=== PATIENT | female | born 1985 | race Hispanic/Latino ===

== ENCOUNTER 2018-01-07 00:40 | Emergency (ER) | payer OTHER ==
[2018-01-07 01:56] LABS: Urine Blood 1+ (NEG); Urine Glucose NEGATIVE (NEG); Urine Protein NEGATIVE (NEG); Urine pH 6.5 (5.0-7.0)
[2018-01-07] MEDS ORDERED: DIAZEPAM 10 MG/2 ML INJ SYRINGE ONE (02:23)
[2018-01-07 02:39] LABS: Absolute Monocytes 0.5 K/uL (0.1-1.3); Absolute Neutrophil 6.4 K/uL (1.8-8.0); Basophils % 1.2 % (0-1.3); Hematocrit 37.3 % (36.0-45.0); Lymphocytes % 35.8 % (15.3-44.8); MCH 28.5 pg (27.0-35.0); MCV 83.9 fL (80-100); MPV 8.6 fL (7.6-11.3); Monocytes % 4.1 % (3.3-12.3); RBC Red Blood Cell Count 4.45 M/uL (3.86-4.86)
[2018-01-07 02:42] LABS: Bicarbonate 24 mEq/L (21-31); Glucose Level 93 mg/dL (65-120); Potassium 3.2 mEq/L (3.6-5.0); Sodium Level 135 mEq/L (135-145)
[2018-01-07 02:43] LABS: BUN Blood Urea Nitrogen 17 mg/dL (6-20)
--- NOTE | 2018-01-07 03:55 | ER ---
Nurse's Notes [facility] Name: Leena Muniz Age: 32 yrs Sex: Female : 1985 Arrival Date: 01/07/2018 Time: 00:41 Bed 27 Private MD: Diagnosis: Low back pain;Muscle spasm of back;Cholelithiasis Presentation: 01/07 00:58 Presenting complaint: Patient states: Pt. c/o left side flank pain... has had back pain rk2 x 1 month; however, on Friday pain moved into left side. Denies painful urination. LMP 01/02/10. Denies trauma. Transition of care: patient was not received from another setting of care. Onset of symptoms was January 02, 2018. Risk Assessment: Do you want to hurt yourself or someone else? Patient reports no desire to harm self or others. Initial Sepsis Screen: Does the patient meet any 2 criteria? No. Patient's initial sepsis screen is negative. Does the patient have a suspected source of infection? No. Patient's initial sepsis screen is negative. Care prior to arrival: None. 00:58 Method Of Arrival: Ambulatory rk2 00:58 Acuity: ALEE 3 rk2 Triage Assessment: 02:45 General: Appears distressed, uncomfortable, obese, Behavior is cooperative, appropriate mb3 for age, crying. Pain: Complains of pain in low back area and left low back. 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 - Social history:: Smoking status: Patient/guardian denies using tobacco, the patient reports quitting approximately 8 years ago. - Ebola Screening: : Patient negative for fever greater than or equal to 101.5 degrees Fahrenheit, and additional compatible Ebola Virus Disease symptoms. Screenin:44 Abuse screen: Denies threats or abuse. Nutritional screening: No deficits noted. mb3 Tuberculosis screening: No symptoms or risk factors identified. Fall Risk None identified. Assessment: 03:49 General: Appears in no apparent distress. obese, Behavior is calm, cooperative. Neuro: bb Level of Consciousness is awake, alert, obeys commands, Oriented to person, place, time, situation. Cardiovascular: No deficits noted. Respiratory: Respiratory effort is even, unlabored. GI: Abdomen is obese. : No signs and/or symptoms were reported regarding the genitourinary system. Derm: Skin is pink, warm \T\ dry. Musculoskeletal: Circulation, motion, and sensation intact. Reports pain in low back area. 04:07 Reassessment: Patient and/or family updated on plan of care and expected duration. Pain bb level reassessed. Patient is alert, oriented x 3, equal unlabored respirations, skin warm/dry/pink. pt states pain has improved now /10, verbalized understanding of and agrees to plan of care discharge instructions given pt ambulated with steady gait to exit accompanied by family Patient states feeling better. Vital Signs: 01:00 BP 177 / 104; Pulse 80; Resp 19; Temp 98.1; Pulse Ox 97% on R/A; rk2 01:15 BP 115 / 82; Pulse 72; Resp 16; Pulse Ox 98% ; mb3 01:15 BP 137 / 67; Pulse 73; Resp 16; Pulse Ox 100% on R/A; Pain 2/10; mb3 03:49 BP 101 / 69; Pulse 74; Resp 16 S; Temp 98.2; Pulse Ox 98% on R/A; bb ED Course: 00:41 Patient arrived in ED. am2 00:52 Luis Callaway, RN is Primary Nurse. mb3 01:00 Triage completed. rk2 01:20 Inserted saline lock: 20 gauge in right forearm, using aseptic technique. Blood mb3 collected. 01:29 Xiomy Wilcox FNP-C is PHCP. snw 01:29 Jens Veliz MD is Attending Physician. snw 02:33 CT completed. Patient moved to CT via wheelchair. Patient moved back from CT. cw1 02:35 CT Stone Protocol In Process Unspecified. EDMS 02:44 Patient has correct armband on for positive identification. Bed in low position. Call mb3 light in reach. Side rails up X 1. 02:46 Arm band placed on. mb3 04:06 Chem 7 Sent. bb 04:06 CBC with Diff Sent. bb 04:06 No provider procedures requiring assistance completed. IV discontinued, intact, bb bleeding controlled, No redness/swelling at site. Pressure dressing applied. Administered Medications: 02:25 Drug: Valium 5 mg Route: IVP; Site: right forearm; mb3 02:39 Follow up: Response: No adverse reaction; Pain is decreased mb3 Outcome: 03:55 Discharge ordered by MD. morgan 04:08 Discharged to home ambulatory, with family. sanjuanita 04:08 Condition: stable 04:08 Discharge instructions given to patient, Instructed on discharge instructions, follow up and referral plans. medication usage, Demonstrated understanding of instructions, follow-up care, medications, Prescriptions given X 2. 04:08 Patient left the ED. bb Signatures: Dispatcher [employer] EDMS Xiomy Wilcox, TEXTILE BAG SEWER-C TEXTILE BAG SEWER-Csnw Joan Pickard, RN RN Myriam Benedict cw1 Jannet Kumari am2 Raisa Mckeon, RN RN rk2 Luis Callaway RN RN mb3 Corrections: (The following items were deleted from the chart) 04:07 03:49 BP 101 / 69; Pulse 74bpm; Resp 16bpm; Spontaneous; Pulse Ox 98% RA; sanjuanita gann
--- NOTE | 2018-01-07 03:56 | EDPHYS ---
Physician Documentation [facility] Name: Leena Muniz Age: 32 yrs Sex: Female : 1985 Arrival Date: 01/07/2018 Time: 00:41 Bed 27 Private MD: ED Physician Jens Veliz HPI: 01/07 02:19 This 32 yrs old Female presents to ER via Ambulatory with complaints of Low snw Back Pain. 02:19 The patient presents with pain that is acute, with no known mechanism of injury, and snw decreased range of motion. The symptoms are located in the left low back and left mid back. The pain does not radiate. The problem was sustained from unknown cause. Onset: The symptoms/episode began/occurred suddenly, and became worse and became persistent. Associated signs and symptoms: The patient has no apparent associated signs or symptoms. Severity of symptoms: At their worst the symptoms were severe, in the emergency department the symptoms are unchanged. The patient has not experienced similar symptoms in the past. The patient has not recently seen a physician. Mom and Sister with hx of kidney stones. 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 - Social history:: Smoking status: Patient/guardian denies using tobacco, the patient reports quitting approximately 8 years ago. - Ebola Screening: : Patient negative for fever greater than or equal to 101.5 degrees Fahrenheit, and additional compatible Ebola Virus Disease symptoms. ROS: 02:19 Constitutional: Negative for fever, chills, and weight loss, Eyes: Negative for injury, snw pain, redness, and discharge, ENT: Negative for injury, pain, and discharge, Neck: Negative for injury, pain, and swelling, Cardiovascular: Negative for chest pain, palpitations, and edema, Respiratory: Negative for shortness of breath, cough, wheezing, and pleuritic chest pain, Abdomen/GI: Negative for abdominal pain, nausea, vomiting, diarrhea, and constipation, : Negative for injury, bleeding, discharge, and swelling, MS/Extremity: Negative for injury and deformity, Skin: Negative for injury, rash, and discoloration, Neuro: Negative for headache, weakness, numbness, tingling, and seizure. 02:19 Back: Positive for decreased range of motion, pain at rest, pain with movement, flank pain, on the left. Exam: 02:17 Constitutional: This is a well developed, well nourished patient who is awake, alert, snw and in no acute distress. Head/Face: Normocephalic, atraumatic. Eyes: Pupils equal round and reactive to light, extra-ocular motions intact. Lids and lashes normal. Conjunctiva and sclera are non-icteric and not injected. Cornea within normal limits. Periorbital areas with no swelling, redness, or edema. ENT: Nares patent. No nasal discharge, no septal abnormalities noted. Tympanic membranes are normal and external auditory canals are clear. Oropharynx with no redness, swelling, or masses, exudates, or evidence of obstruction, uvula midline. Mucous membranes moist. Neck: Trachea midline, no thyromegaly or masses palpated, and no cervical lymphadenopathy. Supple, full range of motion without nuchal rigidity, or vertebral point tenderness. No Meningismus. Chest/axilla: Normal chest wall appearance and motion. Nontender with no deformity. No lesions are appreciated. Cardiovascular: Regular rate and rhythm with a normal S1 and S2. No gallops, murmurs, or rubs. Normal PMI, no JVD. No pulse deficits. Respiratory: Lungs have equal breath sounds bilaterally, clear to auscultation and percussion. No rales, rhonchi or wheezes noted. No increased work of breathing, no retractions or nasal flaring. Abdomen/GI: Soft, non-tender, with normal bowel sounds. No distension or tympany. No guarding or rebound. No evidence of tenderness throughout. 02:17 Skin: Warm, dry with normal turgor. Normal color with no rashes, no lesions, and no evidence of cellulitis. MS/ Extremity: Pulses equal, no cyanosis. Neurovascular intact. Full, normal range of motion. Neuro: Awake and alert, GCS 15, oriented to person, place, time, and situation. Cranial nerves II-XII grossly intact. Motor strength 5/5 in all extremities. Sensory grossly intact. Cerebellar exam normal. Normal gait. 02:17 Back: pain, that is moderate, that is severe, of the left low back and left mid back, ROM is painful, with flexion, normal spinal alignment noted, CVA tenderness, that is moderate, is noted on the left, muscle spasm, is appreciated in the left low back and left mid back. Vital Signs: 01:00 BP 177 / 104; Pulse 80; Resp 19; Temp 98.1; Pulse Ox 97% on R/A; rk2 01:15 BP 115 / 82; Pulse 72; Resp 16; Pulse Ox 98% ; mb3 01:15 BP 137 / 67; Pulse 73; Resp 16; Pulse Ox 100% on R/A; Pain 2/10; mb3 03:49 BP 101 / 69; Pulse 74; Resp 16 S; Temp 98.2; Pulse Ox 98% on R/A; bb MDM: 01:39 Patient medically screened. snw 03:59 Data reviewed: vital signs, nurses notes. Data interpreted: Pulse oximetry: on room air snw is 98 %. Interpretation: normal. Counseling: I had a detailed discussion with the patient and/or guardian regarding: the historical points, exam findings, and any diagnostic results supporting the discharge/admit diagnosis, lab results, radiology results, the need for outpatient follow up, to return to the emergency department if symptoms worsen or persist or if there are any questions or concerns that arise at home. Special discussion: Based on the history and exam findings, there is no indication for further emergent testing or inpatient evaluation. I discussed with the patient/guardian the need to see the primary care provider for further evaluation of the symptoms. 01/07 01:22 Order name: Urine Dipstick--Ancillary (enter results); Complete Time: 02:02 2 01/07 01:22 Order name: Urine --Ancillary (enter results); Complete Time: 02:02 rg2 01/07 02:10 Order name: CBC with Diff snw 01/07 02:10 Order name: Chem 7 w 01/07 02:10 Order name: CBC with Automated Diff; Complete Time: 02:51 EDMS 01/07 01:44 Order name: CT Stone Protocol [facility] 01/07 02:10 Order name: Basic Metabolic Panel; Complete Time: 02:51 EDMS Administered Medications: 02:25 Drug: Valium 5 mg Route: IVP; Site: right forearm; mb3 02:39 Follow up: Response: No adverse reaction; Pain is decreased mb3 Disposition: 01/07/18 03:55 Discharged to Home. Impression: Low back pain, Muscle spasm of back, Cholelithiasis. - Condition is Stable. - Discharge Instructions: Back Pain, Adult, Fat and Cholesterol Restricted Diet, Muscle Cramps and Spasms, Musculoskeletal Pain, Cholelithiasis, Back Injury Prevention, [id number], Back Exercises, [id number], Cryotherapy, Heat Therapy. - Prescriptions for Diclofenac Sodium 75 mg Oral Tablet Sustained Release - take 1 tablet by ORAL route 2 times per day; 30 tablet. orphenadrine citrate 100 mg Oral Tablet Sustained Release - take 1 tablet by ORAL route 2 times per day As needed; 20 tablet. - Work release form, Family Work Release, Medication Reconciliation Form, Thank You Letter, Antibiotic Education, Prescription Opioid Use form. - Follow up: Private Physician; When: 1 - 2 days; Reason: Recheck today's complaints, Continuance of care, Re-evaluation by your physician. Follow up: Emergency Department; When: As needed; Reason: Worsening of condition. Addendum: 01/08/2018 06:59 Co-signature as Attending Physician, Jens Veliz MD I agree with the assessment and c duque plan of care. Signatures: Dispatcher [employer] EDJens Cheng MD MD cha Therrien, Shelly, OPERATIONS AND MAINTENANCE MANAGER-C OPERATIONS AND MAINTENANCE MANAGER-Csnw Joan Pickard, RN RN bb Raisa Mckeon RN RN rk2 Luis Callaway RN RN mb3 Corrections: (The following items were deleted from the chart) 01/07 04:08 03:55 01/07/2018 03:55 Discharged to Home. Impression: Low back pain; Muscle spasm of bb back; Cholelithiasis. Condition is Stable. Forms are Medication Reconciliation Form, Thank You Letter, Antibiotic Education, Prescription Opioid Use. Follow up: Private Physician; When: 1 - 2 days; Reason: Recheck today's complaints, Continuance of care, Re-evaluation by your physician. Follow up: Emergency Department; When: As needed; Reason: Worsening of condition. snw
[2018-01-07 04:15] VITALS: BP 101/69; TEMP 98.2; O2SAT 98
--- NOTE | 2018-01-07 08:57 | RAD REPORT ---
EXAM DESCRIPTION: CT - Stone Protocol - 01/07/2018 6:07 am CLINICAL HISTORY: Flank pain. COMPARISON: None. TECHNIQUE: Axial images were obtained without oral or IV contrast. Lack of contrast limits solid org an and vascular assessment. The [id number] spans the entirety of the system partially obscuring uppermost abdomen and lung bases. Coronal reformatted images were obtained and reviewed. All CT scans are performed using dose optimization technique as appropriate and may include automated exposure control or mA/KV adjustment according to patient size. FINDINGS: The lower lung patel are clear. Imaged portions of the liver and spleen show no suspicious findings on non-contrast imaging.Cholelith iasis The pancreas and adrenal glands are normal. No pathologic lymphadenopathy in the abdomen or pel vis. No urinary tract stones or obstructive uropathy. No bowel obstruction, free air, free fluid or abscess. Normal appendix noted. No significant bony abnormality. IMPRESSION: Cholelithiasis.
== END 2018-01-07 04:08 | disposition home or self-care (01) ==
LOC: ER 00:40
DX: K80.20 Calculus of gallbladder without cholecystitis without obstruction (principal); M62.830 Muscle spasm of back; Z88.0 Allergy status to penicillin
CPT/HCPCS: 36415; 74176; 76377; 80048; 81003; 81025; 85025; 96374; 99284; J3360

== ENCOUNTER 2018-03-07 12:14 | Emergency (ER) | payer OTHER ==
[2018-03-07 13:29] LABS: Absolute Lymphocytes (CBC) 2.4 K/uL (0.7-4.9); Absolute Monocytes 0.6 K/uL (0.1-1.3); Absolute Neutrophil 9.1 K/uL (1.8-8.0); Basophils % 0.7 % (0-1.3); Eosinophils % 0.8 % (0-4.4); Hematocrit 39.6 % (36.0-45.0); Lymphocytes % 19.3 % (15.3-44.8); MCH 28.9 pg (27.0-35.0); MCV 84.5 fL (80-100); MPV 7.8 fL (7.6-11.3); Monocytes % 4.8 % (3.3-12.3); RBC Red Blood Cell Count 4.69 M/uL (3.86-4.86)
[2018-03-07 13:33] LABS: Protime INR 0.92
[2018-03-07] MEDS ORDERED: LORazepam 2 MG/ML VIAL ONE (13:43)
[2018-03-07 13:46] LABS: Magnesium 2.1 mg/dL (1.8-2.4); Potassium 3.7 mmol/L (3.5-5.1)
--- NOTE | 2018-03-07 14:17 | RAD REPORT ---
EXAM DESCRIPTION: Noa Single View03/07/2018 2:03 pm CLINICAL HISTORY: Chest pain COMPARISON: 2016 FINDINGS: The lungs appear clear of acute infiltrate. The heart is normal size IMPRESSION: No acute abnormalities displayed
--- NOTE | 2018-03-07 15:03 | ER ---
Nurse's Notes [facility] Name: Leena Muniz Age: 32 yrs Sex: Female : 1985 Arrival Date: 03/07/2018 Time: 12:17 Bed 15 Private MD: None, None Diagnosis: Panic disorder [episodic paroxysmal anxiety] without agoraphobia Presentation: 03/07 12:33 Presenting complaint: Patient states: feeling very anxious, CP X 2 weeks, intermittent, iw this morning felt very anxious and sweaty, dizzy, SOB, neck and right arm started hurting, feels like a lot of tension, felt like she had a panic attack. Transition of care: patient was not received from another setting of care. Onset of symptoms was March 07, 2018. Risk Assessment: Do you want to hurt yourself or someone else? Patient reports no desire to harm self or others. Initial Sepsis Screen: Does the patient meet any 2 criteria? No. Patient's initial sepsis screen is negative. Does the patient have a suspected source of infection? No. Patient's initial sepsis screen is negative. Care prior to arrival: None. 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 - Social history:: Smoking status: Patient/guardian denies using tobacco. - Ebola Screening: : Patient negative for fever greater than or equal to 101.5 degrees Fahrenheit, and additional compatible Ebola Virus Disease symptoms Patient denies exposure to infectious person Patient denies travel to an Ebola-affected area in the 21 days before illness onset No symptoms or risks identified at this time. Screenin:23 Abuse screen: Denies threats or abuse. Denies injuries from another. Nutritional aj screening: No deficits noted. Tuberculosis screening: No symptoms or risk factors identified. Fall Risk None identified. Assessment: 13:23 General: Appears in no apparent distress. comfortable, Behavior is cooperative, aj appropriate for age, anxious. Pain: Complains of pain in chest. Neuro: Level of Consciousness is awake, alert, obeys commands, Oriented to person, place, time, situation, Appropriate for age. Cardiovascular: Capillary refill < 3 seconds in bilateral fingers Patient's skin is warm and dry. Cardiovascular: Respiratory: Airway is patent Respiratory effort is even, unlabored, Respiratory pattern is regular, symmetrical. GI: No signs and/or symptoms were reported involving the gastrointestinal system. Abdomen is obese. Derm: Skin is intact, is healthy with good turgor, Skin is pink, warm \T\ dry. normal. 15:17 Reassessment: Patient appears in no apparent distress at this time. No changes from aj previously documented assessment. Patient and/or family updated on plan of care and expected duration. Pain level reassessed. Patient is alert, oriented x 3, equal unlabored respirations, skin warm/dry/pink. Patient states feeling better. Patient states symptoms have improved. Vital Signs: 12:35 BP 143 / 110; Pulse 88; Resp 18; Temp 98.2; Pulse Ox 99% ; Weight 95.25 kg; Height 5 iw ft. (152.40 cm); Pain 9/10; 14:45 BP 118 / 82; Pulse 76; Resp 17; Pulse Ox 96% on R/A; aj 12:35 Body Mass Index 41.01 (95.25 kg, 152.40 cm) iw ED Course: 12:17 Patient arrived in ED. mr 12:17 None, None is Private Physician. mr 12:35 Triage completed. iw 12:36 Arm band placed on. iw 12:43 Jannet Perez, RN is Primary Nurse. aj 12:56 Dwayne Head PA is PHCP. jr8 12:56 Jose Paiz MD is Attending Physician. jr8 13:23 Patient has correct armband on for positive identification. Bed in low position. Adult aj w/ patient. Pulse ox on. NIBP on. 13:23 Inserted saline lock: 20 gauge in right antecubital area, using aseptic technique. aj Blood collected. 13:51 EKG done, by ED staff, reviewed by Dwayne FORMAN. jb1 13:58 X-ray completed. Portable x-ray completed in exam room. Patient tolerated procedure la2 well. 14:03 XRAY Chest (1 view) In Process Unspecified. EDMS 14:45 No provider procedures requiring assistance completed. Patient maintains SpO2 aj saturation greater than 95% on room air. 15:17 IV discontinued, intact, bleeding controlled, No redness/swelling at site. Pressure aj dressing applied. Administered Medications: 13:43 Drug: Ativan 1 mg Route: IVP; Site: right antecubital; aj 14:28 Follow up: Response: Anxiety decreased aj Outcome: 15:02 Discharge ordered by MD. baker 15:17 Discharged to home ambulatory, with friend. aj 15:17 Condition: good 15:17 Discharge instructions given to patient, Instructed on discharge instructions, follow up and referral plans. medication usage, Demonstrated understanding of instructions, follow-up care, medications, Prescriptions given X 1. 15:19 Patient left the ED. aj Signatures: Dispatcher [employer] EDBhavik Yeager jb1 Jannet Perez RN RN aj Rivera, Maria mr Williams, Irene, RN RN iw Roszak, Josh, PA PA jr8 Shelia Ross2
--- NOTE | 2018-03-07 15:03 | EDPHYS ---
Physician Documentation [facility] Name: Leena Muniz Age: 32 yrs Sex: Female : 1985 Arrival Date: 03/07/2018 Time: 12:17 Bed 15 Private MD: None, None ED Physician Jose Paiz HPI: 03/07 14:43 This 32 yrs old Female presents to ER via Wheelchair with complaints of Chest jr8 Pain, Dizziness. 14:43 Onset: The symptoms/episode began/occurred acutely, today. Associated signs and jr8 symptoms: Pertinent positives: nausea, numbness, tingling, anxiety. The patient has not experienced similar symptoms in the past. The patient has not recently seen a physician. Patient stated that she had bad news given to her the other day. Has been stressed since then. Today had bad anxiety. Started to have chest pain, shortness of breath, numbness of lips, and nausea. Thinks she had panic attack. 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 - Social history:: Smoking status: Patient/guardian denies using tobacco. - Ebola Screening: : Patient negative for fever greater than or equal to 101.5 degrees Fahrenheit, and additional compatible Ebola Virus Disease symptoms Patient denies exposure to infectious person Patient denies travel to an Ebola-affected area in the 21 days before illness onset No symptoms or risks identified at this time. ROS: 14:43 Eyes: Negative for injury, pain, redness, and discharge, ENT: Negative for injury, jr8 pain, and discharge, Neck: Negative for injury, pain, and swelling, Back: Negative for injury and pain, MS/Extremity: Negative for injury and deformity, Skin: Negative for injury, rash, and discoloration. 14:43 Cardiovascular: Positive for chest pain, Negative for edema, orthopnea, palpitations, paroxysmal nocturnal dyspnea. 14:43 Respiratory: Positive for shortness of breath, Negative for cough, dyspnea on exertion, hemoptysis, orthopnea, pleurisy, sputum production, wheezing. 14:43 Abdomen/GI: Positive for nausea, Negative for abdominal pain, vomiting, diarrhea, abdominal distension, anorexia, dysphagia, hematemesis, black/tarry stool, rectal pain, rectal bleeding, bowel incontinence, flatulence. 14:43 Neuro: Positive for numbness, tingling. 14:43 Psych: Positive for anxiety. Exam: 14:43 Eyes: Pupils equal round and reactive to light, extra-ocular motions intact. Lids and jr8 lashes normal. Conjunctiva and sclera are non-icteric and not injected. Cornea within normal limits. Periorbital areas with no swelling, redness, or edema. ENT: Nares patent. No nasal discharge, no septal abnormalities noted. Tympanic membranes are normal and external auditory canals are clear. Oropharynx with no redness, swelling, or masses, exudates, or evidence of obstruction, uvula midline. Mucous membranes moist. Neck: Trachea midline, no thyromegaly or masses palpated, and no cervical lymphadenopathy. Supple, full range of motion without nuchal rigidity, or vertebral point tenderness. No Meningismus. Cardiovascular: Regular rate and rhythm with a normal S1 and S2. No gallops, murmurs, or rubs. Normal PMI, no JVD. No pulse deficits. Respiratory: Lungs have equal breath sounds bilaterally, clear to auscultation and percussion. No rales, rhonchi or wheezes noted. No increased work of breathing, no retractions or nasal flaring. Abdomen/GI: Soft, non-tender, with normal bowel sounds. No distension or tympany. No guarding or rebound. No evidence of tenderness throughout. Back: No spinal tenderness. No costovertebral tenderness. Full range of motion. Skin: Warm, dry with normal turgor. Normal color with no rashes, no lesions, and no evidence of cellulitis. MS/ Extremity: Pulses equal, no cyanosis. Neurovascular intact. Full, normal range of motion. Neuro: Awake and alert, GCS 15, oriented to person, place, time, and situation. Cranial nerves II-XII grossly intact. Motor strength 5/5 in all extremities. Sensory grossly intact. Cerebellar exam normal. Normal gait. 14:43 Psych: Behavior/mood is anxious, Affect is calm, Oriented to person, place, time, Patient has no thoughts/intents to harm self or others. Judgement / Insight is normal. Memory is normal. Delusions/hallucinations are not present. Vital Signs: 12:35 BP 143 / 110; Pulse 88; Resp 18; Temp 98.2; Pulse Ox 99% ; Weight 95.25 kg; Height 5 iw ft. (152.40 cm); Pain 9/10; 14:45 BP 118 / 82; Pulse 76; Resp 17; Pulse Ox 96% on R/A; aj 12:35 Body Mass Index 41.01 (95.25 kg, 152.40 cm) iw MDM: 12:56 Patient medically screened. [facility] 14:43 Data reviewed: vital signs, nurses notes, lab test result(s), EKG, radiologic studies, jr plain films, and as a result, I will discharge patient. Data interpreted: Pulse oximetry: on room air is 96 %. Interpretation: normal. Counseling: I had a detailed discussion with the patient and/or guardian regarding: the historical points, exam findings, and any diagnostic results supporting the discharge/admit diagnosis, lab results, radiology results, the need for outpatient follow up, a family practitioner, to return to the emergency department if symptoms worsen or persist or if there are any questions or concerns that arise at home. Response to treatment: the patient's symptoms have resolved after treatment, and as a result, I will discharge patient. 03/07 12:56 Order name: Basic Metabolic Panel; Complete Time: 14:03 [facility] 03/07 12:56 Order name: CBC with Diff; Complete Time: 13:33 [facility] 03/07 12:56 Order name: Magnesium; Complete Time: 14:03 [facility] 03/07 12:56 Order name: NT PRO-BNP; Complete Time: 14:03 [facility] 03/07 12:56 Order name: PT-INR; Complete Time: 13:35 [facility] 03/07 12:56 Order name: Troponin (emerg Dept Use Only); Complete Time: 14:03 [facility] 03/07 12:56 Order name: Urine Test (obtain specimen) [facility] 03/07 12:56 Order name: XRAY Chest (1 view); Complete Time: 14:27 [facility] 03/07 12:56 Order name: EKG; Complete Time: 12:57 [facility] 03/07 12:56 Order name: Cardiac monitoring; Complete Time: 13:25 [facility] 03/07 12:56 Order name: EKG - Nurse/Tech; Complete Time: 14:47 03/07 12:56 Order name: IV Saline Lock; Complete Time: 13:25 03/07 12:56 Order name: Labs collected and sent; Complete Time: 13:25 03/07 12:56 Order name: O2 Per Protocol; Complete Time: 13:25 03/07 12:56 Order name: O2 Sat Monitoring; Complete Time: 13: Administered Medications: 13:43 Drug: Ativan 1 mg Route: IVP; Site: right antecubital; aj 14:28 Follow up: Response: Anxiety decreased aj Disposition: 16:12 Co-signature as Attending Physician, Jose Paiz MD. rn Disposition: 03/07/18 15:02 Discharged to Home. Impression: Panic disorder [episodic paroxysmal anxiety] without agoraphobia. - Condition is Stable. - Discharge Instructions: Panic Attacks. - Prescriptions for Hydroxyzine HCl 50 mg Oral Tablet - take 1 tablet by ORAL route every 8 hours As needed; 20 tablet. - Medication Reconciliation Form, Thank You Letter, Antibiotic Education, Prescription Opioid Use form. - Follow up: Private Physician; When: 5 - 6 days; Reason: Recheck today's complaints, Continuance of care, Re-evaluation by your physician. - Problem is new. - Symptoms have improved. Signatures: Dispatcher [employer] EDJannet Kaiser RN RN aj Williams, Irene, RN RN iw Nieto, Roman, MD MD rn Roszak, Josh, PA PA jr8 Corrections: (The following items were deleted from the chart) 15:19 15:02 03/07/2018 15:02 Discharged to Home. Impression: Panic disorder [episodic aj paroxysmal anxiety] without agoraphobia. Condition is Stable. Forms are Medication Reconciliation Form, Thank You Letter, Antibiotic Education, Prescription Opioid Use. Follow up: Private Physician; When: 5 - 6 days; Reason: Recheck today's complaints, Continuance of care, Re-evaluation by your physician. Problem is new. Symptoms have improved. 8
[2018-03-07 15:23] VITALS: TEMP 98.2
[2018-03-07 15:24] VITALS: BP 118/82; O2SAT 96
--- NOTE | 2018-03-09 07:45 | EKG ---
Test Date: 2018-03-07 Test Time: 13:49:33 Work Ticket Distributor: MB MEASUREMENT RESULTS: Intervals: Rate: 69 [place]: 144 QRSD: 76 QT: 404 QTc: 432 [place]: P: 13 OH: 144 QRS: 38 T: 22 INTERPRETIVE STATEMENTS: Normal sinus rhythm Normal ECG Compared to ECG 06/14/2016 19:30:35 No significant changes Electronically Signed On 03-09-18 07:44:52 CDT by Ben Beauchamp
== END 2018-03-07 15:19 | disposition home or self-care (01) ==
LOC: ER 12:14
DX: F41.0 Panic disorder [episodic paroxysmal anxiety] (principal); Z88.0 Allergy status to penicillin
CPT/HCPCS: 36415; 71045; 80048; 83735; 83880; 84484; 85025; 85610; 93005; 96374; 99284

== ENCOUNTER 2019-03-07 02:43 | Emergency (ER) | payer OTHER, SELFPAY ==
[2019-03-07] MEDS ORDERED: ONDANSETRON 4 MG/2 ML VIAL ONE (03:37)
[2019-03-07] MEDS ORDERED: NA CHLORIDE 0.9% 1,000 ML ONE (04:08)
[2019-03-07 04:13] LABS: Absolute Lymphocytes (CBC) 3.1 K/uL (0.7-4.9); Basophils % 0.6 % (0-1.3); Eosinophils % 1.1 % (0-4.4); Hematocrit 39.1 % (36.0-45.0); Lymphocytes % 24.3 % (15.3-44.8); MPV 8.5 fL (7.6-11.3); Monocytes % 4.5 % (3.3-12.3); RBC Red Blood Cell Count 4.61 M/uL (3.86-4.86)
[2019-03-07 04:34] LABS: Albumin 3.7 g/dL (3.4-5.0); Bilirubin Direct 0.1 mg/dL (0-0.2); Bilirubin Total 0.4 mg/dL (0.2-1.0); Potassium 4.1 mmol/L (3.5-5.1); Protein, Total 8.1 g/dL (6.4-8.2)
[2019-03-07 04:34] LABS: Urine Blood 2+ (NEG); Urine Glucose NEGATIVE (NEG); Urine Protein NEGATIVE (NEG); Urine Specific Gravity >1.030 (1.005-1.030)
[2019-03-07] MEDS ORDERED: MAGNE/ALUM HYDROXD 30 ML UCUP ONE (04:51)
[2019-03-07] MEDS ORDERED: LIDOCAINE VISCOUS 2% SOLN 15 ML UDC ONE (04:51)
[2019-03-07] MEDS ORDERED: PANTOPRAZOLE 40 MG INJ ONE (04:51)
--- NOTE | 2019-03-07 05:24 | ER ---
Nurse's Notes [facility] Name: Leena Muniz Age: 33 yrs Sex: Female : 1985 Arrival Date: 03/07/2019 Time: 02:44 Bed 5 Private MD: Diagnosis: Nausea with vomiting, unspecified;Gastritis, unspecified, without bleeding Presentation: 03/07 04:00 Presenting complaint: Patient states: Pt reports abdominal pain that radiates to her ea back, reports it started last night around 9 PM and progressively got worse. Transition of care: patient was not received from another setting of care. Onset of symptoms was March 07, 2019. Risk Assessment: Do you want to hurt yourself or someone else? Patient reports no desire to harm self or others. Initial Sepsis Screen: Does the patient meet any 2 criteria? No. Patient's initial sepsis screen is negative. Does the patient have a suspected source of infection? No. Patient's initial sepsis screen is negative. Care prior to arrival: None. 04:00 Acuity: ALEE 3 ea 04:00 Method Of Arrival: Ambulatory ea Triage Assessment: 04:00 General: Appears uncomfortable, Behavior is appropriate for age. Pain: Complains of ea pain in abdomen. Neuro: Level of Consciousness is awake, alert, obeys commands, Oriented to person, place, time, situation. GI: Reports nausea, vomiting, since 2100. 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 - Social history:: Smoking status: Patient/guardian denies using tobacco. - Ebola Screening: : No symptoms or risks identified at this time. Screenin:59 Abuse screen: Denies threats or abuse. Nutritional screening: No deficits noted. ea Tuberculosis screening: No symptoms or risk factors identified. Fall Risk IV access (20 points). Assessment: 04:06 General: Appears uncomfortable, Behavior is appropriate for age. Pain: Complains of ea pain in abdomen. Neuro: Level of Consciousness is awake, alert, obeys commands, Oriented to person, place, time, situation. Cardiovascular: Patient's skin is warm and dry. Respiratory: Airway is patent Respiratory effort is even, unlabored, Respiratory pattern is regular, symmetrical. GI: Abdomen is non-distended, obese, Bowel sounds present X 4 quads. Abd is soft and non tender X 4 quads. Derm: Skin is dry, Skin is pale, Skin temperature is warm. 05:34 Reassessment: Patient is alert, oriented x 3, equal unlabored respirations, skin bb warm/dry/pink. pt verbalized understanding of and agrees to plan of care discharge instructions given pt ambulated with steady gait to exit accompanied by family Patient states feeling better. Vital Signs: 03:17 BP 156 / 86; Pulse 89; Resp 18; Temp 98.3; Pulse Ox 100% on R/A; Weight 90.72 kg; ea Height 4 ft. 11 in. (149.86 cm); Pain 8/10; 05:35 BP 124 / 85; Pulse 70; Resp 16 S; Temp 98.2(O); Pulse Ox 97% ; bb 03:17 Body Mass Index 40.39 (90.72 kg, 149.86 cm) ea ED Course: 02:44 Patient arrived in ED. am2 03:04 Migel Rico MD is Attending Physician. tw4 03:19 Adrienne Thorpe, TANA is Primary Nurse. ea 03:20 Patient has correct armband on for positive identification. Placed in gown. Bed in low ea position. Call light in reach. 03:20 Patient placed in an exam room, on a stretcher, on pulse oximetry. ea 03:58 Inserted saline lock: 24 gauge in right hand, using aseptic technique. Blood collected. ea 04:04 Triage completed. ea 05:35 No provider procedures requiring assistance completed. IV discontinued, intact, bb bleeding controlled, No redness/swelling at site. Pressure dressing applied. Administered Medications: 04:00 Drug: NS 0.9% 1000 ml Route: IV; Rate: 1 bolus; Site: right hand; ea 05:34 Follow up: IV Status: Completed infusion; IV Intake: 900ml bb 04:06 Drug: Zofran 4 mg Route: IVP; Site: right hand; ea 05:33 Follow up: Response: No adverse reaction bb 04:40 Drug: ProTONIX 40 mg Route: IVP; Site: right antecubital; shaun 05:33 Follow up: Response: No adverse reaction bb 05:00 Drug: GI Cocktail without - (Maalox Suspension 30 ml, Lidocaine Liquid 2 % 15 cc3 ml) Route: PO; 05:33 Follow up: Response: No adverse reaction; Marked relief of symptoms bb Intake: 05:34 IV: 900ml; Total: 900ml. bb Outcome: 05:23 Discharge ordered by MD. saldana 05:35 Discharged to home ambulatory, with family. bb 05:35 Condition: stable 05:35 Discharge instructions given to patient, Instructed on discharge instructions, follow up and referral plans. medication usage, Demonstrated understanding of instructions, follow-up care, medications, Prescriptions given X 3. 05:36 Patient left the ED. bb Signatures: Joan Pickard, RN RN Jannet Parrish am2 Adrienne Thorpe, RN RN Migel Castillo MD MD tw4 Emani Rapheal cc3
--- NOTE | 2019-03-07 05:25 | EDPHYS ---
Physician Documentation [facility] Name: Leena Muniz Age: 33 yrs Sex: Female : 1985 Arrival Date: 03/07/2019 Time: 02:44 Bed 5 Private MD: ED Physician Migel Rico HPI: 03/07 04:37 This 33 yrs old Female presents to ER via Ambulatory with complaints of tw4 Abdominal Pain, Vomiting. 04:37 The patient presents to the emergency department with nausea, vomiting, abdominal pain, tw4 of the epigastric area. Onset: The symptoms/episode began/occurred 4 hour(s) ago. Possible causes: bad food exposure, fajita meat. The symptoms are aggravated by nothing. The symptoms are alleviated by nothing. Severity of symptoms: At their worst the symptoms were moderate in the emergency department the symptoms are unchanged. The patient has not experienced similar symptoms in the past. 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 - Social history:: Smoking status: Patient/guardian denies using tobacco. - Ebola Screening: : No symptoms or risks identified at this time. ROS: 05:16 Constitutional: Negative for fever, chills, and weight loss, Eyes: Negative for injury, tw4 pain, redness, and discharge, Cardiovascular: Negative for chest pain, palpitations, and edema, Respiratory: Negative for shortness of breath, cough, wheezing, and pleuritic chest pain, Back: Negative for injury and pain, MS/Extremity: Negative for injury and deformity, Skin: Negative for injury, rash, and discoloration, Neuro: Negative for headache, weakness, numbness, tingling, and seizure. 05:16 Abdomen/GI: Positive for abdominal pain, nausea and vomiting, nausea, vomiting, and diarrhea, Negative for Exam: 05:16 Constitutional: This is a well developed, well nourished patient who is awake, alert, tw4 and in no acute distress. Head/Face: Normocephalic, atraumatic. Chest/axilla: Normal chest wall appearance and motion. Nontender with no deformity. No lesions are appreciated. Cardiovascular: Regular rate and rhythm with a normal S1 and S2. No gallops, murmurs, or rubs. Normal PMI, no JVD. No pulse deficits. Respiratory: Lungs have equal breath sounds bilaterally, clear to auscultation and percussion. No rales, rhonchi or wheezes noted. No increased work of breathing, no retractions or nasal flaring. Back: No spinal tenderness. No costovertebral tenderness. Full range of motion. MS/ Extremity: Pulses equal, no cyanosis. Neurovascular intact. Full, normal range of motion. Neuro: Awake and alert, GCS 15, oriented to person, place, time, and situation. Cranial nerves II-XII grossly intact. Motor strength 5/5 in all extremities. Sensory grossly intact. Cerebellar exam normal. Normal gait. 05:16 Abdomen/GI: Inspection: abdomen appears normal, Bowel sounds: diminished, Palpation: moderate abdominal tenderness, in the epigastric area. Vital Signs: 03:17 BP 156 / 86; Pulse 89; Resp 18; Temp 98.3; Pulse Ox 100% on R/A; Weight 90.72 kg; ea Height 4 ft. 11 in. (149.86 cm); Pain 8/10; 05:35 BP 124 / 85; Pulse 70; Resp 16 S; Temp 98.2(O); Pulse Ox 97% ; bb 03:17 Body Mass Index 40.39 (90.72 kg, 149.86 cm) ea MDM: 03:04 Patient medically screened. tw4 05:16 Differential diagnosis: gastritis. Data reviewed: vital signs, nurses notes. Data tw4 interpreted: Pulse oximetry: Interpretation: normal. Counseling: I had a detailed discussion with the patient and/or guardian regarding: the historical points, exam findings, and any diagnostic results supporting the discharge/admit diagnosis, lab results. Medication response: Zofran relieved the patient's nausea. Response to treatment: the patient's symptoms have markedly improved after treatment, and as a result, I will discharge patient. Special discussion: Based on the patient's Hx, exam, and Dx evaluation, there is no indication for emergent surgery or inpatient Tx. It is understood by the patient/guardian that if the Sx's persist or worsen they need to return immediately for re-evaluation. I discussed with the patient/guardian in detail that at this point there is no indication for admission to the hospital. It is understood, however, that if the symptoms persist or worsen the patient needs to return immediately for re-evaluation. 03/07 03:05 Order name: Basic Metabolic Panel; Complete Time: 04:35 03/07 04:35 Interpretation: Normal except: CL 109; GFR 80. 03/07 03:05 Order name: CBC with Diff; Complete Time: 04:35 03/07 04:36 Interpretation: Normal except: WBC 12.9. 03/07 03:05 Order name: Creatinine for Radiology; Complete Time: 04:36 03/07 04:36 Interpretation: Within normal limits: CRE 0.83; GFR 78. 03/07 03:05 Order name: Hepatic Function; Complete Time: 04:36 03/07 04:36 Interpretation: Normal except: GLOB 4.4; A/G 0.8. 03/07 03:05 Order name: Lipase; Complete Time: 04:36 03/07 04:36 Interpretation: Within normal limits: LIP 135. 03/07 04:16 Order name: Urine Dipstick--Ancillary (enter results); Complete Time: 04:36 03/07 04:36 Interpretation: Normal except: UBLD 2+. 03/07 03:05 Order name: IV Saline Lock; Complete Time: 03:57 03/07 03:05 Order name: Labs collected and sent; Complete Time: 03:57 03/07 03:05 Order name: Urine Dipstick-Ancillary (obtain specimen); Complete Time: 04:05 03/07 04:16 Order name: Urine --Ancillary (enter results) 03/07 03:05 Order name: Urine Test (obtain specimen); Complete Time: 04:05 Administered Medications: 04:00 Drug: NS 0.9% 1000 ml Route: IV; Rate: 1 bolus; Site: right hand; ea 05:34 Follow up: IV Status: Completed infusion; IV Intake: 900ml bb 04:06 Drug: Zofran 4 mg Route: IVP; Site: right hand; ea 05:33 Follow up: Response: No adverse reaction bb 04:40 Drug: ProTONIX 40 mg Route: IVP; Site: right antecubital; ea 05:33 Follow up: Response: No adverse reaction bb 05:00 Drug: GI Cocktail without - (Maalox Suspension 30 ml, Lidocaine Liquid 2 % 15 cc3 ml) Route: PO; 05:33 Follow up: Response: No adverse reaction; Marked relief of symptoms bb Disposition: 03/07/19 05:23 Discharged to Home. Impression: Nausea with vomiting, unspecified, Gastritis, unspecified, without bleeding. - Condition is Stable. - Discharge Instructions: Gastritis, Adult, Nausea and Vomiting, Adult, Gastritis, Adult, [id number]. - Prescriptions for Protonix 40 mg Oral Tablet - take 1 tablet by ORAL route once daily; 30 tablet. Zofran 4 mg Oral Tablet - take 1 tablet by ORAL route every 12 hours As needed; 6 tablet. - Medication Reconciliation Form, Thank You Letter, Antibiotic Education, Prescription Opioid Use form. - Follow up: Private Physician; When: Upon discharge from the Emergency Department; Reason: If symptoms return, Recheck today's complaints, Continuance of care. - Problem is new. - Symptoms have improved. Signatures: Dispatcher [employer] EDMS Joan Pickard RN RN Adrienne Munoz RN RN Migel Castillo MD MD tw4 Emani Raphael cc3 Corrections: (The following items were deleted from the chart) 05:24 05:23 03/07/2019 05:23 Discharged to Home. Impression: Nausea with vomiting, tw4 unspecified; Gastritis, unspecified, without bleeding. Condition is Stable. Forms are Medication Reconciliation Form, Thank You Letter, Antibiotic Education, Prescription Opioid Use. Follow up: Private Physician; When: Upon discharge from the Emergency Department; Reason: If symptoms return, Recheck today's complaints, Continuance of care. tw4 05:36 05:24 03/07/2019 05:23 Discharged to Home. Impression: Nausea with vomiting, bb unspecified; Gastritis, unspecified, without bleeding. Condition is Stable. Forms are Medication Reconciliation Form, Thank You Letter, Antibiotic Education, Prescription Opioid Use. Follow up: Private Physician; When: Upon discharge from the Emergency Department; Reason: If symptoms return, Recheck today's complaints, Continuance of care. Problem is new. Symptoms have improved. tw4
[2019-03-07 06:29] VITALS: BP 124/85; TEMP 98.2; O2SAT 97
== END 2019-03-07 05:36 | disposition home or self-care (01) ==
LOC: ER 02:43
DX: K29.70 Gastritis, unspecified, without bleeding (principal); Z88.0 Allergy status to penicillin
CPT/HCPCS: 36415; 80048; 80076; 81003; 81025; 83690; 85025; 99284; C9113; J2405; J7030

== ENCOUNTER 2019-06-04 00:17 | Emergency (ER) | payer SELFPAY ==
[2019-06-04] MEDS ORDERED: ONDANSETRON 4 MG/2 ML VIAL ONE (01:45)
[2019-06-04] MEDS ORDERED: ASPIRIN 81 MG CHEWABLE TABLET ONE (01:45)
[2019-06-04 01:57] LABS: Absolute Lymphocytes (CBC) 3.5 K/uL (0.7-4.9); Basophils % 0.7 % (0-1.3); Hematocrit 35.9 % (36.0-45.0); Lymphocytes % 44.9 % (15.3-44.8); MPV 8.6 fL (7.6-11.3); Protime INR 0.93; RBC Red Blood Cell Count 4.19 M/uL (3.86-4.86)
[2019-06-04 02:13] LABS: ALT/SGPT 50 U/L (12-78); AST/SGOT 24 U/L (15-37); Albumin 3.5 g/dL (3.4-5.0); Alkaline Phosphatase 97 U/L (45-117); BUN Blood Urea Nitrogen 16 mg/dL (7-18); Bicarbonate 27 mmol/L (21-32); Bilirubin Direct 0.1 mg/dL (0-0.2); Bilirubin Total 0.5 mg/dL (0.2-1.0); Glucose Level 105 mg/dL (74-106); NT PRO-BNP 36 pg/mL (<125); Potassium 3.4 mmol/L (3.5-5.1); Protein, Total 6.8 g/dL (6.4-8.2); Sodium Level 141 mmol/L (136-145); Troponin (Emerg Dept Use Only) < 0.02 ng/mL (0.0-0.045)
--- NOTE | 2019-06-04 02:43 | ER ---
Nurse's Notes [facility] Name: Leena Muniz Age: 33 yrs Sex: Female : 1985 Arrival Date: 06/04/2019 Time: 00:21 Bed 25 Private MD: None, None Diagnosis: Chest pain, unspecified Presentation: 06/04 00:42 Presenting complaint: Patient states: she started having intermittent midsternal chest bb pain with pain to her left arm and nausea, the pain to her left arm is gone now but she is still feeling nauseous. Transition of care: patient was not received from another setting of care. Onset of symptoms was June 03, 2019. Risk Assessment: Do you want to hurt yourself or someone else? Patient reports no desire to harm self or others. Initial Sepsis Screen: Does the patient meet any 2 criteria? No. Patient's initial sepsis screen is negative. Does the patient have a suspected source of infection? No. Patient's initial sepsis screen is negative. Care prior to arrival: None. 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 - Social history:: Smoking status: Patient/guardian denies using tobacco. - Ebola Screening: : No symptoms or risks identified at this time. Screenin:39 Abuse screen: Denies threats or abuse. Nutritional screening: No deficits noted. fu Tuberculosis screening: No symptoms or risk factors identified. Fall Risk None identified. Assessment: 00:50 General: Appears in no apparent distress. comfortable, Behavior is calm, cooperative, fu appropriate for age, Reports midsternal chest pain that radiates to the back. Pain: Complains of pain in midsternal chest Pain radiates to back Pain currently is 7 out of 10 on a pain scale. Quality of pain is described as sharp, Pain began 3 hours ago. Is intermittent. Cardiovascular: Reports chest pain, nausea, Heart tones S1 S2 Capillary refill < 3 seconds Pulses are all present. Respiratory: Airway is patent Breath sounds are clear bilaterally. Denies cough, shortness of breath pain with cough. GI: Bowel sounds present X 4 quads. Abd is soft Reports nausea, Patient currently denies vomiting. Vital Signs: 00:44 BP 105 / 79; Pulse 71; Resp 16 S; Temp 98.8(O); Pulse Ox 100% on R/A; Weight 92.08 kg bb (R); Height 4 ft. 11 in. (149.86 cm) (R); Pain 8/10; 02:15 BP 105 / 69; Pulse 75; Resp 15; Pulse Ox 99% on R/A; Pain 4/10; fu 02:30 BP 103 / 73; Pulse 79; Resp 19; Pulse Ox 99% ; Pain 0/10; fu 00:44 Body Mass Index 41.00 (92.08 kg, 149.86 cm) bb ED Course: 00:21 Patient arrived in ED. es 00:21 None, None is Private Physician. es 00:43 Triage completed. bb 00:44 Arm band placed on Patient placed in an exam room, on a stretcher, on pulse oximetry. bb EKG completed in triage. Results shown to MD. Family accompanied patient. 00:46 Rishi Bright, TANA is Primary Nurse. fu 01:09 Xiomy Wilcox FNP-C is [facility]. snw 01:09 Sam Duran MD is Attending Physician. snw 01:40 XRAY Chest (1 view) In Process Unspecified. EDMS 02:00 blanket, provided. fu 02:00 Initial lab(s) drawn, by me, sent to lab. Inserted saline lock: 22 gauge in right fu antecubital area, using aseptic technique. 02:20 Patient maintains SpO2 saturation greater than 95% on room air. fu 02:39 Patient has correct armband on for positive identification. Bed in low position. Call light in reach. Side rails up X 1. monitoring coordinator on. Pulse ox on. NIBP on. 02:40 Urine collected: clean catch specimen, clear. fu 03:30 IV discontinued, bleeding controlled, Pressure dressing applied. fu Administered Medications: 02:05 Drug: Aspirin Chewable Tablet 324 mg Route: PO; fu 02:38 Follow up: Response: No adverse reaction fu 02:06 Drug: Zofran 4 mg Route: IVP; Site: right forearm; fu 02:38 Follow up: Response: Nausea is decreased fu Outcome: 02:42 Discharge ordered by MD. morgan 03:31 Discharged to home ambulatory. fu 03:31 Condition: stable 03:31 Discharge instructions given to patient, Instructed on discharge instructions, Demonstrated understanding of instructions. 03:31 Patient left the ED. fu Signatures: Dispatcher [employer] EDXiomy Nelson, WILD OYSTER HARVESTER-C WILD OYSTER HARVESTER-Csnw Monique Fair Brenda, RN RN Rishi Street RN RN fu Corrections: (The following items were deleted from the chart) 02:43 02:20 Inserted saline lock: 22 gauge in right antecubital area, using aseptic fu technique. fu 02:43 02:41 Initial lab(s) drawn, by me, sent to lab. fu fu
--- NOTE | 2019-06-04 02:43 | EDPHYS ---
Physician Documentation [facility] Name: Leena Muniz Age: 33 yrs Sex: Female : 1985 Arrival Date: 06/04/2019 Time: 00:21 Bed 25 Private MD: None, None ED Physician Sam Duran HPI: 06/04 01:38 This 33 yrs old Female presents to ER via Ambulatory with complaints of Chest snw Pain. 01:38 The patient or guardian reports chest pain that is located primarily in the anterior snw chest wall, left. The pain radiates to the left shoulder, left neck, left back. Associated signs and symptoms: Pertinent positives: diaphoresis, nausea. The chest pain is described as clutching. Duration: The patient or guardian reports a single episode, yesterday "all day", when it was over I just felt tired. Today pt had pinprick type pain to central chest. Modifying factors: The symptoms are alleviated by nothing. the symptoms are aggravated by nothing. Severity of pain: At its worst the pain was severe. The patient has not experienced similar symptoms in the past. The patient has not recently seen a physician. no family hx, denies htn, dm. nonsmoker. 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 - Social history:: Smoking status: Patient/guardian denies using tobacco. - Ebola Screening: : No symptoms or risks identified at this time. ROS: 01:36 Constitutional: Negative for fever, chills, and weight loss, Eyes: Negative for injury, snw pain, redness, and discharge, ENT: Negative for injury, pain, and discharge, Neck: Negative for injury, pain, and swelling. 01:36 : Negative for injury, bleeding, discharge, and swelling, MS/Extremity: Negative for injury and deformity. 01:36 Neuro: Negative for headache, weakness, numbness, tingling, and seizure, Psych: Negative for depression, anxiety, suicide ideation, homicidal ideation, and hallucinations. 01:36 Cardiovascular: Positive for chest pain, palpitations. 01:36 Respiratory: Positive for shortness of breath. 01:36 Abdomen/GI: Positive for nausea. 01:36 Back: Positive for radiated pain. 01:36 Skin: Positive for diaphoresis. Exam: 01:36 Constitutional: This is a well developed, well nourished patient who is awake, alert, snw and in no acute distress. Head/Face: Normocephalic, atraumatic. Eyes: Pupils equal round and reactive to light, extra-ocular motions intact. Lids and lashes normal. Conjunctiva and sclera are non-icteric and not injected. Cornea within normal limits. Periorbital areas with no swelling, redness, or edema. ENT: Nares patent. No nasal discharge, no septal abnormalities noted. Tympanic membranes are normal and external auditory canals are clear. Oropharynx with no redness, swelling, or masses, exudates, or evidence of obstruction, uvula midline. Mucous membranes moist. Neck: Trachea midline, no thyromegaly or masses palpated, and no cervical lymphadenopathy. Supple, full range of motion without nuchal rigidity, or vertebral point tenderness. No Meningismus. Chest/axilla: Normal chest wall appearance and motion. Nontender with no deformity. No lesions are appreciated. Cardiovascular: Regular rate and rhythm with a normal S1 and S2. No gallops, murmurs, or rubs. Normal PMI, no JVD. No pulse deficits. Respiratory: Lungs have equal breath sounds bilaterally, clear to auscultation and percussion. No rales, rhonchi or wheezes noted. No increased work of breathing, no retractions or nasal flaring. Abdomen/GI: Soft, non-tender, with normal bowel sounds. No distension or tympany. No guarding or rebound. No evidence of tenderness throughout. Back: No spinal tenderness. No costovertebral tenderness. Full range of motion. Skin: Warm, dry with normal turgor. Normal color with no rashes, no lesions, and no evidence of cellulitis. MS/ Extremity: Pulses equal, no cyanosis. Neurovascular intact. Full, normal range of motion. Neuro: Awake and alert, GCS 15, oriented to person, place, time, and situation. Cranial nerves II-XII grossly intact. Motor strength 5/5 in all extremities. Sensory grossly intact. Cerebellar exam normal. Normal gait. Psych: Awake, alert, with orientation to person, place and time. Behavior, mood, and affect are within normal limits. Vital Signs: 00:44 BP 105 / 79; Pulse 71; Resp 16 S; Temp 98.8(O); Pulse Ox 100% on R/A; Weight 92.08 kg bb (R); Height 4 ft. 11 in. (149.86 cm) (R); Pain 8/10; 02:15 BP 105 / 69; Pulse 75; Resp 15; Pulse Ox 99% on R/A; Pain 4/10; fu 02:30 BP 103 / 73; Pulse 79; Resp 19; Pulse Ox 99% ; Pain 0/10; fu 00:44 Body Mass Index 41.00 (92.08 kg, 149.86 cm) bb MDM: 01:12 Patient medically screened. snw 02:45 ECG:. SILVESTRE Risk Score: 1 - Recent [<24hrs] Severe Angina, TOTAL SCORE = 1. Data snw reviewed: vital signs, nurses notes. 02:47 Data interpreted: Pulse oximetry: on room air is 99 %. Interpretation: normal. snw Counseling: I had a detailed discussion with the patient and/or guardian regarding: the historical points, exam findings, and any diagnostic results supporting the discharge/admit diagnosis, lab results, radiology results, the need for outpatient follow up, to return to the emergency department if symptoms worsen or persist or if there are any questions or concerns that arise at home. Special discussion: Based on the patient's history, exam, and Dx evaluation, there is no indication for emergent intervention or inpatient Tx. It is understood by the patient/guardian that if the Sx's persist or worsen they need to return immediately for re-evaluation. Based on the history and exam findings, there is no indication for further emergent testing or inpatient evaluation. I discussed with the patient/guardian the need to see the computer technology instructor for further evaluation of the symptoms. I discussed with the patient/guardian the need to see the primary care provider for further evaluation of the symptoms. 19:10 ED course: pt allowed to leave ED prior to TSH result as machine in lab was broken. snw Today result is 0.024. Pt contacted and instructed to f/u endocrinology. Pt doing well, will follow up. Encouraged to RTED immediately for any adverse problems. Pt states understanding. 06/04 01:11 Order name: Basic Metabolic Panel; Complete Time: 02:14 w 06/04 01:11 Order name: CBC with Diff; Complete Time: 02:14 w 06/04 01:11 Order name: LFT's; Complete Time: 02:14 w 06/04 01:11 Order name: Magnesium; Complete Time: 02:14 w 06/04 01:11 Order name: NT PRO-BNP; Complete Time: 02:14 w 06/04 01:11 Order name: PT-INR; Complete Time: 02:14 w 06/04 01:11 Order name: Troponin (emerg Dept Use Only); Complete Time: 02:14 w 06/04 01:11 Order name: XRAY Chest (1 view); Complete Time: 18:53 w 06/04 01:11 Order name: Urine Microscopic Only; Complete Time: 18:53 w 06/04 01:17 Order name: TSH; Complete Time: 18:53 [facility] 06/04 02:22 Order name: Urine Dipstick--Ancillary (enter results); Complete Time: 18:53 em 06/04 02:22 Order name: Urine --Ancillary (enter results); Complete Time: 18:53 [facility] 06/04 01:11 Order name: EKG; Complete Time: 01:12 w 06/04 01:11 Order name: Cardiac monitoring [facility] 06/04 01:11 Order name: EKG - Nurse/Tech [facility] 06/04 01:11 Order name: IV Saline Lock; Complete Time: 01:56 [facility] 06/04 01:11 Order name: Labs collected and sent [facility] 06/04 01:11 Order name: O2 Per Protocol [facility] 06/04 01:11 Order name: O2 Sat Monitoring [facility] 06/04 01:11 Order name: Urine Test (obtain specimen); Complete Time: 02:21 [facility] 06/04 01:11 Order name: Urine Dipstick-Ancillary (obtain specimen); Complete Time: 02:21 snw EC:45 Clinical impression: Normal ECG. snw Administered Medications: 02:05 Drug: Aspirin Chewable Tablet 324 mg Route: PO; fu 02:38 Follow up: Response: No adverse reaction fu 02:06 Drug: Zofran 4 mg Route: IVP; Site: right forearm; fu 02:38 Follow up: Response: Nausea is decreased fu Disposition: 06:16 Co-signature as Attending Physician, Sam Duran MD I agree with the assessment and kdr plan of care. Disposition: 06/04/19 02:42 Discharged to Home. Impression: Chest pain, unspecified. - Condition is Stable. - Discharge Instructions: Nonspecific Chest Pain, Intestinal Gas and Gas Pains, Pediatric, Aspirin and Your Heart. - Work release form, Medication Reconciliation Form, Thank You Letter, Antibiotic Education, Prescription Opioid Use form. - Follow up: Private Physician; When: 2 - 3 days; Reason: Recheck today's complaints, Continuance of care, Re-evaluation by your physician. Follow up: Emergency Department; When: As needed; Reason: Worsening of condition. Signatures: Dispatcher [employer] EDWI Sam Duran MD MD [facility] Xiomy Wilcox, FINAL INSPECTION SUPERVISOR-C FINAL INSPECTION SUPERVISOR-Csnw Joan Pickard RN RN Rishi Bright RN RN fu Corrections: (The following items were deleted from the chart) 03:31 02:42 06/04/2019 02:42 Discharged to Home. Impression: Chest pain, unspecified. fu Condition is Stable. Forms are Medication Reconciliation Form, Thank You Letter, Antibiotic Education, Prescription Opioid Use. Follow up: Private Physician; When: 2 - 3 days; Reason: Recheck today's complaints, Continuance of care, Re-evaluation by your physician. Follow up: Emergency Department; When: As needed; Reason: Worsening of condition. snw
[2019-06-04 03:23] LABS: Urine Blood 1+ (NEG); Urine Glucose NEGATIVE (NEG); Urine Protein NEGATIVE (NEG); Urine Specific Gravity 1.025 (1.005-1.030); Urine pH 5.5 (5.0-7.0)
[2019-06-04 03:24] LABS: Urine Bacteria <20 /HPF (<20); Urine Culture Reflex Order NOT NEEDED; Urine RBC <5 /HPF (NONE SEEN)
[2019-06-04 04:36] VITALS: TEMP 98.8
[2019-06-04 04:37] VITALS: O2SAT 99
[2019-06-04 04:38] VITALS: BP 103/73
--- NOTE | 2019-06-04 07:43 | RAD REPORT ---
EXAM DESCRIPTION: Noa Single View06/04/2019 1:40 am CLINICAL HISTORY: Chest pain COMPARISON: 2018 FINDINGS: The lungs appear clear of acute infiltrate. The heart is normal size IMPRESSION: No acute abnormalities displayed
--- NOTE | 2019-06-04 12:54 | EKG ---
Test Date: 2019-06-04 Test Time: 00:35:42 Electronic Gluer: BLB MEASUREMENT RESULTS: Intervals: Rate: 73 MN: 158 QRSD: 78 QT: 378 QTc: 416 [place]: P: 37 MN: 158 QRS: 41 T: 25 INTERPRETIVE STATEMENTS: Normal sinus rhythm Normal ECG Compared to ECG 03/07/2018 13:49:33 No significant changes Electronically Signed On 06-04-19 12:53:07 CDT by Ben Beauchamp
== END 2019-06-04 03:31 | disposition home or self-care (01) ==
LOC: ER 00:17
DX: R07.9 Chest pain, unspecified (principal); Z88.0 Allergy status to penicillin
CPT/HCPCS: 36415; 71045; 80048; 80076; 81003; 81015; 81025; 83735; 83880; 84443; 84484; 85025; 85610; 93005; 96374; 99285; J2405

== ENCOUNTER 2019-10-17 13:59 | Emergency (ER) | payer SELFPAY ==
[2019-10-17] MEDS ORDERED: ONDANSETRON 4 MG/2 ML VIAL ONE (14:47)
[2019-10-17] MEDS ORDERED: NA CHLORIDE 0.9% 1,000 ML ONE (14:48)
[2019-10-17 14:53] LABS: Absolute Lymphocytes (CBC) 3.4 K/uL (0.7-4.9); Basophils % 0.7 % (0-1.3); Hematocrit 39.1 % (36.0-45.0); Lymphocytes % 30.4 % (15.3-44.8); MPV 8.3 fL (7.6-11.3); RBC Red Blood Cell Count 4.62 M/uL (3.86-4.86)
[2019-10-17 15:02] LABS: Protime INR 1.04
--- NOTE | 2019-10-17 15:07 | RAD REPORT ---
EXAM DESCRIPTION: CT - Head Brain Wo Cont - 10/17/2019 2:55 pm CLINICAL HISTORY: SYNCOPE Drowsiness, headache COMPARISON: No comparisons TECHNIQUE: All CT scans are performed using dose optimization technique as appropriate and may inclu de automated exposure control or mA/KV adjustment according to patient size. FINDINGS: No intracranial hemorrhage, hydrocephalus or extra-axial fluid collection.No areas of brai n edema or evidence of midline shift. The paranasal sinuses and mastoids are clear. The calvarium is intact. IMPRESSION: No acute intracranial abnormality.
--- NOTE | 2019-10-17 15:07 | RAD REPORT ---
EXAM DESCRIPTION: RAD - Chest Single View - 10/17/2019 2:48 pm CLINICAL HISTORY: CHEST PAIN Chest pain. COMPARISON: Chest Single View dated 06/04/2019; Chest Single View dated 03/07/2018; Chest Pa And Lat (2 Views) dated 06/14/2016 FINDINGS: Portable technique limits examination quality. Small opacity is seen in the right lower lung field suspicious for mild infiltrate/ developing pneumo carroll. The heart is normal in size. No displaced fractures.
[2019-10-17 15:13] LABS: ALT/SGPT 29 U/L (12-78); AST/SGOT 23 U/L (15-37); Albumin 3.6 g/dL (3.4-5.0); Alkaline Phosphatase 97 U/L (45-117); BUN Blood Urea Nitrogen 8 mg/dL (7-18); Bicarbonate 24 mmol/L (21-32); Bilirubin Direct 0.1 mg/dL (0-0.2); Bilirubin Total 0.4 mg/dL (0.2-1.0); Glucose Level 87 mg/dL (74-106); NT PRO-BNP 65 pg/mL (<125); Potassium 3.3 mmol/L (3.5-5.1); Protein, Total 7.9 g/dL (6.4-8.2); Sodium Level 144 mmol/L (136-145); Troponin (Emerg Dept Use Only) < 0.02 ng/mL (0.0-0.045)
[2019-10-17 15:23] LABS: Arterial Blood Carboxyhemoglob 1.2 % (0-1.5); Blood Gas Oxyhemoglobin 96.2 % (94-97); Blood O2 Saturation 98.3 % (92-98.5)
--- NOTE | 2019-10-17 15:41 | EDPHYS ---
Physician Documentation [facility] Name: Leena Muniz Age: 33 yrs Sex: Female : 1985 Arrival Date: 10/17/2019 Time: 14:01 Bed 5 Private MD: ED Physician Jens Veliz HPI: 10/16 15:02 This 33 yrs old Female presents to ER via Wheelchair with complaints of Chest della Pain, Weakness. 15:02 The patient or guardian reports chest pain that is located primarily in the substernal della area. The pain does not radiate. Associated signs and symptoms: Pertinent positives: near-syncope. The chest pain is described as a pressure. Modifying factors: The symptoms are alleviated by nothing. the symptoms are aggravated by nothing. Severity of pain: At its worst the pain was mild in the emergency department the pain is unchanged. The patient has not experienced similar symptoms in the past. Historical: - Allergies: 14:29 PENICILLINS; iw - Home Meds: 14:29 None [Active]; iw - PMHx: 14:29 None; iw - PSHx: 14:29 None; iw - Family history:: not pertinent. ROS: 15:02 Constitutional: Negative for fever, chills, and weight loss, Eyes: Negative for injury, della pain, redness, and discharge, ENT: Negative for injury, pain, and discharge, Neck: Negative for injury, pain, and swelling, Respiratory: Negative for shortness of breath, cough, wheezing, and pleuritic chest pain, Abdomen/GI: Negative for abdominal pain, nausea, vomiting, diarrhea, and constipation, Back: Negative for injury and pain, : Negative for injury, bleeding, discharge, and swelling, MS/Extremity: Negative for injury and deformity, Skin: Negative for injury, rash, and discoloration, Neuro: Negative for headache, weakness, numbness, tingling, and seizure, Psych: Negative for depression, anxiety, suicide ideation, homicidal ideation, and hallucinations, Allergy/Immunology: Negative for hives, rash, and allergies, Endocrine: Negative for neck swelling, polydipsia, polyuria, polyphagia, and marked weight changes, Hematologic/Lymphatic: Negative for swollen nodes, abnormal bleeding, and unusual bruising. 15:02 Cardiovascular: Positive for chest pain, of the chest. Exam: 15:02 Constitutional: This is a well developed, well nourished patient who is awake, alert, della and in no acute distress. Head/Face: Normocephalic, atraumatic. Eyes: Pupils equal round and reactive to light, extra-ocular motions intact. Lids and lashes normal. Conjunctiva and sclera are non-icteric and not injected. Cornea within normal limits. Periorbital areas with no swelling, redness, or edema. ENT: Nares patent. No nasal discharge, no septal abnormalities noted. Tympanic membranes are normal and external auditory canals are clear. Oropharynx with no redness, swelling, or masses, exudates, or evidence of obstruction, uvula midline. Mucous membranes moist. Neck: Trachea midline, no thyromegaly or masses palpated, and no cervical lymphadenopathy. Supple, full range of motion without nuchal rigidity, or vertebral point tenderness. No Meningismus. Chest/axilla: Normal chest wall appearance and motion. Nontender with no deformity. No lesions are appreciated. Cardiovascular: Regular rate and rhythm with a normal S1 and S2. No gallops, murmurs, or rubs. Normal PMI, no JVD. No pulse deficits. Respiratory: Lungs have equal breath sounds bilaterally, clear to auscultation and percussion. No rales, rhonchi or wheezes noted. No increased work of breathing, no retractions or nasal flaring. Abdomen/GI: Soft, non-tender, with normal bowel sounds. No distension or tympany. No guarding or rebound. No evidence of tenderness throughout. Back: No spinal tenderness. No costovertebral tenderness. Full range of motion. Female : Normal external genitalia. Skin: Warm, dry with normal turgor. Normal color with no rashes, no lesions, and no evidence of cellulitis. MS/ Extremity: Pulses equal, no cyanosis. Neurovascular intact. Full, normal range of motion. Neuro: Awake and alert, GCS 15, oriented to person, place, time, and situation. Cranial nerves II-XII grossly intact. Motor strength 5/5 in all extremities. Sensory grossly intact. Cerebellar exam normal. Normal gait. Psych: Awake, alert, with orientation to person, place and time. Behavior, mood, and affect are within normal limits. 15:02 Musculoskeletal/extremity: Extremities: all appear grossly normal, with no appreciated pain with palpation, ROM: limited active range of motion due to pain, limited passive range of motion due to pain, Circulation is intact in all extremities. Sensation intact. Compartment Syndrome exam of affected extremity: is normal. no pain, no numbness, no tingling, no sensation deficit, no palor, no weak pulses, DVT Exam: no pain, no swelling, no tenderness, negative Homans' sign noted on exam, no appreciated bluish discoloration, no erythema, no increased warmth. 15:35 Neck: ROM/movement: is normal, no acute changes, Meningeal signs: are not present, della Kernig's sign is negative, Brudzinski's sign is negative, nuchal rigidity, is not appreciated. Vital Signs: 14:21 BP 143 / 97; Pulse 91; Resp 16 S; Pulse Ox 99% on R/A; aa5 14:25 BP 162 / 93; Pulse 104; Resp 16 S; Temp 97.8; Pulse Ox 100% on R/A; Weight 117.93 kg; iw Height 4 ft. 11 in. (149.86 cm); 15:30 BP 139 / 84; Pulse 86; Resp 16 S; Pulse Ox 100% ; aa5 16:30 BP 135 / 82; Pulse 85; Resp 18; Pulse Ox 99% on R/A; Pain 8/10; em 14:25 Body Mass Index 52.51 (117.93 kg, 149.86 cm) iw MDM: 14:19 Patient medically screened. [facility] 15:05 Data reviewed: vital signs, nurses notes, lab test result(s), EKG, radiologic studies, [facility] CT scan, plain films. 10/16 14:34 Order name: Basic Metabolic Panel; Complete Time: 15:31 10/16 14:34 Order name: CBC with Diff; Complete Time: 15:12 10/16 14:34 Order name: LFT's; Complete Time: 15:31 10/16 14:34 Order name: Magnesium; Complete Time: 15:31 10/16 14:34 Order name: NT PRO-BNP; Complete Time: 15:31 10/16 14:34 Order name: PT-INR; Complete Time: 15:12 10/16 14:34 Order name: Troponin (emerg Dept Use Only); Complete Time: 15:31 10/16 14:34 Order name: D-Dimer; Complete Time: 15:12 10/16 14:34 Order name: UDS 10/16 14:50 Order name: Flu; Complete Time: 15:31 10/16 14:50 Order name: Strep; Complete Time: 15:31 10/16 15:01 Order name: Glucose, Ancillary Testing; Complete Time: 15:12 [facility] 10/16 15:01 Order name: ABG; Complete Time: 15:31 [facility] 10/16 15:18 Order name: Throat Culture [facility] 10/16 14:34 Order name: XRAY Chest (1 view); Complete Time: 15:12 10/16 14:34 Order name: EKG; Complete Time: 14:35 10/16 14:34 Order name: Cardiac monitoring; Complete Time: 14:39 10/16 14:34 Order name: EKG - Nurse/Tech; Complete Time: 14:39 10/16 14:34 Order name: IV Saline Lock; Complete Time: 14:39 10/16 14:34 Order name: Labs collected and sent; Complete Time: 14:40 10/16 14:34 Order name: O2 Per Protocol; Complete Time: 14:40 10/16 14:34 Order name: CT Head Brain wo Cont; Complete Time: 15:12 10/16 15:33 Order name: Blood Culture Adult (2) [facility] 10/16 16:31 Order name: Urine Dipstick--Ancillary (enter results) ct 10/16 16:31 Order name: Urine --Ancillary (enter results) ct 10/16 14:34 Order name: O2 Sat Monitoring; Complete Time: 14:40 10/16 15:02 Order name: Urine Dipstick-Ancillary (obtain specimen); Complete Time: 16:49 [facility] 10/16 15:02 Order name: Urine Test (obtain specimen); Complete Time: 16:49 [facility] 10/16 15:33 Order name: PO challenge: juice; Complete Time: 16:14 della Administered Medications: 14:52 Drug: NS 0.9% 1000 ml Route: IV; Rate: 1000 ml; Site: right antecubital; aa5 16:49 Follow up: IV Status: Completed infusion; IV Intake: 1000ml em 16:05 Drug: Potassium Effervescent Tablet 25 mEq Route: PO; em 16:49 Follow up: Response: No adverse reaction em 16:07 Drug: Zithromax 500 mg Route: PO; em 16:49 Follow up: Response: No adverse reaction em 16:42 Drug: Rocephin 1 grams Route: IV; Rate: bolus; Site: right antecubital; em 16:49 Follow up: Response: No adverse reaction; IV Status: Completed infusion; IV Intake: 10mlem 16:43 Drug: TORadol 30 mg Route: IVP; Site: right antecubital; em 17:05 Follow up: Response: No adverse reaction; Marked relief of symptoms; Pain is decreased em Disposition: 10/17/19 15:40 Discharged to Home. Impression: Acute upper respiratory infection, unspecified, Acute laryngitis, Pneumonia due to other specified bacteria, Anxiety disorder, unspecified. - Condition is Stable. - Discharge Instructions: Laryngitis, Community-Acquired Pneumonia, Adult, Upper Respiratory Infection, Adult, Weakness, Upper Respiratory Infection, Adult, [id number], Community-Acquired Pneumonia, Adult, Smav-on-Tifa, Cough, Adult, Ddjb-[id number], Weakness, [id number], Cough, Adult. - Prescriptions for Bromfed DM 2- 30-10 mg/5 mL Oral syrup - take 10 milliliter by ORAL route every 4 hours; 160 milliliter. Zithromax 500 mg Oral Tablet - take 1 tablet by ORAL route once daily for 5 days; 5 tablet. - Medication Reconciliation Form, Thank You Letter, Antibiotic Education, Prescription Opioid Use, Work release form form. - Follow up: Private Physician; When: 2 - 3 days; Reason: Recheck today's complaints, Continuance of care, Re-evaluation by your physician. - Problem is new. - Symptoms have improved. Signatures: Dispatcher [employer] Jens Fang MD MD cha Munoz, Edgar, RN RN Jenna Kirk RN RN iw Calderon, Audri, RN RN aa5 Corrections: (The following items were deleted from the chart) 17:10 15:40 10/17/2019 15:40 Discharged to Home. Impression: Acute upper respiratory em infection, unspecified; Acute laryngitis; Pneumonia due to other specified bacteria; Anxiety disorder, unspecified. Condition is Stable. Forms are Medication Reconciliation Form, Thank You Letter, Antibiotic Education, Prescription Opioid Use. Follow up: Private Physician; When: 2 - 3 days; Reason: Recheck today's complaints, Continuance of care, Re-evaluation by your physician. Problem is new. Symptoms have improved. della
--- NOTE | 2019-10-17 15:41 | ER ---
Nurse's Notes [facility] Name: Leena Muniz Age: 33 yrs Sex: Female : 1985 Arrival Date: 10/17/2019 Time: 14:01 Bed 5 Private MD: Diagnosis: Acute upper respiratory infection, unspecified;Acute laryngitis;Pneumonia due to other specified bacteria;Anxiety disorder, unspecified Presentation: 10/16 14:25 Chief complaint: Spouse and/or significant other states: pt has had cold symptoms and iw sore throat for a few days , today she woke up and her voice was gone, on the way to hospital pt started c/o chest pain, started hyperventilating and was passing out in the car, pt appears drowsy but awakens to painful stimuli , was able to stand to get into stretcher. Coronavirus screen: The patient has NOT traveled to [place] in the past 14 days. Proceed with normal triage procedures. Ebola Screen: Patient negative for fever greater than or equal to 101.5 degrees Fahrenheit, and additional compatible Ebola Virus Disease symptoms Patient denies exposure to infectious person. Patient denies travel to an Ebola-affected area in the 21 days before illness onset. No symptoms or risks identified at this time. Initial Sepsis Screen: Does the patient meet any 2 criteria? No. Patient's initial sepsis screen is negative. Does the patient have a suspected source of infection? No. Patient's initial sepsis screen is negative. Risk Assessment: Do you want to hurt yourself or someone else? Patient reports no desire to harm self or others. 14:25 Method Of Arrival: Wheelchair iw 14:25 Acuity: ALEE 2 iw Historical: - Allergies: 14:29 PENICILLINS; iw - Home Meds: 14:29 None [Active]; iw - PMHx: 14:29 None; iw - PSHx: 14:29 None; iw - Family history:: not pertinent. Screenin:35 Abuse screen: Denies threats or abuse. Nutritional screening: No deficits noted. aa5 Tuberculosis screening: No symptoms or risk factors identified. Fall Risk None identified. Assessment: 14:35 General: Appears uncomfortable, Behavior is calm, cooperative. Pain: Complains of pain aa5 in chest Pain does not radiate. Pain currently is 8 out of 10 on a pain scale. 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 Neuro: Level of Consciousness is awake, alert, obeys commands, Oriented to person, place, time, situation, Associate Professor Of Radiology are weak bilaterally Moves all extremities. Speech is normal, Facial symmetry appears normal, Pupils are PERRLA, Reports generalized weakness and dizziness. . Cardiovascular: Heart tones S1 S2 present Rhythm is regular. Respiratory: Reports cough that is productive, Airway is patent Respiratory effort is even, unlabored, Respiratory pattern is regular, symmetrical, Breath sounds are clear bilaterally. GI: Abdomen is round non-distended, Bowel sounds present X 4 quads. Abd is soft and non tender X 4 quads. Reports nausea, Patient currently denies vomiting. : No signs and/or symptoms were reported regarding the genitourinary system. EENT: Reports sore throat, hoarse voice noted . Derm: Skin is dry, Skin is pale, Skin temperature is warm. Musculoskeletal: Range of motion: intact in all extremities. 15:30 Reassessment: Patient is alert, oriented x 3, equal unlabored respirations, skin aa5 warm/dry/pink. Patient states symptoms have not improved. Pt currently lying down in bed with eyes closed, pt's family at bedside. . 17:09 Reassessment: Patient appears in no apparent distress at this time. Patient and/or em family updated on plan of care and expected duration. Pain level reassessed. Patient is alert, oriented x 3, equal unlabored respirations, skin warm/dry/pink. rates pain 5/10 Patient states feeling better. Patient states symptoms have improved. Vital Signs: 14:21 BP 143 / 97; Pulse 91; Resp 16 S; Pulse Ox 99% on R/A; aa5 14:25 BP 162 / 93; Pulse 104; Resp 16 S; Temp 97.8; Pulse Ox 100% on R/A; Weight 117.93 kg; iw Height 4 ft. 11 in. (149.86 cm); 15:30 BP 139 / 84; Pulse 86; Resp 16 S; Pulse Ox 100% ; aa5 16:30 BP 135 / 82; Pulse 85; Resp 18; Pulse Ox 99% on R/A; Pain 8/10; em 14:25 Body Mass Index 52.51 (117.93 kg, 149.86 cm) ED Course: 14:01 Patient arrived in ED. rg4 14:19 Jens Veliz MD is Attending Physician. della 14:29 Triage completed. iw 14:29 Arm band placed on. iw 14:32 Maryellen Vivar, RN is Primary Nurse. aa5 14:35 Patient has correct armband on for positive identification. Bed in low position. Call aa5 light in reach. Side rails up X2. Adult w/ patient. desk monitor on. Pulse ox on. NIBP on. 14:35 No provider procedures requiring assistance completed. Patient maintains SpO2 aa5 saturation greater than 95% on room air. 14:38 Initial lab(s) drawn, by me, sent to lab. Inserted saline lock: 22 gauge in right jb1 antecubital area, using aseptic technique. Blood collected. 14:38 EKG done, by ED staff, reviewed by Jens Veliz MD. jb1 14:47 XRAY Chest (1 view) In Process Unspecified. EDMS 14:[address] via stretcher. aa5 14:55 CT completed. Patient tolerated procedure well. Patient moved back from CT. bq 14:56 CT Head Brain wo Cont In Process Unspecified. EDMS 17:10 IV discontinued, intact, bleeding controlled, No redness/swelling at site. Pressure em dressing applied. Administered Medications: 14:52 Drug: NS 0.9% 1000 ml Route: IV; Rate: 1000 ml; Site: right antecubital; aa5 16:49 Follow up: IV Status: Completed infusion; IV Intake: 1000ml em 16:05 Drug: Potassium Effervescent Tablet 25 mEq Route: PO; em 16:49 Follow up: Response: No adverse reaction em 16:07 Drug: Zithromax 500 mg Route: PO; em 16:49 Follow up: Response: No adverse reaction em 16:42 Drug: Rocephin 1 grams Route: IV; Rate: bolus; Site: right antecubital; em 16:49 Follow up: Response: No adverse reaction; IV Status: Completed infusion; IV Intake: 10mlem 16:43 Drug: TORadol 30 mg Route: IVP; Site: right antecubital; em 17:05 Follow up: Response: No adverse reaction; Marked relief of symptoms; Pain is decreased em Intake: 16:49 IV: 1000ml; Total: 1000ml. em 16:49 IV: 10ml; Total: 1010ml. em Outcome: 15:40 Discharge ordered by . della 17:09 Discharged to home ambulatory, with family. em 17:09 Condition: good 17:09 Discharge instructions given to patient, family, Instructed on discharge instructions, follow up and referral plans. medication usage, Demonstrated understanding of instructions, follow-up care, medications, Prescriptions given X 2. 17:10 Patient left the ED. em Signatures: Dispatcher [employer] EDMS Bhavik Ferreira [email or web address] Jens Veliz MD MD cha Quilty, Betty bq Munoz, Edgar, RN RN em Jenna Wade RN RN iw Maryellen Vivar, TANA RN aa5 Mis Mauricio rg4 Corrections: (The following items were deleted from the chart) 14:37 14:25 BP 162 / 93; Pulse 104bpm; Resp 16bpm; Spontaneous; Pulse Ox 100% RA; iw iw
[2019-10-17] MEDS ORDERED: AZITHROMYCIN 250 MG TAB ONE (16:05)
[2019-10-17] MEDS ORDERED: CEFTRIAXONE/SWI 1gm 1 GM/10 ML SYR ONE (16:05)
[2019-10-17] MEDS ORDERED: POTASSIUM 25 MEQ EFFERV TAB ONE (16:05)
[2019-10-17] MEDS ORDERED: KETOROLAC 30 MG/ML INJ ONE (16:05)
[2019-10-17 16:39] LABS: Urine Blood 1+ (NEG); Urine Glucose NEGATIVE (NEG); Urine Protein NEGATIVE (NEG); Urine Specific Gravity 1.025 (1.005-1.030)
[2019-10-17 16:46] LABS: Barbiturates NEGATIVE (NEGATIVE); Benzodiazepines NEGATIVE (NEGATIVE); Cocaine POSITIVE (NEGATIVE); METHAMPHETAM NEGATIVE (NEGATIVE); Methadone NEGATIVE (NEGATIVE); Opiates NEGATIVE (NEGATIVE); Phencyclidine NEGATIVE (NEGATIVE); THC Cannibis NEGATIVE (NEGATIVE)
[2019-10-17 18:06] VITALS: TEMP 97.8
[2019-10-17 18:11] VITALS: BP 135/82; O2SAT 99
--- NOTE | 2019-10-18 15:35 | EKG ---
Test Date: 2019-10-17 Test Time: 14:24:04 Sewing Demonstrator: WILBERT MEASUREMENT RESULTS: Intervals: Rate: 81 DC: 166 QRSD: 80 QT: 376 QTc: 436 [place]: P: 38 DC: 166 QRS: 53 T: 27 INTERPRETIVE STATEMENTS: Normal sinus rhythm Normal ECG Compared to ECG 06/04/2019 00:35:42 No significant changes Electronically Signed On 10-18-19 15:34:25 BLACK OFF WORKER by Ben Beauchamp
== END 2019-10-17 17:10 | disposition home or self-care (01) ==
LOC: ER 13:59
DX: J15.8 Pneumonia due to other specified bacteria (principal); J04.0 Acute laryngitis; J06.9 Acute upper respiratory infection, unspecified; F41.9 Anxiety disorder, unspecified; Z88.0 Allergy status to penicillin
CPT/HCPCS: 36415; 70450; 71045; 80048; 80076; 80307; 81003; 81025; 82805; 82947; 83735; 83880; 84484; 85025; 85379; 85610; 87040; 87070; 87081; 87804; 93005; 96361; 96374; 96375; 99285; J0696; J2405; J7030

== ENCOUNTER 2020-02-11 00:42 | Emergency (ER) | payer SELFPAY ==
[2020-02-11 01:48] LABS: Absolute Lymphocytes (CBC) 3.5 K/uL (0.7-4.9); Basophils % 1.1 % (0-1.3); Hematocrit 35.6 % (36.0-45.0); Lymphocytes % 42.9 % (15.3-44.8); MPV 7.5 fL (7.6-11.3); RBC Red Blood Cell Count 4.35 M/uL (3.86-4.86)
[2020-02-11 02:02] LABS: ALT/SGPT 37 U/L (12-78); AST/SGOT 25 U/L (15-37); Albumin 3.3 g/dL (3.4-5.0); Alkaline Phosphatase 138 U/L (45-117); BUN Blood Urea Nitrogen 17 mg/dL (7-18); Bicarbonate 25 mmol/L (21-32); Bilirubin Direct < 0.1 mg/dL (0-0.2); Bilirubin Total 0.4 mg/dL (0.2-1.0); Glucose Level 122 mg/dL (74-106); Lipase 190 U/L (73-393); Potassium 3.7 mmol/L (3.5-5.1); Protein, Total 7.9 g/dL (6.4-8.2); Sodium Level 140 mmol/L (136-145)
[2020-02-11] MEDS ORDERED: TRAMADOL HCL 50 MG TAB ONE (02:26)
--- NOTE | 2020-02-11 02:54 | EDPHYS ---
Physician Documentation [facility] Name: Leena Muniz Age: 34 yrs Sex: Female : 1985 Arrival Date: 02/11/2020 Time: 00:45 Bed 8 Private MD: ED Physician Migel Rico HPI: 02/10 02:28 This 34 yrs old Female presents to ER via Ambulatory with complaints of Feet tw4 Swelling, Arm Swelling. 02:28 The patient or guardian reports swelling, tenderness. The complaints affect the left tw4 hand diffusely. The patient presents with swelling, tenderness. The complaints affect the left saenz and anterior aspect of left ankle. Onset: The symptoms/episode began/occurred 1 week(s) ago. Modifying factors: The symptoms are alleviated by nothing. the symptoms are aggravated by nothing. Onset: The symptoms/episode began/occurred 1 week(s) ago. Treatment prior to arrival includes: no previous treatment, elevation of the extremity. 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 - Social history:: Smoking status: Patient denies any tobacco usage or history of. ROS: 02:28 Constitutional: Negative for fever, chills, and weight loss, Eyes: Negative for injury, tw4 pain, redness, and discharge, Cardiovascular: Negative for chest pain, palpitations, and edema, Respiratory: Negative for shortness of breath, cough, wheezing, and pleuritic chest pain, Abdomen/GI: Negative for abdominal pain, nausea, vomiting, diarrhea, and constipation. 02:28 Skin: Negative for injury, rash, and discoloration, Neuro: Negative for headache, weakness, numbness, tingling, and seizure. 02:28 MS/extremity: Positive for swelling, tenderness. Exam: 02:28 Constitutional: This is a well developed, well nourished patient who is awake, alert, tw4 and in no acute distress. Head/Face: Normocephalic, atraumatic. Chest/axilla: Normal chest wall appearance and motion. Nontender with no deformity. No lesions are appreciated. Cardiovascular: Regular rate and rhythm with a normal S1 and S2. No gallops, murmurs, or rubs. Normal PMI, no JVD. No pulse deficits. Respiratory: Lungs have equal breath sounds bilaterally, clear to auscultation and percussion. No rales, rhonchi or wheezes noted. No increased work of breathing, no retractions or nasal flaring. 02:28 Abdomen/GI: Soft, non-tender, with normal bowel sounds. No distension or tympany. No tw4 guarding or rebound. No evidence of tenderness throughout. Back: No spinal tenderness. No costovertebral tenderness. Full range of motion. Neuro: Awake and alert, GCS 15, oriented to person, place, time, and situation. Cranial nerves II-XII grossly intact. Motor strength 5/5 in all extremities. Sensory grossly intact. Cerebellar exam normal. Normal gait. 02:28 Musculoskeletal/extremity: Extremities: noted in the dorsum of left hand: swelling, tenderness, There is no evidence of bite, contusion, deformity, ecchymosis, erythema, puncture, rash, noted in the anterior aspect of left ankle: swelling. Vital Signs: 00:55 BP 128 / 85; Pulse 94; Resp 18; Temp 98.5(O); Pulse Ox 100% on R/A; Weight 100.7 kg lp1 (R); Height 4 ft. 11 in. (149.86 cm); Pain 7/10; 02:54 BP 121 / 86; Pulse 89; Resp 18; Temp 98.3; Pulse Ox 99% on R/A; Pain 4/10; rv 00:55 Body Mass Index 44.84 (100.70 kg, 149.86 cm) lp1 MDM: 00:59 Patient medically screened. tw4 02:49 Differential diagnosis: contusion, tendonitis. Data reviewed: vital signs, nurses tw4 notes. Data interpreted: Pulse oximetry: Interpretation: normal. Counseling: I had a detailed discussion with the patient and/or guardian regarding: the historical points, exam findings, and any diagnostic results supporting the discharge/admit diagnosis, lab results. Medication response: tramadol. Response to treatment: the patient's symptoms have markedly improved after treatment, and as a result, I will discharge patient. Special discussion: I discussed with the patient/guardian in detail that at this point there is no indication for admission to the hospital. It is understood, however, that if the symptoms persist or worsen the patient needs to return immediately for re-evaluation. 02/10 01:07 Order name: Basic Metabolic Panel tw4 02/10 01:07 Order name: CBC with Diff tw4 02/10 01:07 Order name: Hepatic Function; Complete Time: 02:09 tw4 02/10 02:09 Interpretation: Normal except: ALK 138; ALB 3.3; GLOB 4.6; A/G 0.7. tw4 02/10 01:07 Order name: Lipase; Complete Time: 02:09 tw4 02/10 02:09 Interpretation: Within normal limits: LIP 190. tw4 02/10 01:07 Order name: ESR tw4 02/10 01:07 Order name: IV Saline Lock; Complete Time: 01:37 tw4 02/10 01:07 Order name: Labs collected and sent; Complete Time: 01:37 tw4 02/10 01:07 Order name: Basic Metabolic Panel; Complete Time: 02:09 EDMS 02/10 02:09 Interpretation: Normal except: GLUC 122. tw4 02/10 01:07 Order name: CBC with Automated Diff EDMS 02/10 02:10 Interpretation: Normal except: HCT 35.6; MPV 7.5. tw Administered Medications: 02:19 Drug: traMADol 50 mg {Note: RASS 0.} Route: PO; rv 02:54 Follow up: Response: No adverse reaction; Pain is decreased; RASS: Alert and Calm (0) rv Disposition: 02/11/20 02:53 Discharged to Home. Impression: Other specified arthritis, left hand, Other specified arthritis, left ankle and foot. - Condition is Stable. - Discharge Instructions: Arthritis, Reactive Arthritis. - Prescriptions for Ibuprofen 800 mg Oral Tablet - take 1 tablet by ORAL route every 8 hours As needed take with food; 30 tablet. Tramadol 50 mg Oral Tablet - take 1 tablet by ORAL route every 8 hours as needed; 12 tablet. - Medication Reconciliation Form, Thank You Letter, Antibiotic Education, Prescription Opioid Use form. - Follow up: Private Physician; When: Upon discharge from the Emergency Department; Reason: Recheck today's complaints, Continuance of care, Re-evaluation by your physician. Follow up: Israel Rosales MD; When: Upon discharge from the Emergency Department; Reason: Recheck today's complaints, Continuance of care, Re-evaluation by your physician. Follow up: Amy Davison MD; When: Upon discharge from the Emergency Department; Reason: Recheck today's complaints, Continuance of care, Re-evaluation by your physician. Follow up: Yoel Stanley MD; When: Upon discharge from the Emergency Department; Reason: Recheck today's complaints, Continuance of care, Re-evaluation by your physician. Follow up: Fox Espinal MD; When: Upon discharge from the Emergency Department; Reason: Recheck today's complaints, Continuance of care, Re-evaluation by your physician. Follow up: Alejandro Leyva MD; When: Upon discharge from the Emergency Department; Reason: Recheck today's complaints, Continuance of care, Re-evaluation by your physician. - Problem is new. - Symptoms have improved. Signatures: Dispatcher [employer] [facility] Corie Lagos, RN RN lp1 Migel Rico MD MD tw4 Baron Navarro RN RN rv Corrections: (The following items were deleted from the chart) 01:10 01:08 WESTERGREN SEDRATE+H.LAB.BRZ ordered. [facility] 03:01 02:53 02/11/2020 02:53 Discharged to Home. Impression: Other specified arthritis, left rv hand; Other specified arthritis, left ankle and foot. Condition is Stable. Forms are Medication Reconciliation Form, Thank You Letter, Antibiotic Education, Prescription Opioid Use. Follow up: Private Physician; When: Upon discharge from the Emergency Department; Reason: Recheck today's complaints, Continuance of care, Re-evaluation by your physician. Follow up: Israel Rosales; When: Upon discharge from the Emergency Department; Reason: Recheck today's complaints, Continuance of care, Re-evaluation by your physician. Follow up: Amy Davison; When: Upon discharge from the Emergency Department; Reason: Recheck today's complaints, Continuance of care, Re-evaluation by your physician. Follow up: Yoel Stanley; When: Upon discharge from the Emergency Department; Reason: Recheck today's complaints, Continuance of care, Re-evaluation by your physician. Follow up: Fox Espinal; When: Upon discharge from the Emergency Department; Reason: Recheck today's complaints, Continuance of care, Re-evaluation by your physician. Follow up: Alejandro Leyva; When: Upon discharge from the Emergency Department; Reason: Recheck today's complaints, Continuance of care, Re-evaluation by your physician. Problem is new. Symptoms have improved. tw4
--- NOTE | 2020-02-11 02:54 | ER ---
Nurse's Notes [facility] Name: Leena Muniz Age: 34 yrs Sex: Female : 1985 Arrival Date: 02/11/2020 Time: 00:45 Bed 8 Private MD: Diagnosis: Other specified arthritis, left hand;Other specified arthritis, left ankle and foot Presentation: 02/10 00:50 Chief complaint: Patient states: Swelling to bilateral feet and to left hand that began lp1 1 week ago, states pain to feet and left wrist; Seen at clinic today and suggested to come to ER for evaluation; States recently started on Singular and steroid inhaler prior to symptoms. Coronavirus screen: Proceed with normal triage. Ebola Screen: No symptoms or risks identified at this time. Risk Assessment: Do you want to hurt yourself or someone else? Patient reports no desire to harm self or others. Onset of symptoms was February 11, 2020. 00:50 Method Of Arrival: Ambulatory lp1 00:50 Acuity: ALEE 3 lp1 00:55 Initial Sepsis Screen: Does the patient meet any 2 criteria? No. Patient's initial lp1 sepsis screen is negative. Does the patient have a suspected source of infection? No. Patient's initial sepsis screen is negative. 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 - Social history:: Smoking status: Patient denies any tobacco usage or history of. Screenin:37 Abuse screen: Denies threats or abuse. Denies injuries from another. Nutritional rv screening: No deficits noted. Tuberculosis screening: No symptoms or risk factors identified. Fall Risk None identified. Assessment: 01:34 General: Appears comfortable, Behavior is calm, cooperative. Pain: Denies pain. rv 01:35 Neuro: Level of Consciousness is awake, alert, obeys commands, Oriented to person, rv place, time, situation. Cardiovascular: Patient's skin is warm and dry. Respiratory: Airway is patent. 01:37 Musculoskeletal: Swelling present in left hand and left foot. rv Vital Signs: 00:55 BP 128 / 85; Pulse 94; Resp 18; Temp 98.5(O); Pulse Ox 100% on R/A; Weight 100.7 kg lp1 (R); Height 4 ft. 11 in. (149.86 cm); Pain 7/10; 02:54 BP 121 / 86; Pulse 89; Resp 18; Temp 98.3; Pulse Ox 99% on R/A; Pain 4/10; rv 00:55 Body Mass Index 44.84 (100.70 kg, 149.86 cm) lp1 ED Course: 00:45 Patient arrived in ED. cl3 00:54 Triage completed. lp1 00:58 Arm band placed on. lp1 00:59 Migel Rico MD is Attending Physician. tw4 01:00 Baron Navarro RN is Primary Nurse. rv 01:34 No provider procedures requiring assistance completed. Inserted saline lock: 20 gauge rr5 in right antecubital area, using aseptic technique. Blood collected. 01:37 Patient has correct armband on for positive identification. Pulse ox on. NIBP on. rv 02:50 Israel Rosales MD is Referral Physician. tw4 02:50 Amy Davison MD is Referral Physician. tw4 02:50 Yoel Stanley MD is Referral Physician. tw4 02:51 Fox Espinal MD is Referral Physician. tw4 02:51 Alejandro Leyva MD is Referral Physician. tw4 03:01 IV discontinued, intact, bleeding controlled, No redness/swelling at site. Pressure rv dressing applied. Administered Medications: 02:19 Drug: traMADol 50 mg {Note: RASS 0.} Route: PO; rv 02:54 Follow up: Response: No adverse reaction; Pain is decreased; RASS: Alert and Calm (0) rv Outcome: 02:53 Discharge ordered by MD. tw4 02:55 Discharged to home ambulatory, with friend. rv 02:55 Condition: good 02:55 Discharge instructions given to patient, Instructed on discharge instructions, follow up and referral plans. medication usage, Demonstrated understanding of instructions, follow-up care, medications, Prescriptions given X 2. 03:01 Patient left the ED. rv Signatures: Corie Lagos RN RN lp1 Migel Rico MD MD tw4 Baron Navarro RN RN rv Shashank Major RN RN rr5 Ashwin Bernal cl3 Corrections: (The following items were deleted from the chart) 00:58 00:50 Chief complaint: Patient states: Swelling to bilateral feet and to left hand that lp1 began 1 week ago, states pain to feet and left wrist; Seen at clinic today and suggested to come to ER for evaluation lp1
[2020-02-11 03:19] VITALS: BP 121/86; TEMP 98.3; O2SAT 99
== END 2020-02-11 03:01 | disposition home or self-care (01) ==
LOC: ER 00:42
DX: M13.872 Other specified arthritis, left ankle and foot (principal); Z88.0 Allergy status to penicillin; J45.909 Unspecified asthma, uncomplicated
CPT/HCPCS: 36415; 80048; 80076; 83690; 85025; 85652; 99284

== ENCOUNTER 2021-07-21 20:23 | Emergency (ER) | payer SELFPAY ==
[2021-07-21 20:57] LABS: Absolute Lymphocytes (CBC) 2.8 K/uL (0.7-4.9); Basophils % 0.9 % (0-1.3); Hematocrit 37.4 % (36.0-45.0); Lymphocytes % 25.6 % (15.3-44.8); MPV 7.9 fL (7.6-11.3)
[2021-07-21 21:05] LABS: Protime INR 1.02
--- NOTE | 2021-07-21 21:10 | RAD REPORT ---
EXAM DESCRIPTION: CT - Ct Stroke Brain Wo Cont - 07/21/2021 9:02 pm CLINICAL HISTORY: Left-sided numbness COMPARISON: 2019 TECHNIQUE: Computed axial tomography of the head was obtained. All CT scans are performed using dose optimization technique as appropriate and may include automated exposure control or mA/KV adjustment according to patient size. FINDINGS: An intracranial bleed is not seen . The ventricles are normal in caliber. No extra-axial fluid collection is noted. Fluid within the sinuses/ mastoids is not seen. IMPRESSION: No acute intracranial abnormality is seen. If patient's symptoms persist MRI of the bra in would be recommended. Dr Bustamante of the emergency room was notified at 9:03 p.m. July 21, 2021
[2021-07-21 21:16] LABS: BUN Blood Urea Nitrogen 12 mg/dL (7-18); Bicarbonate 24 mmol/L (21-32); Glucose Level 150 mg/dL (74-106); Magnesium 1.8 mg/dL (1.8-2.4); Sodium Level 142 mmol/L (136-145); Troponin (Emerg Dept Use Only) < 0.02 ng/mL (0.0-0.045)
[2021-07-21 21:17] LABS: Urine Blood Trace-intact (Negative); Urine Glucose Negative (Negative); Urine Protein Negative (Negative); Urine Specific Gravity 1.025 (1.005-1.030)
[2021-07-21 21:22] LABS: Urine Specific Gravity/Preg 1.005 (1.005-1.030)
[2021-07-21 21:35] LABS: Barbiturates NEGATIVE (NEGATIVE); Benzodiazepines NEGATIVE (NEGATIVE); Cocaine POSITIVE (NEGATIVE); METHAMPHETAM NEGATIVE (NEGATIVE); Methadone NEGATIVE (NEGATIVE); Opiates NEGATIVE (NEGATIVE); Phencyclidine NEGATIVE (NEGATIVE); THC Cannibis NEGATIVE (NEGATIVE)
[2021-07-21] MEDS ORDERED: NA CHLORIDE 0.9% 50 ML ONE (22:03)
[2021-07-21] MEDS ORDERED: ALTEPLASE 100 ML IV ONE (22:03)
--- NOTE | 2021-07-21 22:41 | EDPHYS ---
Physician Documentation [facility] Name: Leena Muniz Age: 35 yrs Sex: Female : 1985 Arrival Date: 07/21/2021 Time: 20:32 Bed 4 Private MD: ED Physician Miguel Angel Bustamante HPI: 07/21 20:50 This 35 yrs old Female presents to ER via Ambulatory with complaints of Chest mh7 pain. Numbness. Weakness.. 20:50 The patient's problem is reported as paresthesias, in left upper extremity, in left mh7 lower extremity, weakness, in the left upper extremity, in the left lower extremity. 20:50 Onset: The symptoms/episode began/occurred today, at 18:30. Duration: The episode is mh7 continuous. Context: the episode(s) was witnessed, by no one, symptoms became apparent on July 21, 2021, at 18:30. occurred at a store, occurred while the patient was standing, Possible contributing factors include: None. The symptoms are alleviated by nothing. The symptoms are aggravated by nothing. Associated signs and symptoms: Pertinent positives: chest pain, dizziness, numbness, palpitations, tingling, weakness, Pertinent negatives: abdominal pain, agitation, ataxia, combativeness, confusion, diaphoresis, diarrhea, headache, nausea, vertigo, vomiting. Severity of symptoms: At their worst the symptoms were moderate today, in the emergency department the symptoms are unchanged. Patient's baseline: Neuro: alert and fully oriented, Motor: no deficits, Ambulation: walks without assistance, Speech: normal. 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 - Social history:: Smoking status: Patient reports the use of cigarette tobacco products, vap . ROS: 20:50 Constitutional: Negative for fever, chills, and weight loss, Eyes: Negative for injury, mh7 pain, redness, and discharge, ENT: Negative for injury, pain, and discharge, Neck: Negative for injury, pain, and swelling, Abdomen/GI: Negative for abdominal pain, nausea, vomiting, diarrhea, and constipation, Back: Negative for injury and pain, : Negative for injury, bleeding, discharge, and swelling, Skin: Negative for injury, rash, and discoloration, Psych: Negative for depression, anxiety, suicide ideation, homicidal ideation, and hallucinations, Allergy/Immunology: Negative for hives, rash, and allergies, Endocrine: Negative for neck swelling, polydipsia, polyuria, polyphagia, and marked weight changes, Hematologic/Lymphatic: Negative for swollen nodes, abnormal bleeding, and unusual bruising. Exam: 20:50 Radiologist reports: No acute findings [facility] 20:50 Head/Face: Normocephalic, atraumatic. Eyes: Pupils equal round and reactive to light, extra-ocular motions intact. Lids and lashes normal. Conjunctiva and sclera are non-icteric and not injected. Cornea within normal limits. Periorbital areas with no swelling, redness, or edema. Neck: Trachea midline, no thyromegaly or masses palpated, and no cervical lymphadenopathy. Supple, full range of motion without nuchal rigidity, or vertebral point tenderness. No Meningismus. Chest/axilla: Normal chest wall appearance and motion. Nontender with no deformity. No lesions are appreciated. Cardiovascular: Regular rate and rhythm with a normal S1 and S2. No gallops, murmurs, or rubs. Normal PMI, no JVD. No pulse deficits. Respiratory: Lungs have equal breath sounds bilaterally, clear to auscultation and percussion. No rales, rhonchi or wheezes noted. No increased work of breathing, no retractions or nasal flaring. Abdomen/GI: Soft, non-tender, with normal bowel sounds. No distension or tympany. No guarding or rebound. No evidence of tenderness throughout. Back: No spinal tenderness. No costovertebral tenderness. Full range of motion. Skin: Warm, dry with normal turgor. Normal color with no rashes, no lesions, and no evidence of cellulitis. Psych: Awake, alert, with orientation to person, place and time. Behavior, mood, and affect are within normal limits. 20:50 Constitutional: The patient appears in no acute distress, alert, awake, anxious. 20:50 Musculoskeletal/extremity: Extremities: noted in the left arm and left leg: Weakness, ROM: Weakness, Circulation is intact in all extremities. numbness. 20:50 Neuro: Orientation: is normal, Mentation: is normal, Memory: is normal, immediate memory is intact, recent memory is intact, remote memory is intact, Cranial nerves: facial droop noted on left, with forehead involved. Cerebellar function: unable to test, Left-sided weakness, Motor: strength is 5/5 in the Right upper extremity and right lower extremity, Strength is 1/5 in the Left upper extremity and left lower extremity, Sensation: numbness, that is mild, of the left arm and left leg, Gait: not tested. Deep tendon reflexes are normal, Babinski testing is normal, seizure activity, is not displayed by the patient, Abnormal movements: there are no abnormal movements. Vital Signs: 21:31 BP 143 / 93; Pulse 75; Resp 18; Temp 98.7; Pulse Ox 100% on R/A; tw5 22:17 BP 165 / 100; Pulse 67; Resp 16 S; Pulse Ox 100% on R/A; as6 22:50 BP 176 / 108; Pulse 61; Resp 14 S; Pulse Ox 100% on R/A; as6 23:11 BP 163 / 117; Pulse 60; Resp 15 S; Pulse Ox 100% on R/A; as6 23:17 BP 149 / 86; Pulse 72; Resp 20 S; Pulse Ox 100% on R/A; as6 12/05 00:28 BP 153 / 99; Pulse 69; Resp 15 S; Pulse Ox 100% on R/A; as6 01:06 BP 176 / 64; Pulse 63; Resp 21 S; Pulse Ox 100% on R/A; as6 01:41 BP 145 / 102; Pulse 67; Resp 11 S; Pulse Ox 100% on R/A; as6 NIH Stroke Scale Scores: 07/21 20:55 NIHSS Score: 19 tw5 21:10 NIHSS Score: 15 mh7 MDM: 22:14 Physician consultation: was contacted at 21:25, regarding patient's condition, after a [facility] discussion of the case, a recommendation for transfer for higher level of care is made, Recommended thrombolytics if patient agrees and [facility].. 22:35 Differential diagnosis: CVA, TIA, paralysis, metabolic disorder, drug effects. Data [facility] reviewed: vital signs, nurses notes, old medical records, lab test result(s), cardiac enzymes, CBC, electrolytes, urinalysis, urine drug screen, UPT: negative EKG, radiologic studies, CT scan, plain films. Data interpreted: Pulse oximetry: on room air is 100 %. Interpretation: normal. Counseling: I had a detailed discussion with the patient and/or guardian regarding: the historical points, exam findings, and any diagnostic results supporting the discharge/admit diagnosis, the presence of at least one elevated blood pressure reading (>120/80) during this emergency department visit, lab results, radiology results, the need to transfer to another facility, for higher level of care. ED course: Discussed test results and findings and possible treatment including thrombolytics and discussion with neurologist, Dr. Lazo. Patient initially declined thrombolytics but later changed her mind and decided to receive the treatment. Explained increased risk of bleeding due to cocaine use and patient verbalized that she understood the risk. Dr. Lazo also recommended transfer to [facility] for possible further intervention which the patient also agreed to.. 22:40 Patient medically screened. [facility] 07/21 20:51 Order name: Basic Metabolic Panel; Complete Time: 21:38 [facility] 07/21 20:51 Order name: CBC with Diff; Complete Time: 21:16 [facility] 07/21 20:51 Order name: Magnesium; Complete Time: 21:38 [facility] 07/21 20:51 Order name: Protime (+inr); Complete Time: 21:16 7 07/21 20:51 Order name: Ptt, Activated; Complete Time: 21:16 [facility] 07/21 20:51 Order name: Troponin (emerg Dept Use Only); Complete Time: 21:38 [facility] 07/21 20:51 Order name: UDS; Complete Time: 21:38 [facility] 07/21 21:02 Order name: Glucose, Ancillary Testing; Complete Time: 21:16 EDDE 07/21 21:16 Order name: ETOH Level; Complete Time: 21:38 [facility] 07/21 21:16 Order name: Urine Dipstick-Ancillary; Complete Time: 21:38 EDMS 07/21 21:18 Order name: Urine --Ancillary (enter results); Complete Time: 21:38 cs9 07/21 21:59 Order name: CPK; Complete Time: 22:41 [facility] 07/21 22:24 Order name: COVID-19 (Coronavirus) Document "Date of Onset" if Symptomatic [facility] 07/21 22:25 Order name: CORONAVIRUS EDDE 07/21 20:51 Order name: CT Stroke Brain w/o Contrast; Complete Time: 21:16 [facility] 07/21 20:51 Order name: Stroke CXR 1 View [facility] 07/21 20:51 Order name: EKG; Complete Time: 20:53 [facility] 07/21 20:51 Order name: Accucheck; Complete Time: 20:54 [facility] 07/21 20:51 Order name: Cardiac monitoring; Complete Time: 20:54 [facility] 07/21 20:51 Order name: EKG - Nurse/Tech; Complete Time: 20:54 [facility] 07/21 20:51 Order name: IV Saline Lock; Complete Time: 20:54 [facility] 07/21 20:51 Order name: Labs collected and sent; Complete Time: 20:54 [facility] 07/21 20:51 Order name: NPO; Complete Time: 20:54 [facility] 07/21 20:51 Order name: O2 Per Protocol; Complete Time: 20:54 [facility] 07/21 20:51 Order name: O2 Sat Monitoring; Complete Time: 20:54 [facility] 07/21 21:45 Order name: CT Head Angio [facility] 07/21 21:45 Order name: CT Neck Angio [facility] 07/21 22:26 Order name: COVID-19 SARS RT PCR (Document "Date of Onset" if Symptomatic); Complete cs9 Time: 01:41 07/21 20:51 Order name: Stroke Swallow Screen; Complete Time: 22:06 [facility] 07/21 20:52 Order name: Urine Dipstick-Ancillary (obtain specimen); Complete Time: 21:20 [facility] 07/21 20:52 Order name: Urine Test (obtain specimen); Complete Time: 21:20 mh7 Administered Medications: 22:17 Drug: Alteplase {Co-Signature: as6 (Dillan King RN).} Route: IV Thrombolytics; Rate: tw5 calculated rate; 23:17 Follow up: Response: No adverse reaction as6 22:46 Drug: Potassium Chloride 20 mEq Route: IV; Rate: per protocol; Site: right antecubital; as6 07/22 01:47 Follow up: Response: No adverse reaction; IV Status: Completed infusion; IV Intake: as6 100ml Disposition Summary: 07/21/21 22:40 Transfer Ordered Transfer Location: [facility] mh7 Reason: Higher level of care mh7 Condition: Stable mh7 Problem: new mh7 Symptoms: have improved mh7 Accepting Physician: Dr. Dominguez(07/22/21 01:48) tw5 Diagnosis - Cerebrovascular accident, cocaine abuse mh7 Forms: - Medication Reconciliation Form mh7 - SBAR form mh7 NIH Stroke Scale - NIH Stroke Score Date: 07/21/2021 Time: 20:55 Total Score = 19 1a. Level of Consciousness (LOC) - 1(Not Alert) 1b. Level of Consciousness (LOC) (Month \\T\\ Age) - 0(Both) 1c. LOC Commands (Open \\T\\ Closes Eyes/Welding Machine Operator Helper Gas) - 1(One) 2. Best Gaze (Lateral Gaze Paresis) - 0(Normal) 3. Visual Field Loss - 1(Partial hemianopia) 4. Facial Palsy - 1(Minor Paralysis) 5a. Left Arm: Motor (10-second hold) - 4(No movement) 5b. Right Arm: Motor (10-second hold) - 0(No drift) 6a. Left Leg: Motor (5-second hold - always test supine) - 4(No movement) 6b. Right Leg: Motor (5-second hold - always test supine) - 0(No drift) 7. Limb Ataxia (finger/nose \\T\\ heel/saenz - test with eyes open) - 2(Present in two limbs) 8. Sensory Loss (pinprick arms/legs/face) - 2(Severe to total loss) 9. Best Language: Aphasia (description/naming/reading) - 1(Mild to moderate aphasia) 10. Dysarthria (speech clarity - read or repeat words) - 1(Mild to Moderate) 11. Extinction and Inattention (visual/tactile/auditory/spatial/personal) - 1(Present) Initials: tw5 NIH Stroke Scale - NIH Stroke Score Date: 07/21/2021 Time: 21:10 Total Score = 15 1a. Level of Consciousness (LOC) - 0(Alert) 1b. Level of Consciousness (LOC) (Month \\T\\ Age) - 0(Both) 1c. LOC Commands (Open \\T\\ Closes Eyes/Welding Machine Operator Helper Gas) - 1(One) 2. Best Gaze (Lateral Gaze Paresis) - 0(Normal) 3. Visual Field Loss - 1(Partial hemianopia) 4. Facial Palsy - 1(Minor Paralysis) 5a. Left Arm: Motor (10-second hold) - 4(No movement) 5b. Right Arm: Motor (10-second hold) - 0(No drift) 6a. Left Leg: Motor (5-second hold - always test supine) - 4(No movement) 6b. Right Leg: Motor (5-second hold - always test supine) - 0(No drift) 7. Limb Ataxia (finger/nose \\T\\ heel/saenz - test with eyes open) - 2(Present in two limbs) 8. Sensory Loss (pinprick arms/legs/face) - 1(Mild to moderate loss) 9. Best Language: Aphasia (description/naming/reading) - 0(No aphasia) 10. Dysarthria (speech clarity - read or repeat words) - 0(Normal) 11. Extinction and Inattention (visual/tactile/auditory/spatial/personal) - 1(Present) Initials: mh7 Signatures: Dispatcher [employer] Miguel Angel Díaz MD MD mh7 Gris Julien tw5 Dillan King RN RN as6 Dillan King RN as6 Corrections: (The following items were deleted from the chart) 01:48 12 22:40 Dr. Dominguez 7 tw5
--- NOTE | 2021-07-21 22:41 | ER ---
Nurse's Notes [facility] Name: Leena Muniz Age: 35 yrs Sex: Female : 1985 Arrival Date: 07/21/2021 Time: 20:32 Bed 4 Private MD: Diagnosis: Cerebrovascular accident, cocaine abuse Presentation: 07/21 20:40 Chief complaint: Chief complaint: Chief complaint: Patient states: She has been feeling tw5 funny all day long, but around 6 pm she started to feel worse. She states she got a sharp pain in her chest, and she started to feel numbness on her left side. She states that she drover herself here and was able to walk in, but the second she layed down in the bed she was no longer able to move the left side. 21:31 Coronavirus screen: Vaccine status: Patient reports being unvaccinated. Ebola Screen: tw5 Patient negative for fever greater than or equal to 101.5 degrees Fahrenheit, and additional compatible Ebola Virus Disease symptoms Patient denies exposure to infectious person. Patient denies travel to an Ebola-affected area in the 21 days before illness onset. Initial Sepsis Screen: Does the patient meet any 2 criteria? Altered Mental Status. No. Patient's initial sepsis screen is negative. Does the patient have a suspected source of infection? No. Patient's initial sepsis screen is negative. Risk Assessment: Do you want to hurt yourself or someone else? Patient reports no desire to harm self or others. Onset of symptoms was July 21, 2021 at 06:00. 21:31 Method Of Arrival: Ambulatory tw5 21:31 Acuity: ALEE 3 tw5 Triage Assessment: 21:31 General: Appears in no apparent distress. Behavior is calm, cooperative, appropriate tw5 for age. Cardiovascular: Capillary refill < 3 seconds is brisk in bilateral fingers. 21:49 Pain: Pain currently is 6 out of 10 on a pain scale. 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 - Social history:: Smoking status: Patient reports the use of cigarette tobacco products, vap . Screenin:55 Abuse screen: Denies threats or abuse. Denies injuries from another. Nutritional tw5 screening: No deficits noted. Tuberculosis screening: No symptoms or risk factors identified. Fall Risk No fall in past 12 months (0 pts). No secondary diagnosis (0 pts). IV access (20 points). Ambulatory Aid- None/Bed Rest/Nurse Assist (0 pts). Gait- Impaired (20 pts.). 22:05 Patient has been NPO before screening. The patient is alert, able to follow commands. tw5 The patient exhibits slurred or garbled speech. The patient is exhibiting difficulty speaking. The patient does not exhibit difficulty understanding words. The patient is able to swallow own secretions with no drooling or need for suction. Patient is unable to smile or frown upon directions. Patient states she feels heavy all over. The patient failed the bedside swallow screening. The patient will be kept NPO until cleared by Speech Therapy or Physician. Assessment: 21:13 General: " I was walking fine, but now I am just so numb." Patient states that both of tw5 her parents had strokes. '. 21:34 Pain: Pain radiates to left arm and left leg Pain began 3 hours ago. Neuro: Level of tw5 Consciousness is awake, alert, obeys commands, Oriented to person, place, time, situation, Weakness in left hand(s) leg(s) Speech is slurred, Facial symmetry appears normal. 22:18 General: Patient refused flores. tw5 22:42 Reassessment: notified Dr. Bustamante of blood pressure. as6 Vital Signs: 21:31 BP 143 / 93; Pulse 75; Resp 18; Temp 98.7; Pulse Ox 100% on R/A; tw5 22:17 BP 165 / 100; Pulse 67; Resp 16 S; Pulse Ox 100% on R/A; as6 22:50 BP 176 / 108; Pulse 61; Resp 14 S; Pulse Ox 100% on R/A; as6 23:11 BP 163 / 117; Pulse 60; Resp 15 S; Pulse Ox 100% on R/A; as6 23:17 BP 149 / 86; Pulse 72; Resp 20 S; Pulse Ox 100% on R/A; as6 1205 00:28 BP 153 / 99; Pulse 69; Resp 15 S; Pulse Ox 100% on R/A; as6 01:06 BP 176 / 64; Pulse 63; Resp 21 S; Pulse Ox 100% on R/A; as6 01:41 BP 145 / 102; Pulse 67; Resp 11 S; Pulse Ox 100% on R/A; as6 NIH Stroke Scale Scores: 04 20:55 NIHSS Score: 19 tw5 21:10 NIHSS Score: 15 [facility] ED Course: 20:32 Patient arrived in ED. vg1 20:43 Gris Julien is Primary Nurse. tw5 20:43 EKG completed in triage. Results shown to MD. tw5 20:43 Inserted saline lock: 18 gauge in right antecubital area, using aseptic technique. tw5 Blood collected. 20:48 Miguel Angel Bustamante MD is Attending Physician. 7 21:02 CT Stroke Brain w/o Contrast In Process Unspecified. EDMS 21:12 Troponin (emerg Dept Use Only) Sent. tw5 21:12 Magnesium Sent. tw5 21:12 Basic Metabolic Panel Sent. tw5 21:31 Arm band placed on right wrist. Patient placed on a stretcher. tw5 21:34 Triage completed. tw5 21:34 Patient has correct armband on for positive identification. Placed in gown. Bed in low tw5 position. Call light in reach. Side rails up X2. transformation coach on. Pulse ox on. NIBP on. Door closed. Noise minimized. Lights dimmed. Moved to private room. Warm blanket given. Oral care given. 21:50 Consent for TPA. tw5 21:50 No provider procedures requiring assistance completed. Patient maintains SpO2 tw5 saturation greater than 95% on room air. 22:05 Inserted saline lock: 20 gauge in left hand, using aseptic technique. tw5 22:11 Stroke CXR 1 View In Process Unspecified. EDMS 22:[address] with nurse. tw5 22:36 CT Head Angio In Process Unspecified. EDMS 22:36 CT Neck Angio In Process Unspecified. EDMS 07/22 00:03 initiated transfer at 2215. Doctor to Doctor was done at that time as well at 2218. cs9 01:22 [facility] called back and requested life flight. Pt room number will be # [id number]. cs9 Accepting physician will be Dr. Lilly. Life flight enroute. 01:47 Patient transferred, IV remains in place. tw5 Administered Medications: 07/21 22:17 Drug: Alteplase {Co-Signature: as6 (Dillan King RN).} Route: IV Thrombolytics; Rate: tw5 calculated rate; 23:17 Follow up: Response: No adverse reaction as6 22:46 Drug: Potassium Chloride 20 mEq Route: IV; Rate: per protocol; Site: right antecubital; as6 07/22 01:47 Follow up: Response: No adverse reaction; IV Status: Completed infusion; IV Intake: as6 100ml Intake: 01:47 IV: 100ml; Total: 100ml. as6 Outcome: 07/21 22:40 ER care complete, transfer ordered by . 7 07/22 01:47 Transferred by helicopter to [facility], Transfer form completed. tw5 Condition: improved Instructed on the need for transfer. 01:48 Patient left the ED. tw5 NIH Stroke Scale - NIH Stroke Score Date: 07/21/2021 Time: 20:55 Total Score = 19 1a. Level of Consciousness (LOC) - 1(Not Alert) 1b. Level of Consciousness (LOC) (Month \\T\\ Age) - 0(Both) 1c. LOC Commands (Open \\T\\ Closes Eyes/Sales Force Developer) - 1(One) 2. Best Gaze (Lateral Gaze Paresis) - 0(Normal) 3. Visual Field Loss - 1(Partial hemianopia) 4. Facial Palsy - 1(Minor Paralysis) 5a. Left Arm: Motor (10-second hold) - 4(No movement) 5b. Right Arm: Motor (10-second hold) - 0(No drift) 6a. Left Leg: Motor (5-second hold - always test supine) - 4(No movement) 6b. Right Leg: Motor (5-second hold - always test supine) - 0(No drift) 7. Limb Ataxia (finger/nose \\T\\ heel/saenz - test with eyes open) - 2(Present in two limbs) 8. Sensory Loss (pinprick arms/legs/face) - 2(Severe to total loss) 9. Best Language: Aphasia (description/naming/reading) - 1(Mild to moderate aphasia) 10. Dysarthria (speech clarity - read or repeat words) - 1(Mild to Moderate) 11. Extinction and Inattention (visual/tactile/auditory/spatial/personal) - 1(Present) Initials: tw NIH Stroke Scale - NIH Stroke Score Date: 07/21/2021 Time: 21:10 Total Score = 15 1a. Level of Consciousness (LOC) - 0(Alert) 1b. Level of Consciousness (LOC) (Month \\T\\ Age) - 0(Both) 1c. LOC Commands (Open \\T\\ Closes Eyes/Sales Force Developer) - 1(One) 2. Best Gaze (Lateral Gaze Paresis) - 0(Normal) 3. Visual Field Loss - 1(Partial hemianopia) 4. Facial Palsy - 1(Minor Paralysis) 5a. Left Arm: Motor (10-second hold) - 4(No movement) 5b. Right Arm: Motor (10-second hold) - 0(No drift) 6a. Left Leg: Motor (5-second hold - always test supine) - 4(No movement) 6b. Right Leg: Motor (5-second hold - always test supine) - 0(No drift) 7. Limb Ataxia (finger/nose \\T\\ heel/saenz - test with eyes open) - 2(Present in two limbs) 8. Sensory Loss (pinprick arms/legs/face) - 1(Mild to moderate loss) 9. Best Language: Aphasia (description/naming/reading) - 0(No aphasia) 10. Dysarthria (speech clarity - read or repeat words) - 0(Normal) 11. Extinction and Inattention (visual/tactile/auditory/spatial/personal) - 1(Present) Initials: [facility] Signatures: Dispatcher [employer] Halley Chang RN RN 1 Miguel Angel Bustamante MD MD 7 Gris Julien [facility] Em Leos [facility] Dillan King RN RN as6 Dillan King RN as6 Corrections: (The following items were deleted from the chart) 07/21 21:27 21:22 Chief complaint: 21:34 20:40 Chief complaint: Chief complaint: 21:50 21:50 TPA 22:50 22:47 Reassessment: as6 as6
[2021-07-21] MEDS ORDERED: KCL 20 MEQ/100 mL IVPB 20 MEQ/100 ML BAG IV ONE (22:42)
[2021-07-22 02:03] VITALS: TEMP 98.7; O2SAT 100
[2021-07-22 02:20] VITALS: BP 145/102
--- NOTE | 2021-07-22 08:06 | RAD REPORT ---
EXAM DESCRIPTION: RAD - Chest Single View - 07/21/2021 10:11 pm CLINICAL HISTORY: CHEST PAIN COMPARISON: October 2019, May 2019 TECHNIQUE: AP portable chest image was obtained 07/21/2021 10:11 pm . FINDINGS: Lung volumes are low. No peripheral mass or consolidation. Significant failure or volume o verload. They ill-defined nodular densities are present in each lung base believed to be nipple shado ws. Heart and vasculature are normal. No measurable pleural effusion and no pneumothorax. No acute binh ny abnormality seen. No acute aortic findings suspected. IMPRESSION: No acute cardiopulmonary process. No significant change from comparison study.
--- NOTE | 2021-07-22 12:06 | RAD REPORT ---
EXAM DESCRIPTION: CT - Neck Angio - 07/22/2021 6:55 am CLINICAL HISTORY: WEAKNESS COMPARISON: CT head without contrast July 21, 2021 TECHNIQUE: Multiple helical axial tomographic images were obtained of the head and neck following ad ministration of intravenous contrast per angiographic protocol. MIP reformatted images were obtained. This exam was performed according to our departmental dose-optimization program, which includes auto mated exposure control, adjustment of the mA and/or kV according to patient size and/or use of iterat manju reconstruction technique. FINDINGS: Head: Intracranial segments of the bilateral internal carotid arteries appear patent without significant st enosis or occlusion. Bilateral anterior and middle cerebral arteries appear patent without significan t stenosis or occlusion. Intracranial segments of the bilateral vertebral arteries, basilar artery, a nd posterior cerebral arteries appear patent without significant stenosis or occlusion. No evidence o f intracranial aneurysm. There is no acute intracranial hemorrhage. No mass. No midline shift. No ventriculomegaly. Lowe-white matter differentiation is maintained. There is a small left maxillary sinus mucus retention cyst. Mastoid air cells and middle ear spaces a re clear. Orbits and orbital contents are unremarkable. Cavitary changes involving left maxillary mol ar teeth noted with associated periapical lucencies in dehiscence of the lateral maxillary alveolus. Cavitary changes of the right mandibular molar teeth with periapical lucencies. Osseous structures are unremarkable. Surrounding soft tissues are unremarkable. Neck: Carotid and vertebral arterial vasculature of the neck appears patent without significant stenosis or occlusion. Right thyroid lobe is not well-seen. Left thyroid lobe appears heterogeneous with nodular densities m easuring up to 1.7 cm and a few small calcifications. Salivary glands appear unremarkable. No evidenc e of adenopathy. Retropharyngeal space appears normal. Epiglottis appears normal. Larynx and vocal fo lds appear unremarkable. Visualized lungs are clear. Osseous structures are unremarkable. IMPRESSION: 1. No evidence of significant arterial stenosis or occlusion within the head or neck. 2. Left thyroid lobe 1.7 cm nodule. Follow-up ultrasound recommended. 3. Dental/periodontal disease. 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 The interpreting radiologist is fully responsible for the content of the report.
== END 2021-07-22 01:48 | disposition short-term general hospital (02) ==
LOC: ER 20:23
DX: I63.9 Cerebral infarction, unspecified (principal); G81.94 Hemiplegia, unspecified affecting left nondominant side; R29.719 NIHSS score 19; F14.10 Cocaine abuse, uncomplicated; Z88.0 Allergy status to penicillin; Z20.822 Contact with and (suspected) exposure to COVID-19
CPT/HCPCS: 36415; 70450; 70496; 70498; 71045; 80048; 80307; 80320; 81003; 81025; 82550; 82947; 83735; 84484; 85025; 85610; 85730; 92977; 93005; 96365; 96366; 99285; J2997; J3480; Q9967; U0003

== ENCOUNTER 2021-09-22 16:32 | Emergency (ER) | payer SELFPAY ==
[2021-09-22] MEDS ORDERED: IBUPROFEN 200 MG TAB PO ONE (17:02)
[2021-09-22] MEDS ORDERED: IBUPROFEN 400 MG TAB ONE (17:02)
[2021-09-22] MEDS ORDERED: ACETAMINOPHEN 500 MG TAB ONE (17:02)
[2021-09-22] MEDS ORDERED: TETANUS & DIPHTHERIA TOX,ADULT 0.5 ML VIAL ONE (17:04)
--- NOTE | 2021-09-22 18:04 | RAD REPORT ---
EXAM DESCRIPTION: RAD - Wrist Right 3 View - 09/22/2021 5:48 pm CLINICAL HISTORY: Right wrist pain status post injury FINDINGS: No fracture or dislocation is seen. If the patient continues to have symptoms to suggest a n occult fracture then a followup plain film series in 7 days would be recommended.
--- NOTE | 2021-09-22 18:05 | RAD REPORT ---
EXAM DESCRIPTION: RAD - Hand Right 3 View - 09/22/2021 5:48 pm CLINICAL HISTORY: Right hand pain status post injury FINDINGS: No fracture or dislocation is seen.
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
[2021-09-22 18:40] VITALS: BP 130/92; TEMP 98; O2SAT 98
== END 2021-09-22 18:18 | disposition home or self-care (01) ==
LOC: ER 16:32
DX: S67.21XA Crushing injury of right hand, initial encounter (principal); S60.511A Abrasion of right hand, initial encounter; W23.0XXA Caught, crushed, jammed, or pinched between moving objects, initial encounter; Z88.0 Allergy status to penicillin; Z23 Encounter for immunization
CPT/HCPCS: 90471; 90714; 99283

== ENCOUNTER 2021-09-27 15:27 | Emergency (ER) | payer SELFPAY ==
[2021-09-27 16:04] LABS: Urine Blood Trace-intact (Negative); Urine Glucose Negative (Negative); Urine Protein Negative (Negative); Urine Specific Gravity 1.015 (1.005-1.030); Urine pH 7.5 (5.0-7.0)
[2021-09-27 16:07] LABS: Absolute Lymphocytes (CBC) 2.8 K/uL (0.7-4.9); Hematocrit 36.9 % (36.0-45.0); Lymphocytes % 29.6 % (15.3-44.8); MPV 7.8 fL (7.6-11.3); RBC Red Blood Cell Count 4.36 M/uL (3.86-4.86)
[2021-09-27 16:19] LABS: Protime INR 1.14
[2021-09-27 16:22] LABS: Barbiturates NEGATIVE (NEGATIVE); Benzodiazepines NEGATIVE (NEGATIVE); Cocaine NEGATIVE (NEGATIVE); METHAMPHETAM NEGATIVE (NEGATIVE); Methadone NEGATIVE (NEGATIVE); Opiates NEGATIVE (NEGATIVE); Phencyclidine NEGATIVE (NEGATIVE); THC Cannibis NEGATIVE (NEGATIVE)
[2021-09-27 16:35] LABS: ALT/SGPT 26 U/L (12-78); AST/SGOT 22 U/L (15-37); Albumin 3.7 g/dL (3.4-5.0); Alkaline Phosphatase 109 U/L (45-117); BUN Blood Urea Nitrogen 8 mg/dL (7-18); Bicarbonate 24 mmol/L (21-32); Bilirubin Direct 0.2 mg/dL (0-0.2); Bilirubin Total 0.9 mg/dL (0.2-1.0); Glucose Level 97 mg/dL (74-106); NT PRO-BNP 68 pg/mL (<125); Protein, Total 7.6 g/dL (6.4-8.2); Sodium Level 140 mmol/L (136-145)
--- NOTE | 2021-09-27 16:55 | RAD REPORT ---
EXAM DESCRIPTION: RAD - Chest Single View - 09/27/2021 4:26 pm CLINICAL HISTORY: CHEST PAIN COMPARISON: Chest Single View dated 07/21/2021; Chest Single View dated 10/17/2019; Chest Single View d ated 06/04/2019; Chest Single View dated 03/07/2018 FINDINGS: Lines: None. Lungs: No evidence of edema or pneumonia. Pleural: No significant pleural effusions or pneumothorax. Cardiac: The heart size is within normal limits. Bones: No acute fractures. Other: IMPRESSION: No acute cardiopulmonary disease.
[2021-09-27 17:02] LABS: Urine Specific Gravity/Preg 1.015 (1.005-1.030)
[2021-09-27] MEDS ORDERED: LORazepam 2 MG/ML VIAL ONE (19:04)
[2021-09-27] MEDS ORDERED: POTASSIUM CL SA 10 MEQ TAB PO ONE (19:06)
[2021-09-27] MEDS ORDERED: NA CHLORIDE 0.9% 1,000 ML ONE (19:06)
[2021-09-27] MEDS ORDERED: KCL 20 MEQ/100 mL IVPB 100 ML IV ONE (19:06)
[2021-09-27] MEDS ORDERED: NA CHLORIDE 0.9% 500 ML ONE (20:11)
--- NOTE | 2021-09-27 20:31 | EDPHYS ---
Physician Documentation [facility] Name: Leena Muniz Age: 35 yrs Sex: Female : 1985 Arrival Date: 09/27/2021 Time: 15:28 Bed 27 Private MD: ED Physician Naomi Rogers HPI: 09/27 15:38 This 35 yrs old Female presents to ER via EMS with complaints of Chest Pain. cp 15:38 The patient or guardian reports chest pain that is located primarily in the anterior cp chest wall. 15:38 The pain does not radiate. cp 15:38 Associated signs and symptoms: Pertinent positives: dizziness, nausea, Pertinent cp negatives: abdominal pain, diaphoresis, lower extremity pain, lower extremity swelling, shortness of breath, syncope, vomiting. 15:38 The chest pain is described as tightness. Severity of pain: in the emergency department cp the pain is unchanged despite EMS interventions. 15:38 Patient reports taking what she believed was ectasy last night but reports she has cp never had these symptoms after taking ectasy. 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 - Social history:: Smoking status: Reported history of juuling and/or vaping. Patient uses alcohol, on a daily basis. street drugs. ROS: 15:40 Constitutional: Negative for body aches, chills, fever, poor PO intake. cp 15:40 Cardiovascular: Positive for chest pain. cp 15:40 Eyes: Negative for injury, pain, redness, and discharge. cp 15:40 ENT: Negative for ear pain, sore throat, difficulty swallowing, difficulty handling secretions. 15:40 Respiratory: Negative for cough, shortness of breath, wheezing. 15:40 Abdomen/GI: Positive for nausea, Negative for abdominal pain, vomiting, constipation. 15:40 Neuro: Positive for dizziness, Negative for altered mental status, syncope, weakness. 15:40 All other systems are negative. Exam: 15:38 ECG was reviewed by the Attending Physician. cp 15:45 Constitutional: The patient appears in no acute distress, alert, awake, cp non-diaphoretic, non-toxic, well developed, well nourished. 15:45 Head/Face: Normocephalic, atraumatic. cp 15:45 Eyes: Periorbital structures: appear normal, Conjunctiva: normal, no exudate, no injection, Sclera: no appreciated abnormality, Lids and lashes: appear normal, bilaterally. 15:45 ENT: External ear(s): are unremarkable, Nose: is normal, Mouth: Lips: moist, Oral mucosa: moist, Posterior pharynx: Airway: no evidence of obstruction, patent. 15:45 Neck: ROM/movement: is normal, is supple, without pain, no range of motions limitations. 15:45 Chest/axilla: Inspection: normal. 15:45 Cardiovascular: Rate: tachycardic, Rhythm: regular, Heart sounds: murmur, not appreciated, Edema: is not appreciated, JVD: is not appreciated. 15:45 Respiratory: the patient does not display signs of respiratory distress, Respirations: normal, no use of accessory muscles, no retractions, labored breathing, is not present, Breath sounds: are clear throughout, no decreased breath sounds, no stridor, no wheezing. 15:45 Abdomen/GI: Inspection: abdomen appears normal, Palpation: abdomen is soft and non-tender, in all quadrants. 15:45 Neuro: Orientation: to person, place \T\ time. Mentation: is normal, Cerebellar function: is grossly normal, Motor: moves all fours, strength is normal, Sensation: is normal. Vital Signs: 15:31 BP 140 / 109; Pulse 105; Resp 20; Temp 98.0(TE); Pulse Ox 100% on R/A; Weight 81.65 kg; ld1 Height 5 ft. 4 in. (162.56 cm); Pain 7/10; 16:32 BP 141 / 106; Pulse 98; Resp 18; Pulse Ox 99% on R/A; ld1 17:59 BP 139 / 95; Pulse 105; Resp 16; Pulse Ox 100% on R/A; ld1 20:00 BP 132 / 107; Pulse 75; Resp 18; Pulse Ox 100% on R/A; ld1 15:31 Body Mass Index 30.90 (81.65 kg, 162.56 cm) ld1 MDM: 15:35 Patient medically screened. cp 16:00 Differential diagnosis: abnormal EKG, pericarditis, pleurisy, pneumonia, pneumothorax. cp 18:40 Data reviewed: vital signs, nurses notes, lab test result(s), EKG, radiologic studies, cp plain films. 09/27 15:32 Order name: Basic Metabolic Panel cp 09/27 15:32 Order name: CBC with Diff; Complete Time: 17:17 cp 09/27 15:32 Order name: LFT's cp 09/27 15:32 Order name: Magnesium cp 09/27 15:32 Order name: NT PRO-BNP cp 09/27 15:32 Order name: PT-INR; Complete Time: 17:17 cp 09/27 15:32 Order name: Troponin HS cp 09/27 15:32 Order name: XRAY Chest (1 view); Complete Time: 17:17 cp 09/27 15:32 Order name: UDS; Complete Time: 17:17 cp 09/27 16:04 Order name: Urine Dipstick-Ancillary; Complete Time: 17:17 EDMS 09/27 16:06 Order name: Urine --Ancillary (enter results); Complete Time: 17:17 em1 09/27 15:32 Order name: EKG; Complete Time: 15:33 cp 09/27 15:32 Order name: Cardiac monitoring; Complete Time: 15:43 cp 09/27 15:32 Order name: EKG - Nurse/Tech; Complete Time: 15:43 cp 09/27 15:32 Order name: IV Saline Lock; Complete Time: 15:43 cp 09/27 15:32 Order name: Labs collected and sent; Complete Time: 16:06 cp 09/27 15:32 Order name: O2 Per Protocol; Complete Time: 15:43 cp 09/27 15:32 Order name: O2 Sat Monitoring; Complete Time: 15:43 cp 09/27 15:32 Order name: Urine Dipstick-Ancillary (obtain specimen); Complete Time: 16:05 cp 09/27 15:32 Order name: Urine Test (obtain specimen); Complete Time: 16:05 cp EC:38 Rate is 86 beats/min. Rhythm is regular. NV interval is normal. QRS interval is normal. cp QT interval is prolonged at 402 msec. T waves are Inverted in lead aVR. Interpreted by me. Reviewed by me. Administered Medications: 19:12 Drug: Potassium Chloride 20 mEq Route: IV; Rate: calculated rate; Site: left ld1 antecubital; 19:12 Drug: Ativan (LORazepam) 0.5 mg Route: IVP; Site: left antecubital; ld1 19:12 Drug: Potassium Effervescent Tablet 50 mEq Route: PO; ld1 Disposition: 09/28 12:54 Co-signature as Attending Physician, Naomi Rogers MD I agree with the assessment and sp3 plan of care. Disposition Summary: 09/27/21 20:30 Discharge Ordered Location: Home [facility] Condition: Stable jm Diagnosis - Syncope jmm - Hypokalemia [facility] Followup: jm - With: Private Physician - When: 2 - 3 days - Reason: Recheck today's complaints, Continuance of care, Re-evaluation by your physician Discharge Instructions: - Discharge Summary Sheet jm - Syncope jmm - Hypokalemia [facility] Forms: - Medication Reconciliation Form [facility] - Thank You Letter jm - Antibiotic Education jmm - Prescription Opioid Use [facility] Signatures: Dispatcher [employer] EDMS Girish Castro PA PA jmJens Norris PA PA cp Ema Shields, TANA RN ld1 Naomi Rogers MD MD sp3 Corrections: (The following items were deleted from the chart) 09/27 19:04 15:38 Associated signs and symptoms: Pertinent positives: nausea, cp cp
--- NOTE | 2021-09-27 20:31 | ER ---
Nurse's Notes [facility] Name: Leena Muniz Age: 35 yrs Sex: Female : 1985 Arrival Date: 09/27/2021 Time: 15:28 Bed 27 Private MD: Diagnosis: Syncope;Hypokalemia Presentation: 09/27 15:31 Chief complaint: EMS states: toned out for syncope episodes. Pt reports taking 1 pill ld1 last night, she was told it was ecstasy. Pt c/o dizziness, headache, and chest tightness. Coronavirus screen: At this time, the client does not indicate any symptoms associated with coronavirus-19. Ebola Screen: No symptoms or risks identified at this time. Initial Sepsis Screen: Does the patient meet any 2 criteria? No. Patient's initial sepsis screen is negative. Does the patient have a suspected source of infection? No. Patient's initial sepsis screen is negative. Risk Assessment: Do you want to hurt yourself or someone else? Patient reports no desire to harm self or others. Onset of symptoms was September 27, 2021. 15:31 Method Of Arrival: EMS: [facility] ld1 15:31 Acuity: ALEE 3 ld1 Triage Assessment: 15:33 General: Appears in no apparent distress. uncomfortable, Behavior is cooperative, ld1 anxious, crying. Pain: Complains of pain in chest Pain does not radiate. Pain currently is 7 out of 10 on a pain scale. Quality of pain is described as squeezing, Pain began gradually, Is intermittent. EENT:. EENT: No signs and/or symptoms were reported regarding the EENT system. Neuro: Level of Consciousness is awake, alert, obeys commands, Oriented to person, place, time, situation. Cardiovascular: Capillary refill < 3 seconds Patient's skin is warm and dry. Rhythm is sinus tachycardia. Respiratory: Airway is patent Respiratory effort is even, unlabored, Respiratory pattern is regular, symmetrical. GI: Abdomen is flat, non-distended. : No signs and/or symptoms were reported regarding the genitourinary system. Derm: No signs and/or symptoms reported regarding the dermatologic system. Musculoskeletal: No signs and/or symptoms reported regarding the musculoskeletal system. 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 - Social history:: Smoking status: Reported history of juuling and/or vaping. Patient uses alcohol, on a daily basis. street drugs. Screenin:36 Abuse screen: Denies threats or abuse. Denies injuries from another. Nutritional ld1 screening: No deficits noted. Tuberculosis screening: No symptoms or risk factors identified. Fall Risk None identified. Assessment: 15:36 Reassessment: See triage assessment. ld1 Vital Signs: 15:31 BP 140 / 109; Pulse 105; Resp 20; Temp 98.0(TE); Pulse Ox 100% on R/A; Weight 81.65 kg; ld1 Height 5 ft. 4 in. (162.56 cm); Pain 7/10; 16:32 BP 141 / 106; Pulse 98; Resp 18; Pulse Ox 99% on R/A; ld1 17:59 BP 139 / 95; Pulse 105; Resp 16; Pulse Ox 100% on R/A; ld1 20:00 BP 132 / 107; Pulse 75; Resp 18; Pulse Ox 100% on R/A; ld1 15:31 Body Mass Index 30.90 (81.65 kg, 162.56 cm) ld1 ED Course: 15:28 Patient arrived in ED. ld1 15:28 Ema Shields RN is Primary Nurse. ld1 15:28 Jens Dyer PA is PHCP. cp 15:28 Naomi Rogers MD is Attending Physician. cp 15:33 Triage completed. ld1 15:33 Arm band placed on right wrist. ld1 15:36 Patient has correct armband on for positive identification. Placed in gown. Bed in low ld1 position. Call light in reach. Side rails up X2. media monitor on. Pulse ox on. NIBP on. Door closed. Noise minimized. Warm blanket given. 15:36 No provider procedures requiring assistance completed. Maintain EMS IV. Dressing ld1 intact. Good blood return noted. Site clean \T\ dry. Gauge \T\ site: 20 LAC. 16:06 UDS Sent. ld1 16:26 XRAY Chest (1 view) In Process Unspecified. EDMS 20:20 PHCP role handed off by Jens Dyer PA jmm 20:20 Girish aCstro PA is PHCP. [facility] 20:59 IV discontinued, intact, bleeding controlled, No redness/swelling at site. ld1 Administered Medications: 19:12 Drug: Potassium Chloride 20 mEq Route: IV; Rate: calculated rate; Site: left ld1 antecubital; 19:12 Drug: Ativan (LORazepam) 0.5 mg Route: IVP; Site: left antecubital; ld1 19:12 Drug: Potassium Effervescent Tablet 50 mEq Route: PO; ld1 Outcome: 20:30 Discharge ordered by MD. [facility] 20:59 Discharged to home ambulatory, with family. ld1 20:59 Condition: stable 20:59 Discharge instructions given to patient, Instructed on discharge instructions, follow up and referral plans. Demonstrated understanding of instructions, follow-up care. 20:59 Patient left the ED. ld1 Signatures: Dispatcher [employer] EDMS Girish Castro PA PA jmm Page, Corey, PA PA cp Dibbern, Lauren, RN RN ld1
[2021-09-27 21:33] VITALS: TEMP 98
[2021-09-27 21:36] VITALS: O2SAT 100
[2021-09-27 21:37] VITALS: BP 132/107
[2021-09-27 22:15] LABS: Magnesium 1.6
== END 2021-09-27 20:59 | disposition home or self-care (01) ==
LOC: ER 15:27
DX: E87.6 Hypokalemia (principal); Z88.0 Allergy status to penicillin
CPT/HCPCS: 36415; 71045; 80048; 80076; 80307; 81003; 81025; 83735; 83880; 84484; 85025; 85610; 93005; 96374; 96375; 99284; J3480; J7030; J7040

== ENCOUNTER 2022-11-02 06:23 | Emergency (ER) | payer OTHER ==
--- OUTSIDE RECORDS SUMMARY | 2022-11-02 06:29 | XMS REPORT | Continuity of Care Document ---
:1985 Author Organization [facility] t Address [address] [place] [address] Care Team Providers Name Role Phone PCP, PATIENT DOES NOT HAVE A Primary Care Physician Unavaila ble DARLENE, IRENE Attending Clinician Unavailable COY THOMAS Attending Clinician Unavailable JANEL HARKINS Attending Clinician Unavailable Kelsey Shepard Attending Clinician KELSEY ESPAÑA Attending Clinician Unavailable Yelena Gray Attending Clinician Doctor Unassigned, [place] Attending Clinician Unavailable ADELSO LEGER Attending Clinician Unavailable COY THOMAS Admitting Clinician Unavailable ADELSO LEGER Admitting Clinician Unavailable Problems Condition Condition Condition Status Onset Resolution Last Treating Co mments Source Name Details Category Date Date Treatment Clinician Date Vitamin Vitamin Disease Recurre 2020-[address] [facility] B12 B12 nce 09-24 [facility] deficiency deficiency 00:[facility]: Me dical 00 Center Cocaine Cocaine Disease Active 2020-[address] [facility] [address] abuse abuse 09-24 [facility] 00[facility] 00 Center Abnormal Abnormal Disease Active 2020-08 [facility] results of results of 09-24 kes thyroid thyroid 00:00: Medical function function 00 Center studies studies Hyperthyro Hyperthyro Disease Recurre 2020-[address] [facility] idism idism nce 2-05 [facility] Center Asthma Asthma Disease Recurre 2020-[address] [facility] [address] nce 2-05 [facility] 00:[facility] 00 Center CVA CVA Disease Active 2020-[address] [facility] (cerebral (cerebral 2-05 Luke s vascular vascular 00:00: Medica l accident) accident) 00 Cent er (HCC), (HCC), possible possible Troponin I Troponin I Disease Active U nivers above above 6-01 [place] range 00 [place] Other Other Disease Active Univers chest pain chest pain 6-01 it y of 00:00: [place] 00 Medical Branch Fever Fever Disease Active Univers 5-31 ity of 00:00: [place] [facility] Morbid Morbid Disease Active Univers obesity obesity 5-31 [place]y of with body with body 00:[place] mass index mass index 00 Me dical of of Branch 40.0-49.9 40.0-49.9 Maternal Maternal Disease Active 2011-08 Unive rs varicella, varicella, 1-12 it y of non-immune non-immune [place] [facility] Anemia of Anemia of Disease Active Overview: Univers mother mother 2- ICD10 ity of during during 00:00: Diagnosis [place] , , 00 Term Me dical delivered delivered 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 Allergy Allergy Disease Active Univers history, history, 1-31 [place]y of penicillin penicillin [place] [facility] Normal Normal Disease Active Univers spontaneou spontaneou 1-30 it y of s vaginal s vaginal 00:00: [place] delivery 00 Med[place] Branch Obesity Obesity Disease Active Univers 1-30 ity of 00:00: [place] 00 Medical Branch Itching Itching Disease Active Overview: Univ ers 1-30 Probable ity of 00:00: cholestas [place] is of Medical Branch Multiparit Multiparit Disease Active U nivers y y 1-30 ity of 00:00: [place] 00 Medical Branch Asthma Asthma Disease Active Univers 1-29 ity of 00:00: [place] 00 Medical Branch Odalis Odalis Disease Active Overview: Univ ers vaginitis vaginitis 8-25 Treated ity of 00:00: with [place] 00 Diflucan Medical PO x1. Branch Please f/u at next visit Cocaine Cocaine Disease Active Overview: [facility] ers use use 04-11 In rehab ity of complicati complicati 00:00: facility [facility] 00 now Medical Bran ch Migraines Migraines Disease Active Overview: [facility] 04-11 Prescribe ity of 00:00: d Reglan with Medical Tylenol Branch Disease Active Overview: [facility] ers delivery delivery 04-11 17 OHP to ity of 00:00: begin at [place] 00 16 weeks Medical and Branch q2week cervical length Problem Problem [facility] Allergies, Adverse Reactions, Alerts Allergy Allergy Status Severity Reaction(s) Onset Inactive Treating Comm ents Source Name Type Date Date Clinician Penicill Propensi Active Hives HIVES Univer s ins ty to 09-17 after ity of adverse 00:00: last [place] reaction 00 Medical s Branch PENICILL Drug Active Hives Univers INS Class 09-17 ity of 00:00: [place] [id number] Medical Branch NO KNOWN Allergy Active SLE ALLERGCHLOÉ S Social History Social Habit Start Date Stop Date Quantity Comments Source Exposure to Not sure [facility] SARS-CoV-2 (event) Medica l Branch Sex Assigned At [address] [facility] 00:00:00 00:00:00 Center Smoking Status Start Date Stop Date Source Smokes tobacco daily 2021-01-20 16:09:00 [facility] (finding) Never smoker [facility] Medical Branch Medications Ordered Filled Start Stop Current Ordering Indication Dosage Frequency Signature Comments Components Source Medication Medication Date Date Medication? Clinician (SIG) Name Name aspirin 81 2020-08- No 81mg QD Take [address] [facility] MG chewable 09-25- tablet (81 L ukes tablet 00:00: 23:59 mg total) Medic al 00 :00 by mouth Center daily. atorvastati 2020-08 No 20mg QD Take [address] [facility] n (LIPITOR) 09-25-08 tablet (20 L ukes 20 MG 00:00: 23:59 mg total) Medica l tablet 00 :00 by mouth Center daily. Dicyclomine No 10mg Four Times [facility] Hcl 6-05 Daily S (Bentyl) 10 18:58: Health Mg CAP 00 Ondansetron No 4mg Every 6 [facility] ISTU Hcl (Zofran 6-05 Hours as S Odt) 4 Mg 18:58: needed for He alth TAB.RAPDIS 00 Nausea NaCl 0.9% 2019- No 30mL/kg at 999 Un rose mary (NS) bolus 02-21 mL/hr, ity of infusion 00:15: 04:06 3,063 mL [place] 3,063 mL 00 :00 (30 mL/kg Medica l ?102.1 Branch kg), IV Infusion, ONCE, 1 dose, 02/21/20 at 1915, STAT ibuprofen 2019- No 800mg 800 mg, Uni vers (IBU) 02-20 Oral, ity of tablet 800 23:15: 23:15 ONCE, 1 Michele as mg 00 :00 dose, [facility] Medical 02/21/20 at Branch 1815, RANJIT acetaminoph 2019- No 1000mg 1,000 mg, Univers en 02-20 Oral, ity of (TYLENOL) 23:15: 23:15 ONCE, 1 [place] tablet 00 :00 dose, [facility] 1,000 mg 02/21/20 at Branch 1815, Routine azithromyci Yes [id number] Take 500 Univers n 6-01 mg day 1, ity of (ZITHROMAX 00:00: then 250 Michele as Z-JOVANNA) 250 00 mg days 2 Medi robyn mg tablet to 5. Branch azithromyci 0 Yes [id number] Take 500 Univers n 6-01 mg day 1, ity of (ZITHROMAX 00:00: then 250 Michele as Z-JOVANNA) 250 00 mg days 2 Medi robyn mg tablet to 5. Branch azithromyci 2020 Yes [id number] Take 500 Univers n 6-01 mg day 1, ity of (ZITHROMAX 00:00: then 250 Michele as Z-JOVANNA) 250 00 mg days 2 Medi robyn mg tablet to 5. Branch azithromyci Yes [id number] Take 500 Univers n 6-01 mg day 1, ity of (ZITHROMAX 00:00: then 250 Michele as Z-JOVANNA) 250 00 mg days 2 Medi robyn mg tablet to 5. Branch azithromyci 2020-0 Yes [id number] Take 500 Univers n 6-01 mg day 1, ity of (ZITHROMAX 00:00: then 250 Michele as Z-JOVANNA) 250 00 mg days 2 Medi robyn mg tablet to 5. Branch azithromyci 2020-0 Yes [id number] Take 500 Univers n 6-01 mg day 1, ity of (ZITHROMAX 00:00: then 250 Michele as Z-JOVANNA) 250 00 mg days 2 Medi robyn mg tablet to 5. Branch azithromyci 2020-0 Yes [id number] Take 500 Univers n 6-01 mg day 1, ity of (ZITHROMAX 00:00: then 250 Michele as Z-JOVANNA) 250 00 mg days 2 Medi robyn mg tablet to 5. Branch azithromyci 2020-0 Yes [id number] Take 500 Univers n 6-01 mg day 1, ity of (ZITHROMAX 00:00: then 250 Michele as Z-JOVANNA) 250 00 mg days 2 Medi robyn mg tablet to 5. Branch Immunizations Ordered Filled Immunization Date Status Comments [facility] e Immunization Name Name Varicella 2012-06-29 Completed University of (varivax)(chicken 00:00:00 [place] M edical pox) Branch Varicella 2012-06-29 Completed University of (varivax)(chicken 00:00:00 [place] M [place] pox) Branch Varicella 2012-06-29 Completed University of (varivax)(chicken 00:00:00 [place] M [place]ical pox) Branch Varicella 2012-06-29 Completed University of (varivax)(chicken 00:00:00 [place] M [place]ical pox) Branch Varicella 2012-06-29 Completed University of (varivax)(chicken 00:00:00 [place] M [place]ical pox) Branch Varicella 2012-06-29 Completed University of (varivax)(chicken 00:00:00 [place] M [place]ical pox) Branch Varicella 2012-06-29 Completed University of (varivax)(chicken 00:00:00 [place] M [place]ical pox) Branch Varicella 2012-06-29 Completed University of (varivax)(chicken 00:00:00 [place] M [place]ical pox) Branch Vital Signs Vital Name Observation Time Observation Value Comments Source HEIGHT 2021-07-22 03:15:00 149.8 cm WEIGHT 2021-07-22 03:15:00 61.6 kg HEIGHT 2021-07-22 03:15:00 149.8 cm WEIGHT 2021-07-22 03:15:00 61.6 kg Systolic blood 2020-02-22 04:00:00 116 mm[Hg] Univer sity of pressure [facility] [place] Diastolic blood 2020-02-22 04:00:00 23 mm[Hg] Unive rsity of [facility] Heart rate 2020-02-22 04:00:00 81 /min [facility] Respiratory rate 2020-02-22 04:00:00 17 /min [facility] Oxygen saturation in 2020-02-22 04:00:00 98 /min [facility] blood by [facility] Pulse oximetry [place] Body temperature 2020-02-21 21:55:00 38.33 Hilary [facility] height 2020-02-21 21:55:00 149.9 cm [facility] Body weight 2020-02-21 21:55:00 102.059 kg [facility] BMI 2020-02-21 21:55:00 45.44 kg/m2 [facility] BP Diastolic 2021-01-20 20:21:00 82 mm[Hg] [facility] BP Systolic 2021-01-20 20:21:00 136 mm[Hg] [facility] Heart Rate 2021-01-20 20:21:00 73 /min [facility] Respiratory rate 2021-01-20 20:21:00 16 /min [facility] Heart Rate 2021-01-20 16:55:00 80 /min [facility] BP Diastolic 2021-01-20 16:42:00 91 mm[Hg] [facility] BP Systolic 2021-01-20 16:42:00 131 mm[Hg] [facility] Heart Rate 2021-01-20 16:42:00 80 /min [facility] Respiratory rate 2021-01-20 16:42:00 10 /min [facility] Heart Rate 2021-01-20 16:09:00 88 /min [facility] Procedures Procedure Date / Time Performing Clinician Source Performed ECG (electrocardiogram) 2021-01-20 00:00:00 [facility] X-ray of chest, single 2021-01-20 00:00:00 [facility] view BILATERAL VENOUS DUPLEX 2020-02-22 02:41:42 Kelsey España [facility] LOWER EXTREMITY BY Medical [facility] h VASCULAR LAB ADC / LCC - DRUG SCREEN 2020-02-22 02:26:00 Kelsey España [facility] TRIAGE [facility] ACUTE CARE VENOUS BLOOD 2020-02-22 01:09:00 Kelsey España [facility] GAS [facility] LACTIC ACID WHOLE BLOOD 2020-02-22 01:09:00 Kelsey España Uni [facility] LIPASE 2020-02-22 01:08:00 Ulises [facility] HEPATIC FUNCTION PANEL 2020-02-22 01:08:00 Ulises [facility] ([id number]) (ALB,T.PRO,BILI [facility] T,BU/BC,ALT,AST,ALK PHOS) BASIC METABOLIC PANEL 2020-02-22 01:08:00 Kelsey España [facility] (NA, K, CL, CO2, [facility] GLUCOSE, BUN, CREATININE, CA) CBC WITH DIFFERENTIAL 2020-02-22 01:08:00 Kelsey España [facility] PROTHROMBIN TIME / INR 2020-02-22 01:08:00 [facility] 2020-02-22 01:08:00 [facility]W 2020-02-22 00:54:31 [facility] VW 2020-02-22 00:54:31 Ulises [facility] EKG-12 LEAD 2020-02-22 00:13:13 Ulises [facility] COVID-19 (ID NOW RAPID 2020-02-21 23:19:00 Ulises [facility] TESTING) [facility] CONSENT/REFUSAL FOR 2020-02-21 21:44:32 Doctor Unassigned, No Un [facility] DIAGNOSIS AND TREATMENT Name Medical Branch Plan of Care Planned Activity Planned Date Details Comments Source Future Scheduled 2022-08-[address] [facility] Test 00:00:00 (12+) [code = Medical Center DEPRESSION SCREENING (12+)] Future Scheduled 2022-04-18 INFLUENZA VACCINE (#1) [facility] Test 00:00:00 [code = INFLUENZA Medical Ce nter VACCINE (#1)] Future Scheduled 2004-12-[address] [facility] Test 00:00:00 malignant neoplasm of Medica l Center cervix (procedure) [code = 217971044] Future Scheduled 2002-12-18 DTAP/TDAP/TD VACCINES [facility] Test 00:00:00 (1 - Tdap) [code = Medical C enter DTAP/TDAP/TD VACCINES (1 - Tdap)] Future Scheduled 2001-12-18 HEPATITIS C [facility]CREENING [facility] Test 00:00:00 [code = HEPATITIS C Medical Center SCREENING] Future Scheduled [address] [facility] Test 00:00:00 Counseling and Medical Cente r Screening (12+) [code = Tobacco Cessation Counseling and Screening (12+)] Future Scheduled 1989-12-[address] [facility] Test 00:00:00 0-64 YRS (1 - PCV) Medical C enter [code = PNEUMOCOCCAL VACCINE 0-64 YRS (1 - PCV)] Future Scheduled 1984-06-20 COVID-19 VACCINE (#1) [facility] Test 00:00:00 [code = COVID-[address] VACCINE (#1)] Encounters Start End Encounter Admission Attending Care Care Encounter Source Date/Time Date/Time Type Type Clinicians Facility Department ID 2021-07-22 2021-07-25 Inpatient ER DARLENE, IRENE [facility] Neuro ICU [id number] [facility] 03:08:00 10:55:00 2021-01-20 2021-01-20 Departed TANNER MOMIN [id number] [facility] 16:06:00 19:48:[address] [facility] 2021-01-20 2021-01-20 Emergency ER JANEL HARKINS [id number] [facility] 16:06:00 16:06:00 [id number] [facility] 2020-02-22 2020-02-22 Telephone MANDA España [id number] Univers 00:00:00 00:00:00 Kelsey NEELYY [id number] it y of HOSPITAL [id number] Michele as [phone] [address] 2020-02-21 2020-02-21 Emergency [place], [facility] [id number] Univers 17:28:55 23:08:00 Kelsey [place] [id number] i ty of [place] [id number] [place] [phone] [place] [id number] Branch 2020-02-21 2020-02-21 Emergency X ESPAÑA, [facility] ERT [id number] Univers 17:28:55 17:28:55 KELSEY ity of [facility] [place] 2020-01-19 2020-01-19 Transition Arianna Gray [id number] Univers 00:00:00 00:00:00 of Care Yelena Martinez [id number] ity [id number] [place] [phone] [address] 2020-01-18 2020-01-18 Patient Doctor MANDA [id number] Univers 00:00:00 00:00:00 Secure Msg Unassigned, EMMY [id number] ity of [place] [facility] [id number] Michele as [phone] [address] 2020-01-18 2020-01-18 Patient Doctor MANDA [id number] Univers 00:00:00 00:00:00 Secure Msg Unassigned, EMMY [id number] ity of [place] [facility] [id number] Michele as [phone] [address] 2020-01-18 2020-01-18 Patient Doctor MANDA [id number] Univers 00:00:00 00:00:00 Secure Msg Unassigned, EMMY [id number] ity of [place] [facility] [id number] Michele as [phone] [address] 2020-01-18 2020-01-18 Patient Doctor MANDA [id number] Univers 00:00:00 00:00:00 Secure Msg [facility]assignedEMMY [id number] [id number] Michele as [phone] [address] 2020-01-16 2020-01-17 Inpatient [id number] Univers 12:16:39 14:30:00 [facility] [place] 2020-01-17 2020-01-17 Patient Doctor MANDA [id number] Univers 00:00:00 00:00:00 Secure Msg Unassigned, EMMY [id number] [facility] [id number] Michele as [phone] [address] Results Test Description Test Time Test Comments Results Result [facility] e Comments MR, BRAIN, WITHOUT 2021-07-25 Unlisted Reason CONTRAST 08:34:00 for Exam - Click Yes and Enter Reason Below->No [facility] Her[facility] the patient [facility]: have an YAMILKA REN : implanted 1985 Sex: electronic F device?->No *FINAL REPORT MRI Brain without contrast Clinical History: Headache, acute, normal neuro exam Technique: MRI of the brain utilizing axial T2, FLAIR, GRE, DWI; sagittal and coronal T1-weighted images. Comparisons: CT 07/23/2021 Findings: There is no evidence of acute infarct or hemorrhage. There are a few scattered nonspecific foci of FLAIR signal abnormality in the subcortical and periventricular white matter. There is no hydrocephalus, midline shift, or apparent mass effect. There are no extra-axial fluid collections. The craniocervical junction is preserved. The major intracranial flow-voids appear patent. There is chronic mucosal disease throughout the left-sided paranasal sinuses with small air-fluid levels. IMPRESSION: No evidence of acute infarct, hemorrhage, or hydrocephalus. Acute on chronic left-sided paranasal sinusitis. Signed: Rhys Olivares MDReport Verified Date/Time: 07/25/2021 08:34:14 Reading Location: [address] Neuro Reading Room C METABOLIC PANEL 2021-07-24 05:18:48 Test Item Value Reference Range Interpretation Comme nts SODIUM (BEAKER) (test code = 137 meq/L 136-145 381) POTASSIUM (BEAKER) (test code 4.2 meq/L 3.5-5.1 = 379) CHLORIDE (BEAKER) (test code = 106 meq/L 98-107 382) CO2 (BEAKER) (test code = 355) 24 meq/L 22-29 BLOOD UREA NITROGEN (BEAKER) 8 mg/dL 7-21 (test code = 354) CREATININE (BEAKER) (test code 0.67 mg/dL 0.57-1.25 = 358) GLUCOSE RANDOM (BEAKER) (test 129 mg/dL 70-105 H code = 652) CALCIUM (BEAKER) (test code = 8.8 mg/dL 8.4-10.2 697) EGFR (BEAKER) (test code = I NSUFFICIENT CLINICAL DATA TO 1092) CALCULATE ESTIM ATED GFR. [employer] Hostess ID - CHATO [id number] 05:14:28 Test Item Value Reference Range Interpretation Comments MAGNESIUM (BEAKER) (test code = 2.0 mg/dL 1.6-2.6 627) [employer] ID - CHATO [id number] 05:14:28 Test Item Value Reference Range Interpretation Comments PHOSPHORUS (BEAKER) (test code = 3.0 mg/dL 2.3-4.7 604) [employer] ID - CHATO GCBC W/PLT COUNT & AUTO [id number] 04:53:17 Test Item Value Reference Range Interpretation Comments WHITE BLOOD CELL COUNT (BEAKER) 7.1 K/ L 3.5-10.5 (test code = 775) RED BLOOD CELL COUNT (BEAKER) 4.23 M/ L 3.93-5.22 (test code = 761) HEMOGLOBIN (BEAKER) (test code = 12.7 GM/DL 11.2-15.7 410) HEMATOCRIT (BEAKER) (test code = 37.8 % 34.1-44.9 411) MEAN CORPUSCULAR VOLUME (BEAKER) 89.4 fL 79.4-94.8 (test code = 753) MEAN CORPUSCULAR HEMOGLOBIN 30.0 pg 25.6-32.2 (BEAKER) (test code = 751) MEAN CORPUSCULAR HEMOGLOBIN CONC 33.6 GM/DL 32.2-35.5 (BEAKER) (test code = 752) RED CELL DISTRIBUTION WIDTH 11.7 % 11.7-14.4 (BEAKER) (test code = 412) PLATELET COUNT (BEAKER) (test 215 K/CU MM 150-450 code = 756) MEAN PLATELET VOLUME (BEAKER) 10.3 fL 9.4-12.3 (test code = 754) NUCLEATED RED BLOOD CELLS 0 /100 WBC 0-0 (BEAKER) (test code = 413) NEUTROPHILS RELATIVE PERCENT 62 % (BEAKER) (test code = 429) LYMPHOCYTES RELATIVE PERCENT 28 % (BEAKER) (test code = 430) MONOCYTES RELATIVE PERCENT 7 % (BEAKER) (test code = 431) EOSINOPHILS RELATIVE PERCENT 2 % (BEAKER) (test code = 432) BASOPHILS RELATIVE PERCENT 1 % (BEAKER) (test code = 437) NEUTROPHILS ABSOLUTE COUNT 4.43 K/ L 1.56-6.13 (BEAKER) (test code = 670) LYMPHOCYTES ABSOLUTE COUNT 2.00 K/ L 1.18-3.74 (BEAKER) (test code = 414) MONOCYTES ABSOLUTE COUNT (BEAKER) 0.48 K/ L 0.24-0.36 H (test code = 415) EOSINOPHILS ABSOLUTE COUNT 0.14 K/ L 0.04-0.36 (BEAKER) (test code = 416) BASOPHILS ABSOLUTE COUNT (BEAKER) 0.04 K/ L 0.01-0.08 (test code = 417) IMMATURE GRANULOCYTES-RELATIVE 0 % 0-1 PERCENT (BEAKER) (test code = 2801) CT, BRAIN, WITHOUT [id number] 17:45:00Unlisted Reason for Exam - Click Yes and Enter Reason Below->YesUnlisted Reason for Exam->posttPA [facility] : 1985 Sex: FFINAL REPORT CT, BRAIN, WITHOUT CONTRAST INDICATION: Unlisted Reason for Exampost tPA TECHNIQUE: Noncontrast axial imaging was obtained from the vertex to the skull base. Axial images were reconstructed using a bone algorithm. DOSE REDUCTION: Dose modulation, iterative reconstruction, and/or weight-based adjustment of the mA/kV was utilized to reduce the radiation dose to as low as reasonably achievable. COMPARISON: CT 07/22/2021 FINDINGS: Intracranial: No intracranial hemorrhage or abnormal extra-axial collection. No evidence of acute territorial infarct. No mass effect. No hydrocephalus. Osseous structures: No fracture. No suspicious lesion. Paranasal sinuses and mastoid air cells: No evidence of sinusitis. Mastoids are clear. Orbital contents: Globes are intact. IMPRESSION: No acuteintracranial hemorrhage or CT evidence of territorial infarct. If there is persistent clinical concern for intracranial pathology, MR examination is recommended for further characterization. Signed: Kelly Knott Verified Date/Time: 07/23/2021 17:45:18 CARDIOLIPIN ANTIBODIES, IGG AND IGM 2021-07-23 12:01:21 Test Item Value Reference Range Interpretation Comments ANTICARDIOLIPIN IGG ANTIBODY (BEAKER) < GPL <20.0 (test code = 712) ANTICARDIOLIPIN IGM ANTIBODY (BEAKER) < MPL <20.0 (test code = 713) Anticardiolipin IgG Result Interpretation: <20.0 GPL Normal>/= 20.0 GPL PositiveAnticardiolipin IgM Result Interpretation: <20.0 MPL Normal>/= 20.0 MPL PositiveBASIC METABOLIC [id number] 04:18:31 Test Item Value Reference Range Interpretation Comments SODIUM (BEAKER) (test 140 meq/L 136-145 code = 381) POTASSIUM (BEAKER) 3.8 meq/L 3.5-5.1 (test code = 379) CHLORIDE (BEAKER) 111 meq/L 98-107 H (test code = 382) CO2 (BEAKER) (test 20 meq/L 22-29 L code = 355) BLOOD UREA NITROGEN 11 mg/dL 7-21 (BEAKER) (test code = 354) CREATININE (BEAKER) 0.67 mg/dL 0.57-1.25 (test code = 358) GLUCOSE RANDOM 112 mg/dL 70-105 H (BEAKER) (test code = 652) CALCIUM (BEAKER) 8.5 mg/dL 8.4-10.2 (test code = 697) EGFR (BEAKER) (test INSUFFIC IENT CLINICAL code = 1092) DATA TO CALCULA TE ESTIMATED GFR. [employer] ID - RENAE [id number] 04:04:04 Test Item Value Reference Range Interpretation Comments MAGNESIUM (BEAKER) (test code = 1.9 mg/dL 1.6-2.6 627) [employer] ID - RENAE [id number] 04:04:04 Test Item Value Reference Range Interpretation Comments PHOSPHORUS (BEAKER) (test code = 2.4 mg/dL 2.3-4.7 604) [employer] ID - RENAE MCALCIUM, [id number] 03:36:51 Test Item Value Reference Range Interpretation Comments CALCIUM IONIZED (BEAKER) (test 1.14 mmol/L 1.12-1.27 code = 698) PH, BLOOD (BEAKER) (test code = 7.40 1810) CBC W/PLT COUNT & AUTO [id number] 03:36:49 Test Item Value Reference Range Interpretation Comments WHITE BLOOD CELL COUNT (BEAKER) 7.4 K/ L 3.5-10.5 (test code = 775) RED BLOOD CELL COUNT (BEAKER) 4.12 M/ L 3.93-5.22 (test code = 761) HEMOGLOBIN (BEAKER) (test code = 12.4 GM/DL 11.2-15.7 410) HEMATOCRIT (BEAKER) (test code = 36.7 % 34.1-44.9 411) MEAN CORPUSCULAR VOLUME (BEAKER) 89.1 fL 79.4-94.8 (test code = 753) MEAN CORPUSCULAR HEMOGLOBIN 30.1 pg 25.6-32.2 (BEAKER) (test code = 751) MEAN CORPUSCULAR HEMOGLOBIN CONC 33.8 GM/DL 32.2-35.5 (BEAKER) (test code = 752) RED CELL DISTRIBUTION WIDTH 12.3 % 11.7-14.4 (BEAKER) (test code = 412) PLATELET COUNT (BEAKER) (test 224 K/CU MM 150-450 code = 756) MEAN PLATELET VOLUME (BEAKER) 10.0 fL 9.4-12.3 (test code = 754) NUCLEATED RED BLOOD CELLS 0 /100 WBC 0-0 (BEAKER) (test code = 413) NEUTROPHILS RELATIVE PERCENT 52 % (BEAKER) (test code = 429) LYMPHOCYTES RELATIVE PERCENT 39 % (BEAKER) (test code = 430) MONOCYTES RELATIVE PERCENT 7 % (BEAKER) (test code = 431) EOSINOPHILS RELATIVE PERCENT 2 % (BEAKER) (test code = 432) BASOPHILS RELATIVE PERCENT 1 % (BEAKER) (test code = 437) NEUTROPHILS ABSOLUTE COUNT 3.87 K/ L 1.56-6.13 (BEAKER) (test code = 670) LYMPHOCYTES ABSOLUTE COUNT 2.86 K/ L 1.18-3.74 (BEAKER) (test code = 414) MONOCYTES ABSOLUTE COUNT (BEAKER) 0.48 K/ L 0.24-0.36 H (test code = 415) EOSINOPHILS ABSOLUTE COUNT 0.13 K/ L 0.04-0.36 (BEAKER) (test code = 416) BASOPHILS ABSOLUTE COUNT (BEAKER) 0.05 K/ L 0.01-0.08 (test code = 417) IMMATURE GRANULOCYTES-RELATIVE 0 % 0-1 PERCENT (BEAKER) (test code = 2801) HIGH SENSITIVITY TROPONIN [id number] 12:02:35 Test Item Value Reference Range Interpretation Comments HIGH SENSITIVITY < pg/ml See_Comment [Automated message] TROPONIN I (test code = The system which [id number]) generated this result transmitted ref erence range: <=17. Th e reference range was not used to interpr et this result as normal/abnormal . [facility] [employer] ID - DBThe KILN FURNITURE SAW TENDER STAT High Sensitivity Troponin-I results should be used in conjunctionwith other diagnostic information such as ECG, clinical observations and information, and patient symptoms to aid in the diagnosis of [place].[id number] 11:56:00 Test Item Value Reference Range Interpretation Comments PHOSPHORUS (BEAKER) (test code = 3.9 mg/dL 2.3-4.7 604) [facility] ID - [id number] 11:56:00 Test Item Value Reference Range Interpretation Comments POTASSIUM (BEAKER) (test code = 3.7 meq/L 3.5-5.1 379) [facility] [employer] ID - [id number] 11:55:59 Test Item Value Reference Range Interpretation Comments MAGNESIUM (BEAKER) (test code = 2.3 mg/dL 1.6-2.6 627) [facility] ID - DBPROTEIN C [id number] 08:57:55 Test Item Value Reference Range Interpretation Comments PROTEIN C ACTIVITY (BEAKER) (test 119.0 % 70.0-130.0 code = 582) ANTITHROMBIN [id number] 08:57:54 Test Item Value Reference Range Interpretation Comments ANTITHROMBIN III ACTIVITY (BEAKER) 120.0 % 80.0-120.0 (test code = 711) HEMOGLOBIN [id number] 07:48:24 Test Item Value Reference Range Interpretation Comments HEMOGLOBIN A1C (BEAKER) (test code = 4.6 % 4.3-6.1 368) CT BRAIN WITHOUT IV CONTRAST - [id number] 05:51:00Unlisted Reason for Exam - Click Yes and Enter Reason Below->YesUnlisted Reason for Exam->new onset severe headache s/p tpa [facility] : 1985 Sex: FFINAL REPORT EXAM/TECHNIQUE: Noncontrast CT of the head. Dose modulation, iterative reconstruction, and/or weight based adjustment of the mA/kV was utilized to reduce the radiation dose to as low as reasonably achievable. INDICATION: New onset of severe headache status post TPA. COMPARISON: None. FINDINGS: Poor flifpf-au-nawit, likely secondary to portable CT. Lowe-white differentiation is preserved. No acute intracranial hemorrhage. No extra-axial fluid collection. Ventricles are normalin appearance. Basal cisterns are patent. No midline shift. Cerebellar tonsils are normal in appearan ce. Orbits are normal. Paranasal sinuses are clear. Mastoid air cells are clear. No acute osseous processes or suspicious osseous lesion. Midline structures are normal. Visualized face and neck are unremarkable. Impression: No acute intracranial hemorrhage. No territorial lowe-white differentiation loss. Signed: Jani Hankins [facility] Verified Date/Time: 07/22/2021 05:51:11 T4, [id number] 05:49:21 Test Item Value Reference Range Interpretation Comments FREE T4 (BEAKER) (test code = 655) 1.23 ng/dL 0.70-1.48 [facility] ID - RITO WCALCIUM, [id number] 05:40:56 Test Item Value Reference Range Interpretation Comments CALCIUM IONIZED (BEAKER) (test 1.14 mmol/L 1.12-1.27 code = 698) PH, BLOOD (BEAKER) (test code = 7.46 1810) TSH/FREE T4 IF [id number] 05:04:51 Test Item Value Reference Range Interpretation Comments THYROID STIMULATING HORMONE 0.003 uIU/mL 0.350-4.940 L (BEAKER) (test code = 772) [facility] ID - RITO WVITAMIN B12 AND [id number] 05:03:19 Test Item Value Reference Range Interpretation Comments VITAMIN B12 (BEAKER) 345 pg/mL 213-816 (test code = 774) FOLATE (BEAKER) 3.80 ng/mL See_Comment L [Automated message] (test code = 362) The system which generated this result transmitted ref erence range: >=7.00. The reference range was not used to interpr et this result as normal/abnormal . [facility] ID - RITO [id number] 04:53:15 Test Item Value Reference Range Interpretation Comments PARTIAL THROMBOPLASTIN TIME 28.4 seconds 22.5-36.0 (BEAKER) (test code = 760) PROTHROMBIN TIME/[id number] 04:52:33 Test Item Value Reference Range Interpretation Comments PROTIME (BEAKER) 14.8 seconds 11.9-14.2 H (test code = 759) INR (BEAKER) (test 1.18 See_Comment [Automat ed message] code = 370) The system [facility] h generated this result transmitted ref erence range: <=5.90. The reference range was not used to int erpret this result as normal/abnormal . RECOMMENDED COUMADIN/WARFARIN INR THERAPY RANGESSTANDARD DOSE: 2.0 - 3.0 Includes: PROPHYLAXIS for venous thrombosis, systemic embolization; TREATMENT for venous thrombosis and/or pulmonary embolus.HIGH RISK: Target INR is 2.5-3.5 for patients with mechanical heart valves.BASIC METABOLIC [id number] 04:32:09 Test Item Value Reference Range Interpretation Comments SODIUM (BEAKER) (test 138 meq/L 136-145 code = 381) POTASSIUM (BEAKER) 3.1 meq/L 3.5-5.1 L (test code = 379) CHLORIDE (BEAKER) 107 meq/L 98-107 (test code = 382) CO2 (BEAKER) (test 18 meq/L 22-29 L code = 355) BLOOD UREA NITROGEN 9 mg/dL 7-21 (BEAKER) (test code = 354) CREATININE (BEAKER) 0.63 mg/dL 0.57-1.25 (test code = 358) GLUCOSE RANDOM 98 mg/dL 70-105 (BEAKER) (test code = 652) CALCIUM (BEAKER) 9.0 mg/dL 8.4-10.2 (test code = 697) EGFR (BEAKER) (test INSUFFIC IENT CLINICAL code = 1092) DATA TO CALCULA TE ESTIMATED GFR. [facility] ID - DBSpecimen slightly [id number] 04:31:45 Test Item Value Reference Range Interpretation Comments PHOSPHORUS (BEAKER) (test code = 3.6 mg/dL 2.3-4.7 604) [facility] ID - DBLIPID [id number] 04:31:45 Test Item Value Reference Range Interpretation Comments TRIGLYCERIDES (BEAKER) (test code = 54 mg/dL 540) CHOLESTEROL (BEAKER) (test code = 146 mg/dL 631) HDL CHOLESTEROL (BEAKER) (test code 86 mg/dL = 976) LDL CHOLESTEROL CALCULATED (BEAKER) 49 mg/dL (test code = 633) Triglyceride Reference Range: Low Risk <150 Borderline 150-199 High Risk 200- 499 Very High Risk >=500Cholesterol Reference Range: Low Risk <200 Borderline 200-239 High Risk >240HDL Cholesterol Reference Range: Low Risk >=60 High Risk <40LDL Cholesterol Reference Range: Optimal <100 Near Optimal 100-129 Borderline 130-159 High 160-189 Very High >=190 [facility] ID - DBSpecimen slightly [id number] 04:31:44 Test Item Value Reference Range Interpretation Comments MAGNESIUM (BEAKER) (test code = 1.6 mg/dL 1.6-2.6 627) [facility] ID - DBCBC W/PLT COUNT & AUTO [id number] 04:18:19 Test Item Value Reference Range Interpretation Comments WHITE BLOOD CELL COUNT (BEAKER) 8.5 K/ L 3.5-10.5 (test code = 775) RED BLOOD CELL COUNT (BEAKER) 4.10 M/ L 3.93-5.22 (test code = 761) HEMOGLOBIN (BEAKER) (test code = 12.2 GM/DL 11.2-15.7 410) HEMATOCRIT (BEAKER) (test code = 35.4 % 34.1-44.9 411) MEAN CORPUSCULAR VOLUME (BEAKER) 86.3 fL 79.4-94.8 (test code = 753) MEAN CORPUSCULAR HEMOGLOBIN 29.8 pg 25.6-32.2 (BEAKER) (test code = 751) MEAN CORPUSCULAR HEMOGLOBIN CONC 34.5 GM/DL 32.2-35.5 (BEAKER) (test code = 752) RED CELL DISTRIBUTION WIDTH 12.1 % 11.7-14.4 (BEAKER) (test code = 412) PLATELET COUNT (BEAKER) (test 245 K/CU MM 150-450 code = 756) MEAN PLATELET VOLUME (BEAKER) 9.5 fL 9.4-12.3 (test code = 754) NUCLEATED RED BLOOD CELLS 0 /100 WBC 0-0 (BEAKER) (test code = 413) NEUTROPHILS RELATIVE PERCENT 59 % (BEAKER) (test code = 429) LYMPHOCYTES RELATIVE PERCENT 33 % (BEAKER) (test code = 430) MONOCYTES RELATIVE PERCENT 7 % (BEAKER) (test code = 431) EOSINOPHILS RELATIVE PERCENT 0 % (BEAKER) (test code = 432) BASOPHILS RELATIVE PERCENT 1 % (BEAKER) (test code = 437) NEUTROPHILS ABSOLUTE COUNT 5.00 K/ L 1.56-6.13 (BEAKER) (test code = 670) LYMPHOCYTES ABSOLUTE COUNT 2.83 K/ L 1.18-3.74 (BEAKER) (test code = 414) MONOCYTES ABSOLUTE COUNT (BEAKER) 0.56 K/ L 0.24-0.36 H (test code = 415) EOSINOPHILS ABSOLUTE COUNT 0.03 K/ L 0.04-0.36 L (BEAKER) (test code = 416) BASOPHILS ABSOLUTE COUNT (BEAKER) 0.07 K/ L 0.01-0.08 (test code = 417) IMMATURE GRANULOCYTES-RELATIVE 0 % 0-1 PERCENT (BEAKER) (test code = 2801) Automated blood leukocyte count (number/volume)2021-01-20 16:55:00 Test Item Value Reference Range Interpretation Comments White Blood Count (test code = 6690-2) 8.8 4.5-11.5 [facility] erythrocytes automated count (number/volume)2021-01-20 16:55:00 Test Item Value Reference Range Interpretation Comments Red Blood Count (test code = 789-8) 4.21 3.8-5.1 [facility] hemoglobin measurement (mass/volume)2021-01-20 16:55:00 Test Item Value Reference Range Interpretation Comments Hemoglobin (test code = 718-7) 12.4 12.0-15.2 [facility] HealthAutomated blood hematocrit (volume fraction)2021-01-20 16:55:00 Test Item Value Reference Range Interpretation Comments Hematocrit (test code = 4544-3) 35.9 34.0-45.5 [facility] HealthAutomated erythrocyte mean corpuscular volume (MCV) measurement 2021-01-20 16:55:00 Test Item Value Reference Range Interpretation Comments Mean Corpuscular Volume (test code = 85 80-94 787-2) [facility] HealthAutomated erythrocyte mean corpuscular hemoglobin (mass per erythrocyte)2021-01-20 16:55:00 Test Item Value Reference Range Interpretation Comments Mean Corpuscular Hemoglobin (test code 29.5 27.0-33.0 = 785-6) [facility] HealthAutomated erythrocyte mean corpuscular hemoglobin concentration measurement (mass/volume)2021-01-20 16:55:00 Test Item Value Reference Range Interpretation Comments Mean Corpuscular Hemoglobin Concent 34.5 33.0-37.0 (test code = 786-4) [facility] HealthAutomated erythrocyte distribution width [id number] 16:55:00 Test Item Value Reference Range Interpretation Comments Red Cell Distribution Width (test code 11.6 10.7-14.5 = 788-0) [facility] HealthAutomated blood platelet count (count/volume)2021-01-20 16:55:00 Test Item Value Reference Range Interpretation Comments Platelet Count (test code = 777-3) 285 150-450 [facility] HealthAutomated blood platelet mean volume yphbydfzzoe7092-38-12 16:55:00 Test Item Value Reference Range Interpretation Comments Mean Platelet Volume (test code = 9.4 5.7-10.7 53065-9) [facility] HealthAutomated blood neutrophil count as percentage of total gbsualtvir7223-46-19 16:55:00 Test Item Value Reference Range Interpretation Comments Neutrophils (%) (Auto) (test code = 69 47-75 770-8) [facility] HealthAutomated blood immature granulocyte count as percentage of total aeorotkxil8289-47-94 16:55:00 Test Item Value Reference Range Interpretation Comments Immature Granulocyte % (Auto) (test 0 0-0 code = 29520-8) [facility] HealthAutomated blood lymphocyte count as percentage of total lfdoqghkyy8948-10-08 16:55:00 Test Item Value Reference Range Interpretation Comments Lymphocytes (%) (Auto) (test code = 23 25-44 736-9) [facility] HealthAutomated blood monocyte count as percentage of total leukocytes 2021-01-20 16:55:00 Test Item Value Reference Range Interpretation Comments Monocytes (%) (Auto) (test code = 7 3-10 5905-5) [facility] HealthAutomated blood eosinophil count as percentage of total uaucoenlul2904-53-16 16:55:00 Test Item Value Reference Range Interpretation Comments Eosinophils (%) (Auto) (test code = 1 0-7 713-8) [facility] HealthAutomated blood basophil count as percentage of total leukocytes 2021-01-20 16:55:00 Test Item Value Reference Range Interpretation Comments Basophils (%) (Auto) (test code = 1 0-1 706-2) [facility] HealthAutomated blood nucleated erythrocyte count as percentage of total mhcstjdoha5463-50-71 16:55:00 Test Item Value Reference Range Interpretation Comments Nucleated Red Blood Cells % (test code 0.0 0-0.2 = 95443-0) [facility] HealthAutomated blood neutrophil count (number/volume)2021-01-20 16:55:00 Test Item Value Reference Range Interpretation Comments Neutrophils # (Auto) (test code = 6.1 1.3-6.7 751-8) [facility] HealthAutomated blood immature granulocyte count as percentage of total rxuwqzpzbp8794-68-90 16:55:00 Test Item Value Reference Range Interpretation Comments Immature Granulocyte # (Auto) (test 0.0 0.0-0.0 code = 11266-5) [facility] HealthAutomated blood lymphocyte count (number/volume)2021-01-20 16:55:00 Test Item Value Reference Range Interpretation Comments Lymphocytes # (Auto) (test code = 2.0 1.4-4.1 731-0) [facility] HealthBlood monocytes automated count (number/volume)2021-01-20 16:55:00 Test Item Value Reference Range Interpretation Comments Monocytes # (Auto) (test code = 742-7) 0.6 0-1.3 [facility] HealthAutomated blood eosinophil cabob7392-44-20 16:55:00 Test Item Value Reference Range Interpretation Comments Eosinophils # (Auto) (test code = 0.1 0-0.8 711-2) [facility] HealthAutomated blood basophil count (number/volume)2021-01-20 16:55:00 Test Item Value Reference Range Interpretation Comments Basophils # (Auto) (test code = 704-7) 0.1 0-0.1 [facility] HealthAutomated blood nucleated erythrocyte count (count/volume) 2021-01-20 16:55:00 Test Item Value Reference Range Interpretation Comments Nucleated Red Blood Cells # (test code 0.00 0-0.01 = 771-6) [facility] comment [id number] 16:55:00 Test Item Value Reference Range Interpretation Comments Manual Differential (test code = Not Ind 8265-1) [facility] HealthSodium MihEm-hGgz2495-95-05 16:55:00 Test Item Value Reference Range Interpretation Comments Sodium Level (test code = 2951-2) 143 136-145 [facility] HealthSerum or plasma potassium measurement (moles/volume)2021-01-20 16:55:00 Test Item Value Reference Range Interpretation Comments Potassium Level (test code = 2823-3) 3.2 3.5-5.1 [facility] HealthSerum or plasma chloride measurement (moles/volume)2021-01-20 16:55:00 Test Item Value Reference Range Interpretation Comments Chloride Level (test code = 2075-0) 106 98-107 [facility] HealthSerum or plasma total carbon dioxide measurement (moles/volume) 2021-01-20 16:55:00 Test Item Value Reference Range Interpretation Comments Carbon Dioxide Level (test code = 24 22-29 2027-) [facility] HealthSerum or plasma anion gap determination (moles/volume)2021-01-20 16:55:00 Test Item Value Reference Range Interpretation Comments Anion Gap (test code = 12244-6) 16 8-18 [facility] HealthSerum or plasma urea nitrogen measurement (mass/volume)2021-01-20 16:55:00 Test Item Value Reference Range Interpretation Comments Blood Urea Nitrogen (test code = 4 7-19 3094-0) [facility] HealthSerum or plasma creatinine measurement (mass/volume)2021-01-20 16:55:00 Test Item Value Reference Range Interpretation Comments Creatinine (test code = 2160-0) 0.7 0.6-1.1 [facility] HealthGFR/BSA.pred SerPl UQMM-XlXBzx6261-93-05 16:55:00 Test Item Value Reference Range Interpretation Comments Estimat Glomerular Filtration Rate 100 81-133 (test code = 44462-5) [facility] HealthSerum or plasma glucose measurement (mass/volume)2021-01-20 16:55:00 Test Item Value Reference Range Interpretation Comments Glucose Level (test code = 2345-7) 95 60-100 [facility] HealthSerum or plasma calcium measurement (mass/volume)2021-01-20 16:55:00 Test Item Value Reference Range Interpretation Comments Calcium Level (test code = 83285-0) 8.9 8.4-10.2 [facility] (mass/volume) 2021-01-20 16:52:00 Test Item Value Reference Range Interpretation Comments Bedside Troponin I (test code = 0.00 0.00-0.06 37691-1) [facility] HealthUrine phencyclidine detection by screening iacvak8034-40-13 15:48:00 Test Item Value Reference Range Interpretation Comments Urine Phencyclidine Screen (test Negative Cutoff=25 code = 59844-2) [facility] HealthUrine cannabinoids detection by screening womgpv2757-39-08 15:48:00 Test Item Value Reference Range Interpretation Comments Urine Cannabinoids (test code = Negative Cutoff=50 32638-4) [facility] HealthScreening urine tricyclic antidepressants yxflndhbn1952-92-44 15:48:00 Test Item Value Reference Range Interpretation Comments Ur Tricyclic Antidepressants Screen Negative Qzsltv=144 (test code = 51654-9) [facility] HealthUrine oxycodone detection by screening jhkqod2387-65-79 15:48:00 Test Item Value Reference Range Interpretation Comments Urine Oxycodone Screen (test code = Negative Whwikl=564 12265-8) [facility] HealthSpecific gravity of Urine by Automated test uolhu1808-81-86 15:48:00 Test Item Value Reference Range Interpretation Comments Urine Specific [place] (test code = 1.010 1.005-1.030 62719-3) [facility] HealthUrine pH measurement by automated test qdwjx3664-72-03 15:48:00 Test Item Value Reference Range Interpretation Comments Urine pH (test code = 66463-0) 6.5 5.0-8.0 [facility] HealthUrine drug screen comment uzusalwhifrqeg2694-04-17 15:48:00 Test Item Value Reference Range Interpretation Comments Urine Drug Screen Comment (test code See Note = 84855-9) [facility] HealthUrinalysis specimen collection nrrxxt5728-52-28 15:48:00 Test Item Value Reference Range Interpretation Comments Urine Source (test code = 17255-8) URINE [facility] HealthColor of Urine by Slnr0909-78-73 15:48:00 Test Item Value Reference Range Interpretation Comments Urine Color (test code = 49227-0) Lt Yellow Yel-Linda * [facility] HealthUrine clarity cneeutsgksund3633-87-72 15:48:00 Test Item Value Reference Range Interpretation Comments Urine Appearance (test code = 08905-2) Clear Clear * [facility] HealthUrine pH measurement by automated test yioll8660-84-51 15:48:00 Test Item Value Reference Range Interpretation Comments Urine pH (test code = 61894-0) 6.5 5.0-8.0 [facility] HealthSpecific gravity of Urine by Automated test oshty9520-60-82 15:48:00 Test Item Value Reference Range Interpretation Comments Urine Specific [place] (test code = 1.010 1.005-1.030 37215-9) [facility] HealthUrine protein measurement by automated test strip (mass/volume) 2021-01-20 15:48:00 Test Item Value Reference Range Interpretation Comments Urine Protein (test code = 05263-4) Negative Negative * [facility] HealthUrine glucose measurement by automated test strip (mass/volume) 2021-01-20 15:48:00 Test Item Value Reference Range Interpretation Comments Urine Glucose (UA) (test code = Negative Negative * 66227-2) [facility] HealthKetones [Mass/volume] in Urine by Automated test lnfor9905-93-54 15:48:00 Test Item Value Reference Range Interpretation Comments Urine Ketones (test code = 13284-8) Negative Negative * [facility] HealthUrine erythrocytes count by automated test strip (number/volume) 2021-01-20 15:48:00 Test Item Value Reference Range Interpretation Comments Urine Occult Blood (test code = Negative Negative * 40998-6) [facility] nit[facility] by automated test gpdcy5673-34-85 15:48:00 Test Item Value Reference Range Interpretation Comments Urine Nitrite (test code = 46476-0) Negative Negative [facility] total bilirubin measurement by automated test strip (mass/volume)2021-01-20 15:48:00 Test Item Value Reference Range Interpretation Comments Urine Bilirubin (test code = Negative Negative 20880-4) [facility] urobilinogen measurement by automated test strip (mass/volume)2021-01-20 15:48:00 Test Item Value Reference Range Interpretation Comments Urine Urobilinogen (test code = Negative 0.0-1.0 35972-5) [facility] leukocytes count by automated test strip (number/volume) 2021-01-20 15:48:00 Test Item Value Reference Range Interpretation Comments Urine Leukocyte Esterase (test code Negative Negative = 52509-2) [facility]Microscopic examination of zjtdq4652-73-02 15:48:00 Test Item Value Reference Range Interpretation Comments Microscopic Urinalysis (T) (test code Not Ind = 78070-9) [facility]Service comment [id number] 15:48:00 Test Item Value Reference Range Interpretation Comments Urinalysis Comment (test * See_Comment [A utomated message] The code = 8262-8) system which generated this result tra nsmitted reference range : *. The reference range was not used to interpr et this result as normal/abnormal . [facility] rjmjvifmc5754-05-91 15:48:00 Test Item Value Reference Range Interpretation Comments Urine Test (test code = Negative Negative 6-3) [facility] methamphetamine ywvppv9461-86-64 15:48:00 Test Item Value Reference Range Interpretation Comments Urine Methamphetamines Screen (test Negative Kzrsaj=376 code = 05296-1) [facility] propoxyphene screening wxkr9002-44-20 15:48:00 Test Item Value Reference Range Interpretation Comments Urine Propoxyphene Screen (test code Negative Avdbgp=302 = 43140-2) [facility] amphetamines detection by screening cwzjzc2625-65-28 15:48:00 Test Item Value Reference Range Interpretation Comments Urine Amphetamines Screen (test code Negative Znuiac=520 = 00672-2) [facility] buprenorphine screen with reflex stfglrtcixkq0750-74-87 15:48:00 Test Item Value Reference Range Interpretation Comments Urine Buprenorphine (test code = Negative Cutoff=10 95213-7) [facility] barbiturates detection by screening hofbzs1511-82-54 15:48:00 Test Item Value Reference Range Interpretation Comments Urine Barbiturates Screen (test code Negative Oqajve=283 = 64521-2) [facility] benzodiazepines detection by screening pweqqc0409-05-10 15:48:00 Test Item Value Reference Range Interpretation Comments Urine Benzodiazepines Screen (test Negative Zubwgd=695 code = 85436-9) [facility] benzoylecgonine detection by screening bkjwka9008-03-71 15:48:00 Test Item Value Reference Range Interpretation Comments Urine Cocaine Screen (test code = Positive Mmowoo=532 76892-5) [facility] methadone juqegg1974-76-94 15:48:00 Test Item Value Reference Range Interpretation Comments Urine Methadone, Qualitative (test Negative Ukgkss=094 code = 26957-6) [facility] opiates screening rxxt9144-72-82 15:48:00 Test Item Value Reference Range Interpretation Comments Urine Opiates Screen (test code = Positive Ndvlcx=198 58359-5) [facility] - DRUG SCREEN HZDGBV6068-15-42 03:37:00 Test Item Value Reference Range Interpretation Comments BENZO U (test code = Negative Negative 3311336674) ANTONIO U (test code = Negative Negative 7914961915) AMPHET (test code = Negative Negative 6090024478) THC (test code = Negative Negative 6430805499) METHADONE (test code = Negative Negative 5594392978) Meth U (test code = Negative Negative 8762461212) OPIATES (test code = Negative Negative 3552711092) Cocaine Metabolite (test Presumptive Positive Negative A code = 0051864294) PROPOXY (test code = Negative Negative 1603044331) Tric U (test code = Negative Negative 4010017118) PCP (test code = Negative Negative 1371836690) OXYCOD (test code = Negative Negative 1837771963) JERARDO (test code = JERARDO) Urine Drug Cutoff Ranges Benzodiazepines: ? ? 150 ng/mLBarbiturates: ?200 ng/mLAmphetamine: ? 500 ng/mLCannabinoids: ?50 ?ng/mLMethadone: ? 200 ng/mLMethamphetamine: ? ? 500 ng/mL Opiates: ? 100 ng/mL or 2000 ng/mLCocaine: ? 150 ng/mLPropoxyphene: ?300 ng/mLTricyclics: ?300 ng/mLOxycodone: ? 100 ng/mLPCP: ? 25 ?ng/mL The results are to be used only for medical (i.e., treatment) purposes. Unconfirmed screening results must not be used for non-medical purposes (e.g., employment testing, legal testing). Lab Interpretation (test Abnormal code = 16874-0) [facility] System[facility]inalysis2020[facility] 02:12:00 Test Item Value Reference Range Interpretation Comments APPEARANCE (test code = Hazy Clear A 2880141111) COLOR (test code = Yellow Yellow 0611418218) PH (test code = 4.8-8.0 4915091693) SP GRAVITY (test code = 1.003-1.030 5378045481) GLU U QUAL (test code = Normal Normal 9547388159) BLOOD (test code = Negative Negative 5583838591) KETONES (test code = Negative Negative 9327264053) PROTEIN (test code = Negative Negative 2887-8) UROBILIN (test code = 2.0 mg/dL Normal A 1112107622) BILIRUBIN (test code = Negative Negative 0324427724) NITRITE (test code = Negative Negative 1774235873) LEUK KEESHA (test code = Negative Negative 1210405226) RBC/HPF (test code = See_Comment H [Autom ated message] 1389073029) The system Mama generated this result transmit verónica reference range : 0 - 3 HPF. The refe rence range was not u sed to interpret th is result as normal/abnormal . WBC/HPF (test code = See_Comment [Autom ated message] 0399640262) The system Mama generated this result transmit verónica reference range : 0 - 5 HPF. The refe rence range was not u sed to interpret th is result as normal/abnormal . BACTERIA (test code = Few Negative A 8531545572) MUCOUS (test code = Slight Negative LPF A 1083388955) SQ EPITH (test code = HPF 8457435066) Lab Interpretation (test Abnormal code = 40245-4) [facility] System[facility]th[facility] Time / [id number] 02:07:00 Test Item Value Reference Range Interpretation Comments PROTIME PATIENT (test See_Comment [Auto mated message] code = 5964-2) The system [employer] generated this result transmitted ref erence range: 12.0 - 1 4.7 Seconds. The re ference range was not u sed to interpret this result as normal/abnor mal. INR (test code = 6301-6) Nor mal INR <1.1; Warfarin Therap eutic range 2.0 to 3. 0 or 2.5 to 3.5, dep ending upon the indica tions. Lab Interpretation (test Normal code = 46065-9) [facility] SystemB[facility] Metabolic Panel (NA, K, CL, CO2, GLUCOSE, BUN, CREATININE, CA)2020-02-22 02:02:00 Test Item Value Reference Range Interpretation Comments NA (test code = 134 mmol/L 135-145 L 5201156860) K (test code = 3.9 mmol/L 3.5-5 0196815851) CL (test code = 102 mmol/L 98-108 7627259054) CO2 TOTAL (test code = 24 mmol/L 23-31 2947126739) AGAP (test code = 2-16 7325136793) BUN (test code = 13 mg/dL 7-23 9300037842) GLUCOSE (test code = 93 mg/dL 70-110 6545475107) CREATININE (test code = 0.58 mg/dL 0.5-1.04 4554648528) CALCIUM (test code = 9.4 mg/dL 8.6-10.6 5188007368) eGFR Calculation mL/min/1.73m2 (Non-) (test code = 7129025504) eGFR Calculation mL/min/1.73m2 () (test code = 1074064311) JERARDO (test code = JERARDO) Association of Glomerular Filtration Rate (GFR) and Staging of Kidney Disease* + --+ --+ ------+| GFR (mL/min/1.73 m2) ?| With Kidney Damage ?| ?Without Kidney Damage+ --------+ --------+ +| ?>90 ?| ?Stage one ?| ? Normal ?+ ---+ ---+ -------+| ?60-89 ?| ?Stage two ?| ? Decreased GFR ? + --+ --+ ------+| ?30-59 ?| ?Stage three ?| ? Stage three ? + --+ --+ ------+| ?15-29 ?| ?Stage four ? | ? Stage four ?+ ---+ ---+ -------+| ?<15 (or dialysis) ? ?| ?Stage five ? | ? Stage five ?+ ---+ ---+ -------+ *Each stage assumes the associated GFR level has been in effect for at least three months. ?Stages 1 to 5, with or without kidney disease, indicate chronic kidney disease. Notes: Determination of stages one and two (with eGFR >59mL/min/1.73 m2) requires estimation of kidney damage for at least three months as defined by structural or functional abnormalities of the kidney, manifested by either:Pathological abnormalities or Markers of kidney damage (including abnormalities in the composition of the blood or urine or abnormalities in imaging tests). Lab Interpretation Abnormal (test code = 49269-0) [facility] SystemLip[facility], [id number] 02:02:00 Test Item Value Reference Range Interpretation Comments LIPASE (test code = 4084342092) 82 U/L 0-220 Lab Interpretation (test code = Normal 88917-8) [facility] SystemHep[facility] Function Panel (ALB, T.PRO, BILI T, BU/BC, ALT, AST, ALK PHOS)2020-02-22 02:02:00 Test Item Value Reference Range Interpretation Comments TOTAL BILI (test code = 2605218917) 0.6 mg/dL 0.1-1.1 BILI UNCON (test code = 6987457826) 0.8 mg/dL 0.1-1.1 BILI CONJ (test code = 8434401661) 0.0 mg/dL 0-0.3 T PROTEIN (test code = 5396654523) 8.1 g/dL 6.3-8.2 ALBUMIN (test code = 9325497395) 4.1 g/dL 3.5-5 ALK PHOS (test code = 4096647928) 100 U/L 34-122 ALTv (test code = 1742-6) 19 U/L 5-35 AST(SGOT) (test code = 0833330192) 24 U/L 13-40 Lab Interpretation (test code = Normal 42604-6) [facility] SystemAb[facility] 1 View (KUB)2020-02-22 01:58:39 Nonobstructive bowel gas pattern. Obese body habitus. Preliminary Report Dictated by Resident: Karlie Blankenship MD., have reviewed this study and agree with theabove report.EXAM: XR ABDOMEN 1 VW HISTORY: fever COMPARISON: None FINDINGS: The bowel gas pattern is nonobstructive without luminal distention orevidence of obstruction. Lung bases and the hemidiaphragm somewhat in vyhdilyw-xm-ckvv. A moderate ?volume of mixed stool and gas is in the colonand rectum. No renal stones, abnormal calcifications or acute osseousabnormalities are detected. [facility], Radiant Results Inft User - 02/21/2020 8:59 PM CDTEXAM: XR ABDOMEN 1 VWHISTORY: fever COMPARISON: NoneFINDINGS:The bowel gas pattern is nonobstructive without luminal distention orevidence of obstruction. Lung bases and the hemidiaphragm somewhat in phtzdyjq-vk-gsoz. A moderate volume of mixed stool and gas is in the colonand rectum. No renal stones, abnormal calcifications or acute osseousabnormalities are detected.IMPRESSIONNonobstructive bowel gas pattern. Obese body habitus.Preliminary Report Dictated by Resident: Karlie Navarro MD., have reviewed this study and agree with theabove report. [facility] 2 [id number] 01:54:56 No acute cardiopulmonary abnormality or other radiographic explanation forpatient's fever. Preliminary Report Dictated by Resident: Karlie Blankenship MD., have reviewed this study and agree with theabove report.EXAM: XR CHEST 2 VW HISTORY: fever COMPARISON: None FINDINGS: The lungsare clear. No pneumothorax or pleural effusion. Thecardiomediastinal silhouette is normal in size. ?No acute osseousabnormalities. [facility], Radiant Results Inft User - 02/21/2020 8:56 PM CDTEXAM: XR CHEST2 VWHISTORY: fever COMPARISON: NoneFINDINGS:The lungs are clear. No pneumothorax or pleural effusion. Thecardiomediastinal silhouette is normal in size. No acute osseousabnormalities.IMPRESSIONNo acutecardiopulmonary abnormality or other radiographic explanation forpatient's fever.Preliminary Report Dictated by Resident: Karlie Navarro MD., have reviewed this study and agree withtheabove report.[facility] WITH [id number] 01:41:00 Test Item Value Reference Range Interpretation Comments WBC (test code = See_Comment H [Automated 8590-2) message] The sy stem which generated this result transmitted reference range : 4.30 - 11.10 10*3/?L. The reference range was not used to interpret this result as normal/abnormal . RBC (test code = See_Comment [Automated 599-8) message] The sy stem which generated this result transmitted reference range : 3.93 - 5.25 10*6/?L. The reference range was not used to interpret this result as normal/abnormal . HGB (test code = 11.3 g/dL 11.6-15 L 718-7) HCT (test code = 33.1 % 35.7-45.2 L 4544-3) MCV (test code = 80.9 fL 80.6-95.5 787-2) MCH (test code = 27.6 pg 25.9-32.8 785-6) MCHC (test code = 34.1 g/dL 31.6-35.1 786-4) RDW-SD (test code = 38.0 fL 39-49.9 L 31997-2) RDW-CV (test code = 13.2 % 12-15.5 788-0) PLT (test code = See_Comment [Automated 777-3) message] The sy stem which generated this result transmitted reference range : 166 - 358 10*3/ ?L. The reference r patricia was not used to interpret this result as normal/abnormal . MPV (test code = 9.6 fL 9.5-12.9 15642-0) NRBC/100 WBC (test See_Comment [Automat ed code = 2471102923) message] The system which generated this result transmitted reference range : 0.0 - 10.0 /100 WBCs. The refer ence range was not u sed to interpret th is result as normal/abnormal . NRBC x10^3 (test code <0.01 See_Comment [Auto mated = 4183791965) message] The s ystem which generated this result transmitted reference range : 10*3/?L. The reference range was not used to interpret this result as normal/abnormal . GRAN MAT (NEUT) % 73.2 % (test code = 770-8) IMM GRAN % (test code 0.40 % = 1160030483) LYMPH % (test code = 19.7 % 736-9) MONO % (test code = 5.0 % 5905-5) EOS % (test code = 1.2 % 713-8) BASO % (test code = 0.5 % 706-2) GRAN MAT x10^3(ANC) 9.70 10*3/uL 1.88-7.09 H (test code = 2171088080) IMM GRAN x10^3 (test 0.05 10*3/uL 0-0.06 code = 6539407570) LYMPH x10^3 (test code 2.60 10*3/uL 1.32-3.29 = 731-0) MONO x10^3 (test code 0.66 10*3/uL 0.33-0.92 = 742-7) EOS x10^3 (test code = 0.16 10*3/uL 0.03-0.39 711-2) BASO x10^3 (test code 0.06 10*3/uL 0.01-0.07 = 704-7) Lab Interpretation Abnormal (test code = 03678-1) [facility] SystemLactic Acid Whole [id number] 01:24:00 Test Item Value Reference Range Interpretation Comments LACTIC ACID (test code = 1.40 mmol/L 0.3-2.6 3110420810) Lab Interpretation (test code = Normal 84255-8) [facility] SystemAc[facility] Venous Blood [id number] 01:23:00 Test Item Value Reference Range Interpretation Comments PH (test code = 7.32-7.42 H 9841095778) PCO2 LILLIAN (test code = See_Comment L [Auto mated message] 9458039456) The system Mama generated this result transmitted ref erence range: 41 - 51 mmHg. The reference r patricia was not used to interpret this result as normal/abnor mal. PO2 LILLIAN (test code = See_Comment H [Autom ated message] 0125718082) The system Mama generated this result transmitted ref erence range: 25 - 40 mmHg. The reference r patricia was not used to interpret this result as normal/abnor mal. HCO3 LILLIAN (test code = See_Comment [Auto mated message] 1072214410) The system Mama generated this result transmitted ref erence range: 24 - 28 mEq/L. The reference r patricia was not used to interpret this result as normal/abnor mal. AC VBE(BEAKER) (test mEq/L code = 2776427422) Lab Interpretation (test Abnormal code = 56856-5) [facility] SystemCOVID-19 (ID NOW RAPID TESTING)2020-02-22 00:09:00 Test Item Value Reference Range Interpretation Comments SARS-CoV-2 Rapid ID NOW Not Detected Not Detected (test code = 40068-4) JERARDO (test code = JERARDO) ID NOW COVID-19 Assay is an isothermal nucleic acid amplification test intended for the qualitative detection of nucleic acid from SARS-CoV-2 viral RNA in nasopharyngeal (MACHINE SETTER AUTOMATIC) specimens. It is used under Emergency Use Authorization (EUA) by FDA. The limit of detection (LOD) of the assay is 125 Genome Equivalents/mL. A positive result is indicative of the presence of SARS-CoV-2 RNA. ?Clinical correlation with patient history and other diagnostic information is necessary to determine patient infection status. A negative (Not Detected) result does not preclude SARS-CoV-2 infection. In patients with clinical symptoms and other tests that are consistent with SARS-CoV-2 infection, negative results should be treated as presumptive negative and a new specimen should be tested with alternative PCR molecular test. Invalid: Please collect a new specimen for repeat patient testing if clinically indicated. Lab Interpretation Normal (test code = 32003-4) [facility]"
[2022-11-02 06:57] LABS: Absolute Lymphocytes (CBC) 1.9 K/uL (0.7-4.9); Hematocrit 35.6 % (36.0-45.0); Lymphocytes % 20.9 % (15.3-44.8); MCV 80.4 fL (80-100); MPV 7.4 fL (7.6-11.3); RBC Red Blood Cell Count 4.43 M/uL (3.86-4.86)
[2022-11-02 07:24] LABS: Magnesium 2.2 mg/dL (1.6-2.4); Potassium 3.1 mEq/L (3.5-5.1); Troponin High Sensitivity 5.6 pg/mL (<58.9)
[2022-11-02] MEDS ORDERED: POTASSIUM 25 MEQ EFFERV TAB ONE (07:43)
--- NOTE | 2022-11-02 07:54 | EDPHYS ---
Physician Documentation [facility] Name: Leena Muniz Age: 36 yrs Sex: Female : 1985 Arrival Date: 11/02/2022 Time: 06:26 Bed 6 Private MD: ED Physician Mamadou Abraham HPI: 11/02 06:36 This 36 yrs old Female presents to ER via Unassigned with complaints of Chest ms3 Pain, Chest Tightness, Shortness Of Breath. 06:36 36-year-old female with past medical history of asthma and CVA presents for 2 days of ms3 chest pain. Patient states the discomfort is tight and rated an 8/10. Patient states she has had the symptoms previously and had a low potassium at that time. Patient denies alleviating or inciting factors. Patient endorses nausea, vomiting, shortness of breath, diaphoresis. Historical: - Allergies: 06:43 PENICILLINS; jb4 - PMHx: 06:43 Asthma; hyperthyroidism; stroke july 2021; jb4 - PSHx: 06:43 gastric sleeve; jb4 - Immunization history:: Adult Immunizations up to date. - Social history:: Smoking status: Reported history of juuling and/or vaping. Patient uses alcohol, occasionally. ROS: 06:36 Constitutional: Negative for fever, and chills. Neck: Negative for injury, pain, and ms3 swelling. 06:36 MS/Extremity: Negative for injury and deformity, Skin: Negative for injury, rash, and discoloration. 06:36 Cardiovascular: Positive for chest pain. 06:36 Respiratory: Positive for shortness of breath. 06:36 All other systems are negative. Exam: 06:36 Constitutional: This is a well developed, well nourished patient who is awake, alert, ms3 and in no acute distress. Head/Face: Normocephalic, atraumatic. Neck: Trachea midline, no cervical lymphadenopathy. Supple, full range of motion without nuchal rigidity, or vertebral point tenderness. No Meningismus. Chest/axilla: Normal chest wall appearance and motion. Nontender with no deformity. Cardiovascular: Regular rate and rhythm with a normal S1 and S2. No gallops, murmurs, or rubs. Normal PMI, no JVD. No pulse deficits. Respiratory: Lungs have equal breath sounds bilaterally, clear to auscultation and percussion. No rales, rhonchi or wheezes noted. No increased work of breathing, no retractions or nasal flaring. Abdomen/GI: Soft, non-tender, with normal bowel sounds. No distension or tympany. No guarding or rebound. No evidence of tenderness throughout. Back: No spinal tenderness. No costovertebral tenderness. Full range of motion. Skin: Warm, dry with normal turgor. Normal color with no rashes, no lesions, and no evidence of cellulitis. MS/ Extremity: Pulses equal, no cyanosis. Neurovascular intact. Full, normal range of motion. 06:36 ECG was reviewed by the Attending Physician. Vital Signs: 06:39 BP 162 / 106; Pulse 94; Resp 18; Temp 98.8(O); Pulse Ox 100% on R/A; Weight 56.25 kg jb4 (R); Height 4 ft. 11 in. (R); Pain 8/10; 07:15 BP 145 / 95; Pulse 89; Resp 17; Pulse Ox 99% on R/A; hb 07:41 BP 135 / 107; Pulse 96; Resp 18; Pulse Ox 100% ; hb 06:39 Body Mass Index 25.04 (56.25 kg, 149.86 cm) jb4 06:39 Pain Scale: Adult jb4 MDM: 06:35 Patient medically screened. ms3 06:39 Differential diagnosis: abnormal EKG, acute myocardial infarction, pneumonia, pulmonary ms3 embolus. 06:55 Transition of care: After a detail discussion of the patient's case, care is ms3 transferred to Mamadou Abraham MD. 07:11 ED course: Patient reassessed she notes shortness of breath for the past several days bs3 she notes that she does not actually have a hx of cva. She was seen here at 1 point in time for bilateral weakness where we gave a medication for possible stroke however when she was transferred they found that she had low potassium she currently notes several days of chest discomfort and shortness of breath no history of PE DVT here she is well-appearing her vitals are notable for slight tachycardia otherwise within normal limits will rule out ACS will rule out pulmonary embolism she is not high risk D-dimer ordered will reassess she states her symptoms are not consistent with asthma and she has no wheezing . 07:52 HEART Score: History: Slightly Suspicious (0), ECG: Normal (0), Age: < or = 45 years bs3 (0), Risk Factors: 1 or 2 risk factors (1), Troponin: < or = 1 x Normal Limit (0), Total Score = 1. Data reviewed: vital signs, nurses notes. Independent interpretation of the following test(s) in the Emergency Department X-Ray: My interpretation is No acute cardiopulmonary disease. ED course: Labs notable for slightly low potassium advised to increase her potassium dose at home follow-up with primary care her x-ray was interpreted by me as negative for acute pathology is improved will discharge home. 11/02 06:36 Order name: XRAY Chest (1 view) ms3 11/02 06:36 Order name: EKG; Complete Time: 06:37 ms3 11/02 06:36 Order name: O2 Sat Monitoring; Complete Time: 06:45 ms3 11/02 06:36 Order name: O2 Per Protocol; Complete Time: 06:45 ms3 11/02 06:36 Order name: EKG - Nurse/Tech; Complete Time: 06:45 ms3 11/02 06:36 Order name: Cardiac monitoring; Complete Time: 06:45 ms3 11/02 06:36 Order name: IV Saline Lock; Complete Time: 06:47 ms3 11/02 06:36 Order name: Labs collected and sent; Complete Time: 06:47 ms3 11/02 06:36 Order name: CBC with Diff; Complete Time: 07:13 ms3 11/02 06:36 Order name: D-Dimer; Complete Time: 07:13 ms3 11/02 06:36 Order name: Basic Metabolic Panel; Complete Time: 07:36 ms3 11/02 06:36 Order name: Magnesium; Complete Time: 07:36 ms3 11/02 06:36 Order name: Troponin HS; Complete Time: 07:36 ms3 EC:36 Rate is 98 beats/min. Rhythm is regular. QRS Knott is Normal. MA interval is normal. QRS ms3 interval is normal. Clinical impression: Normal ECG. Interpreted by me. Reviewed by me. Administered Medications: 07:48 Drug: Potassium Chloride PO Liquid 60 mEq Route: PO; hb Disposition Summary: 11/02/22 07:53 Discharge Ordered Location: Home bs3 Problem: new bs3 Symptoms: have improved bs3 Condition: Stable bs3 Diagnosis - Hypokalemia bs3 - Chest pain, unspecified bs3 Followup: bs3 - With: Private Physician - When: 5 - 6 days - Reason: Re-evaluation by your physician Forms: - Medication Reconciliation Form bs3 - Thank You Letter bs3 - Antibiotic Education bs3 - Prescription Opioid Use bs3 Signatures: Dispatcher [employer] EDLashonda Daniel RN RN Ulisses Ortiz RN RN jb4 Александр Westfall DO DO ms3 Mamadou Abraham MD MD bs3
--- NOTE | 2022-11-02 07:54 | ER ---
[facility] Name: Leena Muniz Age: 36 yrs Sex: Female : 1985 Arrival Date: 11/02/2022 Time: 06:26 Bed 6 Private MD: Diagnosis: Hypokalemia;Chest pain, unspecified Presentation: 11/02 06:39 Chief complaint: Patient states: I started having chest pain and pressure on jb4 at work. I took a 7.5 [place] from a co-worker and things just kept getting worse after that. I am now feelin short of breath, having N/V/D and sweating. Coronavirus screen: Client presents with at least one sign or symptom that may indicate coronavirus-19. Standard/surgical mask placed on the client. Provider contacted for isolation considerations. Ebola Screen: No symptoms or risks identified at this time. Initial Sepsis Screen: Does the patient meet any 2 criteria? No. Patient's initial sepsis screen is negative. Does the patient have a suspected source of infection? No. Patient's initial sepsis screen is negative. Risk Assessment: Do you want to hurt yourself or someone else? Patient reports no desire to harm self or others. Onset of symptoms was October 31, 2022. Transition of care: patient was not received from another setting of care. 06:39 Method Of Arrival: Ambulatory jb4 06:39 Acuity: ALEE 3 jb4 Historical: - Allergies: 06:43 PENICILLINS; jb4 - PMHx: 06:43 Asthma; hyperthyroidism; stroke july 2021; jb4 - PSHx: 06:43 gastric sleeve; jb4 - Immunization history:: Adult Immunizations up to date. - Social history:: Smoking status: Reported history of juuling and/or vaping. Patient uses alcohol, occasionally. Screenin:31 [facility] ED Fall Risk Assessment (Adult) Score/Fall Risk Level 0 - 2 = Low Risk hb Oriented to surroundings, Maintained a safe environment. Abuse screen: Denies threats or abuse. Denies injuries from another. Nutritional screening: No deficits noted. Tuberculosis screening: No symptoms or risk factors identified. Assessment: 06:43 General: Appears in no apparent distress. comfortable, Behavior is calm, cooperative, jb4 appropriate for age. Pain: Complains of pain in chest Pain does not radiate. Pain currently is 8 out of 10 on a pain scale. Quality of pain is described as squeezing, Pain began 2-3 days ago. Neuro: Level of Consciousness is awake, alert, obeys commands, Oriented to person, place, time, situation. Cardiovascular: Patient's skin is warm and dry. Respiratory: Airway is patent Respiratory effort is even, unlabored, Respiratory pattern is regular, symmetrical. GI: Abdomen is flat, non-distended, Reports diarrhea, nausea, vomiting. : No signs and/or symptoms were reported regarding the genitourinary system. EENT: No signs and/or symptoms were reported regarding the EENT system. Derm: Skin is intact, Skin is pink, warm \T\ dry. Musculoskeletal: Circulation, motion, and sensation intact. Range of motion: intact in all extremities. 07:30 Reassessment: Patient appears in no apparent distress at this time. Patient and/or hb family updated on plan of care and expected duration. Pain level reassessed. Patient is alert, oriented x 3, equal unlabored respirations, skin warm/dry/pink. Vital Signs: 06:39 BP 162 / 106; Pulse 94; Resp 18; Temp 98.8(O); Pulse Ox 100% on R/A; Weight 56.25 kg jb4 (R); Height 4 ft. 11 in. (R); Pain 8/10; 07:15 BP 145 / 95; Pulse 89; Resp 17; Pulse Ox 99% on R/A; hb 07:41 BP 135 / 107; Pulse 96; Resp 18; Pulse Ox 100% ; hb 06:39 Body Mass Index 25.04 (56.25 kg, 149.86 cm) jb4 06:39 Pain Scale: Adult jb4 ED Course: 06:26 Patient arrived in ED. jj6 06:28 Александр Westfall DO is Attending Physician. ms3 06:43 Triage completed. jb4 06:43 Arm band placed on right wrist. jb4 06:44 No provider procedures requiring assistance completed. Inserted saline lock: 20 gauge pf1 in right antecubital area, using aseptic technique. Blood collected. 06:45 Ulisses Ortiz, RN is Primary Nurse. jb4 06:46 Patient has correct armband on for positive identification. Placed in gown. Bed in low pf1 position. Call light in reach. 06:49 Basic Metabolic Panel Sent. jb4 06:49 CBC with Diff Sent. jb4 06:49 D-Dimer Sent. jb4 06:50 Magnesium Sent. jb4 06:50 Troponin HS Sent. jb4 07:11 Attending Physician role handed off by Александр Westfall DO bs3 07:11 Mamadou Abraham MD is Attending Physician. bs3 Administered Medications: 07:48 Drug: Potassium Chloride PO Liquid 60 mEq Route: PO; Outcome: 07:53 Discharge ordered by . bs3 Signatures: Lashonda Vázquez RN RN Ulisses Ortiz RN RN jb4 Александр Westfall DO DO ms3 Jen Valenzuela jj6 Mamadou Abraham MD MD bs3 Marilu meza RN RN pf1
[2022-11-02] MEDS ORDERED: KETOROLAC 30 MG/ML INJ ONE (08:03)
--- NOTE | 2022-11-02 09:32 | RAD REPORT ---
EXAM DESCRIPTION: Noa Single View11/02/2022 7:56 am CLINICAL HISTORY: Chest pain COMPARISON: 2021 FINDINGS: The lungs appear clear of acute infiltrate. The heart is normal size IMPRESSION: No acute abnormalities displayed
[2022-11-02 11:12] VITALS: TEMP 98.8
[2022-11-02 11:15] VITALS: BP 135/107; O2SAT 100
--- NOTE | 2022-11-04 17:40 | EKG ---
Test Date: 2022-11-02 Test Time: 06:35:40 Bale Opener: DANYA MEASUREMENT RESULTS: Intervals: Rate: 98 RI: 146 QRSD: 76 QT: 346 QTc: 441 [place]: P: 72 RI: 146 QRS: 65 T: 44 INTERPRETIVE STATEMENTS: Normal sinus rhythm Normal ECG Compared to ECG 05/30/2022 18:38:44 No significant changes Electronically Signed On 11-04-22 17:36:25 CDT by Omi Arzate
== END 2022-11-02 08:06 | disposition home or self-care (01) ==
LOC: ER 06:23
DX: R07.89 Other chest pain (principal); E87.6 Hypokalemia; J45.909 Unspecified asthma, uncomplicated; Z88.0 Allergy status to penicillin
CPT/HCPCS: 36415; 71045; 80048; 83735; 84484; 85025; 85379; 93005; 96374; 99284

== ENCOUNTER 2023-04-08 04:56 | Emergency (ER) | payer OTHER ==
--- OUTSIDE RECORDS SUMMARY | 2023-04-08 05:01 | XMS REPORT | Continuity of Care Document ---
:1985 Author Organization [facility] t Address [address] [place] [address] Care Team Providers Name Role Phone No, Pcp [facility] Primary Care Physician Unavailable REYMUNDO SHRESTHA Attending Clinician Unavailable Reymundo Shrestha DO Attending Clinician Doctor Unassigned, [place] Attending Clinician Unavailable IRENE COLON Attending Clinician Unavailable COY THOMAS Attending Clinician Unavailable JANEL HARKINS Attending Clinician Unavailable Kelsey Shepard Attending Clinician KELSEY ESPAÑA Attending Clinician Unavailable Yelena Gray Attending Clinician ADELSO LEGER Attending Clinician Unavailable REYMUNDO SHRESTHA Admitting Clinician Unavailable COY THOMAS Admitting Clinician Unavailable ADELSO LEGER Admitting Clinician Unavailable Payers Payer Name Policy Type Policy Number Effective Date Expiration Date [facility] [id number] 2022 CHOICE [place] STAR 00:00:00 Problems Condition Condition Condition Status Onset Resolution [...] S t results of results of 09-24 [facility] thyroid thyroid 00:00: Medical function function 00 Center studies studies Hyperthyro Hyperthyro Disease Recurre 2020-[address] [facility] [facility] Asthma Asthma Disease Recurre 2020-[address] [facility] 2 [facility] Center CVA CVA Disease Active 2020-[address] (cerebral (cerebral 09-22 [facility] vascular vascular 00:00: Medica l accident) accident) 00 Cent er (HCC), (HCC), possible possible Troponin I Troponin I Disease Active U nivers above above 6-01 [place] 00 [place] Other Other Disease Active Univers chest pain chest pain 6-01 it y of 00:00: [place] 00 Medical Branch Morbid Morbid Disease Active Univers obesity obesity 5-31 ity of with body with body [place] mass index mass index 00 Me dical of of Branch 40.0-49.9 40.0-49.9 Fever Fever Disease Active Univers 5-31 ity [...] of Disease Active Overview: Univers mother mother 09-18 Formattin ity of during during 00:00: g of this [place] , , 00 note Me dical delivered delivered might be Br anch different from the original. 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 [employer] Allergy Allergy Disease Active Univers history, history, 09-17 [place] penicillin [place] [facility] [place] Allergy Allergy Disease Active Univers history, history, 09-17 [place] penicillin [place] Normal Normal Disease Active Univers spontaneou spontaneou 09-16 it y of s vaginal s vaginal 00:[place] delivery delivery 00 Medica [place] Branch Obesity Obesity Disease Active Univers 09-16 ity of 00:00: [place] 00 Medical Branch Itching Itching Disease Active Overview: Univ ers 09-16 Formattin ity of 00:00: g of this note Medical might be Branch different from the original. Probable cholestas is of Multiparit Multiparit Disease Active U nivers y y 09-16 ity of 00:00: [place] [facility] Asthma Asthma Disease Active Univers 09-15 ity of 00:00: [place] [facility] Odalis Odalis Disease Active Overview: Univ ers vaginitis vaginitis 8-25 Formattin i ty of 00:00: g of this note Medical might be Branch different from the original. Treated with Diflucan PO x1. Please f/u at next visit Cocaine Cocaine Disease Active Overview: Univ ers use use -25 Formattin ity of complicati complicati 00:00: g of this [place] ng ng note Medical might be Br anch different from the original. In rehab facility now Migraines Migraines Disease Active Overview: Univers 8-25 Formattin ity of 00:00: g of this note Medical might be Branch different from the original. Prescribe d Reglan with Tylenol Disease Active Overview: Univ ers delivery delivery 8-25 Formattin ity of 00:00: g of this note Medical might be Branch different from the original. 17 OHP to begin at 16 weeks and q2week cervical length Problem Problem [facility] Allergies, Adverse Reactions, Alerts Allergy Allergy Status Severity Reaction(s) Onset Inactive Treating Comm ents Source Name Type Date Date Clinician Penicill Propensi Active Hives HIVES Univer s ins ty to 09-17 after ity of adverse 00:00: last [place] reaction 00 Medical s Branch Penicill Propensi Active Hives HIVES Univer s ins ty to 09-17 after ity of adverse 00:00: last [place] reaction 00 Medical s Branch PENICILL Drug Active Hives Univers INS Class 1-31 ity of 00:00: [place] 00 Medical Branch NO KNOWN Allergy Active SHANNAN Suresh Social History Social Habit Start Date Stop Date Quantity Comments Source Exposure to 2022-11-21 2022-12-01 Not sure [facility] SARS-CoV-2 00:00:00 00:57:00 [facility] (event) Branch Tobacco use and 2012-06-26 2012-06-26 Smokeless tobacco Un iversity of exposure 00:00:00 00:00:00 non-user [facility] Sex Assigned At [address] [facility] 00:00:00 00:00:00 Medical Center Smoking Status Start Date Stop Date Source Smokes tobacco daily 2021-01-20 16:09:00 [facility] (finding) Never smoked tobacco [facility] Medications Ordered Filled Start Stop Current Ordering Indication Dosage Frequency Signature Comments Components Source Medication Medication Date Date Medication? Clinician (SIG) Name Name KCL 2022- No 40meq 40 mEq, Univers (KLOR-CON 12-01 Oral, ity of M20) tablet 08:15: 08:09 [place] 40 [place]Eq 00 :00 dose, On [facility] 12/01/22 at 0315, RANJIT LORazepam No 1mg 1 mg, Slow U nivers (ATIVAN) 12-01 IV Push, ity of injection 1 06:45: 06:44 [place] mg [place] :00 dose, On [facility] 12/01/22 at 0145, STAT aspirin 81 2020-2021- No 81mg QD Take [address] [facility] [facility] MG chewable 09-25- tablet (81 L ukes tablet 00:00: 23:59 mg total) Medic al 00 :00 by mouth Center daily. atorvastati 2020-2021- No 20mg QD Take [address] [facility] [address] n (LIPITOR) 09-25- tablet (20 L ukes 20 MG 00:00: 23:59 mg total) Medica l tablet 00 :00 by mouth Center daily. aspirin 81 2020-2021- No 81mg QD Take [address] [facility] MG chewable 09-25- tablet (81 L ukes tablet 00:00: 23:59 mg total) Medic al 00 :00 by mouth Center daily. atorvastati 2020-08- No 20mg QD Take [address] [facility] n (LIPITOR) 09-25 tablet (20 L ukes 20 MG 00:00: [...] Branch kg), IV Infusion, ONCE, 1 dose, [facility] 02/21/20 at 1915, STAT ibuprofen 2019- No 800mg 800 mg, Uni vers (IBU) 02-20 Oral, ity of tablet 800 23:15: 23:15 ONCE, 1 Michele as mg 00 :00 dose, [facility] Medical 02/21/20 at Branch 1815, RANJIT acetaminoph 2019- No 1000mg 1,000 mg, Univers en 02-20 Oral, ity of (TYLENOL) 23:15: 23:15 [place]CE[place] tablet 00 :00 dose, [facility] Medical 1,000 mg 02/21/20 at Branch 1815, Routine azithromyci 2019- Yes [id number] Take 500 Univers n 6-01 mg day 1, ity of (ZITHROMAX 00:00: then 250 Michele as Z-JOVANNA) 250 00 mg days 2 Medi robyn mg tablet to 5. Branch azithromyci 2019-0 Yes [id number] Take 500 Univers n 6-01 mg day 1, ity of (ZITHROMAX 00:00: then 250 Michele as Z-JOVANNA) 250 00 mg days 2 Medi robyn mg tablet to 5. Branch azithromyci 2020-0 Yes [id number] Take 500 Univers n 6-01 mg day 1, ity of (ZITHROMAX 00:00: then 250 Michele as Z-JOVANNA) 250 00 mg days 2 Medi robyn mg tablet to 5. [place] azithromyci 2020-0 Yes [id number] Take 500 Univers n 6-01 mg day 1, ity of (ZITHROMAX 00:00: then 250 Michele as Z-JOVANNA) 250 00 mg days 2 Medi robyn mg tablet to 5. [place] azithromyci 2020-0 Yes [id number] Take 500 Univers n 6-01 mg day 1, ity of (ZITHROMAX 00:00: then 250 Michele as Z-JOVANNA) 250 00 mg days 2 Medi robyn mg tablet to 5. [place] azithromyci 2020-0 Yes [id number] Take 500 Univers n 6-01 mg day 1, ity of (ZITHROMAX 00:00: then 250 Michele as Z-JOVANNA) 250 00 mg days 2 Medi robyn mg tablet to 5. [place] azithromyci 2020-0 Yes [id number] Take 500 Univers n 6-01 mg day 1, ity of (ZITHROMAX 00:00: then 250 Michele as Z-JOVANNA) 250 00 mg days 2 Medi robyn mg tablet to 5. [place] azithromyci 2020-0 Yes [id number] Take 500 Univers n 6-01 mg day 1, ity of (ZITHROMAX 00:00: then 250 Michele as Z-JOVANNA) 250 00 mg days 2 Medi robyn mg tablet to 5. [place] azithromyci 2020-0 Yes [id number] Take 500 Univers n 6-01 mg day 1, ity of (ZITHROMAX 00:00: then 250 Michele as Z-JOVANNA) 250 00 mg days 2 Medi robyn mg tablet to 5. [place] azithromyci 2020-0 Yes [id number] Take 500 Univers n 6-01 mg day 1, ity of (ZITHROMAX 00:00: then 250 Michele as Z-JOVANNA) 250 00 mg days 2 Medi robyn mg tablet to 5. [place] Immunizations Ordered Filled Immunization Date Status Comments [facility] e Immunization Name Name Varicella 2012-06-29 Completed University (varivax)(chicken 00:00:00 [place] M edical pox) [place] Varicella 2012-06-29 Completed University of (varivax)(chicken 00:00:00 [...] Name Observation Time Observation Value Comments Source Systolic blood 2022-12-01 08:13:00 130 mm[Hg] [facility] sity of pressure [facility] Diastolic blood 2022-12-01 08:13:00 94 mm[Hg] [facility] Heart rate 2022-12-01 08:13:00 93 /min [facility] Respiratory rate 2022-12-01 08:13:00 20 /min [facility] Oxygen saturation in 2022-12-01 08:13:00 100 /min [facility] Arterial blood by [facility] Pulse oximetry [place] Body temperature 2022-12-01 05:55:00 36.94 Hilary [facility] Body height 2022-12-01 05:55:00 149.9 cm [facility] Body weight 2022-12-01 05:55:00 56.7 kg [facility] BMI 2022-12-01 05:55:00 25.25 kg/m2 [facility] HEIGHT 2021-07-22 03:15:00 149.8 cm WEIGHT 2021-07-22 03:15:00 61.6 kg HEIGHT 2021-07-22 03:15:00 149.8 cm WEIGHT 2021-07-22 03:15:00 61.6 kg Systolic blood 2020-02-22 04:00:00 116 mm[Hg] Univer sity of pressure [facility] Diastolic blood 2020-02-22 04:00:00 23 mm[Hg] Unive rsity of [facility] Heart rate 2020-02-22 04:00:00 81 /min [facility] Respiratory rate 2020-02-22 04:00:00 17 /min [facility] Oxygen saturation in 2020-02-22 04:00:00 98 /min [facility] blood by [facility] Pulse oximetry [place] Body temperature 2020-02-21 21:55:00 38.33 Hilary [facility] 2020-02-21 21:55:00 149.9 cm [facility] Body weight 2020-02-21 21:55:00 102.059 kg [facility] BMI 2020-02-21 21:55:00 45.44 kg/m2 [facility] BP Diastolic 2021-01-20 20:21:00 82 mm[Hg] [facility] [...] Date / Time Performing Clinician Source Performed URINE DRUG (IMMUNOASSAY) 2022-12-01 06:47:00 Reymundo Shrestha [facility] - COMPREHENSIVE DRUG Medical Bra nch SCREEN W/O REFLEX XR CHEST 1 VW 2022-12-01 06:28:[address] [facility] [place] [place] LIPASE 2022-12-01 06:13:[address] [facility] [place] MAGNESIUM 2022-12-01 06:13:[address] [facility] [place] TROPONIN I 2022-12-01 06:13:[address] [facility] [place] COMP. METABOLIC PANEL 2022-12-01 06:13:00 Reymundo Shrestha [facility] ([id number]) Medical [place] CBC WITH DIFF 2022-12-01 06:13:[address] [facility] [place] N-TERMINAL PRO-BNP 2022-12-01 06:13:00 Reymundo Shrestha [facility] NOTICE OF PRIVACY 2022-12-01 05:49:41 Doctor Unassigned, No [facility] PRACTICES Name Medical Branch CONSENT/REFUSAL FOR 2022-12-01 05:48:41 Doctor Unassigned, No [facility] DIAGNOSIS AND TREATMENT Name Medical [place] ECG (electrocardiogram) 2021-01-20 00:00:00 [facility] X-ray of chest, single 2021-01-20 00:00:00 [facility] view BILATERAL VENOUS DUPLEX 2020-02-22 02:41:42 Kelsey España [facility] LOWER EXTREMITY BY Medical [facility] VASCULAR LAB ADC / LCC - DRUG SCREEN 2020-02-22 02:26:00 Kelsey España [facility] TRIAGE [facility] ACUTE CARE VENOUS BLOOD 2020-02-22 01:09:00 Kelsey España [facility] GAS [facility] LACTIC ACID WHOLE BLOOD 2020-02-22 01:09:00 Kelsey España [facility] LIPASE 2020-02-22 01:08:[address] [facility] HEPATIC FUNCTION PANEL 2020-02-22 01:08:00 Kelsey España [facility] ([id number]) (ALB,T.PRO,BILI Medical Branch T,BU/BC,ALT,AST,ALK PHOS) BASIC METABOLIC PANEL 2020-02-22 01:08:00 Kelsey España [facility] (NA, K, CL, CO2, Medical Branch GLUCOSE, BUN, CREATININE, CA) CBC WITH DIFFERENTIAL 2020-02-22 01:08:00 Kelsey España [facility] PROTHROMBIN TIME / INR 2020-02-22 01:08[facility]00 [facility] 2020-02-22 01:08:00 [facility] VW 2020-02-22 00:54:31 [facility] 2020-02-22 00:54:[address] [facility] EKG-12 LEAD 2020-02-22 00:13:[address] [facility] COVID-19 (ID NOW RAPID 2020-02-21 23:19:00 [facility] Branch CONSENT/REFUSAL FOR 2020-02-21 21:44:32 Doctor Unassigned, No [facility] DIAGNOSIS AND TREATMENT Name Medical Branch Plan of Care Planned Activity Planned Date Details Comments Source Future Scheduled 2023-04-18 Influenza Vaccine (#1) [facility] 00:00:00 [code = Influenza Vaccine Me dical Center (#1)] Future Scheduled 2022-08-[address] [facility] Test 00:00:00 (12+) [code = DEPRESSION Med ical Center SCREENING (12+)] Future Scheduled 2022-08-[address] [facility] Test 00:00:00 (12+) [code = DEPRESSION Med ical Center SCREENING (12+)] Future Scheduled 2022-04-18 INFLUENZA VACCINE (#1) [facility] Test 00:00:00 [code = INFLUENZA VACCINE Me dical Center (#1)] Future Scheduled 2004-12-18 Screening for malignant [facility] Test 00:00:00 neoplasm of cervix Medical C enter (procedure) [code = 587526994] Future Scheduled 2004-12-18 Screening for malignant [facility] Test 00:00:00 neoplasm of cervix Medical C enter (procedure) [code = 773960050] Future Scheduled 2002-12-18 DTAP/TDAP/TD VACCINES ([address] [facility] Test 00:00:00 - Tdap) [code = Medical Cent er DTAP/TDAP/TD VACCINES (1 - Tdap)] Future Scheduled 2002-12-18 DTAP/TDAP/TD VACCINES ([address] [facility] Test 00:00:00 - Tdap) [code = Medical Cent er DTAP/TDAP/TD VACCINES (1 - Tdap)] Future Scheduled 2001-12-18 HEPATITIS C [facility]CREENING [facility] 00:00:00 [code = HEPATITIS C Medical Center SCREENING] Future Scheduled 2001-12-18 HEPATITIS C [facility]CRE[facility]ING [facility] 00:00:00 [code = HEPATITIS C Medical Center SCREENING] Future Scheduled 1998-12-[address] [facility] Test 00:00:00 virus screening Medical Cent er (procedure) [code = 922949623] Future Scheduled [address] [facility] Test 00:00:00 Counseling and Screening Med ical Center (12+) [code = Tobacco Cessation Counseling and Screening (12+)] Future Scheduled [address] [facility] Test 00:00:00 Counseling and Screening Med ical Center (12+) [code = Tobacco Cessation Counseling and Screening (12+)] Future Scheduled 1989-12-18 Pneumococcal Vaccine: [facility] Test 00:00:00 0-64 Years (1 - PCV) Medical Center [code = Pneumococcal Vaccine: 0-64 Years (1 - PCV)] Future Scheduled 1989-12-18 PNEUMOCOCCAL VACCINE 0-[address] [facility] Test 00:00:00 YRS (1 - PCV) [code = Medica l Center PNEUMOCOCCAL VACCINE 0-64 YRS (1 - PCV)] Future Scheduled 1984-06-20 COVID-19 VACCINE (#1) [facility] Test 00:00:00 [code = COVID-19 VACCINE Med ical Center (#1)] Future Scheduled 1984-06-20 COVID-19 VACCINE (#1) [facility] 00:00:00 [code = COVID-19 VACCINE Med ical Center (#1)] Encounters Start End Encounter Admission Attending Care Care Encounter Source Date/Time Date/Time Type Type Clinicians Facility Department ID 2022-12-01 2022-12-01 Emergency X , [facility] ERT [id number] Univers 00:58:00 03:21:00 REYMUNDO itluz of [facility] 2022-12-01 2022-12-01 Emergency Singer [facility] [id number] Univers 00:58:00 03:21:00 Reymundo ALYX [id number] i ty of NOTI [id number] [facility] [phone] [facility] 084 Branch 2022-12-01 2022-12-01 Orders Doctor MANDA [id number] Univers 00:00:00 00:00:00 Only Unassigned, EMMY [id number] ity of [facility] [id number] Michele as [phone] [facility] 009 Branch 2021-07-22 2021-07-25 Inpatient ER DARLENE, IRENE [facility] Neuro ICU [id number] [facility] 03:08:00 10:55:00 2021-01-20 2021-01-20 Departed TANNER MOMIN [id number] [facility] 16:06:00 19:48:[address] [facility] 2021-01-20 2021-01-20 Emergency ER JANEL HARKINS [id number] [facility] 16:06:00 16:06:00 [id number] [facility] 2020-02-22 2020-02-22 Telephone MANDA España [id number] Univers 00:00:00 00:00:00 Kelsey BOOTH [id number] it y of [facility] [id number] Michele as [phone] [facility] 019 Branch 2020-02-21 2020-02-21 Emergency Taco [facility] [id number] Univers 17:28:55 23:08:00 Kelsey Oliveira [id number] i ty of [place] [id number] [facility] [phone] [facility] 084 Branch 2020-02-21 2020-02-21 Emergency X TACO [facility] ERT [id number] Univers 17:28:55 17:28:55 KELSEY ity of [facility] 2020-01-19 2020-01-19 Transition Arianna Gray [id number] Univers 00:00:00 00:00:00 of Care Yelena Martinez [id number] ity [place] [id number] [place] [phone] [address] 2020-01-18 2020-01-18 Patient Doctor MANDA [id number] Univers 00:00:00 00:00:00 Secure Msg Unassigned, EMMY [id number] ity of [place] [id number] Michele as [phone] [address] 2020-01-18 2020-01-18 Patient Doctor MANDA [id number] Univers 00:00:00 00:00:00 Secure Msg Unassigned, EMMY [id number] ity of [facility] [id number] Michele as [phone] [address] 2020-01-18 2020-01-18 Patient Doctor MANDA Lerma.[id number] Univers 00:00:00 00:00:00 Secure Msg Unassigned, EMMY [id number] ity of [facility] [id number] Michele as [phone] [address] 2020-01-18 2020-01-18 Patient Doctor MANDA Lerma.[id number] Univers 00:00:00 00:00:00 Secure Msg Unassigned, EMMY [id number] ity of [facility] [id number] Michele as [phone] [address] 2020-01-16 2020-01-17 Inpatient Susie LEGER, [facility] [id number] Univers 12:16:39 14:30:00 ADELSO alamo of [facility] 2020-01-17 2020-01-17 Patient Doctor MANDA [id number] Univers 00:00:00 00:00:00 Secure Msg Unassigned, EMMY [id number] ity of [place] [facility] [id number] Michele as [phone] [place] [address] Branch Results Test Description Test Time Test Comments Results Result [facility] e Comments MR, BRAIN, WITHOUT 2021-07-25 Unlisted Reason CONTRAST 08:34:00 for Exam - Click Yes and Enter Reason Below->No [facility]: have YAMILKA Hull : implanted 1985 Sex: electronic F device?->No [...] MDReport Verified Date/Time: 07/25/2021 08:34:14 Reading Location: [address] Neuro Reading Room C METABOLIC PANEL [...] DATA TO 1092) CALCULATE ESTIM ATED GFR. Suction Plate Carrier Cleaner ID - CHATO [id number] 05:14:28 Test Item Value Reference Range Interpretation Comments MAGNESIUM (BEAKER) (test code = 2.0 mg/dL 1.6-2.6 627) Suction Plate Carrier Cleaner ID - CHATO [id number] 05:14:28 Test Item Value Reference Range Interpretation Comments PHOSPHORUS (BEAKER) (test code = 3.0 mg/dL 2.3-4.7 604) Suction Plate Carrier Cleaner ID - CHATO GCBC W/PLT COUNT & AUTO [id number] 04:53:17 Test Item Value Reference Range Interpretation [...] (test code = 2801) CT, BRAIN, WITHOUT [id number] 17:45:00Unlisted Reason for Exam - Click Yes and Enter Reason Below->YesUnlisted Reason for Exam->posttPA [facility] : 1985 Sex: FFINAL REPORT CT, BRAIN, [...] is recommended for further characterization. Signed: [facility] Verified Date/Time: 07/23/2021 17:45:18 CARDIOLIPIN ANTIBODIES, IGG AND IGM 2021-07-23 12:01:21 Test Item Value Reference Range Interpretation Comments ANTICARDIOLIPIN IGG ANTIBODY (BEAKER) < GPL <20.0 (test code = 712) ANTICARDIOLIPIN IGM ANTIBODY (BEAKER) < MPL <20.0 (test code = 713) Anticardiolipin IgG Result Interpretation: <20.0 GPL Normal>/= 20.0 GPL PositiveAnticardiolipin IgM Result Interpretation: <20.0 MPL Normal>/= 20.0 MPL PositiveBASIC METABOLIC [id number] 04:18:31 Test Item Value Reference Range Interpretation [...] 1092) DATA TO CALCULA TE ESTIMATED GFR. Suction Plate Carrier Cleaner ID - RENAE [id number] 04:04:04 Test Item Value Reference Range Interpretation Comments MAGNESIUM (BEAKER) (test code = 1.9 mg/dL 1.6-2.6 627) Suction Plate Carrier Cleaner ID - RENAE [id number] 04:04:04 Test Item Value Reference Range Interpretation Comments PHOSPHORUS (BEAKER) (test code = 2.4 mg/dL 2.3-4.7 604) Suction Plate Carrier Cleaner ID - RENAE MCALCIUM, [id number] 03:36:51 Test Item Value Reference Range Interpretation Comments CALCIUM IONIZED (BEAKER) (test 1.14 mmol/L 1.12-1.27 code = 698) PH, BLOOD (BEAKER) (test code = 7.40 1810) CBC W/PLT COUNT & AUTO [id number] 03:36:49 Test Item Value Reference Range Interpretation [...] (test code = 2801) HIGH SENSITIVITY TROPONIN [id number] 12:02:35 Test Item Value Reference Range Interpretation Comments HIGH SENSITIVITY < pg/ml See_Comment [Automated message] TROPONIN I (test code = The system which [id number]) generated this result transmitted ref erence range: <=17. Th e reference range was not used to interpr et this result as normal/abnormal . Suction Plate Carrier Cleaner ID - DBThe ARCGIS DEVELOPER STAT High Sensitivity Troponin-I results should be used in conjunctionwith other diagnostic information such as ECG, clinical observations and information, and patient symptoms to aid in the diagnosis of [id number] 11:56:00 Test Item Value Reference Range Interpretation Comments PHOSPHORUS (BEAKER) (test code = 3.9 mg/dL 2.3-4.7 604) Suction Plate Carrier Cleaner ID - [id number] 11:56:00 Test Item Value Reference Range Interpretation Comments POTASSIUM (BEAKER) (test code = 3.7 meq/L 3.5-5.1 379) Suction Plate Carrier Cleaner ID - [id number] 11:55:59 Test Item Value Reference Range Interpretation Comments MAGNESIUM (BEAKER) (test code = 2.3 mg/dL 1.6-2.6 627) Suction Plate Carrier Cleaner ID - DBPROTEIN C [id number] 08:57:55 Test Item Value Reference Range Interpretation Comments PROTEIN C ACTIVITY (BEAKER) (test 119.0 % 70.0-130.0 code = 582) ANTITHROMBIN [id number] 08:57:54 Test Item Value Reference Range Interpretation Comments ANTITHROMBIN III ACTIVITY (BEAKER) 120.0 % 80.0-120.0 (test code = 711) HEMOGLOBIN [id number] 07:48:24 Test Item Value Reference Range Interpretation Comments HEMOGLOBIN A1C (BEAKER) (test code = 4.6 % 4.3-6.1 368) CT BRAIN WITHOUT IV CONTRAST - [id number] 05:51:00Unlisted Reason for Exam - Click Yes and Enter Reason Below->YesUnlisted Reason for Exam->new onset severe headache s/p tpa [facility] : 1985 Sex: FFINAL REPORT EXAM/TECHNIQUE: Noncontrast CT of the head. Dose modulation, iterative reconstruction, and/or weight based adjustment of the mA/kV was utilized to reduce the radiation dose to as low as reasonably achievable. INDICATION: New onset of severe headache status post TPA. COMPARISON: None. FINDINGS: Poor fqcjyi-au-socyi, likely secondary to portable CT. Lowe-white differentiation [...] territorial lowe-white differentiation loss. Signed: Jani Hankins MDReport Verified Date/Time: 07/22/2021 05:51:11 T4, [id number] 05:49:21 Test Item Value Reference Range Interpretation Comments FREE T4 (BEAKER) (test code = 655) 1.23 ng/dL 0.70-1.48 Suction Plate Carrier Cleaner ID - RITO WCALCIUM, EJQTQIH5907-56-42 05:40:56 Test Item Value Reference Range Interpretation Comments CALCIUM IONIZED (BEAKER) (test 1.14 mmol/L 1.12-1.27 code = 698) PH, BLOOD (BEAKER) (test code = 7.46 1810) TSH/FREE T4 IF YHWHZFPDY7612-16-42 05:04:51 Test Item Value Reference Range Interpretation Comments THYROID STIMULATING HORMONE 0.003 uIU/mL 0.350-4.940 L (BEAKER) (test code = 772) Su[employer] Plate Carrier Cleaner ID Eric RITO WVITAMIN B12 AND [id number] 05:03:19 Test Item Value Reference Range Interpretation Comments VITAMIN B12 (BEAKER) 345 pg/mL 213-816 (test code = 774) FOLATE (BEAKER) 3.80 ng/mL See_Comment L [Automated message] (test code = 362) The system which generated this result transmitted ref erence range: >=7.00. The reference range was not used to interpr et this result as normal/abnormal . Suction Plate Carrier Cleaner ID - RITO [id number] 04:53:15 Test Item Value Reference Range Interpretation Comments PARTIAL THROMBOPLASTIN TIME 28.4 seconds 22.5-36.0 (BEAKER) (test code = 760) PROTHROMBIN TIME/[id number] 04:52:33 Test Item Value Reference Range Interpretation Comments PROTIME (BEAKER) 14.8 seconds 11.9-14.2 H (test code = 759) INR (BEAKER) (test 1.18 See_Comment [Automat ed message] code = 370) The system [employer] generated this result transmitted ref erence range: <=5.90. The reference range was not used to int erpret this result as normal/abnormal . RECOMMENDED COUMADIN/WARFARIN INR THERAPY RANGESSTANDARD DOSE: 2.0 - 3.0 Includes: PROPHYLAXIS for venous thrombosis, systemic embolization; TREATMENT for venous thrombosis and/or pulmonary embolus.HIGH RISK: Target INR is 2.5-3.5 for patients with mechanical heart valves.BASIC METABOLIC [id number] 04:32:09 Test Item Value Reference Range Interpretation [...] 1092) DATA TO CALCULA TE ESTIMATED GFR. Suction Plate Carrier Cleaner ID - DBSpecimen slightly fldnjmiEGIWVMVNSC9730-42-12 04:31:45 Test Item Value Reference Range Interpretation Comments PHOSPHORUS (BEAKER) (test code = 3.6 mg/dL 2.3-4.7 604) Suction Plate Carrier Cleaner ID - DBLIPID [id number] 04:31:45 Test Item Value Reference Range Interpretation [...] Borderline 130-159 High 160-189 Very High >=190 Suction Plate Carrier Cleaner ID - DBSpecimen slightly maictemWUKBXYGBC0998-42-03 04:31:44 Test Item Value Reference Range Interpretation Comments MAGNESIUM (BEAKER) (test code = 1.6 mg/dL 1.6-2.6 627) Suction Plate Carrier Cleaner ID - DBCBC W/PLT COUNT & AUTO [id number] 04:18:19 Test Item Value Reference Range Interpretation [...] 0-1 PERCENT (BEAKER) (test code = 2801) Serum or plasma anion gap determination (moles/volume)2021-01-20 16:55:00 Test Item Value Reference Range Interpretation Comments Anion Gap (test code = 09131-1) 16 8-18 [facility]um or plasma urea nitrogen measurement (mass/volume)2021-01-20 16:55:00 Test Item Value Reference Range Interpretation Comments Blood Urea Nitrogen (test code = 4 7-19 3094-0) [facility] HealthSerum or plasma creatinine measurement (mass/volume)2021-01-20 16:55:00 Test Item Value Reference Range Interpretation Comments Creatinine (test code = 2160-0) 0.7 0.6-1.1 [facility] HealthGFR/BSA.pred SerPl WZTH-XwARga9442-97-05 16:55:00 Test Item Value Reference Range Interpretation Comments Estimat Glomerular Filtration Rate 100 81-133 (test code = 05944-0) [facility] HealthSerum or plasma glucose measurement (mass/volume)2021-01-20 16:55:00 Test Item Value Reference Range Interpretation Comments Glucose Level (test code = 2345-7) 95 60-100 [facility] HealthSerum or plasma calcium measurement (mass/volume)2021-01-20 16:55:00 Test Item Value Reference Range Interpretation Comments Calcium Level (test code = 78061-2) 8.9 8.4-10.2 [facility] HealthAutomated blood leukocyte count (number/volume)2021-01-20 16:55:00 Test Item [...] = 786-4) [facility] HealthAutomated erythrocyte distribution width dekhb7119-88-93 16:55:00 Test Item Value Reference Range Interpretation Comments Red Cell Distribution Width (test code 11.6 10.7-14.5 = 788-0) [facility] HealthAutomated blood platelet count (count/volume)2021-01-20 16:55:00 Test Item Value Reference Range Interpretation Comments Platelet Count (test code = 777-3) 285 150-450 [facility] HealthAutomated blood platelet mean volume ehcjvtbfvoh2465-82-79 16:55:00 Test Item Value Reference Range Interpretation Comments Mean Platelet Volume (test code = 9.4 5.7-10.7 92852-4) [facility] HealthAutomated blood neutrophil count as percentage of total qjpsgqahxu0347-50-99 16:55:00 Test Item Value Reference Range Interpretation Comments Neutrophils (%) (Auto) (test code = 69 47-75 770-8) [facility] HealthAutomated blood immature granulocyte count as percentage of total remepmktlb8903-36-75 16:55:00 Test Item Value Reference Range Interpretation Comments Immature Granulocyte % (Auto) (test 0 0-0 code = 67352-5) [facility] HealthAutomated blood lymphocyte count as percentage of total ocpuzplmei0806-75-56 16:55:00 Test Item Value Reference Range Interpretation Comments Lymphocytes (%) (Auto) (test code = 23 25-44 736-9) [facility] HealthAutomated blood monocyte count as percentage of total leukocytes 2021-01-20 16:55:00 Test Item Value Reference Range Interpretation Comments Monocytes (%) (Auto) (test code = 7 3-10 5905-5) [facility] HealthAutomated blood eosinophil count as percentage of total ljcsohzytt2583-15-00 16:55:00 Test Item Value Reference Range Interpretation Comments Eosinophils (%) (Auto) (test code = 1 0-7 713-8) [facility] HealthAutomated blood basophil count as percentage of total leukocytes 2021-01-20 16:55:00 Test Item Value Reference Range Interpretation Comments Basophils (%) (Auto) (test code = 1 0-1 706-2) [facility] HealthAutomated blood nucleated erythrocyte count as percentage of total gbcmugorrj8649-60-57 16:55:00 Test Item Value Reference Range Interpretation Comments Nucleated Red Blood Cells % (test code 0.0 0-0.2 = 87366-4) [facility] HealthAutomated blood neutrophil count (number/volume)2021-01-20 16:55:00 Test Item Value Reference Range Interpretation Comments Neutrophils # (Auto) (test code = 6.1 1.3-6.7 751-8) [facility] HealthAutomated blood immature granulocyte count as percentage of total lzljsfcmub4265-42-63 16:55:00 Test Item Value Reference Range Interpretation Comments Immature Granulocyte # (Auto) (test 0.0 0.0-0.0 code = 79511-8) [facility] HealthAutomated blood lymphocyte count (number/volume)2021-01-20 16:55:00 Test Item Value Reference Range Interpretation Comments Lymphocytes # (Auto) (test code = 2.0 1.4-4.1 731-0) [facility] monocytes automated count (number/volume)2021-01-20 16:55:00 Test Item Value Reference Range Interpretation Comments Monocytes # (Auto) (test code = 742-7) 0.6 0-1.3 [facility] HealthAutomated blood eosinophil iiscm6122-19-44 16:55:00 Test Item Value Reference Range Interpretation Comments Eosinophils # (Auto) (test code = 0.1 0-0.8 711-2) [facility] HealthAutomated blood basophil count (number/volume)2021-01-20 16:55:00 Test Item Value Reference Range Interpretation Comments Basophils # (Auto) (test code = 704-7) 0.1 0-0.1 [facility] HealthAutomated blood nucleated erythrocyte count (count/volume) 2021-01-20 16:55:00 Test Item Value Reference Range Interpretation Comments Nucleated Red Blood Cells # (test code 0.00 0-0.01 = 771-6) [facility] HealthService comment [id number] 16:55:00 Test Item Value Reference Range Interpretation Comments Manual Differential (test code = Not Ind 8265-1) [facility]sSodium IzhKj-kBbt2840-47-05 16:55:00 Test Item Value Reference Range Interpretation [...] Dioxide Level (test code = 24 22-29 2027-9) [facility] HealthWhole blood cardiac troponin I measurement (mass/volume) 2021-01-20 16:52:00 Test Item Value Reference Range Interpretation Comments Bedside Troponin I (test code = 0.00 0.00-0.06 87440-3) [facility] HealthUrine methamphetamine gcvjjy5765-35-90 15:48:00 Test Item Value Reference Range Interpretation Comments Urine Methamphetamines Screen (test Negative Ljypxa=037 code = 62920-3) [facility] HealthUrine propoxyphene screening wqym4260-51-82 15:48:00 Test Item Value Reference Range Interpretation Comments Urine Propoxyphene Screen (test code Negative Ftavio=260 = 18839-0) [facility] HealthUrine amphetamines detection by screening ktqxxs5164-31-41 15:48:00 Test Item Value Reference Range Interpretation Comments Urine Amphetamines Screen (test code Negative Kbnrbt=330 = 10036-7) [facility] HealthUrine buprenorphine screen with reflex kzjxfbhazulv3704-97-68 15:48:00 Test Item Value Reference Range Interpretation Comments Urine Buprenorphine (test code = Negative Cutoff=10 83483-3) [facility] HealthUrine barbiturates detection by screening zsemfs4779-14-17 15:48:00 Test Item Value Reference Range Interpretation Comments Urine Barbiturates Screen (test code Negative Grfzdj=561 = 26321-6) [facility] HealthUrine benzodiazepines detection by screening ithqut1764-75-63 15:48:00 Test Item Value Reference Range Interpretation Comments Urine Benzodiazepines Screen (test Negative Aupdbv=719 code = 03627-9) [facility] HealthUrine benzoylecgonine detection by screening oemwnn9191-24-82 15:48:00 Test Item Value Reference Range Interpretation Comments Urine Cocaine Screen (test code = Positive Vuwmhk=414 82997-8) [facility] HealthUrine methadone bjuqxh7031-75-44 15:48:00 Test Item Value Reference Range Interpretation Comments Urine Methadone, Qualitative (test Negative Uyjhyi=575 code = 31981-9) [facility] HealthUrine opiates screening lhpz9238-59-46 15:48:00 Test Item Value Reference Range Interpretation Comments Urine Opiates Screen (test code = Positive Cnldfd=121 08754-8) [facility] HealthUrine phencyclidine detection by screening hlkhlh3018-21-15 15:48:00 Test Item Value Reference Range Interpretation Comments Urine Phencyclidine Screen (test Negative Cutoff=25 code = 47638-6) [facility] HealthUrine cannabinoids detection by screening dlhgsj3782-56-00 15:48:00 Test Item Value Reference Range Interpretation Comments Urine Cannabinoids (test code = Negative Cutoff=50 41012-8) [facility] HealthScreening urine tricyclic antidepressants qqwkxqdsv2720-01-00 15:48:00 Test Item Value Reference Range Interpretation Comments Ur Tricyclic Antidepressants Screen Negative Lqntpl=720 (test code = 89481-6) [facility] HealthUrine oxycodone detection by screening fvbwnx3438-34-96 15:48:00 Test Item Value Reference Range Interpretation Comments Urine Oxycodone Screen (test code = Negative Seuunz=289 68263-0) [facility] HealthSpecific gravity of Urine by Automated test dfrsj2099-87-74 15:48:00 Test Item Value Reference Range Interpretation Comments Urine Specific [place] (test code = 1.010 1.005-1.030 24303-9) [facility] HealthUrine pH measurement by automated test ccwmb3242-38-78 15:48:00 Test Item Value Reference Range Interpretation Comments Urine pH (test code = 26305-5) 6.5 5.0-8.0 [facility] HealthUrine drug screen comment jfbtphhvqliemp4318-42-74 15:48:00 Test Item Value Reference Range Interpretation Comments Urine Drug Screen Comment (test code See Note = 37679-2) [facility] HealthUrinalysis specimen collection zrhzqu8857-41-82 15:48:00 Test Item Value Reference Range Interpretation Comments Urine Source (test code = 12693-2) URINE [facility] HealthColor of Urine by Mlvm3910-29-07 15:48:00 Test Item Value Reference Range Interpretation Comments Urine Color (test code = 53796-6) Lt Yellow Yel-Linda * [facility] HealthUrine clarity pfpapgwiczhbo2901-61-27 15:48:00 Test Item Value Reference Range Interpretation Comments Urine Appearance (test code = 29141-2) Clear Clear * [facility] HealthUrine pH measurement by automated test xyqkn8963-85-87 15:48:00 Test Item Value Reference Range Interpretation Comments Urine pH (test code = 72891-0) 6.5 5.0-8.0 [facility] HealthSpecific gravity of Urine by Automated test tfdcm9550-85-85 15:48:00 Test Item Value Reference Range Interpretation Comments Urine Specific [place] (test code = 1.010 1.005-1.030 03287-0) [facility] HealthUrine protein measurement by automated test strip (mass/volume) 2021-01-20 15:48:00 Test Item Value Reference Range Interpretation Comments Urine Protein (test code = 94017-7) Negative Negative * [facility] HealthUrine glucose measurement by automated test strip (mass/volume) 2021-01-20 15:48:00 Test Item Value Reference Range Interpretation Comments Urine Glucose (UA) (test code = Negative Negative * 98182-0) [facility] HealthKetones [Mass/volume] in Urine by Automated test nhurb9940-28-31 15:48:00 Test Item Value Reference Range Interpretation Comments Urine Ketones (test code = 95397-3) Negative Negative * [facility] HealthUrine erythrocytes count by automated test strip (number/volume) 2021-01-20 15:48:00 Test Item Value Reference Range Interpretation Comments Urine Occult Blood (test code = Negative Negative * 33599-1) [facility] HealthUrine nitrite detection by automated test hmvle0592-19-00 15:48:00 Test Item Value Reference Range Interpretation Comments Urine Nitrite (test code = 06182-8) Negative Negative [facility] HealthUrine total bilirubin measurement by automated test strip (mass/volume)2021-01-20 15:48:00 Test Item Value Reference Range Interpretation Comments Urine Bilirubin (test code = Negative Negative 60490-3) [facility] HealthUrine urobilinogen measurement by automated test strip (mass/volume)2021-01-20 15:48:00 Test Item Value Reference Range Interpretation Comments Urine Urobilinogen (test code = Negative 0.0-1.0 97897-1) [facility] HealthUrine leukocytes count by automated test strip (number/volume) 2021-01-20 15:48:00 Test Item Value Reference Range Interpretation Comments Urine Leukocyte Esterase (test code Negative Negative = 00655-6) [facility] HealthMicroscopic examination of lgxyd7773-27-97 15:48:00 Test Item Value Reference Range Interpretation Comments Microscopic Urinalysis (T) (test code Not Ind = 24999-9) [facility] comment 15:48:00 Test Item Value Reference Range Interpretation Comments Urinalysis Comment (test * See_Comment [A utomated message] The code = 8262-8) system which generated this result tra nsmitted reference range : *. The reference range was not used to interpr et this result as normal/abnormal . [facility] ur zeedvnadp2612-47-34 15:48:00 Test Item Value Reference Range Interpretation Comments Urine Test (test code = Negative Negative 2106-3) [facility] - DRUG SCREEN HLWPNJ1123-76-55 03:37:00 Test Item Value Reference Range Interpretation Comments BENZO U (test code = Negative Negative 0697849013) ANTONIO U (test code = Negative Negative 4433794522) AMPHET (test code = Negative Negative 9987833664) THC (test code = Negative Negative 0413168237) METHADONE (test code = Negative Negative 3376829800) Meth U (test code = Negative Negative 7820870166) OPIATES (test code = Negative Negative 3058200738) Cocaine Metabolite (test Presumptive Positive Negative A code = 9684806018) PROPOXY (test code = Negative Negative 1483609244) Tric U (test code = Negative Negative 3384638158) PCP (test code = Negative Negative 9782366213) OXYCOD (test code = Negative Negative 5301555652) JERARDO (test code = JERARDO) Urine Drug [...] testing). Lab Interpretation (test Abnormal code = 76583-6) [facility] Center[facility]inalysis2020-07-07 02:12:00 Test Item Value Reference Range Interpretation Comments APPEARANCE (test code = Hazy Clear A 2456622005) COLOR (test code = Yellow Yellow 2614739604) PH (test code = 4.8-8.0 4757453754) SP GRAVITY (test code = 1.003-1.030 5317549585) GLU U QUAL (test code = Normal Normal 7084347359) BLOOD (test code = Negative Negative 9613364664) KETONES (test code = Negative Negative 0267109104) PROTEIN (test code = Negative Negative 2887-8) UROBILIN (test code = 2.0 mg/dL Normal A 4128955040) BILIRUBIN (test code = Negative Negative 2687947101) NITRITE (test code = Negative Negative 6461705341) LEUK KEESHA (test code = Negative Negative 0162492093) RBC/HPF (test code = See_Comment H [Autom ated message] 4288794805) The system [employer] generated this result transmit verónica reference range : 0 - 3 HPF. The refe rence range was not u sed to interpret th is result as normal/abnormal . WBC/HPF (test code = See_Comment [Autom ated message] 6624015242) The system [employer] generated this result transmit verónica reference range : 0 - 5 HPF. The refe rence range was not u sed to interpret th is result as normal/abnormal . BACTERIA (test code = Few Negative A 0206237277) MUCOUS (test code = Slight Negative LPF A 9776694221) SQ EPITH (test code = HPF 5079945824) Lab Interpretation (test Abnormal code = 29962-5) [facility] CenterProthrombin Time / [id number] 02:07:00 Test Item Value Reference Range Interpretation Comments PROTIME PATIENT (test See_Comment [Auto mated message] code = 5964-2) The system [employer] generated this result transmitted ref erence range: 12.0 - 1 4.7 Seconds. The re ference range was not u sed to interpret this result as normal/abnor mal. INR (test code = 6301-6) Nor mal INR <1.1; Warfarin Therap eutic range 2.0 to 3. 0 or 2.5 to 3.5, dep ending upon the indica tions. Lab Interpretation (test Normal code = 73274-7) [facility] Metabolic Panel (NA, K, CL, CO2, GLUCOSE, BUN, CREATININE, CA)2020-02-22 02:02:00 Test Item Value Reference Range Interpretation Comments NA (test code = 134 mmol/L 135-145 L 1156967533) K (test code = 3.9 mmol/L 3.5-5 6252569971) CL (test code = 102 mmol/L 98-108 2259982279) CO2 TOTAL (test code = 24 mmol/L 23-31 6630313716) AGAP (test code = 2-16 5584979494) BUN (test code = 13 mg/dL 7-23 0481426529) GLUCOSE (test code = 93 mg/dL 70-110 8251270468) CREATININE (test code = 0.58 mg/dL 0.5-1.04 2451554330) CALCIUM (test code = 9.4 mg/dL 8.6-10.6 2059363483) eGFR Calculation mL/min/1.73m2 (Non-) (test code = 2175040140) eGFR Calculation mL/min/1.73m2 () (test code = 6485274400) JERARDO (test code = JERARDO) Association of [...] tests). Lab Interpretation Abnormal (test code = 68325-3) [facility] CenterLipase, Ushct5383-73-32 02:02:00 Test Item Value Reference Range Interpretation Comments LIPASE (test code = 8207998104) 82 U/L 0-220 Lab Interpretation (test code = Normal 27863-8) [facility] CenterHepatic Function Panel (ALB, T.PRO, BILI T, BU/BC, ALT, AST, ALK PHOS)2020-02-22 02:02:00 Test Item Value Reference Range Interpretation Comments TOTAL BILI (test code = 3884131256) 0.6 mg/dL 0.1-1.1 BILI UNCON (test code = 7496326822) 0.8 mg/dL 0.1-1.1 BILI CONJ (test code = 9819183689) 0.0 mg/dL 0-0.3 T PROTEIN (test code = 8944508281) 8.1 g/dL 6.3-8.2 ALBUMIN (test code = 5644057051) 4.1 g/dL 3.5-5 ALK PHOS (test code = 3269765804) 100 U/L 34-122 ALTv (test code = 1742-6) 19 U/L 5-35 AST(SGOT) (test code = 6065180534) 24 U/L 13-40 Lab Interpretation (test code = Normal 35923-6) [facility] CenterAbdomen 1 View (KUB)2020-02-22 01:58:39 Nonobstructive bowel gas pattern. Obese body habitus. Preliminary Report Dictated by Resident: Karlie Blankenship MD., have reviewed this study and agree with theabove report.EXAM: XR ABDOMEN 1 VW HISTORY: fever COMPARISON: None FINDINGS: The bowel gas pattern is nonobstructive without luminal distention orevidence of obstruction. Lung bases and the hemidiaphragm somewhat in hjtbbwom-kd-qaei. A moderate ?volume of mixed stool and gas is in the colonand rectum. No renal stones, abnormal calcifications or acute osseousabnormalities are detected. [facility], Radiant Results Inft User - 02/21/2020 8:59 PM CDTEXAM: XR ABDOMEN 1 VWHISTORY: fever COMPARISON: NoneFINDINGS:The bowel gas pattern is nonobstructive without luminal distention orevidence of obstruction. Lung bases and the hemidiaphragm somewhat in fpbfdglk-te-uuqm. A moderate volume of mixed stool and gas is in the colonand rectum. No renal stones, abnormal calcifications or acute osseousabnormalities are detected.IMPRESSIONNonobstructive bowel gas pattern. Obese body habitus.Preliminary Report Dictated by Resident: Karlie Navarro MD., have reviewed this study and agree with theabove report. [facility] 2 Rxadr9264-14-67 01:54:56 No acute cardiopulmonary abnormality or other [...] have reviewed this study and agree withtheabove report.[facility] WITH SALBXVDGXNAV6871-41-92 01:41:00 Test Item Value Reference Range Interpretation Comments WBC (test code = See_Comment H [Automated 6690-2) message] The sy stem which generated this result transmitted reference range : 4.30 - 11.10 10*3/?L. The reference range was not used to interpret this result as normal/abnormal . RBC (test code = See_Comment [Automated 789-8) message] The sy stem which generated this [...] (test code = 38.0 fL 39-49.9 L 89431-7) RDW-CV (test code = 13.2 % 12-15.5 788-0) PLT (test code = See_Comment [Automated 777-3) message] The sy stem which generated this result transmitted reference range : 166 - 358 10*3/ ?L. The reference r patricia was not used to interpret this result as normal/abnormal . MPV (test code = 9.6 fL 9.5-12.9 16336-6) NRBC/100 WBC (test See_Comment [Automat ed code = 1601147959) message] The system which generated this result transmitted reference range : 0.0 - 10.0 /100 WBCs. The refer ence range was not u sed to interpret th is result as normal/abnormal . NRBC x10^3 (test code <0.01 See_Comment [Auto mated = 0483579136) message] The s ystem which generated this result transmitted reference range : 10*3/?L. The reference range was not used to interpret this result as normal/abnormal . GRAN MAT (NEUT) % 73.2 % (test code = 770-8) IMM GRAN % (test code 0.40 % = 8811841345) LYMPH % (test code = 19.7 % 736-9) MONO % (test code = 5.0 % 5905-5) EOS % (test code = 1.2 % 713-8) BASO % (test code = 0.5 % 706-2) GRAN MAT x10^3(ANC) 9.70 10*3/uL 1.88-7.09 H (test code = 9586183091) IMM GRAN x10^3 (test 0.05 10*3/uL 0-0.06 code = 4363348838) LYMPH x10^3 (test code 2.60 10*3/uL 1.32-3.29 = 731-0) MONO x10^3 (test code 0.66 10*3/uL 0.33-0.92 = 742-7) EOS x10^3 (test code = 0.16 10*3/uL 0.03-0.39 711-2) BASO x10^3 (test code 0.06 10*3/uL 0.01-0.07 = 704-7) Lab Interpretation Abnormal (test code = 85493-3) [facility] CenterLactic Acid Whole Zkmwh2842-17-36 01:24:00 Test Item Value Reference Range Interpretation Comments LACTIC ACID (test code = 1.40 mmol/L 0.3-2.6 5153181841) Lab Interpretation (test code = Normal 96032-8) [facility] CenterAcute Care Venous Blood Fwq8515-77-32 01:23:00 Test Item Value Reference Range Interpretation Comments PH (test code = 7.32-7.42 H 3515102251) PCO2 LILLIAN (test code = See_Comment L [Auto mated message] 0292501755) The system [employer] generated this result transmitted ref erence range: 41 - 51 mmHg. The reference r patricia was not used to interpret this result as normal/abnor mal. PO2 LILLIAN (test code = See_Comment H [Autom ated message] 6043712255) The system [employer] generated this result transmitted ref erence range: 25 - 40 mmHg. The reference r patricia was not used to interpret this result as normal/abnor mal. HCO3 LILLIAN (test code = See_Comment [Auto mated message] 0361944057) The system [employer] generated this result transmitted ref erence range: 24 - 28 mEq/L. The reference r patricia was not used to interpret this result as normal/abnor mal. AC VBE(BEAKER) (test mEq/L code = 8974329217) Lab Interpretation (test Abnormal code = 81297-5) [facility] CenterCOVID-19 (ID NOW RAPID TESTING)2020-02-22 00:09:00 Test Item Value Reference Range Interpretation Comments SARS-CoV-2 Rapid ID NOW Not Detected Not Detected (test code = 58234-6) JERARDO (test code = JERARDO) ID NOW COVID-19 Assay is an isothermal nucleic acid amplification test intended for the qualitative detection of nucleic acid from SARS-CoV-2 viral RNA in nasopharyngeal ([employer]) specimens. It is used under Emergency Use [...] indicated. Lab Interpretation Normal (test code = 01535-4) [facility]"
[2023-04-08] MEDS ORDERED: DIPHENHYDRAMINE 50 MG/ML VIAL ONE (05:25)
[2023-04-08] MEDS ORDERED: FAMOTIDINE 20 MG/2 ML VIAL IV ONE (05:25)
[2023-04-08] MEDS ORDERED: NA CHLORIDE 0.9% 1,000 ML ONE (05:25)
[2023-04-08] MEDS ORDERED: METHYLPREDNISOLONE 125 MG INJ ONE (05:25)
--- NOTE | 2023-04-08 05:34 | ER ---
Nurse's Notes [facility] Name: Leena Muniz Age: 37 yrs Sex: Female : 1985 Arrival Date: 04/08/2023 Time: 04:56 Bed 11 Private MD: Diagnosis: Allergic reaction, urticaria Presentation: 04/08 05:02 Chief complaint: Patient states: hives x 1 week gradually worsening. Coronavirus kl screen: Vaccine status: Patient reports being unvaccinated. Ebola Screen: Patient negative for fever greater than or equal to 101.5 degrees Fahrenheit, and additional compatible Ebola Virus Disease symptoms. Onset: The symptoms/episode began/occurred gradually, 1 week(s) ago. Anaphylaxis evaluation, no signs or symptoms of anaphylaxis were noted. Initial Sepsis Screen: Does the patient meet any 2 criteria? No. Patient's initial sepsis screen is negative. Does the patient have a suspected source of infection? No. Patient's initial sepsis screen is negative. Risk Assessment: Do you want to hurt yourself or someone else? Patient reports no desire to harm self or others. 05:02 Method Of Arrival: Ambulatory 05:02 Acuity: ALEE 4 kl 05:06 Note pt reports cahnged brand of vap 1 week ago. 05:23 Acuity: ALEE 3 kl Triage Assessment: 05:05 General: Appears uncomfortable, Behavior is calm, cooperative. Respiratory: Airway is kl patent Trachea midline Respiratory effort is even, unlabored, Respiratory pattern is regular, symmetrical. Historical: - Allergies: 05:05 PENICILLINS; kl - PMHx: 05:05 Asthma; hyperthyroidism; Hypokalemia; stroke july 2021; kl - PSHx: 05:05 gastric sleeve; kl - Immunization history:: Adult Immunizations not immunized. - Social history:: Smoking status: Reported history of juuling and/or vaping. Screenin:22 [facility] ED Fall Risk Assessment (Adult) History of falling in the last 3 months, kl including since admission No falls in past 3 months (0 pts) Confusion or Disorientation No (0 pts) Intoxicated or Sedated No (0 pts) Impaired Gait No (0 pts) Mobility Assist Device Used No (0 pt) Altered Elimination No (0 pt) Score/Fall Risk Level 0 - 2 = Low Risk Oriented to surroundings, Maintained a safe environment. Abuse screen: Denies threats or abuse. Nutritional screening: No deficits noted. Tuberculosis screening: No symptoms or risk factors identified. Assessment: 05:22 Respiratory: Airway is patent Trachea midline Respiratory effort is even, unlabored, kl Respiratory pattern is regular, symmetrical, Breath sounds are clear bilaterally. 06:03 Reassessment: Patient appears in no apparent distress at this time. Patient states kl feeling better. Patient states symptoms have improved. Vital Signs: 05:02 BP 146 / 107; Pulse 89; Resp 20; Temp 98.4(O); Pulse Ox 100% ; Weight 56.25 kg (R); kl Height 4 ft. 11 in. ; Pain 0/10; 05:42 BP 134 / 102; Pulse 72; Resp 15 S; Pulse Ox 100% on R/A; kl 06:02 BP 134 / 88; Pulse 79; Resp 16; Pulse Ox 100% on R/A; kl 05:02 Body Mass Index 25.04 (56.25 kg, 149.86 cm) kl 05:02 Pain Scale: Adult ED Course: 04:58 Patient arrived in ED. mr 05:05 Triage completed. kl 05:09 Naomi Rogers MD is Attending Physician. sp3 05:15 Inserted saline lock: 22 gauge in right antecubital area, using aseptic technique. kl 05:22 No provider procedures requiring assistance completed. kl 05:26 Patient has correct armband on for positive identification. Bed in low position. Call kl light in reach. Side rails up X2. Pulse ox on. NIBP on. 06:03 IV discontinued, intact, bleeding controlled, No redness/swelling at site. Pressure kl dressing applied. Administered Medications: 05:15 Drug: NS 0.9% IV 1000 ml Route: IV; Rate: 1 bolus; Site: right antecubital; kl 05:15 Drug: diphenhydrAMINE IVP 25 mg Route: IVP; Site: right antecubital; kl 05:42 Follow up: Response: No adverse reaction; Marked relief of symptoms kl 05:18 Drug: MethylPrednisoLONE IVP 125 mg Route: IVP; Site: right antecubital; kl 05:42 Follow up: Response: No adverse reaction; Marked relief of symptoms kl 05:21 Drug: Famotidine IVP 10 mg Route: IVP; Site: right antecubital; kl 05:42 Follow up: Response: No adverse reaction; Marked relief of symptoms Outcome: 05:33 Discharge ordered by . sp3 06:03 Discharged to home ambulatory, with family. momo 06:03 Condition: improved 06:03 Discharge instructions given to patient, Instructed on discharge instructions, follow up and referral plans. medication usage, Demonstrated understanding of instructions, follow-up care, medications, Prescriptions given X 1. 06:04 Patient left the ED. Signatures: Brittany Bernal RN RN kl Rivera, Mary mr Patel, Setul, MD MD sp3
--- NOTE | 2023-04-08 05:34 | EDPHYS ---
Physician Documentation [facility] Name: Leena Muniz Age: 37 yrs Sex: Female : 1985 Arrival Date: 04/08/2023 Time: 04:56 Bed 11 Private MD: ED Physician Naomi Rogers HPI: 04/08 05:30 37-year-old female with a history of asthma, hypothyroidism presents to the ED with sp3 hives for several days secondary to changing her vaping products. She denies any mild swelling or significant shortness of breath though she states she has hives on her neck, chest and abdomen and back. No other symptoms reported including fever, URI symptoms, headache, chest pain, shortness of breath, abdominal pain, nausea, vomiting, diarrhea, syncope, near syncope, other neurological symptoms or other symptoms on ROS at this time.. Historical: - Allergies: 05:05 PENICILLINS; kl - PMHx: 05:05 Asthma; hyperthyroidism; Hypokalemia; stroke july 2021; kl - PSHx: 05:05 gastric sleeve; kl - Immunization history:: Adult Immunizations not immunized. - Social history:: Smoking status: Reported history of juuling and/or vaping. ROS: 05:31 Constitutional: Negative for fever, chills, and weight loss, Eyes: Negative for injury, sp3 pain, redness, and discharge, ENT: Negative for injury, pain, and discharge, Neck: Negative for injury, pain, and swelling, Cardiovascular: Negative for chest pain, palpitations, and edema, Respiratory: Negative for shortness of breath, cough, wheezing, and pleuritic chest pain, Abdomen/GI: Negative for abdominal pain, nausea, vomiting, diarrhea, and constipation, Back: Negative for injury and pain, MS/Extremity: Negative for injury and deformity, Neuro: Negative for headache, weakness, numbness, tingling, and seizure, Psych: Negative for depression, anxiety, suicide ideation, homicidal ideation, and hallucinations, Allergy/Immunology: Negative for hives, rash, and allergies, Endocrine: Negative for neck swelling, polydipsia, polyuria, polyphagia, and marked weight changes. 05:31 All other systems are negative. Exam: 05:31 Constitutional: This is a well developed, well nourished patient who is awake, alert, sp3 and in no acute distress. Head/Face: Normocephalic, atraumatic. Eyes: Pupils equal round and reactive to light, extra-ocular motions intact. Lids and lashes normal. Conjunctiva and sclera are non-icteric and not injected. Cornea within normal limits. Periorbital areas with no swelling, redness, or edema. ENT: Nares patent. No nasal discharge, no septal abnormalities noted. External auditory canals are clear. Oropharynx with no redness, swelling, or masses, exudates, or evidence of obstruction, uvula midline. Mucous membranes moist. Neck: Trachea midline, no thyromegaly or masses palpated, and no cervical lymphadenopathy. Supple, full range of motion without nuchal rigidity, or vertebral point tenderness. No Meningismus. Chest/axilla: Normal chest wall appearance and motion. Nontender with no deformity. No lesions are appreciated. Cardiovascular: Regular rate and rhythm with a normal S1 and S2. No gallops, murmurs, or rubs. Normal PMI, no JVD. No pulse deficits. Respiratory: Lungs have equal breath sounds bilaterally, clear to auscultation and percussion. No rales, rhonchi or wheezes noted. No increased work of breathing, no retractions or nasal flaring. Abdomen/GI: Soft, non-tender, with normal bowel sounds. No distension or tympany. No guarding or rebound. No evidence of tenderness throughout. Back: No spinal tenderness. No costovertebral tenderness. Full range of motion. MS/ Extremity: Pulses equal, no cyanosis. Neurovascular intact. Full, normal range of motion. Neuro: Awake and alert, GCS 15, oriented to person, place, time, and situation. Cranial nerves II-XII grossly intact. Motor strength 5/5 in all extremities. Sensory grossly intact. Cerebellar exam normal. Normal gait. Psych: Awake, alert, with orientation to person, place and time. Behavior, mood, and affect are within normal limits. 05:31 Skin: Patient has urticaria diffuse mild to moderate in nature on her neck, chest, back, abdomen and a few on her lower extremities. There is no airway compromise or oral mucosal swelling in the posterior oropharynx is also normal. Patient has clear lungs and is in no acute distress resting comfortably. Pulse ox is normal and vital signs are also normal with mild bump in blood pressure.. Vital Signs: 05:02 BP 146 / 107; Pulse 89; Resp 20; Temp 98.4(O); Pulse Ox 100% ; Weight 56.25 kg (R); kl Height 4 ft. 11 in. ; Pain 0/10; 05:42 BP 134 / 102; Pulse 72; Resp 15 S; Pulse Ox 100% on R/A; kl 06:02 BP 134 / 88; Pulse 79; Resp 16; Pulse Ox 100% on R/A; kl 05:02 Body Mass Index 25.04 (56.25 kg, 149.86 cm) kl 05:02 Pain Scale: Adult kl MDM: 05:12 Patient medically screened. sp3 05:32 Data reviewed: vital signs, nurses notes. ED course: 37-year-old female with subacute sp3 allergic reaction with urticaria diffuse and no anaphylaxis. We will treat with IV steroids, H2 guzman, Benadryl with p.o. prednisone prescription for discharge.. 04/08 05:10 Order name: IV; Complete Time: 05:22 sp3 Administered Medications: 05:15 Drug: NS 0.9% IV 1000 ml Route: IV; Rate: 1 bolus; Site: right antecubital; kl 05:15 Drug: diphenhydrAMINE IVP 25 mg Route: IVP; Site: right antecubital; kl 05:42 Follow up: Response: No adverse reaction; Marked relief of symptoms kl 05:18 Drug: MethylPrednisoLONE IVP 125 mg Route: IVP; Site: right antecubital; kl 05:42 Follow up: Response: No adverse reaction; Marked relief of symptoms kl 05:21 Drug: Famotidine IVP 10 mg Route: IVP; Site: right antecubital; kl 05:42 Follow up: Response: No adverse reaction; Marked relief of symptoms kl Disposition Summary: 04/08/23 05:33 Discharge Ordered Location: Home sp3 Condition: Stable sp3 Diagnosis - Allergic reaction, urticaria sp3 Followup: sp3 - With: Private Physician - When: Upon discharge from the Emergency Department - Reason: Continuance of care Discharge Instructions: - Discharge Summary Sheet sp3 - Hives sp3 Forms: - Medication Reconciliation Form sp3 - Thank You Letter sp3 - Antibiotic Education sp3 - Prescription Opioid Use sp3 - Patient Portal Instructions sp3 - Leadership Thank You Letter sp3 Prescriptions: - Prednisone 20 mg Oral Tablet - take 2 tablets by ORAL route once daily for 5 days; 10 tablet; Refills: 0, sp3 Product Selection Permitted Signatures: Brittany Bernal RN RN kl Patel, Setul, MD MD sp3
[2023-04-08 06:17] VITALS: TEMP 98.4; O2SAT 100
[2023-04-08 06:28] VITALS: BP 134/88
== END 2023-04-08 06:04 | disposition home or self-care (01) ==
LOC: ER 04:56
DX: L50.9 Urticaria, unspecified (principal); R06.02 Shortness of breath; Z88.0 Allergy status to penicillin
CPT/HCPCS: 96375; 96374; 99284; J1200; J2930; J7030

== ENCOUNTER 2023-04-10 11:20 | Emergency (ER) | payer OTHER ==
--- OUTSIDE RECORDS SUMMARY | 2023-04-10 11:26 | XMS REPORT | Continuity of Care Document ---
:1985 Author Organization [facility] t Address [address] [facility] [address] [place] [address] Care Team Providers Name Role Phone BRYNN Eden [facility], [facility] Primary Care P hysician Unavailable REYMUNDO SHRESTHA Attending Clinician Unavailable Reymundo Shrestha DO Attending Clinician Doctor Unassigned, [place] Attending Clinician Unavailable IRENE COLON Attending Clinician [...] Expiration Date [facility] [id number] 2022 CHOICE [place] STAR 00:00:00 Problems Condition [...] of during during 00:00: g of this [place] , , 00 note Me dical delivered delivered might be Br anch different from the original. ICD10 Diagnosis Term Program Scheduler Utility Allergy Allergy Disease Active Univers history, [...] of complicati complicati 00:00: g of this [place] ng ng note Medical might be Br [...] Source Exposure to 2022-11-21 2022-12-01 Not sure [facility] SARS-CoV-2 00:00:00 00:57:00 [facility] (event) Branch Tobacco use and 2012-06-26 2012-06-26 Smokeless tobacco Un iversity of exposure 00:00:00 00:00:00 non-user [facility] Sex Assigned At [address] [facility] kes 00:00:00 00:00:00 [facility] Smoking Status Start Date Stop Date Source Smokes tobacco daily 2021-01-20 16:09:00 [facility] (finding) Never smoked tobacco [facility] Medications Ordered Filled Start Stop Current Ordering Indication Dosage Frequency Signature Comments Components Source Medication Medication Date Date Medication? Clinician (SIG) Name Name KCL 2022- No 40meq 40 mEq, Univers (KLOR-CON 12-01 Oral, ity of M20) tablet 08:15: 08:09 [place]Eq 00 :00 dose, On [facility] Er 12/01/22 at 0315, RANJIT LORazepam No 1mg 1 mg, Slow U nivers (ATIVAN) 12-01 IV Push, ity of injection 1 06:45: 06:44 [place] :[place] dose, On [facility] Er 12/01/22 at 0145, STAT aspirin 81 2020-2021- [...] QD Take [address] [facility] chewable 2-08 12-08 tablet (81 L ukes tablet 00:00: 23:59 mg total) Medic al 00 :00 by mouth Center daily. atorvastati 2020-08- No 20mg QD Take [address] [facility] n (LIPITOR) 2-08 tablet (20 L ukes 20 MG 00:00: 23:59 mg total) Medica l tablet 00 :00 by mouth Center daily. aspirin 81 2020-08 No 81mg QD Take [address] [facility] [...] He alth TAB.RAPDIS 00 Nausea NaCl 0.9% No 30mL/kg at 999 Un rose mary [...] 1 Michele as mg 00 :00 dose, [facility] Medical 02/21/20 at Branch 1815, RANJIT acetaminoph 2019- No 1000mg 1,000 mg, Univers en 02-20 Oral, ity of (TYLENOL) 23:15: 23:15 [place]CE[place] tablet 00 :00 dose, [facility] Medical 1,000 mg 02/21/20 at Branch 1815, Routine azithromyci 2020-0 Yes [id number] Take 500 Univers n 6-01 mg day 1, ity of (ZITHROMAX 00:00: then 250 Michele as Z-JOVANNA) 250 00 mg days 2 Medi robyn mg tablet to 5. Branch azithromyci 2020-0 Yes [id number] Take 500 Univers n 6-01 mg day 1, ity of (ZITHROMAX 00:00: then 250 Michele as Z-JOVANNA) 250 00 mg days 2 Medi robyn mg tablet to 5. Branch azithromyci 2020-0 Yes [id number] Take 500 Univers n 6-01 mg day 1, ity of (ZITHROMAX 00:00: then 250 Michele as Z-JOVANNA) 250 00 mg days 2 Medi robyn mg tablet to 5. Branch azithromyci 2020-0 Yes [id number] Take 500 Univers n 6-01 mg day 1, ity of (ZITHROMAX 00:00: then 250 Michele as Z-JOVANNA) 250 00 mg days 2 Medi robyn mg tablet to 5. Branch azithromyci 2020-0 Yes [id number] Take 500 Univers n 6-01 mg day 1, ity of (ZITHROMAX 00:00: then 250 Michele as Z-JOVANNA) 250 00 mg days 2 Medi robyn mg tablet to 5. Branch azithromyci 2020-0 Yes [id number] Take 500 Univers n 6-01 mg day 1, ity of (ZITHROMAX 00:00: then 250 Michele as Z-JOVANNA) 250 00 mg days 2 Medi robyn mg tablet to 5. Branch azithromyci 2020-0 Yes [id number] Take 500 Univers n 6-01 mg day 1, ity of (ZITHROMAX 00:00: then 250 Michele as Z-JOVANNA) 250 00 mg days 2 Medi robyn mg tablet to 5. Branch azithromyci 2020-0 Yes [id number] Take 500 Univers n 6-01 mg day 1, ity of (ZITHROMAX 00:00: then 250 Michele as Z-JOVANNA) 250 00 mg days 2 Medi robyn mg tablet to 5. Branch azithromyci 2020-0 Yes [id number] Take 500 Univers n 6-01 mg day 1, ity of (ZITHROMAX 00:00: then 250 Michele as Z-JOVANNA) 250 00 mg days 2 Medi robyn mg tablet to 5. Branch azithromyci 2020-0 Yes [id number] Take 500 Univers n 6-01 mg day 1, ity of (ZITHROMAX 00:00: then 250 Michele as Z-JOVANNA) 250 00 mg days 2 Medi robyn mg tablet to 5. Branch Immunizations Ordered Filled Immunization Date Status Comments [facility] e Immunization Name Name Varicella 2012-06-29 [...] Source Systolic blood 2022-12-01 08:13:00 130 mm[Hg] Univer sity of pressure [facility] Diastolic blood 2022-12-01 08:13:00 94 mm[Hg] [facility] Heart rate 2022-12-01 08:13:00 93 /min [facility] Respiratory rate 2022-12-01 08:13:00 20 /min [facility] O[facility] saturation in 2022-12-01 08:13:00 100 /min University of Arterial blood by [facility] Pulse oximetry Branch Body temperature 2022-12-01 05:55:00 36.94 Hilary [facility] ersity of [facility] Body height 2022-12-01 05:55:00 149.9 cm [facility] [place] [facility] [place] Body weight 2022-12-01 05:55:00 56.7 kg Universi ty of [facility] BMI 2022-12-01 05:55:00 25.25 kg/m2 Universi ty of [facility] HEIGHT 2021-07-22 03:15:00 149.8 cm WEIGHT 2021-07-22 03:15:00 61.6 kg HEIGHT 2021-07-22 03:15:00 149.8 cm WEIGHT 2021-07-22 03:15:00 61.6 kg Systolic blood 2020-02-22 04:00:00 116 mm[Hg] Univer sity of pressure [facility] Diastolic blood 2020-02-22 04:00:00 23 mm[Hg] Unive rsity of pressure [facility] Heart rate 2020-02-22 04:00:00 81 /min Universi ty of [facility] Respiratory rate 2020-02-22 04:00:00 17 /min [facility] of [facility] Oxygen saturation in 2020-02-22 04:00:00 98 /min University of Arterial blood by [facility] Pulse oximetry Branch Body temperature 2020-02-21 21:55:00 38.33 Hilary [facility] ersity of [facility] Body height 2020-02-21 21:55:00 149.9 cm [facility] [place] [facility] [place] Body weight 2020-02-21 21:55:00 102.059 kg Universi ty of [facility] BMI 2020-02-21 21:55:00 45.44 kg/m2 Universi ty [facility] BP Diastolic 2021-01-20 20:21:00 82 mm[Hg] [facility] BP Systolic 2021-01-20 20:21:00 136 mm[Hg] [facility] Heart Rate 2021-01-20 20:21:00 73 /min [facility] Respiratory rate 2021-01-20 20:21:00 16 /min [facility] Heart Rate 2021-01-20 16:55:00 80 /min [facility] BP Diastolic 2021-01-20 16:42:00 91 mm[Hg] [facility] BP Systolic 2021-01-20 16:42:00 131 mm[Hg[facility] 2021-01-20 16:42:00 80 /min [facility] Respiratory rate 2021-01-20 16:42:00 10 /[facility] 2021-01-20 16:09:00 88 /min [facility] Procedures Procedure Date / Time Performing Clinician Source Performed URINE DRUG (IMMUNOASSAY) 2022-12-01 06:47:00 Reymundo Shrestha [facility] DRUG Medical [facility] SCREEN W/O REFLEX XR CHEST 1 VW 2022-12-01 06:28:33 [facility] LIPASE 2022-12-01 06:13:00 [facility] MAGNESIUM 2022-12-01 06:13:00 [facility] TROPONIN I 2022-12-01 06:13:00 [facility] COMP. METABOLIC PANEL 2022-12-01 06:13:00 Reymundo Shrestha [facility] ([id number]) [facility] CBC WITH DIFF 2022-12-01 06:13:00 [facility] N-TERMINAL PRO-BNP 2022-12-01 06:13:00 Reymundo Shrestha General acute hospital NOTICE OF PRIVACY 2022-12-01 05:49:41 Doctor Unassigned, No Univ [facility] PRACTICES Name Medical Branch CONSENT/REFUSAL FOR 2022-12-01 05:48:41 Doctor Unassigned, No [facility] DIAGNOSIS AND TREATMENT Name [facility] ECG (electrocardiogram) 2021-01-20 00:00:00 [facility] X-ray of chest, single 2021-01-20 00:00:00 [facility] view BILATERAL VENOUS DUPLEX 2020-02-22 02:41:42 Kelsey España [facility] LOWER EXTREMITY BY Medical [facility] VASCULAR LAB ADC / LCC - DRUG SCREEN 2020-02-22 02:26:00 Kelsey España [facility] TRIAGE [facility] ACUTE CARE VENOUS BLOOD 2020-02-22 01:09:00 Kelsey España [facility] GAS [facility] LACTIC ACID WHOLE BLOOD 2020-02-22 01:09:00 [facility] 2020-02-22 01:08:00 Taco [facility] HEPATIC FUNCTION PANEL 2020-02-22 01:08:00 Taco [facility] ([id number]) (ALB,T.PRO,BILI [facility] Branch T,BU/BC,ALT,AST,ALK PHOS) BASIC METABOLIC PANEL 2020-02-22 01:08:00 [facility] (NA, K, CL, CO2, [facility] GLUCOSE, BUN, CREATININE, CA) CBC WITH DIFFERENTIAL 2020-02-22 01:08:00 [facility] / INR 2020-02-22 01:08[facility] 2020-02-22 01:08:00 Taco [facility] XR ABDOMEN 1 VW 2020-02-22 00:54:[facility] 2 VW 2020-02-22 00:54:31 Taco [facility] EKG-12 LEAD 2020-02-22 00:13:13 [facility] COVID-19 (ID NOW RAPID 2020-02-21 23:19:[facility] CONSENT/REFUSAL FOR 2020-02-21 21:44:32 Doctor Unassigned, No Un [facility] DIAGNOSIS AND TREATMENT Name [facility] Plan of Care Planned Activity Planned Date Details Comments Source Future Scheduled 2023-04-18 Influenza Vaccine (#1) [facility] Test 00:00:00 [code = Influenza Vaccine Me dical Center (#1)] Future Scheduled 2023-04-18 Influenza Vaccine (#1) C [...] cervix Medical C enter (procedure) [code = 981249857] Future Scheduled 2004-12-18 Screening for malignant [facility] Test 00:00:00 neoplasm of cervix Medical C enter (procedure) [code = 262385127] Future Scheduled 2004-12-18 Screening for malignant [facility] Test 00:00:00 neoplasm of cervix Medical C enter (procedure) [code = 130004041] Future Scheduled 2002-12-18 DTAP/TDAP/TD VACCINES (1 CHI [...] screening Medical Cent er (procedure) [code = 876214978] Future Scheduled 1998-12-[address] Human [address] [facility] Test 00:00:00 virus screening Medical Cent er (procedure) [code = 153257105] Future Scheduled [address] [...] Screening (12+)] Future Scheduled 1989-12-18 PNEUMOCOCCAL VACCINE 0-[address] [facility] Test 00:00:00 YRS (1 - PCV) [code = Medica l Center PNEUMOCOCCAL VACCINE 0-64 YRS (1 - PCV)] Future Scheduled 1989-12-18 Pneumococcal Vaccine: [facility] Test 00:00:00 0-64 Years (1 - PCV) Medical Center [code = Pneumococcal Vaccine: 0-64 Years (1 - PCV)] Future Scheduled 1989-12-18 Pneumococcal Vaccine: [facility] Test 00:00:00 0-64 Years (1 - PCV) Medical Center [code = Pneumococcal Vaccine: 0-64 Years (1 - PCV)] Future Scheduled 1984-06-20 COVID-19 [...] Facility Department ID 2022-12-01 2022-12-01 Emergency X CHRISTA SHRESTHA [facility] [id number] Univers 00:58:00 03:21:00 REYMUNDO alamo of [facility] 2022-12-01 2022-12-01 Emergency Shrestha, [facility] [id number] Univers 00:58:00 03:21:00 Reymundo LYNNJOVI [id number] i ty of [place] [id number] [facility] [phone] [facility] 084 [place] 2022-12-01 2022-12-01 Orders Doctor MANDA [id number] Univers 00:00:00 00:00:00 Only Unassigned, EMMY [id number] [facility] [id number] Michele as [phone] [facility] 009 Branch 2021-07-22 2021-07-25 Inpatient ER DARLENE, IRENE [facility] Neuro ICU [id number] [facility] 03:08:00 10:55:00 2021-01-20 2021-01-20 Departed TANNER MOMIN [id number] [facility] 16:06:00 19:48:[address] [facility] 2021-01-20 2021-01-20 Emergency ER JANEL HARKINS [id number] [facility] 16:06:00 16:06:00 [id number] [facility] 2020-02-22 2020-02-22 Telephone MANDA España [id number] Univers 00:00:00 00:00:00 Kelsey BOOTH [id number] it y of [facility] [id number] Michele as [phone] [facility] 019 Branch 2020-02-21 2020-02-21 Emergency Taco, [facility] [id number] Univers 17:28:55 23:08:00 Kelsey Oliveira [id number] i ty of [place] 4.2.7.2.686 [facility] [phone] [facility] 084 Branch 2020-02-21 2020-02-21 Emergency X TACO, [facility] ERT [id number] Univers 17:28:55 17:28:55 KELSEY alamo of [facility] 2020-01-19 2020-01-19 Transition Arianna Gray 1.2.840.114 [id number] Univers 00:00:00 00:00:00 of Care Yelena Martinez [id number] ity [place].7.2.[place] [phone] [address] 2020-01-18 2020-01-18 Patient Doctor MANDA 1.2.840.114 [id number] Univers 00:00:00 00:00:00 Secure Msg Unassigned, EMMY [id number] ity of [place] HOSPITAL [id number] Michele as [phone] [address] 2020-01-18 2020-01-18 Patient Doctor MANDA 1.2.840.114 [id number] Univers 00:00:00 00:00:00 Secure Msg Unassigned, EMMY [id number] ity of [place] HOSPITAL [id number] Michele as [phone] [address] 2020-01-18 2020-01-18 Patient Doctor MANDA 1.2.840.114 [id number] Univers 00:00:00 00:00:00 Secure Msg Unassigned, EMMY [id number] ity of [place] HOSPITAL 4.2.7.2.686 Michele as [phone] [address] 2020-01-18 2020-01-18 Patient Doctor MANDA Lerma.2.840.114 [id number] Univers 00:00:00 00:00:00 Secure Msg Unassigned, EMMY 350.1.13.10 ity of [place] HOSPITAL 4.2.7.2.686 Michele as [phone] [address] 2020-01-16 2020-01-17 Inpatient X [place], [facility] [id number] Univers 12:16:39 14:30:00 ADELSO itluz [facility] 2020-01-17 2020-01-17 Patient Doctor MANDA Adams2.840.114 [id number] Univers 00:00:00 00:00:00 Secure Msg Unassigned, EMMY 350.1.13.10 ity of [place] HOSPITAL 4.2.7.2.686 Michele as [phone] [facility] 019 Branch Results Test Description Test Time Test Comments Results Result [facility] e Comments MR, BRAIN, WITHOUT 2021-07-25 Unlisted Reason CONTRAST 08:34:00 for Exam - Click Yes and Enter Reason Below->No [facility] the patient MEDICAL CENTERName: have an YAMILKA [...] MDReport Verified Date/Time: 07/25/2021 08:34:14 Reading Location: [facility] C013V Neuro Reading Room C METABOLIC PANEL 2021-07-24 [...] DATA TO 1092) CALCULATE ESTIM ATED GFR. Ups Driver ID - CHATO [id number] 05:14:28 Test Item Value Reference Range Interpretation Comments MAGNESIUM (BEAKER) (test code = 2.0 mg/dL 1.6-2.6 627) Ups Driver ID - CHATO [id number] 05:14:28 Test Item Value Reference Range Interpretation Comments PHOSPHORUS (BEAKER) (test code = 3.0 mg/dL 2.3-4.7 604) Ups Driver ID - CHATO GCBC W/PLT COUNT & AUTO [id number] 04:53:17 Test Item Value Reference Range Interpretation [...] (test code = 2801) CT, BRAIN, WITHOUT [id number] 17:45:00Unlisted Reason for Exam - Click Yes and Enter Reason Below->YesUnlisted Reason for Exam->posttPA [facility]EN : 1985 Sex: FFINAL [...] is recommended for further characterization. Signed: Kelly [facility] Verified Date/Time: 07/23/2021 17:45:18 CARDIOLIPIN ANTIBODIES, IGG AND IGM 2021-07-23 12:01:21 Test Item Value Reference Range Interpretation Comments ANTICARDIOLIPIN IGG ANTIBODY (BEAKER) < GPL <20.0 (test code = 712) ANTICARDIOLIPIN IGM ANTIBODY (BEAKER) < MPL <20.0 (test code = 713) Anticardiolipin IgG Result Interpretation: <20.0 GPL Normal>/= 20.0 GPL PositiveAnticardiolipin IgM Result Interpretation: <20.0 MPL Normal>/= 20.0 MPL PositiveBASIC METABOLIC [id number] 04:18:31 Test Item Value Reference Range Interpretation [...] 1092) DATA TO CALCULA TE ESTIMATED GFR. Ups Driver ID - RENAE [id number] 04:04:04 Test Item Value Reference Range Interpretation Comments MAGNESIUM (BEAKER) (test code = 1.9 mg/dL 1.6-2.6 627) Ups Driver ID - RENAE [id number] 04:04:04 Test Item Value Reference Range Interpretation Comments PHOSPHORUS (BEAKER) (test code = 2.4 mg/dL 2.3-4.7 604) Ups Driver ID - RENAE MCALCIUM, [id number] 03:36:51 Test Item Value Reference Range Interpretation Comments CALCIUM IONIZED (BEAKER) (test 1.14 mmol/L 1.12-1.27 code = 698) PH, BLOOD (BEAKER) (test code = 7.40 1810) CBC W/PLT COUNT & AUTO [id number] 03:36:49 Test Item Value Reference Range Interpretation [...] (test code = 2801) HIGH SENSITIVITY TROPONIN [id number] 12:02:35 Test Item Value Reference Range Interpretation Comments HIGH SENSITIVITY < pg/ml See_Comment [Automated message] TROPONIN I (test code = The system which [id number]) generated this result transmitted ref erence range: <=17. Th e reference range was not used to interpr et this result as normal/abnormal . Ups Driver ID - DBThe FINISHING PAN OPERATOR STAT High Sensitivity Troponin-I results should be used in conjunctionwith other diagnostic information such as ECG, clinical observations and information, and patient symptoms to aid in the diagnosis of MA.[id number] 11:56:00 Test Item Value Reference Range Interpretation Comments PHOSPHORUS (BEAKER) (test code = 3.9 mg/dL 2.3-4.7 604) Ups Driver ID - [id number] 11:56:00 Test Item Value Reference Range Interpretation Comments POTASSIUM (BEAKER) (test code = 3.7 meq/L 3.5-5.1 379) Ups Driver ID - [id number] 11:55:59 Test Item Value Reference Range Interpretation Comments MAGNESIUM (BEAKER) (test code = 2.3 mg/dL 1.6-2.6 627) Ups Driver ID - DBPROTEIN C [id number] 08:57:55 Test Item Value Reference Range Interpretation Comments PROTEIN C ACTIVITY (BEAKER) (test 119.0 % 70.0-130.0 code = 582) ANTITHROMBIN [id number] 08:57:54 Test Item Value Reference Range Interpretation Comments ANTITHROMBIN III ACTIVITY (BEAKER) 120.0 % 80.0-120.0 (test code = 711) HEMOGLOBIN [id number] 07:48:24 Test Item Value Reference Range Interpretation Comments HEMOGLOBIN A1C (BEAKER) (test code = 4.6 % 4.3-6.1 368) CT BRAIN WITHOUT IV CONTRAST - [id number] 05:51:00Unlisted Reason for Exam - Click Yes and Enter Reason Below->YesUnlisted Reason for Exam->new onset severe headache s/p tpa [facility] YAMILKA REN : 1985 Sex: FFINAL REPORT EXAM/TECHNIQUE: Noncontrast CT of the head. Dose modulation, iterative reconstruction, and/or weight based adjustment of the mA/kV was utilized to reduce the radiation dose toas low as reasonably achievable. INDICATION: New onset of severe headache status post TPA. COMPARISON : None. FINDINGS: Poor wwkesi-sv-dfvbl, likely secondary to portable CT. Lowe- white differentiation is preserved. No acute intracranial hemorrhage. No extra- axial fluid collection. Ventricles are normal in appearance. Basal cisterns are patent. No midline shift. Cerebellar tonsils are normal in appearance. Orbits are normal. Paranasal sinuses are clear. Mastoid air cells are clear. No acute osseous processes or suspicious osseous lesion. Midline structures are normal. Visualized face and neck are unremarkable. Impression: No acute intracranial hemorrhage. No territorial lowe-white differentiation loss. Signed: Jani Hankins MDReport Verified Date/Time: 07/22/2021 05:51:11 T4, [id number] 05:49:21 Test Item Value Reference Range Interpretation Comments FREE T4 (BEAKER) (test code = 655) 1.23 ng/dL 0.70-1.48 Ups Driver ID - RITO WCALCIUM, [id number] 05:40:56 Test Item Value Reference Range Interpretation Comments CALCIUM IONIZED (BEAKER) (test 1.14 mmol/L 1.12-1.27 code = 698) PH, BLOOD (BEAKER) (test code = 7.46 1810) TSH/FREE T4 IF [id number] 05:04:51 Test Item Value Reference Range Interpretation Comments THYROID STIMULATING HORMONE 0.003 uIU/mL 0.350-4.940 L (BEAKER) (test code = 772) Ups Driver ID Eric VERAS WVITAMIN B12 AND [id number] 05:03:19 Test Item Value Reference Range Interpretation Comments VITAMIN B12 (BEAKER) 345 pg/mL 213-816 (test code = 774) FOLATE (BEAKER) 3.80 ng/mL See_Comment L [Automated message] (test code = 362) The system which generated this result transmitted ref erence range: >=7.00. The reference range was not used to interpr et this result as normal/abnormal . Ups Driver ID - RITO [id number] 04:53:15 Test Item Value Reference Range Interpretation Comments PARTIAL THROMBOPLASTIN TIME 28.4 seconds 22.5-36.0 (BEAKER) (test code = 760) PROTHROMBIN TIME/[id number] 04:52:33 Test Item Value Reference Range Interpretation Comments PROTIME (BEAKER) 14.8 seconds 11.9-14.2 H (test code = 759) INR (BEAKER) (test 1.18 See_Comment [Automat ed message] code = 370) The system [employer] generated this result transmitted ref erence range: <=5.90. The reference range was not used to int erpret this result as normal/abnormal . RECOMMENDED COUMADIN/WARFARIN INR THERAPY RANGESSTANDARD DOSE: 2.0 - 3.0 Includes: PROPHYLAXIS for venous thrombosis, systemic embolization; TREATMENT for venous thrombosis and/or pulmonary embolus.HIGH RISK: Target INR is 2.5-3.5 for patients with mechanical heart valves.BASIC METABOLIC [id number] 04:32:09 Test Item Value Reference Range Interpretation [...] 1092) DATA TO CALCULA TE ESTIMATED GFR. Ups Driver ID - DBSpecimen slightly [id number] 04:31:45 Test Item Value Reference Range Interpretation Comments PHOSPHORUS (BEAKER) (test code = 3.6 mg/dL 2.3-4.7 604) Ups Driver ID - DBLIPID [id number] 04:31:45 Test Item Value Reference Range Interpretation Comments TRIGLYCERIDES (BEAKER) (test code = 54 mg/dL 540) CHOLESTEROL (BEAKER) (test code = 146 mg/dL 631) HDL CHOLESTEROL (BEAKER) (test code 86 mg/dL = 976) LDL CHOLESTEROL CALCULATED (BEAKER) 49 mg/dL (test code = 633) Triglyceride Reference Range: Low Risk <150 Borderline 150-199 High Risk 200-499 Very High Risk >=500Cholesterol Reference Range: Low Risk <200 Borderline 200-239 High Risk >240HDL Cholesterol Reference Range: Low Risk >=60 High Risk <40LDL Cholesterol Reference Range: Optimal <100 Near Optimal 100-129 Borderline 130-159 High 160-189 Very High >=190 Ups Driver ID - DBSpecimen slightly [id number] 04:31:44 Test Item Value Reference Range Interpretation Comments MAGNESIUM (BEAKER) (test code = 1.6 mg/dL 1.6-2.6 627) Ups Driver ID - DBCBC W/PLT COUNT & AUTO [id number] 04:18:19 Test Item Value Reference Range Interpretation [...] = 786-4) [facility] erythrocyte distribution width [id number] 16:55:00 Test Item Value Reference Range Interpretation Comments Red Cell Distribution Width (test code 11.6 10.7-14.5 = 788-0) [facility] HealthAutomated blood platelet count (count/volume)2021-01-20 16:55:00 Test Item Value Reference Range Interpretation Comments Platelet Count (test code = 777-3) 285 150-450 [facility] HealthAutomated blood platelet mean volume [id number] 16:55:00 Test Item Value Reference Range Interpretation Comments Mean Platelet Volume (test code = 9.4 5.7-10.7 87785-4) [facility] HealthAutomated blood neutrophil count as percentage of total fduwrvdzeo6284-14-90 16:55:00 Test Item Value Reference Range Interpretation Comments Neutrophils (%) (Auto) (test code = 69 47-75 770-8) [facility] HealthAutomated blood immature granulocyte count as percentage of total flominbnmc2483-23-41 16:55:00 Test Item Value Reference Range Interpretation Comments Immature Granulocyte % (Auto) (test 0 0-0 code = 95681-9) [facility] HealthAutomated blood lymphocyte count as percentage of total kirjcmrrik4268-51-91 16:55:00 Test Item Value Reference Range Interpretation Comments Lymphocytes (%) (Auto) (test code = 23 25-44 736-9) [facility] HealthAutomated blood monocyte count as percentage of total leukocytes 2021-01-20 16:55:00 Test Item Value Reference Range Interpretation Comments Monocytes (%) (Auto) (test code = 7 3-10 5905-5) [facility] HealthAutomated blood eosinophil count as percentage of total airggepodi4273-85-65 16:55:00 Test Item Value Reference Range Interpretation Comments Eosinophils (%) (Auto) (test code = 1 0-7 713-8) [facility] HealthAutomated blood basophil count as percentage of total leukocytes 2021-01-20 16:55:00 Test Item Value Reference Range Interpretation Comments Basophils (%) (Auto) (test code = 1 0-1 706-2) [facility] HealthAutomated blood nucleated erythrocyte count as percentage of total smzlxrcsmw6820-09-20 16:55:00 Test Item Value Reference Range Interpretation Comments Nucleated Red Blood Cells % (test code 0.0 0-0.2 = 58786-8) [facility] HealthAutomated blood neutrophil count (number/volume)2021-01-20 16:55:00 Test Item Value Reference Range Interpretation Comments Neutrophils # (Auto) (test code = 6.1 1.3-6.7 751-8) [facility] HealthAutomated blood immature granulocyte count as percentage of total dkfkqucivo5833-50-31 16:55:00 Test Item Value Reference Range Interpretation Comments Immature Granulocyte # (Auto) (test 0.0 0.0-0.0 code = 89590-0) [facility] HealthAutomated blood lymphocyte count (number/volume)2021-01-20 16:55:00 Test Item Value Reference Range Interpretation Comments Lymphocytes # (Auto) (test code = 2.0 1.4-4.1 731-0) [facility] HealthBlood monocytes automated count (number/volume)2021-01-20 16:55:00 Test Item Value Reference Range Interpretation Comments Monocytes # (Auto) (test code = 742-7) 0.6 0-1.3 [facility] HealthAutomated blood eosinophil nlbep6875-10-89 16:55:00 Test Item Value Reference Range Interpretation [...] 0.00 0-0.01 = 771-6) [facility] HealthService comment [id number] 16:55:00 Test Item Value Reference Range Interpretation Comments Manual Differential (test code = Not Ind 8265-1) [facility] HealthSodium TmbAi-xNik0198-26-05 16:55:00 Test Item Value Reference Range Interpretation [...] Dioxide Level (test code = 24 22-29 2028-04) [facility] HealthSerum or plasma anion gap determination (moles/volume)2021-01-20 16:55:00 Test Item Value Reference Range Interpretation Comments Anion Gap (test code = 45722-6) 16 8-18 [facility] HealthSerum or plasma urea nitrogen measurement (mass/volume)2021-01-20 16:55:00 Test Item Value Reference Range Interpretation Comments Blood Urea Nitrogen (test code = 4 7-19 3094-0) [facility] HealthSerum or plasma creatinine measurement (mass/volume)2021-01-20 16:55:00 Test Item Value Reference Range Interpretation Comments Creatinine (test code = 2160-0) 0.7 0.6-1.1 [facility] HealthGFR/BSA.pred SerPl RMIQ-DvNGqy0567-29-05 16:55:00 Test Item Value Reference Range Interpretation Comments Estimat Glomerular Filtration Rate 100 81-133 (test code = 49097-0) [facility] HealthSerum or plasma glucose measurement (mass/volume)2021-01-20 16:55:00 Test Item Value Reference Range Interpretation Comments Glucose Level (test code = 2345-7) 95 60-100 [facility] HealthSerum or plasma calcium measurement (mass/volume)2021-01-20 16:55:00 Test Item Value Reference Range Interpretation Comments Calcium Level (test code = 27795-7) 8.9 8.4-10.2 [facility] HealthWhole blood cardiac troponin I measurement (mass/volume) 2021-01-20 16:52:00 Test Item Value Reference Range Interpretation Comments Bedside Troponin I (test code = 0.00 0.00-0.06 26184-9) [facility] HealthUrinalysis specimen collection yzeytp7414-79-85 15:48:00 Test Item Value Reference Range Interpretation Comments Urine Source (test code = 61823-3) URINE [facility] HealthColor of Urine by Ovmt9687-92-06 15:48:00 Test Item Value Reference Range Interpretation Comments Urine Color (test code = 55059-1) Lt Yellow Yel-Linda * [facility] HealthUrine clarity autuuzdklluuw5677-69-73 15:48:00 Test Item Value Reference Range Interpretation Comments Urine Appearance (test code = 81776-7) Clear Clear * [facility] HealthUrine pH measurement by automated test xqqme9942-32-17 15:48:00 Test Item Value Reference Range Interpretation Comments Urine pH (test code = 09291-0) 6.5 5.0-8.0 [facility] HealthSpecific gravity of Urine by Automated test hhzct0694-39-34 15:48:00 Test Item Value Reference Range Interpretation Comments Urine Specific [place] (test code = 1.010 1.005-1.030 46326-5) [facility] HealthUrine protein measurement by automated test strip (mass/volume) 2021-01-20 15:48:00 Test Item Value Reference Range Interpretation Comments Urine Protein (test code = 25509-5) Negative Negative * [facility] HealthUrine glucose measurement by automated test strip (mass/volume) 2021-01-20 15:48:00 Test Item Value Reference Range Interpretation Comments Urine Glucose (UA) (test code = Negative Negative * 81105-0) [facility] HealthKetones [Mass/volume] in Urine by Automated test czatt2188-34-36 15:48:00 Test Item Value Reference Range Interpretation Comments Urine Ketones (test code = 16973-4) Negative Negative * [facility] HealthUrine erythrocytes count by automated test strip (number/volume) 2021-01-20 15:48:00 Test Item Value Reference Range Interpretation Comments Urine Occult Blood (test code = Negative Negative * 66023-2) [facility] by automated test ucrhc5147-97-73 15:48:00 Test Item Value Reference Range Interpretation Comments Urine Nitrite (test code = 65008-1) Negative Negative [facility] total bilirubin measurement by automated test strip (mass/volume)2021-01-20 15:48:00 Test Item Value Reference Range Interpretation Comments Urine Bilirubin (test code = Negative Negative 92995-3) [facility] urobilinogen measurement by automated test strip (mass/volume)2021-01-20 15:48:00 Test Item Value Reference Range Interpretation Comments Urine Urobilinogen (test code = Negative 0.0-1.0 19605-6) [facility] leukocytes count by automated test strip (number/volume) 2021-01-20 15:48:00 Test Item Value Reference Range Interpretation Comments Urine Leukocyte Esterase (test code Negative Negative = 21000-9) [facility] HospitalMicroscopic examination of hxzxx0462-74-46 15:48:00 Test Item Value Reference Range Interpretation Comments Microscopic Urinalysis (T) (test code Not Ind = 73378-3) [facility] HospitalService comment [id number] 15:48:00 Test Item Value Reference Range Interpretation Comments Urinalysis Comment (test * See_Comment [A utomated message] The code = 8262-8) system which generated this result tra nsmitted reference range : *. The reference range was not used to interpr et this result as normal/abnormal . [facility] fpmnqmmlq9106-06-91 15:48:00 Test Item Value Reference Range Interpretation Comments Urine Test (test code = Negative Negative 6-3) [facility] methamphetamine kbmmgg7562-03-00 15:48:00 Test Item Value Reference Range Interpretation Comments Urine Methamphetamines Screen (test Negative Qlntab=403 code = 70326-2) [facility] propoxyphene screening ayts9706-06-64 15:48:00 Test Item Value Reference Range Interpretation Comments Urine Propoxyphene Screen (test code Negative Oyrqbs=097 = 66540-6) [facility] amphetamines detection by screening tvjalc5727-64-82 15:48:00 Test Item Value Reference Range Interpretation Comments Urine Amphetamines Screen (test code Negative Zqujkd=869 = 82708-3) [facility] HealthUrine buprenorphine screen with reflex yrrxzsyxsobh6047-58-43 15:48:00 Test Item Value Reference Range Interpretation Comments Urine Buprenorphine (test code = Negative Cutoff=10 54706-0) [facility] HealthUrine barbiturates detection by screening hsnngx7078-90-53 15:48:00 Test Item Value Reference Range Interpretation Comments Urine Barbiturates Screen (test code Negative Ssfnzt=256 = 70288-0) [facility] HealthUrine benzodiazepines detection by screening ooprsx0030-81-59 15:48:00 Test Item Value Reference Range Interpretation Comments Urine Benzodiazepines Screen (test Negative Bsgofc=480 code = 89122-1) [facility] HealthUrine benzoylecgonine detection by screening ewjgdl1307-56-76 15:48:00 Test Item Value Reference Range Interpretation Comments Urine Cocaine Screen (test code = Positive Lmrtki=543 42810-2) [facility] HealthUrine methadone zezneq1379-58-07 15:48:00 Test Item Value Reference Range Interpretation Comments Urine Methadone, Qualitative (test Negative Scdjmm=099 code = 56029-2) [facility] Hospital[facility] opiates screening bfrc9383-26-35 15:48:00 Test Item Value Reference Range Interpretation Comments Urine Opiates Screen (test code = Positive Ydtuht=163 07926-5) [facility] Hospital[facility] phencyclidine detection by screening tgqvwg4200-15-07 15:48:00 Test Item Value Reference Range Interpretation Comments Urine Phencyclidine Screen (test Negative Cutoff=25 code = 62134-0) [facility] Hospital[facility] cannabinoids detection by screening qsfzao0081-08-69 15:48:00 Test Item Value Reference Range Interpretation Comments Urine Cannabinoids (test code = Negative Cutoff=50 76515-5) [facility] HospitalScre[facility] urine tricyclic antidepressants fcaywcuza3181-13-28 15:48:00 Test Item Value Reference Range Interpretation Comments Ur Tricyclic Antidepressants Screen Negative Nvgmmt=163 (test code = 35102-1) [facility] Hospital[facility] oxycodone detection by screening hqgpuc6716-19-21 15:48:00 Test Item Value Reference Range Interpretation Comments Urine Oxycodone Screen (test code = Negative Vgkyoh=339 82210-5) [facility] HealthSpecific gravity of Urine by Automated test bkgnu4102-69-37 15:48:00 Test Item Value Reference Range Interpretation Comments Urine Specific [place] (test code = 1.010 1.005-1.030 10482-3) [facility] pH measurement by automated test xagzx1206-61-17 15:48:00 Test Item Value Reference Range Interpretation Comments Urine pH (test code = 55930-7) 6.5 5.0-8.0 [facility] drug screen comment mrkafuxlkthnqp7989-79-09 15:48:00 Test Item Value Reference Range Interpretation Comments Urine Drug Screen Comment (test code See Note = 70659-9) [facility] [id number] 03:37:00 Test Item Value Reference Range Interpretation Comments BENZO U (test code = Negative Negative 7065466830) ANTONIO U (test code = Negative Negative 5304184800) AMPHET (test code = Negative Negative 3825910723) THC (test code = Negative Negative 8286958581) METHADONE (test code = Negative Negative 0893564516) Meth U (test code = Negative Negative 6965642202) OPIATES (test code = Negative Negative 9314475311) Cocaine Metabolite (test Presumptive Positive Negative A code = 3838584338) PROPOXY (test code = Negative Negative 8723097057) Tric U (test code = Negative Negative 8984339396) PCP (test code = Negative Negative 2460468823) OXYCOD (test code = Negative Negative 4181199166) JERARDO (test code = JERARDO) Urine Drug [...] testing). Lab Interpretation (test Abnormal code = 68999-5) [facility]:12[facility] Test Item Value Reference Range Interpretation Comments APPEARANCE (test code = Hazy Clear A 6313920104) COLOR (test code = Yellow Yellow 6993839693) PH (test code = 4.8-8.0 5729981984) SP GRAVITY (test code = 1.003-1.030 7823120905) GLU U QUAL (test code = Normal Normal 9360631438) BLOOD (test code = Negative Negative 3157798189) KETONES (test code = Negative Negative 6337188522) PROTEIN (test code = Negative Negative 2887-8) UROBILIN (test code = 2.0 mg/dL Normal A 4655618017) BILIRUBIN (test code = Negative Negative 3906213462) NITRITE (test code = Negative Negative 8998318012) LEUK KEESHA (test code = Negative Negative 5902341907) RBC/HPF (test code = See_Comment H [Autom ated message] 4443943957) The system [employer] generated this result transmit verónica reference range : 0 - 3 HPF. The refe rence range was not u sed to interpret th is result as normal/abnormal . WBC/HPF (test code = See_Comment [Autom ated message] 0872496305) The system [employer] generated this result transmit verónica reference range : 0 - 5 HPF. The refe rence range was not u sed to interpret th is result as normal/abnormal . BACTERIA (test code = Few Negative A 6585066665) MUCOUS (test code = Slight Negative LPF A 7025254160) SQ EPITH (test code = HPF 3743525425) Lab Interpretation (test Abnormal code = 59085-7) [facility] HospitalProthrombin Time / [id number] 02:07:00 Test Item Value Reference Range Interpretation Comments PROTIME PATIENT (test See_Comment [Auto mated message] code = 5964-2) The system [employer] generated this result transmitted ref erence range: 12.0 - 1 4.7 Seconds. The re ference range was not u sed to interpret this result as normal/abnor mal. INR (test code = 6301-6) Nor mal INR <1.1; Warfarin Therap eutic range 2.0 to 3. 0 or 2.5 to 3.5, dep ending upon the indica tions. Lab Interpretation (test Normal code = 14438-6) [facility] Metabolic Panel (NA, K, CL, CO2, GLUCOSE, BUN, CREATININE, CA)2020-02-22 02:02:00 Test Item Value Reference Range Interpretation Comments NA (test code = 134 mmol/L 135-145 L 4940424922) K (test code = 3.9 mmol/L 3.5-5 7976049113) CL (test code = 102 mmol/L 98-108 8678603927) CO2 TOTAL (test code = 24 mmol/L 23-31 6962315001) AGAP (test code = 2-16 5718597528) BUN (test code = 13 mg/dL 7-23 7129538701) GLUCOSE (test code = 93 mg/dL 70-110 4375450856) CREATININE (test code = 0.58 mg/dL 0.5-1.04 8928365582) CALCIUM (test code = 9.4 mg/dL 8.6-10.6 9160833490) eGFR Calculation mL/min/1.73m2 (Non-) (test code = 0180557678) eGFR Calculation mL/min/1.73m2 () (test code = 3532789724) JERARDO (test code = JERARDO) Association of [...] tests). Lab Interpretation Abnormal (test code = 15560-2) [facility] HospitalLipase, Xtmnp5730-64-52 02:02:00 Test Item Value Reference Range Interpretation Comments LIPASE (test code = 1128280253) 82 U/L 0-220 Lab Interpretation (test code = Normal 49725-9) [facility]Hep[facility] Function [facility] (ALB, T.PRO, BILI T, BU/BC, ALT, AST, ALK PHOS)2020-02-22 02:02:00 Test Item Value Reference Range Interpretation Comments TOTAL BILI (test code = 0306027949) 0.6 mg/dL 0.1-1.1 BILI UNCON (test code = 8493859847) 0.8 mg/dL 0.1-1.1 BILI CONJ (test code = 0517966895) 0.0 mg/dL 0-0.3 T PROTEIN (test code = 2222179358) 8.1 g/dL 6.3-8.2 ALBUMIN (test code = 5664500037) 4.1 g/dL 3.5-5 ALK PHOS (test code = 2383154538) 100 U/L 34-122 ALTv (test code = 1742-6) 19 U/L 5-35 AST(SGOT) (test code = 5713597447) 24 U/L 13-40 Lab Interpretation (test code = Normal 29114-9) [facility] HospitalAbdomen 1 View (KUB)2020-02-22 01:58:39 Nonobstructive bowel gas pattern. Obese body habitus. Preliminary Report Dictated by Resident: Karlie Blankenship MD., have reviewed this study and agree with theabove report.EXAM: XR ABDOMEN 1 VW HISTORY: fever COMPARISON: None FINDINGS: The bowel gas pattern is nonobstructive without luminal distention orevidence of obstruction. Lung bases and the hemidiaphragm somewhat in sfpcpeue-kj-dwrg. A moderate ?volume of mixed stool and gas is in the colonand rectum. No renal stones, abnormal calcifications or acute osseousabnormalities are detected. [facility], Radiant Results Inft User - 02/21/2020 8:59 PM CDTEXAM: XR ABDOMEN 1 VWHISTORY: fever COMPARISON: NoneFINDINGS:The bowel gas pattern is nonobstructive without luminal distention orevidence of obstruction. Lung bases and the hemidiaphragm somewhat in hmhmjpiq-pl-vyvi. A moderate volume of mixed stool and gas is in the colonand rectum. No renal stones, abnormal calcifications or acute osseousabnormalities are detected.IMPRESSIONNonobstructive bowel gas pattern. Obese body habitus.Preliminary Report Dictated by Resident: Karlie Navarro MD., have reviewed this study and agree with theabove report. [facility] 2 Wtkiu0532-30-89 01:54:56 No acute cardiopulmonary abnormality or other radiographic explanation forpatient's fever. Preliminary Report Dictated by Resident: Karlie Blankenship MD., have reviewed this study and agree with theabove report.EXAM: XR CHEST 2 VW HISTORY: fever COMPARISON: None FINDINGS: The lungs are clear. No pneumothorax or pleural effusion. Thecardiomediastinal silhouette is normal in size. ?No acute osseousabnormalities. [facility], Radiant Results Inft User - 02/21/2020 8:56 PM CDTEXAM: XR CHEST 2 VWHISTORY: fever COMPARISON: NoneFINDINGS:The lungs are clear. No pneumothorax or pleural effusion. Thecardiomediastinal silhouette is normal in size. No acute osseousabnormalities.IMPRESSIONNo acute cardiopulmonary abnormality or other radiographic explanation forpatient's fever.Preliminary ReportDictated by Resident: Karlie Navarro MD., have reviewed this study and agree with theabove report.[facility] WITH BNYXAXNMYYSP7046-57-22 01:41:00 Test Item Value Reference Range Interpretation [...] (test code = 38.0 fL 39-49.9 L 26535-9) RDW-CV (test code = 13.2 % 12-15.5 788-0) PLT (test code = See_Comment [Automated 777-3) message] The sy stem which generated this result transmitted reference range : 166 - 358 10*3/ ?L. The reference r patricia was not used to interpret this result as normal/abnormal . MPV (test code = 9.6 fL 9.5-12.9 46184-2) NRBC/100 WBC (test See_Comment [Automat ed code = 8332952743) message] The system which generated this result transmitted reference range : 0.0 - 10.0 /100 WBCs. The refer ence range was not u sed to interpret th is result as normal/abnormal . NRBC x10^3 (test code <0.01 See_Comment [Auto mated = 4674275460) message] The s ystem which generated this result transmitted reference range : 10*3/?L. The reference range was not used to interpret this result as normal/abnormal . GRAN MAT (NEUT) % 73.2 % (test code = 770-8) IMM GRAN % (test code 0.40 % = 3218704051) LYMPH % (test code = 19.7 % 736-9) MONO % (test code = 5.0 % 5905-5) EOS % (test code = 1.2 % 713-8) BASO % (test code = 0.5 % 706-2) GRAN MAT x10^3(ANC) 9.70 10*3/uL 1.88-7.09 H (test code = 8234244910) IMM GRAN x10^3 (test 0.05 10*3/uL 0-0.06 code = 0846197865) LYMPH x10^3 (test code 2.60 10*3/uL 1.32-3.29 = 731-0) MONO x10^3 (test code 0.66 10*3/uL 0.33-0.92 = 742-7) EOS x10^3 (test code = 0.16 10*3/uL 0.03-0.39 711-2) BASO x10^3 (test code 0.06 10*3/uL 0.01-0.07 = 704-7) Lab Interpretation Abnormal (test code = 27139-6) [facility] HospitalLactic Acid Whole Lobbr0624-96-11 01:24:00 Test Item Value Reference Range Interpretation Comments LACTIC ACID (test code = 1.40 mmol/L 0.3-2.6 8318729526) Lab Interpretation (test code = Normal 74665-6) [facility] Care Venous Blood Ipe8673-78-53 01:23:00 Test Item Value Reference Range Interpretation Comments PH (test code = 7.32-7.42 H 3449610603) PCO2 LILLIAN (test code = See_Comment L [Auto mated message] 8515904076) The system [employer] generated this result transmitted ref erence range: 41 - 51 mmHg. The reference r patricia was not used to interpret this result as normal/abnor mal. PO2 LILLIAN (test code = See_Comment H [Autom ated message] 4221123285) The system [employer] generated this result transmitted ref erence range: 25 - 40 mmHg. The reference r patricia was not used to interpret this result as normal/abnor mal. HCO3 LILLIAN (test code = See_Comment [Auto mated message] 6520110722) The system [employer] generated this result transmitted ref erence range: 24 - 28 mEq/L. The reference r patricia was not used to interpret this result as normal/abnor mal. AC VBE(BEAKER) (test mEq/L code = 2289948365) Lab Interpretation (test Abnormal code = 95071-7) [facility] ([facility] NOW RAPID TESTING)2020-02-22 00:09:00 Test Item Value Reference Range Interpretation Comments SARS-CoV-2 Rapid ID NOW Not Detected Not Detected (test code = 85888-7) JERARDO (test code = JERARDO) ID NOW COVID-19 Assay is an isothermal nucleic acid amplification test intended for the qualitative detection of nucleic acid from SARS-CoV-2 viral RNA in nasopharyngeal (BELT CUTTER) specimens. It is used under Emergency Use [...] indicated. Lab Interpretation Normal (test code = 35047-6) [facility]"
[2023-04-10] MEDS ORDERED: ALBUTEROL 2.5 MG/3 ML NEB SOL ONE (11:49)
[2023-04-10] MEDS ORDERED: IPRATROPIUM BROM 0.5MG/2.5ML ONE (11:49)
[2023-04-10] MEDS ORDERED: METHYLPREDNISOLONE 125 MG INJ ONE (11:49)
[2023-04-10] MEDS ORDERED: KETOROLAC 30 MG/ML INJ ONE (12:12)
[2023-04-10] MEDS ORDERED: ACETAMINOPHEN 500 MG TAB ONE (12:12)
--- NOTE | 2023-04-10 13:36 | RAD REPORT ---
EXAM DESCRIPTION: Noa Treadwell And Elkin (2 Views)04/10/2023 1:15 pm CLINICAL HISTORY: Cough COMPARISON: February 2023 FINDINGS: The lungs appear clear of acute infiltrate. The heart is normal size IMPRESSION: No acute abnormalities displayed
--- NOTE | 2023-04-10 13:52 | ER ---
[facility] Name: Leena Muniz Age: 37 yrs Sex: Female : 1985 Arrival Date: 04/10/2023 Time: 11:20 Bed 17 Private MD: Diagnosis: SARS-associated coronavirus as the cause of diseases classified elsewhere Presentation: 04/10 11:26 Chief complaint: Patient states: COUGH, FLU-LIKE S/S x 2 DAYS. +COVID HOME TEST. bp Coronavirus screen: Client reports previous positive COVID test result. Ebola Screen: No symptoms or risks identified at this time. Initial Sepsis Screen: Does the patient meet any 2 criteria? HR > 90 bpm. No. Patient's initial sepsis screen is negative. Does the patient have a suspected source of infection? No. Patient's initial sepsis screen is negative. Risk Assessment: Do you want to hurt yourself or someone else? Patient reports no desire to harm self or others. Onset of symptoms is unknown. 11:26 Method Of Arrival: Ambulatory bp 11:26 Acuity: ALEE 3 bp LOADING MANAGER: 13:00 LMP 04/05/2023 me1 Historical: - Allergies: 11:50 PENICILLINS; ll1 - PMHx: 11:50 Asthma; hyperthyroidism; Hypokalemia; stroke july 2021; ll1 - PSHx: 11:50 gastric sleeve; ll1 - Immunization history:: Adult Immunizations up to date. - Social history:: Smoking status: Patient denies any tobacco usage or history of. Screenin:50 [facility] ED Fall Risk Assessment (Adult) Score/Fall Risk Level 0 - 2 = Low Risk ll1 Oriented to surroundings, Maintained a safe environment, Educated pt \T\ family on fall prevention, incl call for assistance when getting out of bed, Hourly rounding (assess needs \T\ fall precautionary measures) done. Abuse screen: Denies threats or abuse. Nutritional screening: No deficits noted. Tuberculosis screening: No symptoms or risk factors identified. Assessment: 11:49 General: Appears uncomfortable, ill, Behavior is cooperative, appropriate for age, ll1 drowsy. Pain: Complains of pain in head Quality of pain is described as aching, throbbing, Pain began 2-3 days ago. Neuro: Reports headache weakness. Respiratory: Reports shortness of breath cough that is pain with cough. 13:16 General: Appears uncomfortable, ill, well groomed, well developed, well nourished, me1 Behavior is cooperative, appropriate for age, restless. Pain: Complains of pain in head Pain does not radiate. Pain currently is 8 out of 10 on a pain scale. Quality of pain is described as aching, throbbing, Pain began 2-3 days ago. Is continuous. Neuro: Level of Consciousness is awake, alert, obeys commands, Oriented to person, place, time, situation, Appropriate for age Reports headache weakness. Cardiovascular: Capillary refill < 3 seconds Patient's skin is warm and dry. Respiratory: Reports shortness of breath cough that is pain with cough since 2-3 days ago. Airway is patent Respiratory effort is even, unlabored, Respiratory pattern is regular, symmetrical. Vital Signs: 11:26 BP 130 / 98; Pulse 95; Resp 20; Temp 98.3; Pulse Ox 100% ; Weight 56.25 kg; Height 4 bp ft. 11 in. ; 12:16 BP 130 / 85; Pulse 96; Resp 18; Pulse Ox 100% on R/A; Pain 8/10; me1 13:16 BP 120 / 85; Pulse 88; Resp 19; Pulse Ox 100% on R/A; Pain 8/10; me1 14:00 BP 142 / 93; Pulse 87; Resp 18; Pulse Ox 97% on R/A; Pain 5/10; me1 11:26 Body Mass Index 25.04 (56.25 kg, 149.86 cm) bp 12:16 Pain Scale: Adult me1 13:16 Pain Scale: Adult me1 14:00 Pain Scale: Adult me1 ED Course: 11:26 Patient arrived in ED. bp 11:26 Vannesa Gordon PA-C is PHCP. sb4 11:26 Jens Veliz MD is Attending Physician. sb4 11:28 Triage completed. bp 11:48 Ruiz Bernal, TANA is Primary Nurse. ll1 11:50 Arm band placed on. ll1 12:24 Radiology exam delayed due to patient receiving breathing treatment at this time. mh1 patient is not appropriately dressed for the exam at this time. 13:16 X-ray completed. Patient tolerated procedure well. Patient moved back from radiology. 1 13:17 Chest Pa And Lat (2 Views) XRAY In Process Unspecified. EDMS 14:02 Patient has correct armband on for positive identification. Bed in low position. Call me1 light in reach. Side rails up X 1. Provided Education on: POC. Verbalized understanding. . 14:02 No provider procedures requiring assistance completed. Patient did not have IV access me1 during this emergency room visit. Administered Medications: 11:49 Drug: DuoNeb Nebulize (3:1) (2.5 mg - 0.5 mg) 3 ml Route: Nebulizer; ll1 12:45 Follow up: Response: No adverse reaction; Wheezing diminished me1 11:49 Drug: MethylPREDNISolone Sodium Succinate IM 125 mg Route: IM; Site: right vastus ll1 lateralis; 12:45 Follow up: Response: No adverse reaction; Wheezing diminished me1 12:16 Drug: Acetaminophen PO 1000 mg Route: PO; me1 13:15 Follow up: Response: No adverse reaction; Pain is decreased me1 12:16 Drug: Ketorolac IM 30 mg Route: IM; Site: left deltoid; me1 13:15 Follow up: Response: No adverse reaction; Pain is decreased me1 Medication: 14:02 VIS not applicable for this client. me1 Outcome: 13:52 Discharge ordered by . sb4 14:09 Discharged to home ambulatory, with family. me1 14:09 Condition: stable 14:09 Discharge instructions given to patient, family. 14:09 Discharge instructions given to patient, family, Instructed on discharge instructions, follow up and referral plans. medication usage, Demonstrated understanding of instructions, follow-up care, medications, Prescriptions given X 2. 14:13 Patient left the ED. me1 Signatures: Dispatcher [employer] EDAntionette Nicole 1 Sukhdeep Polo, RN RN Ruiz Loya RN RN ll1 Vannesa Gordon PA-C PAElisha sb4 Ana Luisa Arteaga RN RN me1
--- NOTE | 2023-04-10 13:52 | EDPHYS ---
Physician Documentation [facility] Name: Leena Muniz Age: 37 yrs Sex: Female : 1985 Arrival Date: 04/10/2023 Time: 11:20 Bed 17 Private MD: ED Physician Jens Veliz HPI: 04/10 11:36 This 37 yrs old Female presents to ER via Ambulatory with complaints of Cough, sb4 Flu Symptoms. 11:36 The patient or guardian reports cough, flu symptoms, arthralgias, low-grade fever, sb4 myalgias, no appetite. Onset: The symptoms/episode began/occurred 2 day(s) ago. Associated signs and symptoms: Pertinent positives: chest pain, with cough, with breathing, fever, rhinorrhea, sore throat. The patient has experienced a previous episode. The patient has not recently seen a physician. patient reports feeling poorly x 2 days. took a home covid test that was positive. she presents today because she states her chest hurts and she feels like she is "on fire". 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 - Social history:: Smoking status: Patient denies any tobacco usage or history of. ROS: 11:36 Constitutional: Positive for body aches, chills, fatigue, fever, malaise. sb4 11:36 ENT: Positive for sinus congestion, sore throat. 11:36 Cardiovascular: Positive for chest pain. 11:36 Respiratory: Positive for cough, shortness of breath. 11:36 All other systems are negative. 13:53 Skin: Negative for injury, rash, and discoloration. sb4 Exam: 11:36 Head/Face: Normocephalic, atraumatic. Eyes: Extra-ocular motions intact. Periorbital sb4 areas with no swelling, redness, or edema. ENT: Mucous membranes moist. Cardiovascular: Regular rate and rhythm with a normal S1 and S2. Respiratory: Lungs have equal breath sounds bilaterally, clear to auscultation and percussion. No rales, rhonchi or wheezes noted. No increased work of breathing, no retractions or nasal flaring. Abdomen/GI: Soft, non-tender, no distension. Skin: Warm, dry with normal turgor. Normal color with no rashes, no lesions, and no evidence of cellulitis. MS/ Extremity: Pulses equal, no cyanosis. Neurovascular intact. Full, normal range of motion. 11:36 Constitutional: The patient appears alert, awake, uncomfortable, crying Vital Signs: 11:26 BP 130 / 98; Pulse 95; Resp 20; Temp 98.3; Pulse Ox 100% ; Weight 56.25 kg; Height 4 bp ft. 11 in. ; 12:16 BP 130 / 85; Pulse 96; Resp 18; Pulse Ox 100% on R/A; Pain 8/10; me1 13:16 BP 120 / 85; Pulse 88; Resp 19; Pulse Ox 100% on R/A; Pain 8/10; me1 14:00 BP 142 / 93; Pulse 87; Resp 18; Pulse Ox 97% on R/A; Pain 5/10; me1 11:26 Body Mass Index 25.04 (56.25 kg, 149.86 cm) bp 12:16 Pain Scale: Adult me1 13:16 Pain Scale: Adult me1 14:00 Pain Scale: Adult me1 MDM: 11:26 Patient medically screened. sb4 11:36 Differential Diagnosis: Bronchitis Influenza Upper Respiratory Infection Sinusitis sb4 Pharyngitis Asthma Exacerbation Viral Syndrome Pneumonia Other covid. 13:13 Independent interpretation of the following test(s) in the Emergency Department X-Ray: sb4 My interpretation is my interpretation of the chest xray images are no acute consolidation, opacity, or pneumothorax. 13:51 Data reviewed: vital signs, nurses notes, radiologic studies, and as a result, I will sb4 discharge patient. Counseling: I had a detailed discussion with the patient and/or guardian regarding the historical points, exam findings, and any diagnostic results supporting the discharge/admit diagnosis, radiology results, to return to the emergency department if symptoms worsen or persist or if there are any questions or concerns that arise at home. 04/10 11:33 Order name: Chest Pa And Lat (2 Views) XRAY; Complete Time: 13:45 sb4 Administered Medications: 11:49 Drug: DuoNeb Nebulize (3:1) (2.5 mg - 0.5 mg) 3 ml Route: Nebulizer; ll1 12:45 Follow up: Response: No adverse reaction; Wheezing diminished me1 11:49 Drug: MethylPREDNISolone Sodium Succinate IM 125 mg Route: IM; Site: right vastus ll1 lateralis; 12:45 Follow up: Response: No adverse reaction; Wheezing diminished me1 12:16 Drug: Acetaminophen PO 1000 mg Route: PO; me1 13:15 Follow up: Response: No adverse reaction; Pain is decreased me1 12:16 Drug: Ketorolac IM 30 mg Route: IM; Site: left deltoid; me1 13:15 Follow up: Response: No adverse reaction; Pain is decreased me1 Disposition Summary: 04/10/23 13:52 Discharge Ordered Location: Home sb4 Problem: new sb4 Symptoms: have improved sb4 Condition: Stable sb4 Diagnosis - SARS-associated coronavirus as the cause of diseases classified elsewhere sb4 Followup: sb4 - With: Private Physician - When: As needed - Reason: Recheck today's complaints, Continuance of care, Re-evaluation by your physician Discharge Instructions: - Discharge Summary Sheet sb4 - 10 Things You Can Do to Manage Your COVID-19 Symptoms at Home - [facility] (03/02/2021) 4 - COVID-19: Quarantine and Isolation - [facility] (11/14/2021) 4 - COVID-19: What to Do If You Are Sick - [facility] (11/06/2021) sb4 Forms: - Medication Reconciliation Form sb4 - Thank You Letter sb4 - Antibiotic Education sb4 - Prescription Opioid Use sb4 - Patient Portal Instructions sb4 - Leadership Thank You Letter sb4 Prescriptions: - albuterol sulfate 90 mcg/actuation Inhalation HFA Aerosol Inhaler - inhale 1 puff by INHALATION route every 4 hours as needed for bronchospasm; sb4 administer via ventilator; 1 Applicator; Refills: 0, Product Selection Permitted - Medrol (Eduardo) 4 mg Oral Tablets, Dose Pack - take 1 tablet by ORAL route as directed - follow package instructions; 1 sb4 packet; Refills: 0, Product Selection Permitted Signatures: Dispatcher [employer] Ruiz Trevino RN RN ll1 Vannesa Gordon PA-C PA-C sb4 Eddleman, Ana Luisa, RN RN me1
[2023-04-10 14:51] VITALS: TEMP 98.3
[2023-04-10 14:56] VITALS: BP 142/93; O2SAT 97
== END 2023-04-10 14:13 | disposition home or self-care (01) ==
LOC: ER 11:20
DX: U07.1 COVID-19 (principal); Z88.0 Allergy status to penicillin
CPT/HCPCS: 71046; 94640; 96372; 99285; J7613; J7644; J2930

== ENCOUNTER 2023-06-08 16:28 | Emergency (ER) | payer OTHER, SELFPAY ==
--- OUTSIDE RECORDS SUMMARY | 2023-06-08 16:37 | XMS REPORT | Continuity of Care Document ---
:1985 Author Organization [facility] t Address [address] [place] [address] Care Team Providers Name Role Phone Jamar Eden [facility], [facility] Primary Care P hysician REYMUNDO SHRESTHA Attending Clinician Unavailable Reymundo Shrestha DO Attending Clinician Doctor Unassigned, [place] Attending Clinician Unavailable IRENE COLON Attending Clinician Unavailable COY THOMAS Attending Clinician Unavailable JANEL HARKINS Attending Clinician Unavailable Kelsey Shepard Attending Clinician KELSEY ESPAÑA Attending Clinician Unavailable Yelena Gray Attending Clinician ADELSO LEGER Attending Clinician Unavailable REYMUNDO SHRESTHA Admitting Clinician Unavailable COY THOMAS Admitting Clinician Unavailable ADELSO LEGER Admitting Clinician Unavailable Payers Payer Name Policy Type Policy Number Effective Date Expiration Date [facility] [id number] 2022 CHOICE [place] 00:00:00 Problems Condition Condition Condition Status Onset Resolution Last Treating Co mments Source Name Details Category Date Date Treatment Clinician Date Vitamin Vitamin Disease Recurre 2020-[address] [facility] B12 B12 nce 2 [facility] deficiency deficiency 00:00: Me dical 00 Center Cocaine Cocaine Disease Active 2020-[address] [facility] abuse abuse 2 [facility] 00:00: Medical 00 Center Abnormal Abnormal [...] Disease Active 2020-[address] [facility] (cerebral (cerebral 2 Luke s vascular vascular 00:00: Medica l [...] Branch 40.0-49.9 40.0-49.9 Fever Fever Disease Active 2019- Univers 5-31 ity of 00:00: [place] 00 Medical Branch Morbid Morbid Disease Active 2019- Univers obesity obesity 5-31 [place]y of with body [place] mass index mass index 00 Me dical of of Branch 40.0-49.9 40.0-49.9 Maternal Maternal Disease Active 2011-08 Unive rs varicella, varicella, 1-12 it y of non-immune [place] Anemia of Anemia of Disease Active Overview: Univers mother mother 2-01 Formattin ity of during during 00:00: g of this [place] , , 00 note Me dical delivered delivered might be Br anch different from the original. ICD10 Diagnosis Term Creative Perfumer Utility Anemia of Anemia of Disease Active Overview: Univers mother mother 2-01 Formattin ity of during during 00:00: g of this [place] , , 00 note Me dical delivered delivered might be Br anch different from the original. ICD10 Diagnosis Term Creative Perfumer Utility Allergy Allergy Disease Active Univers history, [...] Active Univers 09-16 ity of 00:00: [place] [facility] Itching Itching Disease Active Overview: Univ ers 09-16 Formattin ity of 00:00: g of this note Medical might be Branch different from the original. Probable cholestas is of Multiparit Multiparit Disease Active U nivers y y 09-16 ity of 00:00: [place] [facility] Asthma Asthma Disease Active Univers 09-15 ity of 00:00: Medical Branch Odalis Odalis Disease Active Overview: Univ ers vaginitis vaginitis 8-25 Formattin i ty of 00:00: g of this note Medical might be Branch different from the original. Treated with Diflucan PO x1. Please f/u at next visit Cocaine Cocaine Disease Active Overview: Univ ers use use 8-25 Formattin ity of complicati complicati 00:00: g of this [place] ng ng 00 note Medical might be Br anch different from the original. In rehab facility now Migraines Migraines Disease Active Overview: Univers 8-25 Formattin ity of 00:00: g of this [place] note Medical might be Branch different from [...] Hives HIVES Univer s ins ty to 1 after ity of adverse 00:00: last [place] reaction Medical s Branch PENICILL Drug Active Hives Univers INS Class 1-31 ity of 00:00: [place] [address] [place] [address] NO KNOWN Allergy Active [facility] S Social History Social Habit Start Date Stop Date Quantity Comments Source Sexual orientation Univer sity [facility] Exposure to 2022-11-21 2022-12-01 Not sure University SARS-CoV-2 (event) 00:00:00 00:57:00 [facility] History of Social 2022-12-01 2022-12-01 Univers ity of function 00:00:00 00:00:00 [facility] Tobacco use and 2012-06-26 2012-06-26 Smokeless Universit y of exposure 00:00:00 00:00:00 tobacco non-user [facility] Sex Assigned At [address] [facility] kes 00:00:00 00:00:00 Medical Center Smoking Status Start Date Stop Date Source Smokes tobacco daily 2021-01-20 16:09:00 [facility] (finding) Never smoked tobacco [facility] Medications Ordered Filled Start Stop Current Ordering Indication Dosage Frequency Signature Comments Components Source Medication Medication Date Date Medication? Clinician (SIG) Name Name [facility] 2022- No 40meq 40 mEq, Univers (KLOR-CON 12-01 Oral, ity of M20) tablet 08:15: 08:09 [place] 1 [place] 40 mEq 00 :00 dose, On [facility] 12/01/22 at 0315, RANJIT LORazepam 2022- No 1mg 1 mg, Slow U nivers (ATIVAN) 12-01 IV Push, ity of injection 1 06:45: 06:44 [place]CE[place] 1 [place] mg 00 :00 dose, On [facility] 12/01/22 at 0145, STAT aspirin 81 2020-08- No 81mg QD Take [address] [facility] MG chewable 09-25 12-08 tablet (81 L ukes tablet 00:00: 23:59 mg total) Medic al 00 :00 by mouth Center daily. atorvastati 2020-08- No 20mg QD Take [address] [facility] [address] n (LIPITOR) 2-03 29- tablet (20 L ukes 20 MG 00:00: 23:59 mg total) Medica l tablet 00 :00 by mouth Center daily. aspirin 81 2020-08- No 81mg QD Take [address] [facility] MG chewable 2- tablet (81 L ukes tablet 00:00: 23:59 mg total) Medic al 00 :00 by mouth Center daily. atorvastati 2020-08- No 20mg QD Take [address] [facility] n (LIPITOR) 2-03 29- tablet (20 L ukes 20 MG 00:00: 23:59 mg total) Medica l tablet 00 :00 by mouth Center daily. aspirin 81 2020-08 No 81mg QD Take [address] [facility] MG chewable 09-25- tablet (81 L ukes tablet 00:00: 23:59 mg total) Medic al 00 :00 by mouth Center daily. atorvastati 2020-08 No 20mg QD Take [address] [facility] [address] n (LIPITOR) 2-03 29- tablet (20 L ukes 20 MG 00:00: 23:59 mg total) Medica l tablet 00 :00 by mouth Center daily. aspirin 81 2020-08 No 81mg QD Take [address] [facility] [facility] MG chewable 09-25- tablet (81 L ukes tablet 00:00: 23:59 mg total) Medic al 00 :00 by mouth Center daily. atorvastati 2020-08- No 20mg QD Take [address] [facility] n (LIPITOR) 2-03 29- tablet (20 L ukes 20 MG 00:00: [...] Branch kg), IV Infusion, ONCE, 1 dose, [facility] 02/21/20 at 1915, STAT ibuprofen 2019-0 2020- No 800mg 800 mg, Uni vers (IBU) 02-20 Oral, ity of tablet 800 23:15: 23:15 ONCE, 1 Michele as mg 00 :00 dose, [facility] Medical 02/21/20 at Branch 1815, RANJIT acetaminoph 2019-0 2020- No 1000mg 1,000 mg, Univers en 02-20 Oral, ity of (TYLENOL) 23:15: 23:15 [place]CE, [place] tablet 00 :00 dose, [facility] Medical 1,000 mg 02/21/20 at Branch 1815, Routine azithromyci 2019-0 Yes [id number] Take 500 Univers n 6-01 mg day 1, ity of (ZITHROMAX 00:00: then 250 Michele as Z-JOVANNA) 250 00 mg days 2 Medi robyn mg tablet to 5. Branch azithromyci 2020-0 Yes [id number] Take 500 Univers n 6-01 mg day 1, ity of (ZITHROMAX 00:00: then 250 Michele as Z-JOVANNA) 250 00 mg days 2 Medi robyn mg tablet to 5. Branch azithromyci 2020-0 Yes [id number] Take 500 Univers n 6-01 mg day 1, ity of (ZITHROMAX 00:00: then 250 Michele as Z-JOVANNA) 250 00 mg days 2 Medi robyn mg tablet to 5. Branch azithromyci 2020-0 Yes [id number] Take 500 Univers n 6-01 mg day 1, ity of (ZITHROMAX 00:00: then 250 Michele as Z-JOVANNA) 250 00 mg days 2 Medi robyn mg tablet to 5. Branch azithromyci 2020-0 Yes [id number] Take 500 Univers n 6-01 mg day 1, ity of (ZITHROMAX 00:00: then 250 Michele as Z-JOVANNA) 250 00 mg days 2 Medi robyn mg tablet to 5. Branch azithromyci 2020-0 Yes [id number] Take 500 Univers n 6-01 mg day 1, ity of (ZITHROMAX 00:00: then 250 Michele as Z-JOVANNA) 250 00 mg days 2 Medi robyn mg tablet to 5. Branch azithromyci 2020-0 Yes [id number] Take 500 Univers n 6-01 mg day 1, ity of (ZITHROMAX 00:00: then 250 Michele as Z-JOVANNA) 250 00 mg days 2 Medi robyn mg tablet to 5. Branch azithromyci 2020-0 Yes [id number] Take 500 Univers n 6-01 mg day 1, ity of (ZITHROMAX 00:00: then 250 Michele as Z-JOVANNA) 250 00 mg days 2 Medi robyn mg tablet to 5. Branch azithromyci 2020-0 Yes [id number] Take 500 Univers n 6-01 mg day 1, ity of (ZITHROMAX 00:00: then 250 Michele as Z-JOVANNA) 250 00 mg days 2 Medi robyn mg tablet to 5. Branch azithromyci 2020-0 Yes [id number] Take 500 Univers n 6-01 mg day 1, ity of (ZITHROMAX 00:00: then 250 Michele as Z-JOVANNA) 250 00 mg days 2 Medi robyn mg tablet to 5. Branch azithromyci 2020-0 Yes [id number] Take 500 Univers n 6-01 mg day 1, ity of (ZITHROMAX 00:00: then 250 Michele as Z-JOVANNA) 250 00 mg days 2 Medi robyn mg tablet to 5. Branch Immunizations Ordered Filled Date Status Comments Source Immunization Name Immunization Name Varicella 2012-06-29 Completed Viola of (varivax)(chicken 00:00:00 [place] M edical pox) Branch Varicella 2012-06-29 Completed [place] of (varivax)(chicken 00:00:00 [place] M [place]ical pox) Branch Varicella 2012-06-29 Completed University of (varivax)(chicken 00:00:00 [place] M [place]ical pox) Branch Varicella 2012-06-29 Completed University of (varivax)(chicken 00:00:00 [place] M [place]ical pox) Branch Varicella 2012-06-29 Completed [place] of (varivax)(chicken 00:00:00 [place] M [place]ical pox) [...] 00:00:00 [place] M [place]ical pox) Branch Varicella Unknown Completed University of (varivax)(chicken [place] M edical pox) Branch Vital Signs Vital Name Observation Time Observation Value Comments Source Systolic blood 2022-12-01 08:13:00 130 mm[Hg] Univer sity [facility] Diastolic blood 2022-12-01 08:13:00 94 mm[facility]Hg[facility] 2022-12-01 08:13:00 93 /min [facility] Respiratory rate 2022-12-01 08:13:00 20 /min [facility] Oxygen saturation in 2022-12-01 08:13:00 100 /min [facility] Arterial blood by [facility] Pulse oximetry [place] Body temperature 2022-12-01 05:55:00 36.94 Hilary [facility] Body height 2022-12-01 05:55:00 149.9 cm [facility] Body weight 2022-12-01 05:55:00 56.7 kg [facility] BMI 2022-12-01 05:55:00 25.25 kg/m2 [facility] HEIGHT 2021-07-22 03:15:00 149.8 cm WEIGHT 2021-07-22 03:15:00 61.6 kg HEIGHT 2021-07-22 03:15:00 149.8 cm WEIGHT 2021-07-22 03:15:00 61.6 kg Systolic blood 2020-02-22 04:00:00 116 mm[Hg] Univer sity of [facility] Diastolic blood 2020-02-22 04:00:00 23 mm[Hg] Unive rsity [facility] Heart rate 2020-02-22 04:00:00 81 /min [facility] Respiratory rate 2020-02-22 04:00:00 17 /min [facility] Oxygen saturation in 2020-02-22 04:00:00 98 /min [facility] Arterial blood by [facility] Pulse oximetry Branch Body temperature 2020-02-21 21:55:00 38.33 Hilary [facility] Body height 2020-02-21 21:55:00 149.9 cm [facility] Body weight 2020-02-21 21:55:00 102.059 kg [facility] BMI 2020-02-21 21:55:00 45.44 kg/m2 [facility] BP Systolic 2021-01-20 20:21:00 136 mm[Hg] [facility] Heart Rate 2021-01-20 20:21:00 73 /min [facility] Respiratory rate 2021-01-20 20:21:00 16 /[facility] BP Diastolic 2021-01-20 20:21:00 82 mm[Hg] [facility] Heart Rate 2021-01-20 16:55:00 80 /min [facility] BP Diastolic 2021-01-20 16:42:00 91 mm[Hg] [facility] BP Systolic 2021-01-20 16:42:00 131 mm[Hg] [facility] Heart Rate 2021-01-20 16:42:00 80 /min [facility] Respiratory rate 2021-01-20 16:42:00 10 /[facility] Rate 2021-01-20 16:09:00 88 /min [facility] Procedures Procedure Date / Time Performing Clinician Source Performed URINE DRUG (IMMUNOASSAY) 2022-12-01 06:47:00 Reymundo Shrestha [facility] DRUG [facility] SCREEN W/O REFLEX XR CHEST 1 VW 2022-12-01 06:28:33 Singer Reymundokelsey Arana [facility] LIPASE 2022-12-01 06:13:00 Singer [facility] MAGNESIUM 2022-12-01 06:13:00 Singer [facility] TROPONIN I 2022-12-01 06:13:00 Singer [facility] Medical Branch COMP. METABOLIC PANEL 2022-12-01 06:13:00 Reymundo Shrestha [facility] [place] [facility] ([id number]) Medical Branch CBC WITH DIFF 2022-12-01 06:13:00 Singer [facility] N-TERMINAL PRO-BNP 2022-12-01 06:13:00 Reymundo Shrestha [facility] NOTICE OF PRIVACY 2022-12-01 05:49:41 Doctor Unassigned, No [facility] PRACTICES Name Medical Branch CONSENT/REFUSAL FOR 2022-12-01 05:48:41 [facility] ECG (electrocardiogram) 2021-01-20 00:00:00 [facility] X-ray of chest, single 2021-01-20 00:00:00 [facility] view BILATERAL VENOUS DUPLEX 2020-02-22 02:41:42 Kelsey España [facility] LOWER EXTREMITY BY [facility] VASCULAR LAB ADC / LCC - DRUG SCREEN 2020-02-22 02:26:00 Kelsey España [facility] TRIAGE [facility] ACUTE CARE VENOUS BLOOD 2020-02-22 01:09:00 Kelsey España [facility] GAS [facility] LACTIC ACID WHOLE BLOOD 2020-02-22 01:09:00 Kelsey España [facility] LIPASE 2020-02-22 01:08:[address] [facility] HEPATIC FUNCTION PANEL 2020-02-22 01:08:00 Kelsey España [facility] ([id number]) (ALB,T.PRO,BILI Medical Branch T,BU/BC,ALT,AST,ALK PHOS) BASIC METABOLIC PANEL 2020-02-22 01:08:00 EspañaKelsey collins [facility] (NA, K, CL, CO2, Medical Branch GLUCOSE, BUN, CREATININE, CA) CBC WITH DIFFERENTIAL 2020-02-22 01:08:00 Kelsey España [facility] PROTHROMBIN TIME / INR 2020-02-22 01:08:00 [facility] URINALYSIS 2020-02-22 01:08:[address] [facility] XR ABDOMEN 1 VW 2020-02-22 00:54:[address] [facility] XR CHEST 2 VW 2020-02-22 00:54:[address] [facility] EKG-12 LEAD 2020-02-22 00:13:[address] [facility] COVID-19 (ID NOW RAPID 2020-02-21 23:19:00 Kelsey España [facility] TESTING) Medical Branch CONSENT/REFUSAL FOR 2020-02-21 21:44:32 Doctor Unassigned, No Un [facility] DIAGNOSIS AND TREATMENT Name Medical Branch [...] cervix Medical C enter (procedure) [code = 248713661] Future Scheduled 2004-12-18 Screening for malignant [facility] Test 00:00:00 neoplasm of cervix Medical C enter (procedure) [code = 578827132] Future Scheduled 2004-12-18 Screening for malignant [facility] Test 00:00:00 neoplasm of cervix Medical C enter (procedure) [code = 496247424] Future Scheduled 2004-12-18 Screening for malignant [facility] Test 00:00:00 neoplasm of cervix Medical C enter (procedure) [code = 107149921] Future Scheduled 2002-12-18 DTAP/TDAP/TD VACCINES (1 [facility]I [...] screening Medical Cent er (procedure) [code = 533417235] Future Scheduled 1998-12-[address] Human immunodeficiency [facility] Test 00:00:00 virus screening Medical Cent er (procedure) [code = 477999932] Future Scheduled 1998-12-[address] Human immunodeficiency [facility] Test 00:00:00 virus screening Medical Cent er (procedure) [code = 269921926] Future Scheduled [address] [facility] Test 00:00:00 Counseling and Screening Med ica Center (12+) [code = Tobacco Cessation Counseling [...] [facility] Test 00:[facility]00 Counseling and Screening [facility] (12+) [code = Tobacco Cessation Counseling [...] Test 00:00:00 [code = COVID-19 VACCINE Med ica Center (#1)] Future Scheduled 1984-06-20 COVID-19 VACCINE (#1) [facility] Test 00:00:00 [code = COVID-19 VACCINE Med ical Center (#1)] Future Scheduled 1984-06-20 COVID-19 VACCINE (#1) [facility] Test 00:00:00 [code = COVID-19 VACCINE Med ical Center (#1)] Future Scheduled 1984-06-20 COVID-19 VACCINE (#1) [facility] Test 00:00:00 [code = COVID-19 VACCINE Med ica Center (#1)] Encounters Start End Encounter Admission Attending Care Care Encounter Source Date/Time Date/Time Type Type Clinicians Facility Department ID 2022-12-01 2022-12-01 Emergency X SINGER [facility] ERT [id number] Univers 00:58:00 03:21:00 REYMUNDO [place] of [facility] 2022-12-01 2022-12-01 Emergency Singer [facility] [id number] Univers 00:58:00 03:21:00 Reymundo WISDOM [id number] i ty [facility] [id number] [facility] [phone] [facility] 084 Branch 2022-12-01 2022-12-01 Orders Doctor MANDA [id number] Univers 00:00:00 00:00:00 Only Unassigned, EMMY [id number] ity of [place] [facility] [id number] [place] [address] [phone] [facility] 009 Branch 2021-07-22 2021-07-25 Inpatient ER DARLENE, IRENE [facility] Neuro ICU [id number] [facility] 03:08:00 10:55:00 2021-01-20 2021-01-20 Departed TANNER MOMIN [id number] [facility] 16:06:00 19:48:[address] [facility] 2021-01-20 2021-01-20 Emergency ER JANEL HARKINS [id number] [facility] 16:06:00 16:06:00 [id number] [facility] 2020-02-22 2020-02-22 Patient Doctor CHRISTA [id number] Univers 00:00:00 00:00:00 Secure Msg Unassigned, HEALTH [id number] ity of [place]7.2.686 [place] [phone] [facility] [address] [place] OFFICE BUILDING 2020-02-22 2020-02-22 Telephone MANDA España [id number] Univers 00:00:00 00:00:00 Kelsey BOOTH [id number] it y of HOSPITAL 4.2.7.2.686 Michele as [phone] [address] 2020-02-21 2020-02-21 [facility] [id number] Univers 17:28:55 23:08:00 Kelsey Wisdom [id number] i ty of [place] 4[place]2.7.2.686 [place] [phone] [place] [id number] [place] 2020-02-21 2020-02-21 Emergency X ESPAÑA, [facility] ERT [id number] Univers 17:28:55 17:28:55 KELSEY cardy of [facility] 2020-01-19 2020-01-19 Transition Arianna Gray [id number] Univers 00:00:00 00:00:00 of Care Yelena Martinez [id number] ity [place] 4[place]2.7.2.686 [place] [phone] [address] 2020-01-18 2020-01-18 Patient Doctor MANDA [id number] Univers 00:00:00 00:00:00 Secure Msg Unassigned, EMMY [id number] ity of [place] HOSPITAL [id number] Michele as [phone] [address] 2020-01-18 2020-01-18 Patient Doctor MANDA [id number] Univers 00:00:00 00:00:00 Secure Msg Unassigned, EMMY [id number] ity of [place] HOSPITAL 4.2.7.2.686 Michele as [phone] [address] 2020-01-18 2020-01-18 Patient Doctor MANDA [id number] Univers 00:00:00 00:00:00 Secure Msg Unassigned, EMMY 350.1.13.10 ity of [place] [facility] 4.2.7.2.686 Michele as [phone] [address] 2020-01-18 2020-01-18 Patient Doctor MANDA Lerma.[id number] Univers 00:00:00 00:00:00 Secure Msg Unassigned, EMMY 350.1.13.10 ity of [place] [facility] 42.7.2.686 Michele as [phone] [address] 2020-01-16 2020-01-17 Inpatient X [facility] [id number] Univers 12:16:39 14:30:00 ADELSO [facility] 2020-01-17 2020-01-17 Patient Doctor MANDA [id number] Univers 00:00:00 00:00:00 Secure Msg Unassigned, EMMY 350.1.13.10 ity of [place] [address]686 Michele as [phone] [address] Results Test Description Test Time Test Comments Results Result [facility] e Comments MR, BRAIN, WITHOUT 2021-07-25 Unlisted Reason CONTRAST 08:34:00 for Exam - Click Yes and Enter Reason Below->No [facility] the patient MEDICAL CENTERName: YAMILKA Whitley : implanted 1985 Sex: electronic F device?->No [...] MDReport Verified Date/Time: 07/25/2021 08:34:14 Reading Location: [address] Neuro Reading Room C METABOLIC PANEL [...] DATA TO 1092) CALCULATE ESTIM ATED GFR. Warm In Worker ID - CHATO [id number] 05:14:28 Test Item Value Reference Range Interpretation Comments MAGNESIUM (BEAKER) (test code = 2.0 mg/dL 1.6-2.6 627) Warm In Worker ID - CHATO [id number] 05:14:28 Test Item Value Reference Range Interpretation Comments PHOSPHORUS (BEAKER) (test code = 3.0 mg/dL 2.3-4.7 604) Warm In Worker ID - CHATO GCBC W/PLT COUNT & AUTO [id number] 04:53:17 Test Item Value Reference Range Interpretation [...] (test code = 2801) CT, BRAIN, WITHOUT [id number] 17:45:00Unlisted Reason for Exam - Click Yes and Enter Reason Below->YesUnlisted Reason for Exam->[facility]tPA [facility] : 1985 Sex: [...] <20.0 MPL Normal>/= 20.0 MPL PositiveBASIC METABOLIC [id number] 04:18:31 Test Item Value Reference Range Interpretation [...] 1092) DATA TO CALCULA TE ESTIMATED GFR. Warm In Worker ID - RENAE [id number] 04:04:04 Test Item Value Reference Range Interpretation Comments MAGNESIUM (BEAKER) (test code = 1.9 mg/dL 1.6-2.6 627) Warm In Worker ID - RENAE [id number] 04:04:04 Test Item Value Reference Range Interpretation Comments PHOSPHORUS (BEAKER) (test code = 2.4 mg/dL 2.3-4.7 604) Warm In Worker ID - RENAE MCALCIUM, [id number] 03:36:51 Test Item Value Reference Range Interpretation Comments CALCIUM IONIZED (BEAKER) (test 1.14 mmol/L 1.12-1.27 code = 698) PH, BLOOD (BEAKER) (test code = 7.40 1810) CBC W/PLT COUNT & AUTO [id number] 03:36:49 Test Item Value Reference Range Interpretation [...] (test code = 2801) HIGH SENSITIVITY TROPONIN [id number] 12:02:35 Test Item Value Reference Range Interpretation Comments HIGH SENSITIVITY < pg/ml See_Comment [Automated message] TROPONIN I (test code = The system which [id number]) generated this result transmitted ref erence range: <=17. Th e reference range was not used to interpr et this result as normal/abnormal . Warm In Worker ID - DBThe CONTRACT ADMINISTRATION COORDINATOR STAT High Sensitivity Troponin-I results should be used in conjunctionwith other diagnostic information such as ECG, clinical observations and information, and patient symptoms to aid in the diagnosis of SD.[id number] 11:56:00 Test Item Value Reference Range Interpretation Comments PHOSPHORUS (BEAKER) (test code = 3.9 mg/dL 2.3-4.7 604) Warm In Worker ID - [id number] 11:56:00 Test Item Value Reference Range Interpretation Comments POTASSIUM (BEAKER) (test code = 3.7 meq/L 3.5-5.1 379) Warm In Worker ID - [id number] 11:55:59 Test Item Value Reference Range Interpretation Comments MAGNESIUM (BEAKER) (test code = 2.3 mg/dL 1.6-2.6 627) Warm In Worker ID - DBPROTEIN C [id number] 08:57:55 Test Item Value Reference Range Interpretation Comments PROTEIN C ACTIVITY (BEAKER) (test 119.0 % 70.0-130.0 code = 582) ANTITHROMBIN [id number] 08:57:54 Test Item Value Reference Range Interpretation Comments ANTITHROMBIN III ACTIVITY (BEAKER) 120.0 % 80.0-120.0 (test code = 711) HEMOGLOBIN [id number] 07:48:24 Test Item Value Reference Range Interpretation Comments HEMOGLOBIN A1C (BEAKER) (test code = 4.6 % 4.3-6.1 368) CT BRAIN WITHOUT IV CONTRAST - [id number] 05:51:00Unlisted Reason for Exam - Click Yes and Enter Reason Below->YesUnlisted Reason for Exam->new onset severe headache s/p tpa [facility] : 1985 Sex: FFINAL REPORT EXAM/TECHNIQUE: Noncontrast CT of the head. Dose modulation, iterative reconstruction, and/or weight based adjustment of the mA/kV was utilized to reduce the radiation dose to as low as reasonably achievable. INDICATION: New onset of severe headache status post TPA. COMPARISON: None. FINDINGS: Poor mbqxdx-os-qnfxj, likely secondary to portable CT. Lowe-white differentiation [...] territorial lowe-white differentiation loss. Signed: Jani Hankins [facility] Verified Date/Time: 07/22/2021 05:51:11 T4, [id number] 05:49:21 Test Item Value Reference Range Interpretation Comments FREE T4 (BEAKER) (test code = 655) 1.23 ng/dL 0.70-1.48 Warm In Worker ID - RITO WCALCIUM, [id number] 05:40:56 Test Item Value Reference Range Interpretation Comments CALCIUM IONIZED (BEAKER) (test 1.14 mmol/L 1.12-1.27 code = 698) PH, BLOOD (BEAKER) (test code = 7.46 1810) TSH/FREE T4 IF PBPBNNDUH1407-53-27 05:04:51 Test Item Value Reference Range Interpretation Comments THYROID STIMULATING HORMONE 0.003 uIU/mL 0.350-4.940 L (BEAKER) (test code = 772) Warm In Worker ID Eric ReichVITAMIN B12 AND [id number] 05:03:19 Test Item Value Reference Range Interpretation Comments VITAMIN B12 (BEAKER) 345 pg/mL 213-816 (test code = 774) FOLATE (BEAKER) 3.80 ng/mL See_Comment L [Automated message] (test code = 362) The system which generated this result transmitted ref erence range: >=7.00. The reference range was not used to interpr et this result as normal/abnormal . Warm In Worker ID Eric VERAS QIOJF0156-97-77 04:53:15 Test Item Value Reference Range Interpretation Comments PARTIAL THROMBOPLASTIN TIME 28.4 seconds 22.5-36.0 (BEAKER) (test code = 760) PROTHROMBIN TIME/YAI4323-32-81 04:52:33 Test Item Value Reference Range Interpretation Comments PROTIME (BEAKER) 14.8 seconds 11.9-14.2 H (test code = 759) INR (BEAKER) (test 1.18 See_Comment [Automat ed message] code = 370) The system Ret[employer] h generated this result transmitted ref erence range: <=5.90. The reference range was not used to int erpret this result as normal/abnormal . RECOMMENDED COUMADIN/WARFARIN INR THERAPY RANGESSTANDARD DOSE: 2.0 - 3.0 Includes: PROPHYLAXIS for venous thrombosis, systemic embolization; TREATMENT for venous thrombosis and/or pulmonary embolus.HIGH RISK: Target INR is 2.5-3.5 for patients with mechanical heart valves.BASIC METABOLIC [id number] 04:32:09 Test Item Value Reference Range Interpretation [...] 1092) DATA TO CALCULA TE ESTIMATED GFR. Warm In Worker ID - DBSpecimen slightly memvzvjFACWMAZUBG2547-56-00 04:31:45 Test Item Value Reference Range Interpretation Comments PHOSPHORUS (BEAKER) (test code = 3.6 mg/dL 2.3-4.7 604) Warm In Worker ID - DBLIPID ALROG5150-09-76 04:31:45 Test Item Value Reference Range Interpretation [...] Borderline 130-159 High 160-189 Very High >=190 Warm In Worker ID - DBSpecimen slightly zafjwpwRNFASUPAH5178-03-53 04:31:44 Test Item Value Reference Range Interpretation Comments MAGNESIUM (BEAKER) (test code = 1.6 mg/dL 1.6-2.6 627) Warm In Worker ID - DBCBC W/PLT COUNT & AUTO KIDSHLFTRYEE2160-94-70 04:18:19 Test Item Value Reference Range Interpretation [...] (BEAKER) (test code = 2801) Automated blood hematocrit (volume fraction)2021-01-20 16:55:00 Test Item [...] = 786-4) [facility] HealthAutomated erythrocyte distribution width iiadx0459-52-83 16:55:00 Test Item Value Reference Range Interpretation Comments Red Cell Distribution Width (test code 11.6 10.7-14.5 = 788-0) [facility] HealthAutomated blood platelet count (count/volume)2021-01-20 16:55:00 Test Item Value Reference Range Interpretation Comments Platelet Count (test code = 777-3) 285 150-450 [facility] HealthAutomated blood platelet mean volume sqhywfqftzp6149-77-18 16:55:00 Test Item Value Reference Range Interpretation Comments Mean Platelet Volume (test code = 9.4 5.7-10.7 89193-6) [facility] HealthAutomated blood neutrophil count as percentage of total yqndjqumta2763-10-43 16:55:00 Test Item Value Reference Range Interpretation Comments Neutrophils (%) (Auto) (test code = 69 47-75 770-8) [facility] HealthAutomated blood immature granulocyte count as percentage of total rxyeojavey5724-43-16 16:55:00 Test Item Value Reference Range Interpretation Comments Immature Granulocyte % (Auto) (test 0 0-0 code = 27259-0) [facility] HealthAutomated blood lymphocyte count as percentage of total qauegfjkke3575-05-58 16:55:00 Test Item Value Reference Range Interpretation Comments Lymphocytes (%) (Auto) (test code = 23 25-44 736-9) [facility] HealthAutomated blood monocyte count as percentage of total leukocytes 2021-01-20 16:55:00 Test Item Value Reference Range Interpretation Comments Monocytes (%) (Auto) (test code = 7 3-10 5905-5) [facility] HealthAutomated blood eosinophil count as percentage of total zdnviiodeb9328-59-38 16:55:00 Test Item Value Reference Range Interpretation Comments Eosinophils (%) (Auto) (test code = 1 0-7 713-8) [facility] HealthAutomated blood basophil count as percentage of total leukocytes 2021-01-20 16:55:00 Test Item Value Reference Range Interpretation Comments Basophils (%) (Auto) (test code = 1 0-1 706-2) [facility] HealthAutomated blood nucleated erythrocyte count as percentage of total ryybxqkxqm3486-75-98 16:55:00 Test Item Value Reference Range Interpretation Comments Nucleated Red Blood Cells % (test code 0.0 0-0.2 = 80332-0) [facility] HealthAutomated blood neutrophil count (number/volume)2021-01-20 16:55:00 Test Item Value Reference Range Interpretation Comments Neutrophils # (Auto) (test code = 6.1 1.3-6.7 751-8) [facility] HealthAutomated blood immature granulocyte count as percentage of total eudshvrnjx9531-65-59 16:55:00 Test Item Value Reference Range Interpretation Comments Immature Granulocyte # (Auto) (test 0.0 0.0-0.0 code = 97840-5) [facility] HealthAutomated blood lymphocyte count (number/volume)2021-01-20 16:55:00 Test Item Value Reference Range Interpretation Comments Lymphocytes # (Auto) (test code = 2.0 1.4-4.1 731-0) [facility] HealthBlood monocytes automated count (number/volume)2021-01-20 16:55:00 Test Item Value Reference Range Interpretation Comments Monocytes # (Auto) (test code = 742-7) 0.6 0-1.3 [facility] HealthAutomated blood eosinophil unnxt9288-99-78 16:55:00 Test Item Value Reference Range Interpretation [...] 0.00 0-0.01 = 771-6) [facility] comment 509776-71-77 16:55:00 Test Item Value Reference Range Interpretation Comments Manual Differential (test code = Not Ind 8265-1) [facility] HealthSodium JwfWh-dQhp1180-10-05 16:55:00 Test Item Value Reference Range Interpretation [...] Carbon Dioxide Level (test code = 24 -29 2027-9) [facility] HealthSerum or plasma anion gap determination (moles/volume)2021-01-20 16:55:00 Test Item Value Reference Range Interpretation Comments Anion Gap (test code = 20448-7) 16 8-18 [facility] HealthSerum or plasma urea nitrogen measurement (mass/volume)2021-01-20 16:55:00 Test Item Value Reference Range Interpretation Comments Blood Urea Nitrogen (test code = 4 -19 3094-0) [facility] HealthSerum or plasma creatinine measurement (mass/volume)2021-01-20 16:55:00 Test Item Value Reference Range Interpretation Comments Creatinine (test code = 2160-0) 0.7 0.6-1.1 [facility] HealthGFR/BSA.pred SerPl ABSS-TjUYcg2916-38-05 16:55:00 Test Item Value Reference Range Interpretation Comments Estimat Glomerular Filtration Rate 100 81-133 (test code = 42611-7) [facility] HealthSerum or plasma glucose measurement (mass/volume)2021-01-20 16:55:00 Test Item Value Reference Range Interpretation Comments Glucose Level (test code = 2345-7) 95 60-100 [facility] HealthSerum or plasma calcium measurement (mass/volume)2021-01-20 16:55:00 Test Item Value Reference Range Interpretation Comments Calcium Level (test code = 04805-5) 8.9 8.4-10.2 [facility] HealthAutomated blood leukocyte count (number/volume)2021-01-20 16:55:00 Test Item Value Reference Range Interpretation Comments White Blood Count (test code = 6690-2) 8.8 4.5-11.5 [facility] HealthBlood erythrocytes automated count (number/volume)2021-01-20 16:55:00 Test Item Value Reference Range Interpretation Comments Red Blood Count (test code = 789-8) 4.21 3.8-5.1 [facility] HospitalBlood hemoglobin measurement (mass/volume)2021-01-20 16:55:00 Test Item Value Reference Range Interpretation Comments Hemoglobin (test code = 718-7) 12.4 12.0-15.2 [facility] troponin I measurement (mass/volume) 2021-01-20 16:52:00 Test Item Value Reference Range Interpretation Comments Bedside Troponin I (test code = 0.00 0.00-0.06 19799-6) [facility] HospitalUrinalysis specimen collection huvpbl2191-08-47 15:48:00 Test Item Value Reference Range Interpretation Comments Urine Source (test code = 56645-6) URINE [facility] HospitalColor of Urine by Iugo7696-82-91 15:48:00 Test Item Value Reference Range Interpretation Comments Urine Color (test code = 43807-0) Lt Yellow Yel-Linda * [facility] HealthUrine clarity xedrasjcygjlq6582-12-57 15:48:00 Test Item Value Reference Range Interpretation Comments Urine Appearance (test code = 00494-3) Clear Clear * [facility] HospitalUrine pH measurement by automated test pphkp7621-90-27 15:48:00 Test Item Value Reference Range Interpretation Comments Urine pH (test code = 19556-7) 6.5 5.0-8.0 [facility] HealthSpecific gravity of Urine by Automated test iafwk4710-53-04 15:48:00 Test Item Value Reference Range Interpretation Comments Urine Specific [place] (test code = 1.010 1.005-1.030 49660-1) [facility] HealthUrine protein measurement by automated test strip (mass/volume) 2021-01-20 15:48:00 Test Item Value Reference Range Interpretation Comments Urine Protein (test code = 71184-9) Negative Negative * [facility] HealthUrine glucose measurement by automated test strip (mass/volume) 2021-01-20 15:48:00 Test Item Value Reference Range Interpretation Comments Urine Glucose (UA) (test code = Negative Negative * 69264-4) [facility] HealthKetones [Mass/volume] in Urine by Automated test waiej7063-20-70 15:48:00 Test Item Value Reference Range Interpretation Comments Urine Ketones (test code = 65817-8) Negative Negative * [facility] HealthUrine erythrocytes count by automated test strip (number/volume) 2021-01-20 15:48:00 Test Item Value Reference Range Interpretation Comments Urine Occult Blood (test code = Negative Negative * 06034-3) [facility] HealthUrine nitrite detection by automated test wpuox6026-19-36 15:48:00 Test Item Value Reference Range Interpretation Comments Urine Nitrite (test code = 97144-2) Negative Negative [facility] HealthUrine total bilirubin measurement by automated test strip (mass/volume)2021-01-20 15:48:00 Test Item Value Reference Range Interpretation Comments Urine Bilirubin (test code = Negative Negative 64786-1) [facility] HealthUrine urobilinogen measurement by automated test strip (mass/volume)2021-01-20 15:48:00 Test Item Value Reference Range Interpretation Comments Urine Urobilinogen (test code = Negative 0.0-1.0 62697-5) [facility] HealthUrine leukocytes count by automated test strip (number/volume) 2021-01-20 15:48:00 Test Item Value Reference Range Interpretation Comments Urine Leukocyte Esterase (test code Negative Negative = 03713-4) [facility] HealthMicroscopic examination of pvdgo0793-78-71 15:48:00 Test Item Value Reference Range Interpretation Comments Microscopic Urinalysis (T) (test code Not Ind = 18341-1) [facility] comment 15:48:00 Test Item Value Reference Range Interpretation Comments Urinalysis Comment (test * See_Comment [A utomated message] The code = 8262-8) system which generated this result tra nsmitted reference range : *. The reference range was not used to interpr et this result as normal/abnormal . [facility] HospitalHCG ur leldvwksk1334-64-94 15:48:00 Test Item Value Reference Range Interpretation Comments Urine Test (test code = Negative Negative 6-3) [facility] HealthUrine methamphetamine crkxkm3418-19-12 15:48:00 Test Item Value Reference Range Interpretation Comments Urine Methamphetamines Screen (test Negative Rvubnq=735 code = 16531-5) [facility] HealthUrine propoxyphene screening vmec0447-12-30 15:48:00 Test Item Value Reference Range Interpretation Comments Urine Propoxyphene Screen (test code Negative Zqnjyk=985 = 36688-6) [facility] HealthUrine amphetamines detection by screening szhqsm1623-81-88 15:48:00 Test Item Value Reference Range Interpretation Comments Urine Amphetamines Screen (test code Negative Adxmwo=326 = 71052-9) [facility] HospitalUrine buprenorphine screen with reflex fqrucrxqyfiv8907-58-74 15:48:00 Test Item Value Reference Range Interpretation Comments Urine Buprenorphine (test code = Negative Cutoff=10 37768-6) [facility] HealthUrine barbiturates detection by screening adkkuq8267-82-25 15:48:00 Test Item Value Reference Range Interpretation Comments Urine Barbiturates Screen (test code Negative Pmpfbs=332 = 37209-7) [facility] HealthUrine benzodiazepines detection by screening akfder0312-27-39 15:48:00 Test Item Value Reference Range Interpretation Comments Urine Benzodiazepines Screen (test Negative Wwugwv=542 code = 84405-5) [facility] HealthUrine benzoylecgonine detection by screening csoixl6776-70-17 15:48:00 Test Item Value Reference Range Interpretation Comments Urine Cocaine Screen (test code = Positive Ytinmu=749 73261-9) [facility] HealthUrine methadone empzac0521-58-37 15:48:00 Test Item Value Reference Range Interpretation Comments Urine Methadone, Qualitative (test Negative Xxbwof=923 code = 38389-7) [facility] HospitalU[facility] opiates screening qnwx7526-06-51 15:48:00 Test Item Value Reference Range Interpretation Comments Urine Opiates Screen (test code = Positive Nkaptf=134 37135-4) [facility] HealthUrine phencyclidine detection by screening zhnmaz9484-69-71 15:48:00 Test Item Value Reference Range Interpretation Comments Urine Phencyclidine Screen (test Negative Cutoff=25 code = 21726-1) [facility] HealthUrine cannabinoids detection by screening fqkogi0251-61-30 15:48:00 Test Item Value Reference Range Interpretation Comments Urine Cannabinoids (test code = Negative Cutoff=50 62060-8) [facility] HealthScreening urine tricyclic antidepressants usvcbpyyi0921-38-15 15:48:00 Test Item Value Reference Range Interpretation Comments Ur Tricyclic Antidepressants Screen Negative Bzjghs=835 (test code = 55558-8) [facility] HealthUrine oxycodone detection by screening emukju1088-89-92 15:48:00 Test Item Value Reference Range Interpretation Comments Urine Oxycodone Screen (test code = Negative Wstuxo=566 98679-7) [facility] HealthSpecific gravity of Urine by Automated test hpmel0775-28-46 15:48:00 Test Item Value Reference Range Interpretation Comments Urine Specific [place] (test code = 1.010 1.005-1.030 18562-7) [facility] HospitalU[facility] pH measurement by automated test zvgas3554-63-33 15:48:00 Test Item Value Reference Range Interpretation Comments Urine pH (test code = 01998-4) 6.5 5.0-8.0 [facility] HealthUrine drug screen comment iytjsuvotcnxfm0679-97-32 15:48:00 Test Item Value Reference Range Interpretation Comments Urine Drug Screen Comment (test code See Note = 38021-3) [facility] - [facility]UG SCREEN VZQJYV7824-62-17 03:37:00 Test Item Value Reference Range Interpretation Comments BENZO U (test code = Negative Negative 1138110650) ANTONIO U (test code = Negative Negative 3171833682) AMPHET (test code = Negative Negative 0855522734) THC (test code = Negative Negative 5661337404) METHADONE (test code = Negative Negative 9285698759) Meth U (test code = Negative Negative 0410298157) OPIATES (test code = Negative Negative 5760908189) Cocaine Metabolite (test Presumptive Positive Negative A code = 6864542176) PROPOXY (test code = Negative Negative 9170712803) Tric U (test code = Negative Negative 3809100659) PCP (test code = Negative Negative 0103035294) OXYCOD (test code = Negative Negative 1611774540) JERARDO (test code = JERARDO) Urine Drug [...] testing). Lab Interpretation (test Abnormal code = 02769-3) [facility] HospitalUrinalysis2020-07-07 02:12:00 Test Item Value Reference Range Interpretation Comments APPEARANCE (test code = Hazy Clear A 6118486832) COLOR (test code = Yellow Yellow 8226440420) PH (test code = 4.8-8.0 1478306959) SP GRAVITY (test code = 1.003-1.030 2673795327) GLU U QUAL (test code = Normal Normal 0110557341) BLOOD (test code = Negative Negative 0457856991) KETONES (test code = Negative Negative 1356450515) PROTEIN (test code = Negative Negative 2887-8) UROBILIN (test code = 2.0 mg/dL Normal A 6884154548) BILIRUBIN (test code = Negative Negative 9670161514) NITRITE (test code = Negative Negative 1337509364) LEUK KEESHA (test code = Negative Negative 7353792536) RBC/HPF (test code = See_Comment H [Autom ated message] 1596235959) The system [employer] generated this result transmit verónica reference range : 0 - 3 HPF. The refe rence range was not u sed to interpret th is result as normal/abnormal . WBC/HPF (test code = See_Comment [Autom ated message] 6446953707) The system [employer] h generated this result transmit verónica reference range : 0 - 5 HPF. The refe rence range was not u sed to interpret th is result as normal/abnormal . BACTERIA (test code = Few Negative A 7810976703) MUCOUS (test code = Slight Negative LPF A 2288127442) SQ EPITH (test code = HPF 1077587407) Lab Interpretation (test Abnormal code = 78415-4) [facility] HospitalProthrombin Time / [id number] 02:07:00 Test Item Value Reference Range Interpretation Comments PROTIME PATIENT (test See_Comment [Auto mated message] code = 5964-2) The system ich generated this result transmitted ref erence range: 12.0 - 1 4.7 Seconds. The re ference range was not u sed to interpret this result as normal/abnor mal. INR (test code = 6301-6) Nor mal INR <1.1; Warfarin Therap eutic range 2.0 to 3. 0 or 2.5 to 3.5, dep ending upon the indica tions. Lab Interpretation (test Normal code = 92158-7) [facility] HospitalBasi Metabolic Panel (NA, K, CL, CO2, GLUCOSE, BUN, CREATININE, CA)2020-02-22 02:02:00 Test Item Value Reference Range Interpretation Comments NA (test code = 134 mmol/L 135-145 L 7536666572) K (test code = 3.9 mmol/L 3.5-5 8159780979) CL (test code = 102 mmol/L 98-108 1237984154) CO2 TOTAL (test code = 24 mmol/L 23-31 1131649257) AGAP (test code = 2-16 1643292013) BUN (test code = 13 mg/dL 7-23 7015527399) GLUCOSE (test code = 93 mg/dL 70-110 5509488056) CREATININE (test code = 0.58 mg/dL 0.5-1.04 2013847915) CALCIUM (test code = 9.4 mg/dL 8.6-10.6 3675929119) eGFR Calculation mL/min/1.73m2 (Non-) (test code = 0302020799) eGFR Calculation mL/min/1.73m2 () (test code = 2441820635) JERARDO (test code = JERARDO) Association of [...] tests). Lab Interpretation Abnormal (test code = 20228-4) [facility] HospitalLipase, Fnyvq3972-80-06 02:02:00 Test Item Value Reference Range Interpretation Comments LIPASE (test code = 3311976840) 82 U/L 0-220 Lab Interpretation (test code = Normal 94404-2) [facility] HospitalHepatic Function Panel (ALB, T.PRO, BILI T, BU/BC, ALT, AST, ALK PHOS)2020-02-22 02:02:00 Test Item Value Reference Range Interpretation Comments TOTAL BILI (test code = 9998193066) 0.6 mg/dL 0.1-1.1 BILI UNCON (test code = 1222328073) 0.8 mg/dL 0.1-1.1 BILI CONJ (test code = 9919303334) 0.0 mg/dL 0-0.3 T PROTEIN (test code = 5727735646) 8.1 g/dL 6.3-8.2 ALBUMIN (test code = 8061077975) 4.1 g/dL 3.5-5 ALK PHOS (test code = 5959710374) 100 U/L 34-122 ALTv (test code = 1742-6) 19 U/L 5-35 AST(SGOT) (test code = 6068824318) 24 U/L 13-40 Lab Interpretation (test code = Normal 90919-0) [facility] 1 View (KUB)2020-02-22 01:58:39 Nonobstructive bowel gas pattern. Obese body habitus. Preliminary Report Dictated by Resident: Karlie Blankenship MD., have reviewed this study and agree with theabove report.EXAM: XR ABDOMEN 1 VW HISTORY: fever COMPARISON: None FINDINGS: The bowel gas pattern is nonobstructive without luminal distention orevidence of obstruction. Lung bases and the hemidiaphragm somewhat in qhzwmpol-dj-aygw. A moderate ?volume of mixed stool and gas is in the colonand rectum. No renal stones, abnormal calcifications or acute osseousabnormalities are detected. Demb, Radiant Results Inft User - 02/21/2020 8:59 PM CDTEXAM: XR ABDOMEN 1 VWHISTORY: fever COMPARISON: NoneFINDINGS:The bowel gas pattern is nonobstructive without luminal distention orevidence of obstruction. Lung bases and the hemidiaphragm somewhat in idalgnso-og-fnkh. A moderate volume of mixed stool and gas is in the colonand rectum. No renal stones, abnormal calcifications or acute osseousabnormalities are detected.IMPRESSIONNonobstructive bowel gas pattern. Obese body habitus.Preliminary Report Dictated by Resident: Karlie Navarro MD., have reviewed this study and agree with theabove report. [facility] 2 Zpbfx6695-65-38 01:54:56 No acute cardiopulmonary abnormality or other radiographic explanation forpatient's fever. Preliminary Report Dictated by Resident: Rigo B Arauz I, Peeyush ?Hal, MD., have reviewed this study and agree [...] explanation forpatient's fever.Preliminary Report Dictated by Resident: Rigo Llanos, Karlie Hong MD., have reviewed this study and agree withtheabove report.[facility] WITH NREXRESZJAUV3038-78-87 01:41:00 Test Item Value Reference Range Interpretation Comments WBC (test code = See_Comment H [Automated 4790-2) message] The sy stem which generated this result transmitted reference range : 4.30 - 11.10 10*3/?L. The reference range was not used to interpret this result as normal/abnormal . RBC (test code = See_Comment [Automated 729-8) message] The sy stem which generated this [...] (test code = 38.0 fL 39-49.9 L 02643-9) RDW-CV (test code = 13.2 % 12-15.5 788-0) PLT (test code = See_Comment [Automated 777-3) message] The sy stem which generated this result transmitted reference range : 166 - 358 10*3/ ?L. The reference r patricia was not used to interpret this result as normal/abnormal . MPV (test code = 9.6 fL 9.5-12.9 98558-2) NRBC/100 WBC (test See_Comment [Automat ed code = 1876615387) message] The system which generated this result transmitted reference range : 0.0 - 10.0 /100 WBCs. The refer ence range was not u sed to interpret th is result as normal/abnormal . NRBC x10^3 (test code <0.01 See_Comment [Auto mated = 1664269285) message] The s ystem which generated this result transmitted reference range : 10*3/?L. The reference range was not used to interpret this result as normal/abnormal . GRAN MAT (NEUT) % 73.2 % (test code = 770-8) IMM GRAN % (test code 0.40 % = 3116793923) LYMPH % (test code = 19.7 % 736-9) MONO % (test code = 5.0 % 5905-5) EOS % (test code = 1.2 % 713-8) BASO % (test code = 0.5 % 706-2) GRAN MAT x10^3(ANC) 9.70 10*3/uL 1.88-7.09 H (test code = 8407622654) IMM GRAN x10^3 (test 0.05 10*3/uL 0-0.06 code = 3065001820) LYMPH x10^3 (test code 2.60 10*3/uL 1.32-3.29 = 731-0) MONO x10^3 (test code 0.66 10*3/uL 0.33-0.92 = 742-7) EOS x10^3 (test code = 0.16 10*3/uL 0.03-0.39 711-2) BASO x10^3 (test code 0.06 10*3/uL 0.01-0.07 = 704-7) Lab Interpretation Abnormal (test code = 53886-5) [facility] BranchL[facility] Whole Fvbzg1769-35-05 01:24:00 Test Item Value Reference Range Interpretation Comments LACTIC ACID (test code = 1.40 mmol/L 0.3-2.6 1795292353) Lab Interpretation (test code = Normal 82941-0) [facility] HospitalAc[facility] Venous Blood Vrk6828-31-06 01:23:00 Test Item Value Reference Range Interpretation Comments PH (test code = 7.32-7.42 H 2160548014) PCO2 LILLIAN (test code = See_Comment L [Auto mated message] 1123399982) The system [employer] generated this result transmitted ref erence range: 41 - 51 mmHg. The reference r patricia was not used to interpret this result as normal/abnor mal. PO2 LILLIAN (test code = See_Comment H [Autom ated message] 1732964466) The system [employer] generated this result transmitted ref erence range: 25 - 40 mmHg. The reference r patricia was not used to interpret this result as normal/abnor mal. HCO3 LILLIAN (test code = See_Comment [Auto mated message] [id number]) The system [employer] generated this result transmitted ref erence range: 24 - 28 mEq/L. The reference r patricia was not used to interpret this result as normal/abnor mal. AC VBE(BEAKER) (test mEq/L code = 3791222319) Lab Interpretation (test Abnormal code = 31455-3) [facility] NOW [facility]APID TESTING)2020-02-22 00:09:00 Test Item Value Reference Range Interpretation Comments SARS-CoV-2 Rapid ID NOW Not Detected Not Detected (test code = 69643-4) JERARDO (test code = JERARDO) ID NOW COVID-19 Assay is an isothermal nucleic acid amplification test intended for the qualitative detection of nucleic acid from SARS-CoV-2 viral RNA in nasopharyngeal (ULTRASOUND COORDINATOR) specimens. It is used under Emergency Use [...] indicated. Lab Interpretation Normal (test code = 94300-8) [facility]"
--- NOTE | 2023-06-08 17:04 | RAD REPORT ---
EXAM DESCRIPTION: RAD - Chest Single View - 06/08/2023 4:50 pm CLINICAL HISTORY: CHEST PAIN COMPARISON: Chest Pa And Lat (2 Views) dated 04/10/2023; Chest Single View dated 03/07/2023; Chest Sin gle View dated 11/02/2022; Chest Single View dated 09/27/2021 FINDINGS: Lines: None. Lungs: No evidence of edema or pneumonia. Pleural: No significant pleural effusions or pneumothorax. Cardiac: The heart size is within normal limits. Mediastinum: Within normal limits. Bones: No acute fractures. Other: None IMPRESSION: No acute cardiopulmonary disease.
[2023-06-08 17:13] LABS: Absolute Lymphocytes (CBC) 1.1 K/uL (0.7-4.9); Lymphocytes % 24.6 % (15.3-44.8); MCV 74.4 fL (80-100); MPV 6.6 fL (7.6-11.3); Platelets 249 thou/uL (152-406); RBC Red Blood Cell Count 4.03 M/uL (3.86-4.86)
[2023-06-08 17:29] LABS: Barbiturates NEGATIVE (NEGATIVE); Benzodiazepines NEGATIVE (NEGATIVE); Cocaine POSITIVE (NEGATIVE); METHAMPHETAM NEGATIVE (NEGATIVE); Opiates NEGATIVE (NEGATIVE); Phencyclidine NEGATIVE (NEGATIVE); THC Cannibis NEGATIVE (NEGATIVE)
[2023-06-08 17:31] LABS: Potassium 3.1 mEq/L (3.5-5.1); Troponin High Sensitivity 6.3 pg/mL (<58.9)
[2023-06-08 17:33] LABS: Methadone ND (NEGATIVE)
[2023-06-08] MEDS ORDERED: MORPHINE 2 MG/ML SYR ONE (17:57)
[2023-06-08] MEDS ORDERED: KCL 20 MEQ/100 mL IVPB 100 ML IV ONE (17:57)
[2023-06-08] MEDS ORDERED: NA CHLORIDE 0.9% 500 ML ONE (17:57)
--- NOTE | 2023-06-08 18:30 | RAD REPORT ---
EXAM DESCRIPTION: CT - Head Brain Wo Cont - 06/08/2023 6:16 pm CLINICAL HISTORY: blurred vision, hx of cva COMPARISON: Head angio dated 07/21/2021; Ct Stroke Brain Wo Cont dated 07/21/2021 TECHNIQUE: All CT scans are performed using dose optimization technique as appropriate and may inclu de automated exposure control or mA/KV adjustment according to patient size. FINDINGS: No intracranial hemorrhage, hydrocephalus or extra-axial fluid collection.No areas of brai n edema or evidence of midline shift. Mucous retention cyst left maxillary sinus. The calvarium is intact. IMPRESSION: No acute intracranial abnormality.
--- NOTE | 2023-06-08 18:33 | RAD REPORT ---
EXAM DESCRIPTION: CT - Chest For Pe Angio - 06/08/2023 6:17 pm CLINICAL HISTORY: CHEST PAIN COMPARISON: No comparisons TECHNIQUE: Dynamically enhanced axial 3 mm thick images of the chest were obtained during administra tion of <100> mL Isovue 370 IV contrast. Coronal and oblique reconstruction images were generated and reviewed. Exam utilizes a protocol for optimal evaluation of pulmonary arterial tree. Maximum intensity projections 3D imaging was utilized All CT scans are performed using dose optimization technique as appropriate and may include automated exposure control or mA/KV adjustment according to patient size. FINDINGS: Chest Wall: 1.8 cm left thyroid nodule. Lungs: Mild ground-glass opacities present in the left lower lobe. Pleura: No significant effusions or pneumothorax. Mediastinum/thiago: No pathologic lymphadenopathy. Pulmonary arteries/Aorta: No filling defect identified. No aortic aneurysm. Heart: No significant pericardial effusion. Normal heart size. Upper abdomen: No acute abnormality.Cholelithiasis. Partial gastrectomy. Thickened distal esophagus l ikely reflecting esophagitis. Bones: No acute abnormality. IMPRESSION: Negative for pulmonary embolism. Left lower lobe ground-glass opacities may reflect pneu monia or pneumonitis. Moderately thickened distal esophagus suggesting esophagitis. 1.8 cm left thyroid nodule. Consider nonemergent thyroid ultrasound.
--- NOTE | 2023-06-08 18:38 | ER ---
Nurse's Notes [facility] Name: Leena Muniz Age: 37 yrs Sex: Female : 1985 Arrival Date: 06/08/2023 Time: 16:28 Bed 20 Private MD: Diagnosis: Chest pain, unspecified;Pneumonia, unspecified organism;Esophagitis, unspecified Presentation: 06/08 16:30 Chief complaint: EMS states: chest pain that started around 1500 today. Report ETOH and cp4 cocaine use last night. Hx of stroke. 16:30 Method Of Arrival: EMS: [facility] cp4 16:30 Coronavirus screen: Client denies travel out of the [place] in the last 14 days. At this cp4 time, the client does not indicate any symptoms associated with coronavirus-19. Ebola Screen: Patient negative for fever greater than or equal to 101.5 degrees Fahrenheit, and additional compatible Ebola Virus Disease symptoms Patient denies exposure to infectious person. Patient denies travel to an Ebola-affected area in the 21 days before illness onset. No symptoms or risks identified at this time. Initial Sepsis Screen: Does the patient meet any 2 criteria? HR > 90 bpm. Does the patient have a suspected source of infection? No. Patient's initial sepsis screen is negative. Risk Assessment: Do you want to hurt yourself or someone else? Patient reports no desire to harm self or others. Onset of symptoms was June 08, 2023 at 15:00. 16:30 Acuity: ALEE 3 cp4 Triage Assessment: 16:38 General: Appears in no apparent distress. Behavior is calm, cooperative, appropriate cp4 for age. Pain: Complains of pain in chest Pain currently is 7 out of 10 on a pain scale. 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 - Social history:: Smoking status: Patient denies any tobacco usage or history of. Patient uses alcohol, occasionally. street drugs, cocaine. - Family history:: not pertinent. - Hospitalizations: : No recent hospitalization is reported. Screenin:40 [facility] ED Fall Risk Assessment (Adult) History of falling in the last 3 months, cp4 including since admission No falls in past 3 months (0 pts) Confusion or Disorientation No (0 pts) Intoxicated or Sedated No (0 pts) Impaired Gait No (0 pts) Mobility Assist Device Used No (0 pt) Altered Elimination No (0 pt) Score/Fall Risk Level 0 - 2 = Low Risk. Abuse screen: Denies threats or abuse. Nutritional screening: No deficits noted. Tuberculosis screening: No symptoms or risk factors identified. Assessment: 19:16 Reassessment: Patient appears in no apparent distress at this time. Patient and/or jb4 family updated on plan of care and expected duration. Pain level reassessed. Patient is alert, oriented x 3, equal unlabored respirations, skin warm/dry/pink. Pt verbalized understanding of d/c and follow up instructions. Denies questions or concerns. Vital Signs: 16:30 BP 141 / 92; Pulse 95; Resp 18; Temp 98.3; Pulse Ox 99% ; Weight 56.7 kg; Height 4 ft. cp4 11 in. ; Pain 7/10; 17:30 BP 142 / 97; Pulse 86; Resp 16; Pulse Ox 99% ; cp4 18:56 BP 153 / 96; Pulse 67; Resp 16; Pulse Ox 100% ; cp4 16:30 Body Mass Index 25.25 (56.70 kg, 149.86 cm) cp4 16:30 Pain Scale: Adult cp4 ED Course: 16:32 Patient arrived in ED. rn 16:32 Jose Paiz MD is Attending Physician. rn 16:34 Eloisa Escobar is Primary Nurse. cp4 16:38 Triage completed. cp4 16:38 Arm band placed on right wrist. Patient placed in the treatment room. cp4 16:40 Bed in low position. Call light in reach. Side rails up X 1. cp4 16:52 XRAY Chest (1 view) In Process Unspecified. EDMS 17:09 Inserted saline lock: 22 gauge in right antecubital area, using aseptic technique. sm8 Blood collected. 17:09 EKG done, by ED staff. sm8 18:18 CT Head Brain wo Cont In Process Unspecified. EDMS 18:19 CT Chest For PE Angio In Process Unspecified. EDMS 19:16 No provider procedures requiring assistance completed. IV discontinued, intact, jb4 bleeding controlled, No redness/swelling at site. Pressure dressing applied. Administered Medications: 17:51 Drug: Potassium Chloride IV 10 mEq IV at calculated rate once; administer over 1-2 cp4 hours Route: IV; Rate: calculated rate; Site: right forearm; 18:50 Follow up: Response: No adverse reaction; IV Status: Completed infusion cp4 17:51 Drug: morphine IVP or IV 2 mg IVP once over 4 mins Route: IVP; Infused Over: 4 mins; cp4 Site: right forearm; 18:51 Follow up: Response: No adverse reaction cp4 18:44 Drug: Famotidine IVP 20 mg IVP once; dilute with 10 mL 0.9% NaCl; give over 2 minutes cp4 Route: IVP; Site: right forearm; 18:51 Follow up: Response: No adverse reaction cp4 18:44 Drug: LevOfloxacin PO 500 mg PO once Route: PO; cp4 18:51 Follow up: Response: No adverse reaction cp4 18:51 Drug: Diazepam PO 2 mg PO once Route: PO; cp4 18:51 Follow up: Response: No adverse reaction cp4 Medication: 16:40 VIS not applicable for this client. cp4 Outcome: 18:37 Discharge ordered by . rn 19:16 Discharged to home ambulatory, with family, jb4 19:16 Condition: stable 19:16 Discharge instructions given to patient, Instructed on discharge instructions, follow up and referral plans. medication usage, Demonstrated understanding of instructions, follow-up care, medications, Prescriptions given X 1, 19:18 Patient left the ED. jb4 Signatures: Dispatcher [employer] EDMS Jose Paiz MD MD rn Bryson, James, RN RN jb4 Carmelita Ramsey8 Eloisa Escobar cp4
--- NOTE | 2023-06-08 18:38 | EDPHYS ---
Physician Documentation [facility] Name: Leena Muniz Age: 37 yrs Sex: Female : 1985 Arrival Date: 06/08/2023 Time: 16:28 Bed 20 Private MD: ED Physician Jose Paiz HPI: 06/08 17:36 This 37 yrs old Female presents to ER via EMS with complaints of chest pain. rn 17:36 The patient or guardian reports chest pain that is located primarily in the substernal rn area. The pain does not radiate. Associated signs and symptoms: Pertinent positives: shortness of breath, Pertinent negatives: abdominal pain, cough, diaphoresis, lower extremity swelling, syncope, vomiting. The chest pain is described as aching. Duration: The patient or guardian reports a single episode, that is still ongoing. Modifying factors: The symptoms are alleviated by nothing. the symptoms are aggravated by nothing. Severity of pain: At its worst the pain was moderate in the emergency department the pain has improved. 17:37 The patient has experienced a previous episode. The patient has not recently seen a rn physician. Patient reports used cocaine last night around midnight, woke up this afternoon with chest pain, substernal and left-sided. Nonradiating pain associated with shortness of breath and feeling of anxiety. The hyperventilation and anxiety has improved but chest pain remains. Also reports feeling lightheaded with blurred vision that has also improved on its own.. 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 - Social history:: Smoking status: Patient denies any tobacco usage or history of. Patient uses alcohol, occasionally. street drugs, cocaine. - Family history:: not pertinent. - Hospitalizations: : No recent hospitalization is reported. ROS: 17:37 Constitutional: Negative for fever, chills, and weight loss, Neck: Negative for injury, rn pain, and swelling, Cardiovascular: Negative for palpitations, and edema, Respiratory: Negative for cough, wheezing Abdomen/GI: Negative for abdominal pain, nausea, vomiting, diarrhea, and constipation, Back: Negative for injury and pain, MS/Extremity: Negative for injury and deformity, Skin: Negative for injury, rash, and discoloration, Neuro: Negative for headache, weakness, numbness, tingling, and seizure, Exam: 17:37 Constitutional: This is a well developed, well nourished patient who is awake, alert, rn and in no acute distress. Head/Face: Normocephalic, atraumatic. Cardiovascular: Regular rate and rhythm. No pulse deficits. Respiratory: No increased work of breathing, no retractions or nasal flaring. Abdomen/GI: Soft, non-tender Skin: Warm, dry with normal turgor. Normal color with no rashes, no lesions, and no evidence of cellulitis. MS/ Extremity: Pulses equal, no cyanosis. Neurovascular intact. Full, normal range of motion. Equal circumference. Neuro: Awake and alert, GCS 15, oriented to person, place, time, and situation. Cranial nerves II-XII grossly intact. Motor strength 5/5 in all extremities. Sensory grossly intact. Cerebellar exam normal. No visual field defects 17:59 ECG was reviewed by the Attending Physician. rn Vital Signs: 16:30 BP 141 / 92; Pulse 95; Resp 18; Temp 98.3; Pulse Ox 99% ; Weight 56.7 kg; Height 4 ft. cp4 11 in. ; Pain 7/10; 17:30 BP 142 / 97; Pulse 86; Resp 16; Pulse Ox 99% ; cp4 18:56 BP 153 / 96; Pulse 67; Resp 16; Pulse Ox 100% ; cp4 16:30 Body Mass Index 25.25 (56.70 kg, 149.86 cm) cp4 16:30 Pain Scale: Adult cp4 MDM: 16:32 Patient medically screened. rn 18:36 Differential diagnosis: acute pericarditis, chest wall pain, costochondritis, rn esophagitis, gastritis, gastroesophageal reflux disease (GERD), pleurisy, pneumonia, pneumothorax, pulmonary embolus. Data reviewed: vital signs, nurses notes, lab test result(s), EKG, radiologic studies, CT scan, plain films, and as a result, I will discharge patient. Counseling: I had a detailed discussion with the patient and/or guardian regarding the historical points, exam findings, and any diagnostic results supporting the discharge/admit diagnosis, lab results, radiology results, the need for outpatient follow up, to return to the emergency department if symptoms worsen or persist or if there are any questions or concerns that arise at home. Special discussion: I discussed with the patient/guardian in detail that at this point there is no indication for admission to the hospital. It is understood, however, that if the symptoms persist or worsen the patient needs to return immediately for re-evaluation. ED course: I have personally reviewed all of the results, including but not limited to blood tests and imaging deemed necessary to safely discharge this patient at this time. All results given to and printed out for patient. I personally went over all the results with the patient and answered all questions. Patient will follow-up with PCP and or specialist as discussed. Return precautions given and understood.. 06/08 16:33 Order name: Basic Metabolic Panel; Complete Time: 17:35 rn 06/08 16:33 Order name: CBC with Diff; Complete Time: 17: rn 06/08 16:33 Order name: NT PRO-BNP; Complete Time: 17: rn 06/08 16:33 Order name: Troponin HS; Complete Time: 17:35 rn 06/08 16:33 Order name: Urine Drug Screen; Complete Time: 17: rn 06/08 16:33 Order name: XRAY Chest (1 view); Complete Time: 17:35 rn 06/08 16:33 Order name: CT Head Brain wo Cont; Complete Time: 18:33 rn 06/08 16:33 Order name: CT Chest For PE Angio; Complete Time: 18:34 rn 06/08 16:33 Order name: EKG; Complete Time: 16: rn 06/08 16:33 Order name: Cardiac monitoring; Complete Time: 17: rn 06/08 16:33 Order name: EKG - Nurse/Tech; Complete Time: 17: rn 06/08 16:33 Order name: IV Saline Lock; Complete Time: : rn 06/08 16:33 Order name: Labs collected and sent; Complete Time: 17: rn 06/08 16:33 Order name: O2 Per Protocol; Complete Time: 17: rn 06/08 16:33 Order name: O2 Sat Monitoring; Complete Time: 17: rn EC:59 Rate is 88 beats/min. Rhythm is regular. QRS [place] is Normal. OR interval is normal. QRS rn interval is normal. QT interval is normal. No Q waves. T waves are Normal. No ST changes noted. Clinical impression: Normal ECG. Interpreted by me. Reviewed by me. Administered Medications: 17:51 Drug: Potassium Chloride IV 10 mEq IV at calculated rate once; administer over 1-2 cp4 hours Route: IV; Rate: calculated rate; Site: right forearm; 18:50 Follow up: Response: No adverse reaction; IV Status: Completed infusion cp4 17:51 Drug: morphine IVP or IV 2 mg IVP once over 4 mins Route: IVP; Infused Over: 4 mins; cp4 Site: right forearm; 18:51 Follow up: Response: No adverse reaction cp4 18:44 Drug: Famotidine IVP 20 mg IVP once; dilute with 10 mL 0.9% NaCl; give over 2 minutes cp4 Route: IVP; Site: right forearm; 18:51 Follow up: Response: No adverse reaction cp4 18:44 Drug: LevOfloxacin PO 500 mg PO once Route: PO; cp4 18:51 Follow up: Response: No adverse reaction cp4 18:51 Drug: Diazepam PO 2 mg PO once Route: PO; cp4 18:51 Follow up: Response: No adverse reaction cp4 Disposition Summary: 06/08/23 18:37 Discharge Ordered Notes: Location: Home rn Problem: new rn Symptoms: have improved rn Condition: Stable rn Diagnosis - Chest pain, unspecified rn - Pneumonia, unspecified organism rn - Esophagitis, unspecified rn Followup: rn - With: Private Physician - When: As needed - Reason: Recheck today's complaints, Re-evaluation by your physician Discharge Instructions: - Discharge Summary Sheet rn - Esophagitis rn - Community-Acquired Pneumonia, Adult rn Forms: - Medication Reconciliation Form rn - Thank You Letter rn - Antibiotic fashion styling intern - Prescription Opioid Use rn - Patient Portal Instructions rn - Leadership Thank You Letter rn Prescriptions: - levofloxacin 500 mg Oral tablet - take 1 tablet ORAL route once daily for 7 days; 7 tablet; Refills: 0, Product rn Selection Permitted Signatures: Dispatcher [employer] Jose Tong MD MD rn Potter, Christina cp4
[2023-06-08] MEDS ORDERED: levoFLOXacin 250 MG TAB ONE (18:52)
[2023-06-08] MEDS ORDERED: FAMOTIDINE 20 MG/2 ML VIAL IV ONE (18:53)
[2023-06-08] MEDS ORDERED: DIAZEPAM 2 MG TABLET ONE (19:00)
--- NOTE | 2023-06-09 18:06 | EKG ---
Test Date: 2023-06-08 Test Time: 16:53:00 Records Officer: DAVID MEASUREMENT RESULTS: Intervals: Rate: 88 IA: 154 QRSD: 80 QT: 380 QTc: 459 [place]: P: 53 IA: 154 QRS: 59 T: 44 INTERPRETIVE STATEMENTS: Normal sinus rhythm Normal ECG Compared to ECG 03/07/2023 13:28:46 Sinus tachycardia no longer present Electronically Signed On 06-09-23 18:05:17 CDT by Omi Arzate
== END 2023-06-08 19:18 | disposition home or self-care (01) ==
LOC: ER 16:28
DX: J18.9 Pneumonia, unspecified organism (principal); K20.90 Esophagitis, unspecified without bleeding
CPT/HCPCS: 36415; 70450; 71045; 71275; 80048; 80307; 83880; 84484; 85025; 93005; 96365; 96375; 99285; J2270; J3480; J7040; Q9967

== ENCOUNTER → 2023-09-04 | Emergency (ER) | payer SELFPAY ==
[~2023-09-04] MED LIST: ASPIRIN 325 MG TAB ONE; METOPROLOL TAR 25 MG TAB ONE; NA CHLORIDE 0.9% 1,000 ML ONE; dexAMETHasone 4 MG TAB ONE
[2023-09-04 10:52] LABS: Absolute Lymphocytes (CBC) 1.7 K/uL (0.7-4.9); Hematocrit 29.6 % (36.0-45.0); Lymphocytes % 28.3 % (15.3-44.8); MCV 74.4 fL (80-100); MPV 7.1 fL (7.6-11.3); Platelets 258 thou/uL (152-406); RBC Red Blood Cell Count 3.97 M/uL (3.86-4.86)
[2023-09-04 11:03] LABS: Specific Gravity 1.011 (1.005-1.030); Urine Bacteria None Seen /HPF (<20); Urine Bilirubin NEGATIVE (Negative); Urine Blood Negative (Negative); Urine Clarity Clear (Clear); Urine Color Colorless (Yellow); Urine Glucose NEGATIVE (Negative); Urine Protein NEGATIVE (Negative); Urine RBC <5 /HPF (None Seen); Urine Urobilinogen Normal (Normal)
[2023-09-04 11:18] LABS: BUN Blood Urea Nitrogen 8 mg/dL (7-18); Bicarbonate 25 mEq/L (21-32); Glomerular Filtration Rate 121 ml/min (=/>90); Glucose Level 91 mg/dL (74-106); Magnesium 2.2 mg/dL (1.6-2.4); NT PRO-BNP 60 pg/mL (<125); Potassium 3.5 mEq/L (3.5-5.1); Sodium Level 139 mEq/L (136-145); Troponin High Sensitivity 6.1 pg/mL (<58.9)
[2023-09-04 11:19] LABS: Thyroid Stimulating Hormone < 0.005 uIU/mL (0.358-3.740)
[2023-09-04 12:23] LABS: Albumin 3.4 g/dL (3.4-5.0); Bilirubin Direct 0.2 mg/dL (0-0.2); Bilirubin Indirect, Calculated 0.4 mg/dL (0.2-0.8); Bilirubin Total 0.6 mg/dL (0.2-1.0); T3 Free 5.59 pg/mL (2.18-3.98)
--- NOTE | 2023-09-04 13:01 | RAD REPORT ---
EXAM DESCRIPTION: RADChest Single View09/04/2023 11:18 am CLINICAL HISTORY: PALPITATIONS COMPARISON: Chest Single View dated 06/08/2023; Chest Pa And Lat (2 Views) dated 04/10/2023; Chest Si ngle View dated 03/07/2023; Chest Single View dated 11/02/2022 TECHNIQUE: Portable AP view of the chest. FINDINGS: The lungs are clear. No pneumothorax or effusion. The cardiomediastinal contours are unre markable. IMPRESSION: No acute cardiopulmonary process.
--- NOTE | 2023-09-04 15:00 | ER ---
Nurse's Notes [facility] Name: Leena Muniz Age: 37 yrs Sex: Female : 1985 Arrival Date: 09/04/2023 Time: 10:09 Bed 8 Private MD: Diagnosis: Disorder of thyroid, unspecified-Hyperthyroidism Presentation: 09/04 10:12 Chief complaint: Patient states: she was at the [facility] when she began kc6 to have palpitations, blurry vision, and feeling like she was going to pass out. Coronavirus screen: At this time, the client does not indicate any symptoms associated with coronavirus-19. Ebola Screen: No symptoms or risks identified at this time. Initial Sepsis Screen: Does the patient meet any 2 criteria? No. Patient's initial sepsis screen is negative. Does the patient have a suspected source of infection? No. Patient's initial sepsis screen is negative. Risk Assessment: Do you want to hurt yourself or someone else? Patient reports no desire to harm self or others. Onset of symptoms was September 04, 2023. 10:12 Method Of Arrival: EMS: [facility] kc6 10:12 Acuity: ALEE 3 kc6 Triage Assessment: 10:14 General: Appears in no apparent distress. comfortable, well groomed, well developed, kc6 Behavior is calm, cooperative, appropriate for age. Pain: Denies pain. EENT: No signs and/or symptoms were reported regarding the EENT system. Neuro: Level of Consciousness is awake, alert, obeys commands, Oriented to person, place, time, situation, Appropriate for age. Cardiovascular: Reports palpitations, Denies chest pain, Heart tones S1 S2 present Capillary refill < 3 seconds Rhythm is sinus rhythm. Respiratory: Airway is patent Trachea midline Respiratory effort is even, unlabored, Respiratory pattern is regular, symmetrical. GI: No signs and/or symptoms were reported involving the gastrointestinal system. : No signs and/or symptoms were reported regarding the genitourinary system. Derm: Skin is intact, is healthy with good turgor, Skin is dry, Skin is pale, Skin temperature is warm. Musculoskeletal: No signs and/or symptoms reported regarding the musculoskeletal system. Circulation, motion, and sensation intact. Capillary refill < 3 seconds, Range of motion: intact in all extremities. 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 - Social history:: Smoking status: unknown. - History obtained from: EMS. Screenin:16 [facility] ED Fall Risk Assessment (Adult) History of falling in the last 3 months, kc6 including since admission No falls in past 3 months (0 pts) Confusion or Disorientation No (0 pts) Intoxicated or Sedated No (0 pts) Impaired Gait No (0 pts) Mobility Assist Device Used No (0 pt) Altered Elimination No (0 pt) Score/Fall Risk Level 0 - 2 = Low Risk. Abuse screen: Denies threats or abuse. Denies injuries from another. Nutritional screening: No deficits noted. Tuberculosis screening: No symptoms or risk factors identified. Assessment: 10:16 Reassessment: please see triage assessment. kc 11:16 Reassessment: Patient appears in no apparent distress at this time. No changes from [facility] previously documented assessment. Patient and/or family updated on plan of care and expected duration. Pain level reassessed. Patient is alert, oriented x 3, equal unlabored respirations, skin warm/dry/pink. 12:44 Reassessment: Patient appears in no apparent distress at this time. No changes from [facility] previously documented assessment. Patient and/or family updated on plan of care and expected duration. Pain level reassessed. Patient is alert, oriented x 3, equal unlabored respirations, skin warm/dry/pink. 14:13 Reassessment: Patient appears in no apparent distress at this time. No changes from [facility] previously documented assessment. Patient and/or family updated on plan of care and expected duration. Pain level reassessed. Patient is alert, oriented x 3, equal unlabored respirations, skin warm/dry/pink. Vital Signs: 10:12 BP 142 / 95; Pulse 98; Resp 16 S; Temp 98.8(O); Pulse Ox 100% on R/A; Weight 56.7 kg kc6 (R); Height 4 ft. 11 in. (R); 11:50 BP 147 / 95; Pulse 92; Resp 16 S; Pulse Ox 98% on R/A; kc6 12:44 BP 111 / 88; Pulse 74; Resp 16 S; Pulse Ox 100% on R/A; kc6 14:13 BP 116 / 83; Pulse 71; Resp 14 S; Pulse Ox 99% on R/A; kc6 10:12 Body Mass Index 25.25 (56.70 kg, 149.86 cm) kc6 ED Course: 10:11 Patient arrived in ED. ty 10:11 Kirby Ramesh is Attending Physician. ci 10:12 Nora Larose, RN is Primary Nurse. kc6 10:14 Triage completed. kc6 10:14 Arm band placed on. kc6 10:16 Patient has correct armband on for positive identification. Bed in low position. Call kc6 light in reach. Side rails up X 1. Client placed on continuous cardiac and pulse oximetry monitoring. NIBP monitoring applied. 10:16 Patient maintains SpO2 saturation greater than 95% on room air. kc6 11:20 XRAY Chest (1 view) In Process Unspecified. EDMS 15:48 No provider procedures requiring assistance completed. IV discontinued, intact, me1 bleeding controlled, No redness/swelling at site. Pressure dressing applied. 15:49 Provided Education on: POC. Verbalized understanding. . me1 Administered Medications: 12:10 Drug: NS 0.9% IV 1000 ml IV at 1000 ml once Route: IV; Rate: 1000 ml; Site: right kc6 antecubital; 13:05 Follow up: Response: No adverse reaction; IV Status: Completed infusion; IV Intake: kc6 1000ml 13:11 Drug: Metoprolol PO 12.5 mg PO once Route: PO; kc6 14:05 Follow up: Response: No adverse reaction kc6 13:11 Drug: Aspirin PO 325 mg PO once Route: PO; kc6 14:06 Follow up: Response: No adverse reaction kc6 13:18 Drug: Dexamethasone PO 4 mg PO once Route: PO; kc6 14:06 Follow up: Response: No adverse reaction kc6 13:19 Drug: methIMAzole 10 mg Feeding Tube once; PO Route: Feeding Tube; kc6 14:06 Follow up: Response: No adverse reaction kc6 14:10 Not Given (not availablee): potassium iodide Drops 0.25 ml Feeding Tube once kc6 Medication: 15:49 VIS not applicable for this client. me1 Intake: 13:05 IV: 1000ml; Total: 1000ml. kc6 Outcome: 15:00 Discharge ordered by . ci 15:48 Discharged to home ambulatory, me1 15:48 Condition: stable 15:48 Discharge instructions given to patient, Instructed on discharge instructions, follow up and referral plans. medication usage, Demonstrated understanding of instructions, follow-up care, medications, Prescriptions given X 1, 15:49 Patient left the ED. me1 Signatures: Dispatcher [employer] Nora Rosenthal RN RN kc6 Ana Luisa Arteaga RN RN me1 Kirby Ramesh Tylor ty
--- NOTE | 2023-09-04 15:01 | EDPHYS ---
Physician Documentation [facility] Name: Leena Muniz Age: 37 yrs Sex: Female : 1985 Arrival Date: 09/04/2023 Time: 10:09 Bed 8 Private MD: ED Physician Kirby Ramesh HPI: 09/04 12:38 This 37 yrs old Female presents to ER via EMS with complaints of Palpitations. ci 12:38 Patient is a 37-year-old female with PMH asthma, hypothyroidism, hypokalemia who ci presents to the ED with chief complaint of palpitations that has been ongoing for the past 2 months. Patient went to the [facility] this morning and was told that her thyroid levels were too low. She endorses chest pain, shortness of breath, generalized weakness. Patient reports she has not been on any thyroid medications, has not seen an [facility] yet. She reports she has been in and out of the ER for the past 2 months. She denies fevers, nausea, vomiting. She does endorse increased urinary frequency.. 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 - Social history:: Smoking status: unknown. - History obtained from: EMS. ROS: 12:38 Constitutional: Positive for fatigue, Negative for body aches, chills, fever, ci 12:38 Cardiovascular: Positive for chest pain, palpitations, 12:38 Respiratory: Positive for dyspnea on exertion, Negative for cough, orthopnea, pleurisy, sputum production, wheezing, 12:38 Abdomen/GI: Negative for abdominal pain, nausea, vomiting, and diarrhea, 12:38 Skin: Negative for erythema, jaundice, rash, swelling, Exam: 12:38 Constitutional: This is a well developed, well nourished patient who is awake, alert, ci and in no acute distress. Head/Face: Normocephalic, atraumatic. Eyes: Pupils equal round and reactive to light, extra-ocular motions intact. Lids and lashes normal. Conjunctiva and sclera are non-icteric and not injected. Cornea within normal limits. Periorbital areas with no swelling, redness, or edema. ENT: Nares patent. No nasal discharge, no septal abnormalities noted. Tympanic membranes are normal and external auditory canals are clear. Oropharynx with no redness, swelling, or masses, exudates, or evidence of obstruction, uvula midline. Mucous membranes moist. Neck: Trachea midline, no thyromegaly or masses palpated, and no cervical lymphadenopathy. Supple, full range of motion without nuchal rigidity, or vertebral point tenderness. No Meningismus. Chest/axilla: Normal chest wall appearance and motion. Nontender with no deformity. No lesions are appreciated. Cardiovascular: Regular rate and rhythm with a normal S1 and S2. No gallops, murmurs, or rubs. Normal PMI, no JVD. No pulse deficits. Respiratory: Lungs have equal breath sounds bilaterally, clear to auscultation and percussion. No rales, rhonchi or wheezes noted. No increased work of breathing, no retractions or nasal flaring. Abdomen/GI: Soft, non-tender, with normal bowel sounds. No distension or tympany. No guarding or rebound. No evidence of tenderness throughout. Back: No spinal tenderness. No costovertebral tenderness. Full range of motion. Skin: Warm, dry with normal turgor. Normal color with no rashes, no lesions, and no evidence of cellulitis. MS/ Extremity: Pulses equal, no cyanosis. Neurovascular intact. Full, normal range of motion. Neuro: Awake and alert, GCS 15, oriented to person, place, time, and situation. Cranial nerves II-XII grossly intact. Motor strength 5/5 in all extremities. Sensory grossly intact. Cerebellar exam normal. Normal gait. Psych: Awake, alert, with orientation to person, place and time. Behavior, mood, and affect are within normal limits. 13:05 ECG was reviewed by the Attending Physician. ci Vital Signs: 10:12 BP 142 / 95; Pulse 98; Resp 16 S; Temp 98.8(O); Pulse Ox 100% on R/A; Weight 56.7 kg kc6 (R); Height 4 ft. 11 in. (R); 11:50 BP 147 / 95; Pulse 92; Resp 16 S; Pulse Ox 98% on R/A; kc6 12:44 BP 111 / 88; Pulse 74; Resp 16 S; Pulse Ox 100% on R/A; kc6 14:13 BP 116 / 83; Pulse 71; Resp 14 S; Pulse Ox 99% on R/A; kc6 10:12 Body Mass Index 25.25 (56.70 kg, 149.86 cm) [facility] MDM: 10:12 Patient medically screened. ci 12:38 Differential diagnosis: arrythmia, dehydration, stress disorder, Thyrotoxicosis, ci hypothyroidism, electrolyte disorder. Data reviewed: vital signs, nurses notes, old medical records, Patient was seen in the ED in May for chest pain and similar complaint, history of cocaine use. lab test result(s), EKG. Care significantly affected by the following chronic conditions: Asthma, hypothyroidism. Awaiting: labs results, X-ray results. 13:06 ED course: Continues to complain of palpitations. TSH less than 0.05, T3, T4 elevated, ci consistent with hyperthyroidism. Given small dose of metoprolol 12.5. Will start on methimazole will refer to [facility]. Counseled on risks of taking methimazole including abnormalities. . 14:56 ED course: Patient reassessed, reports palpitations is resolved. She tells me she was ci diagnosed with hypothyroidism in 2018 and was previously on thyroid medication but after her gastric sleeve in 2019 she was told all her labs were normal and has not been on medication since then. Potassium iodide ordered but not available. Will DC with methimazole prescription and strict return precautions.. 09/04 10:31 Order name: Basic Metabolic Panel; Complete Time: 11:40 ci 09/04 10:31 Order name: CBC with Diff; Complete Time: 11:40 ci 09/04 10:31 Order name: Magnesium; Complete Time: 11:40 ci 09/04 10:31 Order name: NT PRO-BNP; Complete Time: 11:40 ci 09/04 10:31 Order name: Troponin HS; Complete Time: 11:40 ci 09/04 10:31 Order name: TSH; Complete Time: 11:40 ci 09/04 11:40 Interpretation: Abnormal: TSH < 0.005. ci 09/04 10:31 Order name: Urinalysis w/ reflexes; Complete Time: 11:40 ci 09/04 10:31 Order name: Test, Urine; Complete Time: 11:40 ci 09/04 11:58 Order name: T3 Free; Complete Time: 12:24 ci 09/04 12:36 Interpretation: Abnormal: T3F 5.59. ci 09/04 11:58 Order name: T4 Free; Complete Time: 12:24 ci 09/04 12:36 Interpretation: Abnormal: T4F 1.57. ci 09/04 11:58 Order name: LFT's; Complete Time: 12:24 ci 09/04 10:31 Order name: XRAY Chest (1 view); Complete Time: 13:04 ci 09/04 13:04 Interpretation: No acute disease: Per Radiologist's finding(s): IMPRESSION: No acute ci cardiopulmonary process. 09/04 10:31 Order name: EKG; Complete Time: 10:32 ci 09/04 10:31 Order name: Cardiac monitoring; Complete Time: 10:48 ci 09/04 10:31 Order name: EKG - Nurse/Tech; Complete Time: 10:48 ci 09/04 10:31 Order name: IV Saline Lock; Complete Time: 10:48 ci 09/04 10:31 Order name: Labs collected and sent; Complete Time: 10:48 ci 09/04 10:31 Order name: O2 Per Protocol; Complete Time: 10:46 ci 09/04 10:31 Order name: O2 Sat Monitoring; Complete Time: 10:46 ci EC:05 Rate is 81 beats/min. QRS [place] is Normal. ND interval is normal. QRS interval is ci normal. QT interval is normal. No Q waves. T waves are Normal. No ST changes noted. Administered Medications: 12:10 Drug: NS 0.9% IV 1000 ml IV at 1000 ml once Route: IV; Rate: 1000 ml; Site: right kc6 antecubital; 13:05 Follow up: Response: No adverse reaction; IV Status: Completed infusion; IV Intake: kc6 1000ml 13:11 Drug: Metoprolol PO 12.5 mg PO once Route: PO; 6 14:05 Follow up: Response: No adverse reaction [facility] 13:11 Drug: Aspirin PO 325 mg PO once Route: PO; 6 14:06 Follow up: Response: No adverse reaction [facility] 13:18 Drug: Dexamethasone PO 4 mg PO once Route: PO; kc6 14:06 Follow up: Response: No adverse reaction kc6 13:19 Drug: methIMAzole 10 mg Feeding Tube once; PO Route: Feeding Tube; kc6 14:06 Follow up: Response: No adverse reaction kc6 14:10 Not Given (not availablee): potassium iodide Drops 0.25 ml Feeding Tube once kc6 Disposition Summary: 09/04/23 15:00 Discharge Ordered Notes: Location: Home ci Condition: Stable ci Diagnosis - Disorder of thyroid, unspecified - Hyperthyroidism ci Followup: ci - With: Private Physician - When: 1 - 2 days - Reason: Recheck today's complaints, Continuance of care, Re-evaluation by your physician Discharge Instructions: - Discharge Summary Sheet ci - Hyperthyroidism ci Forms: - Medication Reconciliation Form ci - Thank You Letter ci - Antibiotic Education ci - Prescription Opioid Use ci - Patient Portal Instructions ci - Leadership Thank You Letter ci Prescriptions: - methimazole 5 mg Oral tablet - take 1 tablet ORAL route daily; 20 tablet; Refills: 0, Product Selection ci Permitted Signatures: Dispatcher [employer] Nora Rosenthal RN RN kc6 Kirby Ramesh ci Corrections: (The following items were deleted from the chart) 12:36 12:35 Abnormal. ci ci
[2023-09-04 17:47] VITALS: BP 116/83; TEMP 98.8; O2SAT 99
--- NOTE | 2023-09-08 17:09 | EKG ---
Test Date: 2023-09-04 Test Time: 10:52:03 Draw Frame Operator: GRAZYNA MEASUREMENT RESULTS: Intervals: Rate: 81 HI: 124 QRSD: 78 QT: 380 QTc: 441 [place]: P: 61 HI: 124 QRS: 84 T: 73 INTERPRETIVE STATEMENTS: Normal sinus rhythm Normal ECG Compared to ECG 06/08/2023 16:53:00 No significant changes Electronically Signed On 09-08-23 16:56:40 BLOWER BLAST FURNACE by Omi Arzate
== END ==
LOC: ER 10:09
DX: E05.90 Thyrotoxicosis, unspecified without thyrotoxic crisis or storm (principal); E87.6 Hypokalemia; J45.909 Unspecified asthma, uncomplicated; Z88.0 Allergy status to penicillin; Z86.73 Personal history of transient ischemic attack (TIA), and cerebral infarction without residual deficits; Z98.84 Bariatric surgery status
CPT/HCPCS: 36415; 71045; 80048; 80076; 81001; 81025; 83735; 83880; 84439; 84443; 84481; 84484; 85025; 93005; 96360; 99285; J7030; J8540

== ENCOUNTER → 2023-09-17 | Emergency (ER) | payer SELFPAY ==
[~2023-09-17] MED LIST changes: -ASPIRIN 325 MG TAB ONE; +ASPIRIN 81 MG CHEWABLE TABLET ONE; +DIAZEPAM 10 MG/2 ML INJ SYRINGE ONE; -METOPROLOL TAR 25 MG TAB ONE; +MORPHINE 2 MG/ML SYR ONE; +ONDANSETRON 4 MG/2 ML VIAL ONE; +POTASSIUM CL SA 10 MEQ TAB PO ONE; +PROPRANOLOL HCL 40 MG TAB ONE; -dexAMETHasone 4 MG TAB ONE
[2023-09-17 06:19] LABS: Specific Gravity < 1.005 (1.005-1.030)
[2023-09-17 06:20] LABS: Specific Gravity < 1.005 (1.005-1.030); Urine Bacteria None Seen /HPF (<20); Urine Bilirubin NEGATIVE (Negative); Urine Blood Negative (Negative); Urine Clarity Clear (Clear); Urine Color Colorless (Yellow); Urine Glucose NEGATIVE (Negative); Urine Protein NEGATIVE (Negative); Urine RBC None Seen /HPF (None Seen); Urine Urobilinogen Normal (Normal)
[2023-09-17 06:28] LABS: Barbiturates NEGATIVE (NEGATIVE); Benzodiazepines NEGATIVE (NEGATIVE); Cocaine NEGATIVE (NEGATIVE); METHAMPHETAM NEGATIVE (NEGATIVE); Methadone NEGATIVE (NEGATIVE); Opiates NEGATIVE (NEGATIVE); Phencyclidine NEGATIVE (NEGATIVE); THC Cannibis NEGATIVE (NEGATIVE)
[2023-09-17 06:32] LABS: Absolute Lymphocytes (CBC) 2.3 K/uL (0.7-4.9); Lymphocytes % 38.1 % (15.3-44.8); MCV 75.2 fL (80-100); MPV 7.1 fL (7.6-11.3); Platelets 272 thou/uL (152-406); RBC Red Blood Cell Count 3.73 M/uL (3.86-4.86)
[2023-09-17 06:38] LABS: SARS-CoV-2 Antigen Rapid Res Negative (Negative)
[2023-09-17 07:02] LABS: Albumin 3.3 g/dL (3.4-5.0); Bilirubin Direct 0.1 mg/dL (0-0.2); Bilirubin Indirect, Calculated 0.3 mg/dL (0.2-0.8); Bilirubin Total 0.4 mg/dL (0.2-1.0); Magnesium 2.1 mg/dL (1.6-2.4); Potassium 2.9 mEq/L (3.5-5.1); Protein, Total 6.5 g/dL (6.4-8.2); Thyroid Stimulating Hormone 0.009 uIU/mL (0.358-3.740); Troponin High Sensitivity 5.2 pg/mL (<58.9)
[2023-09-17 07:06] LABS: Protime INR 0.92
--- NOTE | 2023-09-17 07:30 | EDPHYS ---
Physician Documentation [facility] Name: Leena Muniz Age: 37 yrs Sex: Female : 1985 Arrival Date: 09/17/2023 Time: 05:37 Bed 7 Private MD: ED Physician Paul Ayala HPI: 09/17 05:49 This 37 yrs old Female presents to ER via Unassigned with complaints of Chest sp4 Pain, Dizziness, High Blood Pressure, Blurred Vision. 05:57 37-year-old female with history of hyperthyroidism on methimazole and propranolol, sp4 presents with acute onset of chest pain blurry vision, dizziness, shortness of breath, with pain radiation into the back. Symptoms started acutely on awakening at 2:30 in the morning. . 06:19 Patient states he takes methimazole 10 mg p.o. 3 times a day, plus propranolol 40 mg sp4 daily. Patient has history of hypothyroidism, previous CVA, asthma and history of gastric sleeve. Patient was admitted last time 05/30/2022 for complicated UTI, pyelonephritis, cholelithiasis, asthma, hypothyroidism, history of gastric sleeve.. 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 Flu vaccine is not up to date. - Social history:: Smoking status: Reported history of juuling and/or vaping. Patient uses alcohol, occasionally. Patient/guardian denies using street drugs. - Family history:: not pertinent. ROS: 05:57 Constitutional: Negative for fever, chills, and weight loss, Positive chest pain and sp4 dyspnea. Eyes: Negative for injury, pain, redness, and discharge, ENT: Negative for injury, pain, and discharge, Neck: Negative for injury, pain, and swelling, Cardiovascular: Positive chest pain and dyspnea 05:57 All other systems are negative, Exam: 05:57 Constitutional: This is a well developed, well nourished patient who is awake, alert, sp4 anxios appearing female, tearful on exam. Head/Face: Normocephalic, atraumatic. Eyes: Pupils equal round and reactive to light, extra-ocular motions intact. Lids and lashes normal. Conjunctiva and sclera are not injected. Cornea within normal limits. Periorbital areas with no swelling, redness, or edema. ENT: Nares patent. No nasal discharge, no septal abnormalities noted. Tympanic membranes are normal and external auditory canals are clear. Oropharynx with no redness, swelling, or masses, exudates, or evidence of obstruction, uvula midline. Mucous membranes moist. Neck: Trachea midline, no thyromegaly or masses palpated, and no cervical lymphadenopathy. Supple, full range of motion without nuchal rigidity, or vertebral point tenderness. Chest/axilla: Normal chest wall appearance and motion. Nontender with no deformity. No lesions are appreciated. Cardiovascular: Regular rate and rhythm with a normal S1 and S2. No gallops, murmurs, or rubs. Normal PMI, no JVD. No pulse deficits. Respiratory: Lungs have equal breath sounds bilaterally, clear to auscultation and percussion. No rales, rhonchi or wheezes noted. No increased work of breathing, no retractions or nasal flaring. Abdomen/GI: Soft, non-tender, with normal bowel sounds. No distension or tympany. No guarding or rebound. No evidence of tenderness throughout. Back: No spinal tenderness. No costovertebral tenderness. Skin: Warm, dry with normal turgor. Normal color with no rashes, no lesions, and no evidence of cellulitis. MS/ Extremity: Pulses equal, no cyanosis. Neurovascular intact. Full, normal range of motion. Neuro: Awake and alert, GCS 15, oriented to person, place, time, and situation. Cranial nerves II-XII grossly intact. Motor strength 5/5 in all extremities. Sensory grossly intact. Psych: Awake, alert, with orientation to person, place and time. Behavior, mood, and affect are within normal limits Vital Signs: 06:29 BP 155 / 88; Pulse 62; Resp 12; Pulse Ox 100% ; tm6 07:56 BP 149 / 76; Pulse 61; Resp 18; Pulse Ox 100% on R/A; ld1 [place] Score: 06:00 Eye Response: spontaneous(4). Motor Response: obeys commands(6). Verbal Response: km8 oriented(5). Total: 15. MDM: 05:47 Patient medically screened. sp4 07:25 HEART Score: History: Slightly Suspicious (0), ECG: Normal (0), Age: < or = 45 years sp4 (0), Risk Factors: 1 or 2 risk factors (1), Troponin: < or = 1 x Normal Limit (0), Total Score = 1. 07:26 Differential diagnosis: acute pericarditis, anxiety, coronary artery disease chest wall sp4 pain, congestive heart failure costochondritis. Data reviewed: vital signs, nurses notes, old medical records, lab test result(s), EKG, radiologic studies, plain films. 07:28 ED course: EXAM DESCRIPTION: Chest Single View CLINICAL HISTORY: CHEST PAIN COMPARISON: sp4 None TECHNIQUE: Single AP view of the chest. FINDINGS: Lung volumes adequate. Cardiac silhouette is normal in size. No pneumothorax. No large pleural effusion. No focal consolidation. No acute bony finding. IMPRESSION: No evidence of acute cardiopulmonary disease. . 09/17 05:46 Order name: Urine Drug Screen; Complete Time: 07:02 4 09/17 05:46 Order name: Basic Metabolic Panel; Complete Time: 07:08 4 09/17 05:46 Order name: CBC with Diff; Complete Time: 07:02 sp4 09/17 05:46 Order name: LFT's; Complete Time: 07:08 4 09/17 05:46 Order name: Magnesium; Complete Time: 07:08 4 09/17 05:46 Order name: NT PRO-BNP; Complete Time: 07:08 4 09/17 05:46 Order name: PT-INR; Complete Time: 07:08 4 09/17 05:46 Order name: Troponin HS; Complete Time: 07:08 4 09/17 05:46 Order name: Test, Urine; Complete Time: 07:02 4 09/17 05:46 Order name: Urinalysis W/Microscopic; Complete Time: 07:02 sp4 09/17 05:47 Order name: SARS RAPID; Complete Time: 07:02 sp4 09/17 05:47 Order name: Influenza Screen (a \T\ B); Complete Time: 07:02 sp4 09/17 06:27 Order name: T4 Free; Complete Time: 07:08 EDMS 09/17 06:27 Order name: Thyroid Stimulating Hormone; Complete Time: 07:08 EDMS 09/17 05:46 Order name: XRAY Chest (1 view) sp4 09/17 05:46 Order name: EKG; Complete Time: 05:46 sp4 09/17 05:46 Order name: Cardiac monitoring; Complete Time: 06:01 4 09/17 05:46 Order name: EKG - Nurse/Tech; Complete Time: 06:18 sp4 09/17 05:46 Order name: IV Saline Lock; Complete Time: 06:18 4 09/17 05:46 Order name: Labs collected and sent; Complete Time: 06:18 4 09/17 05:46 Order name: O2 Per Protocol; Complete Time: 06:01 sp4 09/17 05:46 Order name: O2 Sat Monitoring; Complete Time: 06:01 sp4 Administered Medications: 06:18 Drug: Aspirin PO Chewable Tablet 324 mg PO once; 81 mg tablets x 4 Route: PO; km8 06:18 Drug: morphine IVP or IV 2 mg IVP once over 4 mins Route: IVP; Infused Over: 4 mins; km8 Site: right antecubital; 06:18 Drug: Ondansetron IVP 4 mg IVP once; over 2 minutes Route: IVP; Site: right antecubital;km8 06:19 Drug: Diazepam IVP 5 mg IVP once Route: IVP; Site: right antecubital; km8 06:58 Drug: Propranolol PO 40 mg PO once Route: PO; tm6 07:10 Drug: NS 0.9% IV 1000 ml IV at 125 ml/hr continuous Route: IV; Rate: 125 ml/hr; Site: ld1 right antecubital; 07:56 Drug: Potassium Chloride PO 40 mEq PO once Route: PO; ld1 Disposition Summary: 09/17/23 07:29 Discharge Ordered Problem: new sp4 Symptoms: have improved sp4 Condition: Stable sp4 Diagnosis - Anxiety disorder, unspecified sp4 - Hypothyroidism, hypertension, medical noncompliance sp4 Followup: sp4 - With: Private Physician - When: 7 - 10 days - Reason: Recheck today's complaints Discharge Instructions: - Discharge Summary Sheet sp4 - Hyperthyroidism sp4 Forms: - Patient Portal Instructions sp4 Signatures: Dispatcher [employer] EDMS Ema Westfall RN RN ld1 Paul Ayala MD MD sp4 Shira Kumar RN RN km8 Arik Zambrano RN RN tm6 Corrections: (The following items were deleted from the chart) 06:26 05:51 THYROID STIMULAT HORMONE+C.LAB.BRZ ordered. EDMS EDMS 06:26 05:51 T4 FREE+C.LAB.BRZ ordered. EDMS EDMS
--- NOTE | 2023-09-17 07:30 | ER ---
Nurse's Notes [facility] Name: Leena Muniz Age: 37 yrs Sex: Female : 1985 Arrival Date: 09/17/2023 Time: 05:37 Bed 7 Private MD: Diagnosis: Anxiety disorder, unspecified;Hypothyroidism, hypertension, medical noncompliance Presentation: 09/17 05:55 Chief complaint: Patient states: heart racing with left sided chest pain radiating to km8 back starting this morning; pt has had episodes like this for the past 5 months, recently diagnosed with hyperactive thyroid, started taking Propanolol 40mg daily about 1-2 weeks ago;. Coronavirus screen: Client denies travel out of the [place] in the last 14 days. Ebola Screen: No symptoms or risks identified at this time. Initial Sepsis Screen: Does the patient meet any 2 criteria? No. Patient's initial sepsis screen is negative. Does the patient have a suspected source of infection? No. Patient's initial sepsis screen is negative. Risk Assessment: Do you want to hurt yourself or someone else? Patient reports no desire to harm self or others. Onset of symptoms was September 17, 2023 at 02:00. 05:55 Method Of Arrival: Ambulatory km8 05:55 Acuity: ALEE 3 km8 Triage Assessment: 05:57 General: Appears uncomfortable, Behavior is cooperative, anxious, crying. Pain: km8 Complains of pain in anterior aspect of left upper chest Pain radiates to back Pain currently is 8 out of 10 on a pain scale. Pain began suddenly, 3 hours ago. Aggravated by deep breathing. EENT: No signs and/or symptoms were reported regarding the EENT system. Neuro: Level of Consciousness is awake, alert, obeys commands, Oriented to person, place, time, situation. Cardiovascular: Reports chest pain, nausea, Capillary refill < 3 seconds Patient's skin is warm and dry. Chest pain is located in left anterior radiates back. Respiratory: Airway is patent Respiratory effort is even, unlabored, Respiratory pattern is regular, symmetrical. GI: Reports nausea. : Reports urinary frequency. Derm: No signs and/or symptoms reported regarding the dermatologic system. Skin is intact, is healthy with good turgor, Skin is dry, Skin is pink, warm \T\ dry. normal, Skin temperature is warm. Musculoskeletal: No signs and/or symptoms reported regarding the musculoskeletal system. Circulation, motion, and sensation intact. Range of motion: intact in all extremities. 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 Flu vaccine is not up to date. - Social history:: Smoking status: Reported history of juuling and/or vaping. Patient uses alcohol, occasionally. Patient/guardian denies using street drugs. - Family history:: not pertinent. Screenin:00 [facility] ED Fall Risk Assessment (Adult) History of falling in the last 3 months, km8 including since admission No falls in past 3 months (0 pts) Confusion or Disorientation No (0 pts) Intoxicated or Sedated No (0 pts) Impaired Gait No (0 pts) Mobility Assist Device Used No (0 pt) Altered Elimination No (0 pt) Score/Fall Risk Level 0 - 2 = Low Risk Oriented to surroundings, Maintained a safe environment, Educated pt \T\ family on fall prevention, incl call for assistance when getting out of bed, Assessed \T\ reinforced patient's understanding of fall precautions. Abuse screen: Denies threats or abuse. Denies injuries from another. Nutritional screening: No deficits noted. Tuberculosis screening: No symptoms or risk factors identified. Assessment: 06:00 General: see triage notes/assessment. km8 Vital Signs: 06:29 BP 155 / 88; Pulse 62; Resp 12; Pulse Ox 100% ; tm6 07:56 BP 149 / 76; Pulse 61; Resp 18; Pulse Ox 100% on R/A; ld1 Argelia Coma Score: 06:00 Eye Response: spontaneous(4). Motor Response: obeys commands(6). Verbal Response: km8 oriented(5). Total: 15. ED Course: 05:38 Patient arrived in ED. jj6 05:45 Paul Ayala MD is Attending Physician. sp4 05:57 Triage completed. km8 05:57 Arm band placed on right wrist. km8 06:00 Patient has correct armband on for positive identification. Placed in gown. Bed in low km8 position. Call light in reach. Side rails up X 1. Client placed on continuous cardiac and pulse oximetry monitoring. NIBP monitoring applied. 06:00 No provider procedures requiring assistance completed. Patient maintains SpO2 km8 saturation greater than 95% on room air. 06:02 XRAY Chest (1 view) In Process Unspecified. EDMS 06:18 Inserted saline lock: 20 gauge in right antecubital area, using aseptic technique. km8 Blood collected. 07:57 IV discontinued, intact, bleeding controlled, No redness/swelling at site. ld1 Administered Medications: 06:18 Drug: Aspirin PO Chewable Tablet 324 mg PO once; 81 mg tablets x 4 Route: PO; km8 06:18 Drug: morphine IVP or IV 2 mg IVP once over 4 mins Route: IVP; Infused Over: 4 mins; km8 Site: right antecubital; 06:18 Drug: Ondansetron IVP 4 mg IVP once; over 2 minutes Route: IVP; Site: right antecubital;km8 06:19 Drug: Diazepam IVP 5 mg IVP once Route: IVP; Site: right antecubital; km8 06:58 Drug: Propranolol PO 40 mg PO once Route: PO; tm6 07:10 Drug: NS 0.9% IV 1000 ml IV at 125 ml/hr continuous Route: IV; Rate: 125 ml/hr; Site: ld1 right antecubital; 07:56 Drug: Potassium Chloride PO 40 mEq PO once Route: PO; ld1 Medication: 06:00 VIS not applicable for this client. km8 Outcome: 07:29 Discharge ordered by . sp4 07:57 Discharged to home ambulatory, ld1 07:57 Condition: stable 07:57 Discharge instructions given to patient, family, Instructed on discharge instructions, follow up and referral plans. Demonstrated understanding of instructions, follow-up care, 07:57 Patient left the ED. ld1 Signatures: Dispatcher [employer] EDMS Ema Westfall RN RN ld1 Jen Valenzuela jj6 Paul Ayala MD MD sp4 Shira Kumar RN RN km8 Arik Zambrano RN RN tm6
--- NOTE | 2023-09-17 10:51 | RAD REPORT ---
EXAM DESCRIPTION: RAD - Chest Single View - 09/17/2023 6:00 am CLINICAL HISTORY: CHEST PAIN COMPARISON: None TECHNIQUE: Single AP view of the chest. FINDINGS: Lung volumes adequate. Cardiac silhouette is normal in size. No pneumothorax. No large pleural effusion. No focal consolidation. No acute bony finding. IMPRESSION: No evidence of acute cardiopulmonary disease. Electronically signed by: Feng Villasenor MD 09/17/2023 06:10 AM MANAGER INTERNET Due to temporary technical issues with the PACS/Fluency reporting system, reports are being signed by the in house radiologist without review as a courtesy to ensure prompt reporting. The interpreting r adiologist is fully responsible for the content of the report.
[2023-09-17 14:07] VITALS: BP 149/76; O2SAT 100
--- NOTE | 2023-09-18 13:27 | EKG ---
Test Date: 2023-09-17 Test Time: 06:04:55 Video Games Mechanic: BRADLEY MEASUREMENT RESULTS: Intervals: Rate: 72 AR: 156 QRSD: 82 QT: 402 QTc: 440 [place]: P: 71 AR: 156 QRS: 74 T: 46 INTERPRETIVE STATEMENTS: Normal sinus rhythm Normal ECG Compared to ECG 09/04/2023 10:52:03 No significant changes Electronically Signed On 09-18-23 13:22:48 CLINICAL LABORATORY SERVICE TEACHER by Omi Arzate
== END ==
LOC: ER 05:37
DX: F41.9 Anxiety disorder, unspecified (principal); E03.9 Hypothyroidism, unspecified; I10 Essential (primary) hypertension; Z91.199 Patient's noncompliance with other medical treatment and regimen due to unspecified reason; Z11.52 Encounter for screening for COVID-19; Z28.310 Unvaccinated for COVID-19
CPT/HCPCS: 36415; 71045; 80048; 80076; 80307; 81001; 81025; 83735; 83880; 84439; 84443; 84484; 85025; 85610; 87804; 87811; 93005; J2270; J2405; J3360; J7030

== ENCOUNTER → 2023-10-05 | Emergency (ER) | payer SELFPAY ==
[~2023-10-05] MED LIST changes: -ASPIRIN 81 MG CHEWABLE TABLET ONE; +CODEINE 30MG/APAP 300MG TAB ONE; -DIAZEPAM 10 MG/2 ML INJ SYRINGE ONE; +DIAZEPAM 5 MG TABLET ONE; -MORPHINE 2 MG/ML SYR ONE; -ONDANSETRON 4 MG/2 ML VIAL ONE; -POTASSIUM CL SA 10 MEQ TAB PO ONE; +PROMETHAZINE 25 MG TABLET ONE; -PROPRANOLOL HCL 40 MG TAB ONE
[2023-10-05 23:28] LABS: Hematocrit 33.8 % (36.0-45.0); MCV 77.1 fL (80-100); MPV 7.4 fL (7.6-11.3); Platelets 289 thou/uL (152-406); RBC Red Blood Cell Count 4.39 M/uL (3.86-4.86)
[2023-10-05 23:51] LABS: Protime INR 0.99
[2023-10-06 00:08] LABS: Albumin 3.4 g/dL (3.4-5.0); Bilirubin Direct 0.3 mg/dL (0-0.2); Bilirubin Indirect, Calculated 0.6 mg/dL (0.2-0.8); Bilirubin Total 0.9 mg/dL (0.2-1.0); Magnesium 2.2 mg/dL (1.6-2.4); Potassium 3.8 mEq/L (3.5-5.1); Protein, Total 6.8 g/dL (6.4-8.2); Thyroid Stimulating Hormone 1.06 uIU/mL (0.358-3.740); Troponin High Sensitivity 3.8 pg/mL (<58.9)
[2023-10-06 00:13] LABS: Specific Gravity 1.018 (1.005-1.030)
--- NOTE | 2023-10-06 01:44 | EDPHYS ---
Physician Documentation [facility] Name: Leena Muniz Age: 37 yrs Sex: Female : 1985 Arrival Date: 10/05/2023 Time: 22:14 Bed 16 Private MD: ED Physician Paul Ayala HPI: 10/06 01:00 This 37 yrs old Female presents to ER via Ambulatory with complaints of sp4 Irregular Pulse, Chest Pain, Dizziness. 01:32 37-year-old female history of type reactive thyroid, history of complicated sp4 pyelonephritis, cholelithiasis, asthma, CVA, history of gastric sleeve,. Presents with complaint of irregular heart rate also feeling hot, and feeling short of breath dizzy and some chest pains for the past several days. Patient states she is feeling overall unwell. She reports she is compliant with her medications including ProAir propranolol 40 mg p.o. twice a day and methimazole 20 mg twice a day. Also patient takes potassium supplement . Patient follows up with Dr. Christin Lobo in [place]. History of tubal ligation 10 years ago. . Historical: - Allergies: 10/05 22:35 PENICILLINS; tl4 - Home Meds: 22:35 Klor-Con M20 20 mEq Oral Tablet 2 times per day [Active]; methimazole 10 mg Oral tablet tl4 3 tabs 3 times per day [Active]; propranolol 40 mg Oral tablet once [Active]; - PMHx: 22:35 Anemia; Asthma; hyperthyroidism; Hypokalemia; stroke july 2021; tl4 - PSHx: 22:35 gastric sleeve; tl4 - Immunization history:: Adult Immunizations unknown. - Social history:: Smoking status: Reported history of juuling and/or vaping. - Family history:: not pertinent. ROS: 10/06 01:32 Constitutional: Negative for fever, chills, and weight loss, positive for chest pain, sp4 shortness of breath, feeling hot feeling dizzy positive for palpitations. All other systems are negative, Exam: 01:01 ECG was reviewed by the Attending Physician. 23:05 . EKG at 2305 sinus bradycardia sp4 at the rate of 54 01:32 Constitutional: This is a well developed, well nourished patient who is awake, alert, sp4 and in no acute distress. Head/Face: Normocephalic, atraumatic. Eyes: Pupils equal round and reactive to light, extra-ocular motions intact. Lids and lashes normal. Conjunctiva and sclera are not injected. Cornea within normal limits. Periorbital areas with no swelling, redness, or edema. ENT: Nares patent. No nasal discharge, no septal abnormalities noted. Tympanic membranes are normal and external auditory canals are clear. Oropharynx with no redness, swelling, or masses, exudates, or evidence of obstruction, uvula midline. Mucous membranes moist. Neck: Trachea midline, no thyromegaly or masses palpated, and no cervical lymphadenopathy. Supple, full range of motion without nuchal rigidity, or vertebral point tenderness. Chest/axilla: Normal chest wall appearance and motion. Nontender with no deformity. No lesions are appreciated. Cardiovascular: Regular rate and rhythm with a normal S1 and S2. No gallops, murmurs, or rubs. Normal PMI, no JVD. No pulse deficits. Respiratory: Lungs have equal breath sounds bilaterally, clear to auscultation and percussion. No rales, rhonchi or wheezes noted. No increased work of breathing, no retractions or nasal flaring. Abdomen/GI: Soft, with normal bowel sounds. No distension or tympany. No guarding or rebound. No evidence of tenderness throughout. Back: No spinal tenderness. No costovertebral tenderness. Skin: Warm, dry with normal turgor. Normal color with no rashes, no lesions, and no evidence of cellulitis. MS/ Extremity: Pulses equal, no cyanosis. Neurovascular intact. Full, normal range of motion. Neuro: Awake and alert, GCS 15, oriented to person, place, time, and situation. Cranial nerves II-XII grossly intact. Motor strength 5/5 in all extremities. Sensory grossly intact. Psych: Awake, alert, with orientation to person, place and time. Behavior, mood, and affect are within normal limits Vital Signs: 10/05 22:31 BP 135 / 91; Pulse 57; Resp 16; Temp 98.3(TE); Pulse Ox 100% on R/A; Weight 56.7 kg; tl4 Height 4 ft. 11 in. ; Pain 7/10; 23:30 BP 128 / 96; Pulse 59; Resp 16; Pulse Ox 100% ; pf1 10/06 00:30 BP 121 / 89; Pulse 54; Resp 16; Pulse Ox 100% on R/A; Pain 3/10; pf1 01:30 BP 130 / 89; Pulse 56; Resp 16; Temp 98; Pulse Ox 100% on R/A; pf1 10/05 22:31 Body Mass Index 25.25 (56.70 kg, 149.86 cm) tl4 10/05 22:31 Pain Scale: Adult tl4 10/06 00:30 Pain Scale: Adult pf1 MDM: 10/05 22:17 Patient medically screened. 4 10/06 01:03 ED course: EXAM DESCRIPTION: Chest Single View CLINICAL HISTORY: CHEST PAIN COMPARISON: [facility] Chest x-ray 09/17/2023. TECHNIQUE: Single AP view of the chest. FINDINGS: Lung volumes adequate. Cardiac silhouette is normal in size. No pneumothorax. No large pleural effusion. No focal consolidation. No acute bony finding. IMPRESSION: No evidence of acute cardiopulmonary disease.. 01:32 Differential diagnosis: acute pericarditis, anxiety, coronary artery disease sp4 costochondritis, esophagitis, gastritis. HEART Score: History: Slightly Suspicious (0), ECG: Normal (0), Age: < or = 45 years (0), Risk Factors: 1 or 2 risk factors (1), Troponin: < or = 1 x Normal Limit (0), Total Score = 1. Data reviewed: vital signs, nurses notes, lab test result(s), EKG, radiologic studies, plain films. ED course: No significant abnormality on the workup. Patient feels improved after medications. Patient stable for discharge home. Will prescribe as needed Valium for anxiety attacks. Will advise to continue follow-up with obstetrics teacher and also see drawer maker. . 10/05 22:19 Order name: Basic Metabolic Panel; Complete Time: 01: 4 10/05 22:19 Order name: CBC with Diff; Complete Time: : 4 10/05 22:19 Order name: LFT's; Complete Time: 01:03 4 10/05 22:19 Order name: Magnesium; Complete Time: 01: 4 10/05 22:19 Order name: NT PRO-BNP; Complete Time: 01: 4 10/05 22:19 Order name: PT-INR; Complete Time: 01:03 sp4 10/05 22:19 Order name: Troponin HS; Complete Time: 01:03 sp4 10/05 22:19 Order name: Test, Urine; Complete Time: 01:03 sp4 10/05 23:27 Order name: T4 Free; Complete Time: 01:03 EDMS 10/05 23:27 Order name: Thyroid Stimulating Hormone; Complete Time: 01:03 EDMS 10/05 22:19 Order name: XRAY Chest (1 view) 4 10/05 22:19 Order name: EKG; Complete Time: 22:19 sp4 10/05 22:19 Order name: Cardiac monitoring; Complete Time: 22:55 sp4 10/05 22:19 Order name: EKG - Nurse/Tech; Complete Time: 23:25 sp4 10/05 22:19 Order name: IV Saline Lock; Complete Time: 23:26 sp4 10/05 22:19 Order name: Labs collected and sent; Complete Time: 23:26 sp4 10/05 22:19 Order name: O2 Per Protocol; Complete Time: :55 sp4 10/05 22:19 Order name: O2 Sat Monitoring; Complete Time: 22:55 sp4 EC: Rate is 54 beats/min. Rhythm is regular, Sinus bradycardia. QRS [place] is Normal. [place] sp4 interval is normal. QRS interval is normal. QT interval is normal. No Q waves. T waves are Normal. No ST changes noted. Clinical impression: No evidence of ischemia. Interpreted by me. Reviewed by me. Administered Medications: 10/05 23:33 Drug: Promethazine PO 25 mg PO once Route: PO; 1 10/06 00:30 Follow up: Response: No adverse reaction; Marked relief of symptoms pf1 10/05 23:33 Drug: NS 0.9% IV 1000 ml IV at 250 ml/hr continuous Route: IV; Rate: 250 ml/hr; Site: [facility] right antecubital; 10/06 00:30 Follow up: Response: No adverse reaction; Marked relief of symptoms pf1 02:05 Follow up: IV Status: Completed infusion pf1 10/05 23:34 Drug: Diazepam PO 5 mg PO once Route: PO; pf1 10/06 00:30 Follow up: Response: No adverse reaction; Marked relief of symptoms pf1 10/05 23:34 Drug: Acetaminophen-Codeine PO (300 mg-30 mg) 2 tabs PO once; RASS on ADMIN: Combtv4, pf1 Very Agttd3, Agttd2, Rstlss1, AlertClm0, Drwsy-1, Lt Sdtn-2, Mod Sdtn-3, Dp Sdtn-4, UnArsble-5 Route: PO; 10/06 00:30 Follow up: Response: No adverse reaction; Marked relief of symptoms; Pain is decreased; pf1 RASS: Alert and Calm (0) Disposition Summary: 10/06/23 01:43 Discharge Ordered Notes: Location: Home sp4 Problem: new sp4 Symptoms: have improved sp4 Condition: Stable sp4 Diagnosis - Hyperthyroidism, Anxiety attack , Insomnia sp4 Followup: sp4 - With: Private Physician - When: 10 - 14 days - Reason: Recheck today's complaints Discharge Instructions: - Discharge Summary Sheet sp4 - Managing Anxiety, Adult sp4 Forms: - Patient Portal Instructions sp4 Prescriptions: - Valium 5 mg Oral tablet - take 1 tablet ORAL route once daily As needed PRN anxiety attacks; 20 tablet; sp4 Refills: 0, Product Selection Permitted Signatures: Dispatcher [employer] EDMarilu Hodgson RN RN pf1 Paul Ayala MD MD sp4 Ronnie Avila RN RN tl4 Corrections: (The following items were deleted from the chart) 10/05 23:27 22:39 THYROID STIMULAT HORMONE+C.LAB.BRZ ordered. EDMS EDMS 23: 22:39 T4 FREE+C.LAB.BRZ ordered. EDMS EDMS
--- NOTE | 2023-10-06 01:44 | ER ---
Nurse's Notes [facility] Name: Leena Muniz Age: 37 yrs Sex: Female : 1985 Arrival Date: 10/05/2023 Time: 22:14 Bed 16 Private MD: Diagnosis: Hyperthyroidism, Anxiety attack , Insomnia Presentation: 10/05 22:31 Chief complaint: Patient states: Pt c/o dizziness, SOB, chills, sore throat, and chest tl4 pressure since waking up this morning. Pt did not take any medications. Coronavirus screen: At this time, the client does not indicate any symptoms associated with coronavirus-19. Ebola Screen: No symptoms or risks identified at this time. Initial Sepsis Screen: Does the patient meet any 2 criteria? No. Patient's initial sepsis screen is negative. Does the patient have a suspected source of infection? No. Patient's initial sepsis screen is negative. Risk Assessment: Do you want to hurt yourself or someone else? Patient reports no desire to harm self or others. Onset of symptoms was October 05, 2023 at 08:00. 22:31 Method Of Arrival: Ambulatory tl4 22:31 Acuity: ALEE 3 tl4 Triage Assessment: 22:34 General: Appears ill, Behavior is calm, cooperative. Pain: Complains of pain in throat, tl4 chest Pain does not radiate. EENT: No deficits noted. No signs and/or symptoms were reported regarding the EENT system. Neuro: Reports dizziness, headache. Cardiovascular: Reports chest pain, shortness of breath. Respiratory: Reports shortness of breath. GI: No deficits noted. No signs and/or symptoms were reported involving the gastrointestinal system. : No deficits noted. No signs and/or symptoms were reported regarding the genitourinary system. Derm: No deficits noted. No signs and/or symptoms reported regarding the dermatologic system. Historical: - Allergies: 22:35 PENICILLINS; tl4 - Home Meds: 22:35 Klor-Con M20 20 mEq Oral Tablet 2 times per day [Active]; methimazole 10 mg Oral tablet tl4 3 tabs 3 times per day [Active]; propranolol 40 mg Oral tablet once [Active]; - PMHx: 22:35 Anemia; Asthma; hyperthyroidism; Hypokalemia; stroke july 2021; tl4 - PSHx: 22:35 gastric sleeve; tl4 - Immunization history:: Adult Immunizations unknown. - Social history:: Smoking status: Reported history of juuling and/or vaping. - Family history:: not pertinent. Screenin:26 [facility] ED Fall Risk Assessment (Adult) History of falling in the last 3 months, pf1 including since admission No falls in past 3 months (0 pts) Confusion or Disorientation No (0 pts) Intoxicated or Sedated No (0 pts) Impaired Gait No (0 pts) Mobility Assist Device Used No (0 pt) Altered Elimination No (0 pt) Score/Fall Risk Level 0 - 2 = Low Risk Oriented to surroundings, Maintained a safe environment, Educated pt \T\ family on fall prevention, incl call for assistance when getting out of bed, Assessed \T\ reinforced patient's understanding of fall precautions, Provided non-skid footwear, Hourly rounding (assess needs \T\ fall precautionary measures) done, Used ambulatory aids as needed (educated on \T\ assisted with), Used gait belt as appropriate. Abuse screen: Denies threats or abuse. Nutritional screening: No deficits noted. Tuberculosis screening: No symptoms or risk factors identified. Assessment: 22:40 General: Appears in no apparent distress. comfortable, well groomed, well developed, pf1 Behavior is calm, cooperative, appropriate for age, quiet. 22:40 Pain: Complains of pain in head, chest and sore throat. Neuro: Level of Consciousness pf1 is awake, alert, obeys commands, Oriented to person, place, time, situation, Reports dizziness, headache. Cardiovascular: Reports chest pain, Capillary refill < 3 seconds Patient's skin is warm and dry. Respiratory: Reports shortness of breath Airway is patent Respiratory effort is even, unlabored, Respiratory pattern is regular, symmetrical, Breath sounds are clear bilaterally. GI: No deficits noted. No signs and/or symptoms were reported involving the gastrointestinal system. : No deficits noted. No signs and/or symptoms were reported regarding the genitourinary system. EENT: Reports pain in sore throat since today with chills. Derm: No deficits noted. No signs and/or symptoms reported regarding the dermatologic system. 23:30 Reassessment: Patient appears in no apparent distress at this time. Patient and/or pf1 family updated on plan of care and expected duration. Pain level reassessed. Patient is alert, oriented x 3, equal unlabored respirations, skin warm/dry/pink. Patient states feeling better. Patient states symptoms have improved. 10/06 00:30 Reassessment: Patient appears in no apparent distress at this time. Patient and/or pf1 family updated on plan of care and expected duration. Pain level reassessed. Patient is alert, oriented x 3, equal unlabored respirations, skin warm/dry/pink. Patient states feeling better. Patient states symptoms have improved. 01:30 Reassessment: Patient appears in no apparent distress at this time. Patient and/or pf1 family updated on plan of care and expected duration. Pain level reassessed. Patient is alert, oriented x 3, equal unlabored respirations, skin warm/dry/pink. Patient states feeling better. Patient states symptoms have improved. Vital Signs: 10/05 22:31 BP 135 / 91; Pulse 57; Resp 16; Temp 98.3(TE); Pulse Ox 100% on R/A; Weight 56.7 kg; tl4 Height 4 ft. 11 in. ; Pain 7/10; 23:30 BP 128 / 96; Pulse 59; Resp 16; Pulse Ox 100% ; pf1 10/06 00:30 BP 121 / 89; Pulse 54; Resp 16; Pulse Ox 100% on R/A; Pain 3/10; pf1 01:30 BP 130 / 89; Pulse 56; Resp 16; Temp 98; Pulse Ox 100% on R/A; pf1 10/05 22:31 Body Mass Index 25.25 (56.70 kg, 149.86 cm) tl4 10/05 22:31 Pain Scale: Adult tl4 10/06 00:30 Pain Scale: Adult pf1 ED Course: 10/05 22:17 Patient arrived in ED. jj6 22:17 Paul Ayala MD is Attending Physician. sp4 22:34 Triage completed. tl4 22:34 Arm band placed on right wrist. tl4 22:35 Patient has correct armband on for positive identification. Placed in gown. Bed in low pf1 position. Call light in reach. Side rails up X 1. 22:35 Client placed on continuous cardiac and pulse oximetry monitoring. NIBP monitoring pf1 applied. grade checker on. Pulse ox on. 22:35 Patient maintains SpO2 saturation greater than 95% on room air. pf1 22:57 XRAY Chest (1 view) In Process Unspecified. EDMS 23:25 Test, Urine Sent. pf1 23:26 Basic Metabolic Panel Sent. pf1 23:26 CBC with Diff Sent. pf1 23:26 LFT's Sent. pf1 23:26 Magnesium Sent. pf1 23:26 NT PRO-BNP Sent. pf1 23:26 PT-INR Sent. pf1 23:26 Troponin HS Sent. pf1 10/06 02:02 No provider procedures requiring assistance completed. IV discontinued, intact, pf1 bleeding controlled, No redness/swelling at site. Pressure dressing applied. 02:03 Provided Education on: prescription. pf1 Administered Medications: 10/05 22:33 Drug: Promethazine PO 25 mg PO once Route: PO; pf1 10/06 00:30 Follow up: Response: No adverse reaction; Marked relief of symptoms pf1 10/05 23:33 Drug: NS 0.9% IV 1000 ml IV at 250 ml/hr continuous Route: IV; Rate: 250 ml/hr; Site: pf1 right antecubital; 10/06 00:30 Follow up: Response: No adverse reaction; Marked relief of symptoms pf1 02:05 Follow up: IV Status: Completed infusion pf1 10/05 23:34 Drug: Diazepam PO 5 mg PO once Route: PO; pf1 10/06 00:30 Follow up: Response: No adverse reaction; Marked relief of symptoms pf1 10/05 23:34 Drug: Acetaminophen-Codeine PO (300 mg-30 mg) 2 tabs PO once; RASS on ADMIN: Combtv4, pf1 Very Agttd3, Agttd2, Rstlss1, AlertClm0, Drwsy-1, Lt Sdtn-2, Mod Sdtn-3, Dp Sdtn-4, UnArsble-5 Route: PO; 10/06 00:30 Follow up: Response: No adverse reaction; Marked relief of symptoms; Pain is decreased; pf1 RASS: Alert and Calm (0) Medication: 02:04 VIS not applicable for this client. pf1 Outcome: 01:43 Discharge ordered by MD. denny 02:04 Discharged to home ambulatory, with family, pf1 02:04 Condition: improved 02:04 Discharge instructions given to patient, Instructed on discharge instructions, follow up and referral plans. Demonstrated understanding of instructions, follow-up care, medications, Prescriptions given X 1, 02:04 Patient left the ED. pf1 Signatures: Dispatcher [employer] EDMS Nicolas Jen jj6 Marilu Castro, RN RN pf1 Paul Ayala MD MD sp4 Ronnie Avila RN RN tl4 Corrections: (The following items were deleted from the chart) 10/05 23:27 23:25 T4 FREE+C.LAB.BRZ drawn and sent. pf1 EDMS 23: 23:25 THYROID STIMULAT HORMONE+C.LAB.BRZ drawn and sent. pf1 EDMS
[2023-10-06 02:34] VITALS: BP 130/89; TEMP 98; O2SAT 100
--- NOTE | 2023-10-06 10:54 | EKG ---
Test Date: 2023-10-05 Test Time: 23:05:28 Fiberglass Autobody Repairer: DANYA MEASUREMENT RESULTS: Intervals: Rate: 54 NM: 152 QRSD: 76 QT: 448 QTc: 424 Warren: P: 45 NM: 152 QRS: 78 T: 34 INTERPRETIVE STATEMENTS: Sinus bradycardia Otherwise normal ECG Compared to ECG 09/17/2023 06:04:55 Sinus rhythm no longer present Electronically Signed On 10-06-23 10:54:28 SHIM PLUG CUTTER by Carlos Chandler
--- NOTE | 2023-10-06 12:28 | RAD REPORT ---
EXAM DESCRIPTION: RAD - Chest Single View - 10/05/2023 10:56 pm CLINICAL HISTORY: CHEST PAIN COMPARISON: Chest x-ray 09/17/2023. TECHNIQUE: Single AP view of the chest. FINDINGS: Lung volumes adequate. Cardiac silhouette is normal in size. No pneumothorax. No large pleural effusion. No focal consolidation. No acute bony finding. IMPRESSION: No evidence of acute cardiopulmonary disease. Electronically signed by: Feng Villasenor MD 10/05/2023 11:26 PM CARE PROVIDER Due to temporary technical issues with the PACS/Fluency reporting system, reports are being signed by the in house radiologist without review as a courtesy to ensure prompt reporting. The interpreting r adiologist is fully responsible for the content of the report.
== END ==
LOC: ER 22:14
DX: F41.0 Panic disorder [episodic paroxysmal anxiety] (principal); E05.90 Thyrotoxicosis, unspecified without thyrotoxic crisis or storm; G47.00 Insomnia, unspecified
CPT/HCPCS: 36415; 71045; 80048; 80076; 81025; 83735; 83880; 84439; 84443; 84484; 85025; 85610; 93005; J7030; Q0169

== ENCOUNTER 2023-11-22 04:01 | Emergency (ER) | payer SELFPAY ==
[2023-11-22] MEDS ORDERED: HYDROCODONE/APAP 7.5/325 MG TAB ONE (04:38)
[2023-11-22 04:49] LABS: Absolute Basophils 0.1 K/uL (0-0.5); Absolute Lymphocytes (CBC) 2.8 K/uL (0.7-4.9); Absolute Monocytes 0.5 K/uL (0.1-1.3); Basophils % 0.9 % (0-1.3); Eosinophils % 0.2 % (0-4.4); Hemoglobin 11.3 g/dL (12.0-15.0); Lymphocytes % 37.9 % (15.3-44.8); MCHC 33.2 g/dL (32.0-36.0); MCV 81.5 fL (80-100); Monocytes % 7.2 % (3.3-12.3); Neutrophils % 53.8 % (41.7-73.7); Nucleated Red Blood Cells % 0.3 % (0-0); Platelets 330 thou/uL (152-406); RBC Red Blood Cell Count 4.17 M/uL (3.86-4.86)
[2023-11-22 04:57] LABS: Specific Gravity < 1.005 (1.005-1.030); Sqamous Epithelial <5 /HPF (None Seen); Urine Bacteria None Seen /HPF (<20); Urine Bilirubin NEGATIVE (Negative); Urine Blood 2+ (Negative); Urine Clarity Turbid (Clear); Urine Color Colorless (Yellow); Urine Crystals Unidentified Few /HPF (None Seen); Urine Culture Reflex Order NOT NEEDED; Urine Glucose NEGATIVE (Negative); Urine Ketones NEGATIVE (Negative); Urine Microscopic Reflex YN ORDER UMIC; Urine Nitrite NEGATIVE (Negative); Urine Protein NEGATIVE (Negative); Urine RBC <5 /HPF (None Seen); Urine Urobilinogen Normal (Normal); Urine WBC <5 /HPF (<5); Urine Yeast (Budding) Trace /HPF (None Seen); Urine pH 6.5 (5.0-7.0)
[2023-11-22 04:57] LABS: Specific Gravity 1.002 (1.005-1.030)
[2023-11-22 05:23] LABS: Albumin 4.3 g/dL (3.4-5.0); Anion Gap 8.1 mEq/L (5.0-15.0); Bilirubin Total 1.4 mg/dL (0.2-1.0); Globulin 4.3 g/dL (2.3-3.5); Potassium 3.1 mEq/L (3.5-5.1); Protein, Total 8.6 g/dL (6.4-8.2); Thyroid Stimulating Hormone 30.2 uIU/mL (0.358-3.740); Troponin High Sensitivity 3.7 pg/mL (<58.9)
--- NOTE | 2023-11-22 06:02 | ER ---
Nurse's Notes [facility] Name: Leena Muniz Age: 37 yrs Sex: Female : 1985 Arrival Date: 11/22/2023 Time: 04:01 Bed 5 Private MD: Diagnosis: Chest pain, unspecified;Hypothyroidism, unspecified Presentation: 11/21 04:15 Chief complaint: Patient states: I started having chest pain, lower back pain, and jb4 abdominal pain about 3 hours ago while I was at work. The pain is an 8/10. It feels like the last time I had a thyroid storm event. Coronavirus screen: At this time, the client does not indicate any symptoms associated with coronavirus-19. Ebola Screen: No symptoms or risks identified at this time. Initial Sepsis Screen: Does the patient meet any 2 criteria? No. Patient's initial sepsis screen is negative. Does the patient have a suspected source of infection? No. Patient's initial sepsis screen is negative. Risk Assessment: Do you want to hurt yourself or someone else? Patient reports no desire to harm self or others. Onset of symptoms was November 22, 2023. Transition of care: patient was not received from another setting of care. 04:15 Method Of Arrival: Ambulatory jb4 04:15 Acuity: ALEE 2 jb4 Triage Assessment: 04:19 General: Appears in no apparent distress. comfortable, Behavior is calm, cooperative, jb4 appropriate for age. Pain: Complains of pain in low back area, chest and abdomen Pain does not radiate. Pain currently is 8 out of 10 on a pain scale. Neuro: Level of Consciousness is awake, alert, obeys commands, Oriented to person, place, time, situation. Cardiovascular: Patient's skin is warm and dry. Rhythm is sinus rhythm. Respiratory: Airway is patent Respiratory effort is even, unlabored, Respiratory pattern is regular, symmetrical. Derm: Skin is intact, Skin is pink, warm \\T\\ dry. Musculoskeletal: Circulation, motion, and sensation intact. Range of motion: intact in all extremities. 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 - Infectious Disease History:: Denies. - Social history:: Smoking status: Reported history of juuling and/or vaping. Patient uses alcohol, occasionally. - Family history:: not pertinent. Screenin:19 [facility] ED Fall Risk Assessment (Adult) History of falling in the last 3 months, bm8 including since admission No falls in past 3 months (0 pts) Confusion or Disorientation No (0 pts) Intoxicated or Sedated No (0 pts) Impaired Gait No (0 pts) Mobility Assist Device Used No (0 pt) Altered Elimination No (0 pt) Score/Fall Risk Level 0 - 2 = Low Risk Oriented to surroundings, Maintained a safe environment, Educated pt \\T\\ family on fall prevention, incl call for assistance when getting out of bed. Abuse screen: Denies threats or abuse. Nutritional screening: No deficits noted. Tuberculosis screening: No symptoms or risk factors identified. Assessment: 05:27 Reassessment: Patient appears in no apparent distress at this time. No changes from bm8 previously documented assessment. Patient is alert, oriented x 3, equal unlabored respirations, skin warm/dry/pink. Patient states feeling better. Patient states symptoms have improved. General: Appears in no apparent distress. comfortable, Behavior is calm, cooperative, appropriate for age. Pain: Complains of pain in back and chest Pain currently is 4 out of 10 on a pain scale. Quality of pain is described as aching, Pain began 4 hours ago. Goal of pain control is to stay alert, perform activities of daily living, return to work. Neuro: Level of Consciousness is awake, alert, obeys commands, Oriented to person, place, time, situation, Appropriate for age. Cardiovascular: Heart tones S1 S2 present Capillary refill < 3 seconds Patient's skin is warm and dry. Rhythm is regular. Cardiovascular: Reports pain is improved after pain medication and is "manageable". Respiratory: Airway is patent Respiratory effort is even, unlabored, Respiratory pattern is regular. GI: No deficits noted. No signs and/or symptoms were reported involving the gastrointestinal system. : No deficits noted. No signs and/or symptoms were reported regarding the genitourinary system. EENT: No deficits noted. No signs and/or symptoms were reported regarding the EENT system. Derm: No deficits noted. No signs and/or symptoms reported regarding the dermatologic system. Musculoskeletal: No deficits noted. No signs and/or symptoms reported regarding the musculoskeletal system. 06:04 Reassessment: Patient appears in no apparent distress at this time. No changes from bm8 previously documented assessment. Patient is alert, oriented x 3, equal unlabored respirations, skin warm/dry/pink. Patient states feeling better. Patient states symptoms have improved. Vital Signs: 04:15 BP 139 / 110; Pulse 61; Resp 14; Pulse Ox 100% on R/A; Weight 56.7 kg (R); Height 4 ft. km8 10 in. (R); Pain 8/10; 04:30 BP 144 / 92; Pulse 61; Resp 18; Pulse Ox 100% on R/A; km8 05:00 BP 124 / 92; Pulse 59; Resp 16; Pulse Ox 98% on R/A; km8 06:04 BP 129 / 84; Pulse 70; Resp 17; Temp 98.2; Pulse Ox 100% on R/A; Pain 2/10; bm8 04:15 Body Mass Index 26.13 (56.70 kg, 147.32 cm) km8 04:15 Pain Scale: Adult km8 06:04 Pain Scale: Adult bm8 Bradford Coma Score: 04:19 Eye Response: spontaneous(4). Motor Response: obeys commands(6). Verbal Response: bm8 oriented(5). Total: 15. ED Course: 04:03 Patient arrived in ED. jj6 04:05 Ranjith Sue MD is Attending Physician. rt 04:19 Triage completed. jb4 04:19 Patient has correct armband on for positive identification. Placed in gown. Bed in low bm8 position. Call light in reach. Side rails up X 1. 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 Pulse ox on. NIBP on. Door closed. Noise minimized. Visitors limited. Verbal reassurance given. 04:19 Arm band placed on right wrist. EKG completed in triage. Results shown to . jb4 04:19 Inserted saline lock: 20 gauge in right antecubital area, using aseptic technique. bm8 Blood collected. O2 via room air. 04:19 EKG done, by ED staff, reviewed by Ranjith Sue MD. km8 04:46 Test, Serum Sent. km8 04:46 TSH Sent. km8 04:46 T4 Free Sent. km8 04:46 BNP Sent. km8 04:46 Troponin High Sensitivity Sent. km8 04:46 CBC with Diff Sent. km8 04:46 CMP Sent. km8 04:46 Lipase Sent. km8 04:46 Test, Urine Sent. km8 04:46 Urinalysis w/ reflexes Sent. km8 04:46 Initial lab(s) drawn, by ED staff, sent to lab. km8 05:27 Chest Single View XRAY In Process Unspecified. EDMS 05:30 CT Abd/Pelvis - IV Contrast Only In Process Unspecified. EDMS 06:04 Provided Education on: dc instructions. bm8 06:04 No provider procedures requiring assistance completed. IV discontinued, intact, bm8 bleeding controlled, No redness/swelling at site. Pressure dressing applied. 06:07 Hunter Gill, RN is Primary Nurse. bm8 Administered Medications: 04:39 Drug: Hydrocodone-Acetaminophen PO (7.5 mg-325 mg) 1 tabs PO once Route: PO; bm8 05:30 Follow up: Response: No adverse reaction; Pain is decreased bm8 Medication: 04:19 VIS not applicable for this client. bm8 Outcome: 06:02 Discharge ordered by MD. rt 06:05 Discharged to home ambulatory, bm8 06:05 Condition: stable 06:05 Discharge instructions given to patient, Instructed on discharge instructions, follow up and referral plans. safety practices, Demonstrated understanding of instructions, follow-up care, medications, 06:08 Patient left the ED. bm8 Signatures: Dispatcher [employer] Ulisses Yeh, RN RN jb4 Jen Valenzuelaj6 Ranjith Sue MD MD rt Shira Kumar RN RN km8 Hunter Gill, RN RN bm8 Corrections: (The following items were deleted from the chart) 04:39 04:15 Pulse 61bpm; Resp 14bpm; Pulse Ox 100% RA; 56.7 kg Reported; Height 4 ft. 10 in. km8 Reported; BMI: 26.1; Pain 8/10, Adult; jb4
--- NOTE | 2023-11-22 06:03 | EDPHYS ---
Physician Documentation [facility] Name: Leena Muniz Age: 37 yrs Sex: Female : 1985 Arrival Date: 11/22/2023 Time: 04:01 Bed 5 Private MD: ED Physician Ranjith Sue HPI: 11/21 04:25 This 37 yrs old Female presents to ER via Ambulatory with complaints of Chest rt Pain, Irregular Pulse. 04:25 Patient with history of hypothyroidism presents to the ED with reported chest pain, rt abdominal pain, abdominal swelling starting 3 hours ago while she was at work. Patient states the symptoms are consistent with prior episodes of thyrotoxicosis. The patient denies other acute complaints at this time, symptoms are moderate in severity, no other aggravating alleviating factors.. 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 - Infectious Disease History:: Denies. - Social history:: Smoking status: Reported history of juuling and/or vaping. Patient uses alcohol, occasionally. - Family history:: not pertinent. ROS: 04:25 Constitutional: Negative for fever, chills, and weight loss, Respiratory: Negative for rt shortness of breath, cough, wheezing, and pleuritic chest pain, MS/Extremity: Negative for injury and deformity, Skin: Negative for injury, rash, and discoloration, Neuro: Negative for headache, weakness, numbness, tingling, and seizure, 04:25 Cardiovascular: Positive for chest pain, Negative for edema, 04:25 Abdomen/GI: Positive for abdominal pain, abdominal distension, Exam: 04:25 Constitutional: This is a well developed, well nourished patient who is awake, alert, rt and in no acute distress. Head/Face: Normocephalic, atraumatic. Chest/axilla: Normal chest wall appearance and motion. Nontender with no deformity. No lesions are appreciated. Cardiovascular: Regular rate and rhythm with a normal S1 and S2. No gallops, murmurs, or rubs. Normal PMI, no JVD. No pulse deficits. Respiratory: Lungs have equal breath sounds bilaterally, clear to auscultation and percussion. No rales, rhonchi or wheezes noted. No increased work of breathing, no retractions or nasal flaring. Abdomen/GI: Mild abdominal distention, nontender diffusely Skin: Warm, dry with normal turgor. Normal color with no rashes, no lesions, and no evidence of cellulitis. MS/ Extremity: Pulses equal, no cyanosis. Neurovascular intact. Full, normal range of motion. Neuro: Awake and alert, GCS 15, oriented to person, place, time, and situation. Cranial nerves II-XII grossly intact. Motor strength 5/5 in all extremities. Sensory grossly intact. Cerebellar exam normal. Normal gait. 04:25 ECG was reviewed by the Attending Physician. Vital Signs: 04:15 BP 139 / 110; Pulse 61; Resp 14; Pulse Ox 100% on R/A; Weight 56.7 kg (R); Height 4 ft. km8 10 in. (R); Pain 8/10; 04:30 BP 144 / 92; Pulse 61; Resp 18; Pulse Ox 100% on R/A; 8 05:00 BP 124 / 92; Pulse 59; Resp 16; Pulse Ox 98% on R/A; km8 06:04 BP 129 / 84; Pulse 70; Resp 17; Temp 98.2; Pulse Ox 100% on R/A; Pain 2/10; bm8 04:15 Body Mass Index 26.13 (56.70 kg, 147.32 cm) [facility] 04:15 Pain Scale: Adult 8 06:04 Pain Scale: Adult bm8 [place] Coma Score: 04:19 Eye Response: spontaneous(4). Motor Response: obeys commands(6). Verbal Response: bm8 oriented(5). Total: 15. MDM: 04:15 Patient medically screened. rt 06:04 Differential diagnosis: Nonspecific chest pain, pneumonia, pneumothorax, rt hyperthyroidism, hypothyroidism, dysrhythmia. HEART Score: History: Slightly Suspicious (0), ECG: Non specific repolarization disturbance / LBTB / PM (1), Age: < or = 45 years (0), Risk Factors: 1 or 2 risk factors (1), Troponin: < or = 1 x Normal Limit (0), Total Score = 2. Data reviewed: vital signs, nurses notes, lab test result(s), EKG, radiologic studies. Consideration of Admission/Observation Escalation of care including admission/observation considered. Patient with nonspecific EKG changes, no acute findings, troponin is negative. Given chronicity of symptoms this is sufficient to rule out any acute coronary syndrome. Patient with labs consistent with hypothyroidism, she is due to see an solar photovoltaic electrician on Friday. Patient was prescribed levothyroxine by her primary care. She has not taken this. She is to start taking it. Symptoms have significantly improved with treatment in the ED, stable for outpatient care, return precautions discussed.. Independent interpretation of the following test(s) in the Emergency Department CT Scan: My interpretation is No bowel obstruction syndrome interpretation of CT scan images. Care significantly affected by the following chronic conditions: hyperthyroidism. Counseling: I had a detailed discussion with the patient and/or guardian regarding the historical points, exam findings, and any diagnostic results supporting the discharge/admit diagnosis, lab results, radiology results, the need for outpatient follow up, to return to the emergency department if symptoms worsen or persist or if there are any questions or concerns that arise at home. Response to treatment: the patient's symptoms have markedly improved after treatment. 11/21 04:20 Order name: CBC with Diff; Complete Time: 05:24 rt 11/21 04:20 Order name: CMP; Complete Time: 05:24 rt 11/21 04:20 Order name: Lipase; Complete Time: 05:24 rt 11/21 04:20 Order name: Test, Urine; Complete Time: 05:24 rt 11/21 04:20 Order name: Urinalysis w/ reflexes; Complete Time: 05:24 rt 11/21 04:20 Order name: Troponin High Sensitivity; Complete Time: 05:24 rt 11/21 04:20 Order name: BNP; Complete Time: 05:24 rt 11/21 04:20 Order name: T4 Free; Complete Time: 05:24 rt 11/21 04:20 Order name: TSH; Complete Time: 05:24 rt 11/21 04:20 Order name: Test, Serum; Complete Time: 05:24 rt 11/21 04:20 Order name: CT Abd/Pelvis - IV Contrast Only rt 11/21 05:03 Order name: Chest Single View XRAY rt 11/21 04:20 Order name: IV Saline Lock; Complete Time: 04:30 rt 11/21 04:20 Order name: Labs collected and sent; Complete Time: 04:30 rt 11/21 04:20 Order name: EKG - Nurse/Tech; Complete Time: 04:30 rt EC:25 Rate is 61 beats/min. Rhythm is regular, Normal Sinus Rhythm. QRS [place] is Normal. [place] rt interval is normal. QRS interval is normal. QT interval is normal. No Q waves. Clinical impression: NSR w/ Non-specific ST/T Changes. Administered Medications: 04:39 Drug: Hydrocodone-Acetaminophen PO (7.5 mg-325 mg) 1 tabs PO once Route: PO; bm8 05:30 Follow up: Response: No adverse reaction; Pain is decreased bm8 Disposition Summary: 11/22/23 06:02 Discharge Ordered Notes: Location: Home rt Problem: new rt Symptoms: have improved rt Condition: Stable rt Diagnosis - Chest pain, unspecified rt - Hypothyroidism, unspecified rt Followup: rt - With: Private Physician - When: 2 - 3 days - Reason: Discharge Instructions: - Discharge Summary Sheet rt - Nonspecific Chest Pain, Adult rt - Hyperthyroidism rt - Hypothyroidism rt Forms: - Medication Reconciliation Form rt - Thank You Letter rt - Antibiotic Education rt - Prescription Opioid Use rt - Patient Portal Instructions rt - Leadership Thank You Letter rt Signatures: Dispatcher [employer] Ulisses Yeh, RN RN jb4 Ranjith Sue MD MD rt Hunter Gill RN RN bm8 Corrections: (The following items were deleted from the chart) 04:21 04:21 CBC+H.LAB.BRZ ordered. EDMD EDMS 04:21 04:21 COMPREHENSIVE METABOLIC PANEL+C.LAB.BRZ ordered. EDMD EDMS 04:21 04:21 LIPASE+C.LAB.BRZ ordered. EDMD EDMS 04:21 04:21 Test, Urine+UC.LAB.BRZ ordered. EDMD EDMS 04:21 04:21 Urinalysis+U.LAB.BRZ ordered. EDMD EDMS 04:21 04:21 Troponin High Sensitivity+C.LAB.BRZ ordered. EDMD EDMS 04:21 04:21 PROBNP+C.LAB.BRZ ordered. EDMD EDMS 04:21 04:21 T4 FREE+C.LAB.BRZ ordered. EDMD EDMS 04: 04:21 THYROID STIMULAT HORMONE+C.LAB.BRZ ordered. EDMS EDMS 04: 04:21 TEST, SERUM+SC.LAB.BRZ ordered. EDMS EDMS : 04:21 Abdomen Pelvis W Con+CT.RAD.BRZ ordered. EDMS EDMS
[2023-11-22 12:55] VITALS: BP 129/84; TEMP 98.2; O2SAT 100
--- NOTE | 2023-11-22 19:51 | RAD REPORT ---
EXAM DESCRIPTION: CT - Abdomen Pelvis W Contrast - 11/22/2023 6:41 am CLINICAL HISTORY: The patient is 37 years old and is Female; ABD PAIN TECHNIQUE: Axial computed tomography images of the abdomen and pelvis with intravenous contrast. S agittal and coronal reformatted images were created and reviewed. This CT exam was performed using one or more of the following dose reduction techniques: automated exposure control, adjustment of t he mA and/or kV according to patient size, and/or use of iterative reconstruction technique. COMPARISON: CT abdomen and pelvis with contrast March 07, 2023. FINDINGS: Lung bases: Unremarkable. No mass. No consolidation. ABDOMEN: Liver: Unremarkable. No mass. Gallbladder and bile ducts: Cholelithiasis, similar to prior. No ductal dilation. Pancreas: Unremarkable. No mass. No ductal dilation. Spleen: Unremarkable. No splenomegaly. Adrenals: Unremarkable. No mass. Kidneys and ureters: Unremarkable. No solid mass. No hydronephrosis. Stomach and bowel: Postsurgical changes in the stomach. No obstruction. No mucosal thickening. PELVIS: Appendix: The appendix is normal. Bladder: Unremarkable. Reproductive: 3.3 cm simple right ovarian cyst. No follow-up imaging is recommended. ABDOMEN and PELVIS: Intraperitoneal space: Unremarkable. No free air. No significant fluid collection. Bones/joints: No acute fracture. No dislocation. Soft tissues: Unremarkable. Vasculature: Unremarkable. No abdominal aortic aneurysm. Lymph nodes: Unremarkable. No enlarged lymph nodes. IMPRESSION: No acute finding in the abdomen/pelvis. Electronically signed by: Billy Olvera MD 11/22/2023 05:54 AM CDT Due to temporary technical issues with the PACS/Fluency reporting system, reports are being signed by the in house radiologists without review as a courtesy to insure prompt reporting. The interpreting radiologist is fully responsible for the content of the report.
--- NOTE | 2023-11-22 20:01 | RAD REPORT ---
EXAM DESCRIPTION: RAD - Chest Single View - 11/22/2023 5:25 am CLINICAL HISTORY: The patient is 37 years old and is Female; CHEST PAIN TECHNIQUE: Frontal view of the chest. COMPARISON: No relevant prior studies available. FINDINGS: Lungs: No consolidation. 1.6 cm rounded opacity overlying the right lung base which may represent the nipple. Pleural space: Unremarkable. No pneumothorax. Heart: Unremarkable. Mediastinum: Unremarkable. Normal mediastinal contour. Bones/joints: No acute findings. IMPRESSION: No acute findings in the chest. Electronically signed by: Billy Olvera MD 11/22/2023 05:49 AM CDT Due to temporary technical issues with the PACS/Fluency reporting system, reports are being signed by the in house radiologists without review as a courtesy to insure prompt reporting. The interpreting radiologist is fully responsible for the content of the report.
--- NOTE | 2023-11-24 12:48 | EKG ---
Test Date: 2023-11-22 Test Time: 04:13:53 Block Cutter: BRADLEY MEASUREMENT RESULTS: Intervals: Rate: 61 WV: 170 QRSD: 78 QT: 378 QTc: 380 Orgas: P: 53 WV: 170 QRS: 72 T: -3 INTERPRETIVE STATEMENTS: Sinus rhythm Nonspecific ST and T wave abnormality Abnormal ECG Compared to ECG 10/05/2023 23:05:28 ST (T wave) deviation now present Electronically Signed On 11-24-23 12:42:44 CDT by Omi Arzate
== END 2023-11-22 06:08 | disposition home or self-care (01) ==
LOC: ER 04:01
DX: R07.9 Chest pain, unspecified (principal); E03.9 Hypothyroidism, unspecified; Z88.0 Allergy status to penicillin
CPT/HCPCS: 36415; 71045; 74177; 80053; 81001; 81025; 83690; 83880; 84439; 84443; 84484; 84703; 85025; 93005; 99285; Q9967

== ENCOUNTER 2024-10-24 23:38 | Emergency (ER) | payer OTHER ==
[2024-10-25] MEDS ORDERED: IPRATROPIUM BROM 0.5MG/2.5ML ONE
[2024-10-25] MEDS ORDERED: ALBUTEROL 2.5 MG/3 ML NEB SOL ONE
[2024-10-25] MEDS ORDERED: ONDANSETRON 4 MG/2 ML VIAL ONE
[2024-10-25] MEDS ORDERED: NA CHLORIDE 0.9% 1,000 ML ONE
[2024-10-25 00:35] LABS: Absolute Monocytes 0.3 K/uL (0.1-1.3); Absolute Neutrophil 3.7 K/uL (1.8-8.0); Basophils % 0.6 % (0-1.3); Eosinophils % 0.5 % (0-4.4); Hematocrit 28.8 % (36.0-45.0); Hemoglobin 9.2 g/dL (12.0-15.0); Lymphocytes % 20.5 % (15.3-44.8); MCH 22.7 pg (27.0-35.0); MCV 70.9 fL (80-100); MPV 7.2 fL (7.6-11.3); Monocytes % 6.7 % (3.3-12.3); Neutrophils % 71.7 % (41.7-73.7); Platelets 290 thou/uL (152-406); RBC Red Blood Cell Count 4.06 M/uL (3.86-4.86); Red Cell Distribution Width 18.1 % (12.1-15.2)
[2024-10-25 00:49] LABS: Anion Gap 8.3 mEq/L (5.0-15.0); BUN Blood Urea Nitrogen 15 mg/dL (7-18); Bicarbonate 26 mEq/L (21-32); Glomerular Filtration Rate 116 ml/min (=/>90); Glucose Level 139 mg/dL (74-106); Potassium 3.3 mEq/L (3.5-5.1); Sodium Level 135 mEq/L (136-145)
[2024-10-25 00:52] LABS: Thyroid Stimulating Hormone < 0.005 uIU/mL (0.358-3.740)
[2024-10-25] MEDS ORDERED: KETOROLAC 30 MG/ML INJ ONE (01:04)
[2024-10-25 01:11] LABS: Influenza A Ag Negative; Influenza B Ag Negative; SARS-CoV-2 Antigen Rapid Res Negative (Negative)
--- NOTE | 2024-10-25 01:18 | ER ---
Nurse's Notes [facility] Name: Leena Muniz Age: 38 yrs Sex: Female : 1985 Arrival Date: 10/24/2024 Time: 23:38 Bed 7 Private MD: Diagnosis: Acute upper respiratory infection, unspecified;Hyperthyroidism Presentation: 10/24 23:48 Chief complaint: Patient states: I have had a cough for the past 8-9 days. Now I am jb4 having N/V and upper back pain. Coronavirus screen: At this time, the client does not indicate any symptoms associated with coronavirus-19. Ebola Screen: No symptoms or risks identified at this time. Initial Sepsis Screen: Does the patient meet any 2 criteria? HR > 90 bpm. Yes Does the patient have a suspected source of infection? No. Patient's initial sepsis screen is negative. Risk Assessment: Do you want to hurt yourself or someone else? Patient reports no desire to harm self or others. Onset of symptoms was October 16, 2024. Transition of care: patient was not received from another setting of care. 23:48 Method Of Arrival: Ambulatory jb4 23:48 Acuity: ALEE 3 jb4 Historical: - Allergies: 23:49 PENICILLINS; jb4 - PMHx: 23:49 hyperthyroidism; stroke july 2021; Hypokalemia; Asthma; Anemia; jb4 - PSHx: 23:49 gastric sleeve; jb4 - Immunization history:: Adult Immunizations up to date. - Infectious Disease History:: Denies. - Social history:: Smoking status: Reported history of juuling and/or vaping. Screenin/10 00:06 [facility] ED Fall Risk Assessment (Adult) History of falling in the last 3 months, br2 including since admission No falls in past 3 months (0 pts) Confusion or Disorientation No (0 pts) Intoxicated or Sedated No (0 pts) Impaired Gait No (0 pts) Mobility Assist Device Used No (0 pt) Altered Elimination No (0 pt) Score/Fall Risk Level 0 - 2 = Low Risk Oriented to surroundings. Abuse screen: Denies threats or abuse. Denies injuries from another. Nutritional screening: No deficits noted. Nutritional screening: No deficits noted. Tuberculosis screening: No symptoms or risk factors identified. Assessment: 00:06 Reassessment: Patient and/or family updated on plan of care and expected duration. Pain br2 level reassessed. Patient is alert, oriented x 3, equal unlabored respirations, skin warm/dry/pink. General: Appears uncomfortable, Behavior is calm, cooperative. 01:15 Reassessment: Patient and/or family updated on plan of care and expected duration. Pain br2 level reassessed. Patient is alert, oriented x 3, equal unlabored respirations, skin warm/dry/pink. Patient states feeling better. Patient states symptoms have improved. Vital Signs: 10/24 23:48 BP 138 / 83; Pulse 105; Resp 18; Temp 98.8(O); Pulse Ox 100% on R/A; Weight 53.98 kg jb4 (R); Height 4 ft. 11 in. (R); Pain 01/25; 10/25 00:37 BP 134 / 89; Pulse 98; Resp 18 S; Temp 97.1; Pulse Ox 100% on R/A; br2 10/24 23:48 Body Mass Index 24.03 (53.98 kg, 149.86 cm) jb4 10/24 23:48 Pain Scale: Adult jb4 ED Course: 10/24 23:41 Patient arrived in ED. im 23:42 Vannesa Gordon PA-C is PHCP. sb4 23:42 Ranjith Sue MD is Attending Physician. sb4 23:49 Triage completed. jb4 23:49 Arm band placed on right wrist. jb4 23:56 Cheryl Romero, TANA is Primary Nurse. br2 10/25 00:06 Patient has correct armband on for positive identification. Placed in gown. Bed in low br2 position. Call light in reach. Side rails up X 1. Provided Education on: PLAN OF CARE. Door closed. Noise minimized. Lights dimmed. Warm blanket given. 00:06 TSH Sent. br2 00:06 BMP Sent. br2 00:06 CBC with Diff Sent. br2 00:06 Inserted saline lock: 20 gauge in right antecubital area, using aseptic technique. br2 Blood collected. Flushed with 10 mL NS. 00:13 Chest Pa And Lat (2 Views) XRAY In Process Unspecified. EDMS 01:30 IV discontinued, intact, bleeding controlled, No redness/swelling at site. Pressure br2 dressing applied. Administered Medications: 00:04 CANCELLED (Physician Discretion): propranolol5 mg PO once sb4 01:02 Drug: DuoNeb Nebulize (3:1) (2.5 mg - 0.5 mg) 3 ml Nebulizer once Route: Nebulizer; br2 01:30 Follow up: Response: No adverse reaction br2 01:02 Drug: NS 0.9% IV 1000 ml IV at 1000 ml once; to be given as a bolus over 60 minutes br2 Route: IV; Rate: 1000 ml; Site: right antecubital; 01:30 Follow up: IV Status: Completed infusion; IV Intake: 1000ml br2 01:02 Drug: Ondansetron IVP 4 mg IVP once; over 2 minutes Route: IVP; Site: right antecubital;br2 01:30 Follow up: Response: No adverse reaction br2 01:10 Drug: Ketorolac IVP 15 mg IVP once Route: IVP; Site: right antecubital; br2 01:30 Follow up: Response: No adverse reaction; Pain is decreased br2 Intake: 01:30 IV: 1000ml; Total: 1000ml. br2 Outcome: 01:16 Discharge ordered by . sb4 01:30 Discharged to home ambulatory, br2 01:30 Condition: good 01:30 Discharge instructions given to patient, Instructed on discharge instructions, follow up and referral plans. Demonstrated understanding of instructions, follow-up care, medications, Prescriptions given X 5 02:00 Patient left the ED. br2 Signatures: Dispatcher [employer] EDMS Ulisses Ortiz RN RN [id number] Vannesa Gordon PA-C PAEricC sb4 Linda Santoro Belinda, RN RN br2
--- NOTE | 2024-10-25 01:18 | EDPHYS ---
Physician Documentation [facility] Name: Leena Muniz Age: 38 yrs Sex: Female : 1985 Arrival Date: 10/24/2024 Time: 23:38 Bed 7 Private MD: ED Physician Ranjith Sue HPI: 10/24 23:50 This 38 yrs old Female presents to ER via Ambulatory with complaints of Flu sb4 Symptoms. 23:50 Cough and congestion x 8 to 9 days. Started experiencing nausea and vomiting yesterday. sb4 She feels short of breath, has a history of asthma. Additionally, she has a history of hyperthyroidism and has been out of her medication for 2 weeks now. Historical: - Allergies: 23:49 PENICILLINS; jb4 - PMHx: 23:49 hyperthyroidism; stroke july 2021; Hypokalemia; Asthma; Anemia; jb4 - PSHx: 23:49 gastric sleeve; jb4 - Immunization history:: Adult Immunizations up to date. - Infectious Disease History:: Denies. - Social history:: Smoking status: Reported history of juuling and/or vaping. ROS: 23:50 Cardiovascular: Negative for chest pain, palpitations, and edema, sb4 23:50 Constitutional: Positive for fatigue, fever, malaise, 23:50 Respiratory: Positive for cough, shortness of breath, 23:50 Abdomen/GI: Positive for nausea, vomiting, and diarrhea, 23:50 All other systems are negative, Exam: 23:50 Head/Face: Normocephalic, atraumatic. Eyes: Extra-ocular motions intact. Periorbital sb4 areas with no swelling, redness, or edema. ENT: Mucous membranes moist. Cardiovascular: Regular rate and rhythm with a normal S1 and S2. Respiratory: No increased work of breathing, no retractions or nasal flaring. Abdomen/GI: Soft, non-tender, no distension. Skin: Warm, dry with normal turgor. Normal color with no rashes, no lesions, and no evidence of cellulitis. 23:50 Constitutional: The patient appears alert, awake, obviously ill, 23:50 ENT: Exam is negative for TM abnormalities, enlarged tonsils, 23:50 Respiratory: Breath sounds: are clear throughout, Vital Signs: 23:48 BP 138 / 83; Pulse 105; Resp 18; Temp 98.8(O); Pulse Ox 100% on R/A; Weight 53.98 kg jb4 (R); Height 4 ft. 11 in. (R); Pain 01/25; 10/25 00:37 BP 134 / 89; Pulse 98; Resp 18 S; Temp 97.1; Pulse Ox 100% on R/A; br2 10/24 23:48 Body Mass Index 24.03 (53.98 kg, 149.86 cm) jb4 10/24 23:48 Pain Scale: Adult jb4 MDM: 10/24 23:42 Medical Screening Exam initiated sb4 10/25 00:31 Independent interpretation of the following test(s) in the Emergency Department X-Ray: sb4 My interpretation is My interpretation of the chest x-ray images is no evidence of pneumonia or pulmonary edema. 01:16 Data reviewed: vital signs, nurses notes, lab test result(s), radiologic studies, and sb4 as a result, I will discharge patient. Counseling: I had a detailed discussion with the patient and/or guardian regarding the historical points, exam findings, and any diagnostic results supporting the discharge/admit diagnosis, lab results, radiology results, the need for outpatient follow up, for definitive care, to return to the emergency department if symptoms worsen or persist or if there are any questions or concerns that arise at home. 10/24 23:49 Order name: CBC with Diff; Complete Time: 00:37 sb4 10/24 23:49 Order name: BMP; Complete Time: 00:54 sb4 10/24 23:49 Order name: TSH; Complete Time: 00:54 sb4 10/24 23:49 Order name: COVID-19 Ag + Flu A+B Ag; Complete Time: 01:12 sb4 10/24 23:49 Order name: Test, Serum; Complete Time: 00:39 sb4 10/24 23:49 Order name: Chest Pa And Lat (2 Views) XRAY sb4 10/24 23:49 Order name: IV Start; Complete Time: 00:06 sb4 Administered Medications: 00:04 CANCELLED (Physician Discretion): propranolol5 mg PO once sb4 01:02 Drug: DuoNeb Nebulize (3:1) (2.5 mg - 0.5 mg) 3 ml Nebulizer once Route: Nebulizer; br2 01:30 Follow up: Response: No adverse reaction br2 01:02 Drug: NS 0.9% IV 1000 ml IV at 1000 ml once; to be given as a bolus over 60 minutes br2 Route: IV; Rate: 1000 ml; Site: right antecubital; 01:30 Follow up: IV Status: Completed infusion; IV Intake: 1000ml br2 01:02 Drug: Ondansetron IVP 4 mg IVP once; over 2 minutes Route: IVP; Site: right antecubital;br2 01:30 Follow up: Response: No adverse reaction br2 01:10 Drug: Ketorolac IVP 15 mg IVP once Route: IVP; Site: right antecubital; br2 01:30 Follow up: Response: No adverse reaction; Pain is decreased br2 Disposition: 02:41 Co-signature as Attending Physician, Ranjith Seu MD I reviewed the patient's care rt provided by the Advanced Practice Provider and agree with the diagnosis and treatment plan. Disposition Summary: 10/25/24 01:16 Discharge Ordered Notes: Location: Home sb4 Problem: new sb4 Symptoms: have improved sb4 Condition: Stable sb4 Diagnosis - Acute upper respiratory infection, unspecified sb4 - Hyperthyroidism, uncontrolled sb4 - Hyperthyroidism sb4 Followup: sb4 - With: Private Physician - When: 1 week - Reason: Recheck today's complaints, Continuance of care, Re-evaluation by your physician Discharge Instructions: - Discharge Summary Sheet sb4 - Hyperthyroidism sb4 - Upper Respiratory Infection, Adult, [id number] sb4 Forms: - Antibiotic Education sb4 - Patient Portal Instructions sb4 - Leadership Thank You Letter sb4 Prescriptions: - methimazole 5 mg Oral tablet - take 1 tablet ORAL route 3 times per day; 30 tablet; Refills: 0, Product sb4 Selection Permitted - propranolol 20 mg Oral tablet - take 1 tablet ORAL route every 12 hours; 20 tablet; Refills: 0, Product sb4 Selection Permitted - albuterol sulfate 90 mcg/actuation Inhalation HFA Aerosol Inhaler - inhale 1 puff INHALATION route 6 times per day as needed for shortness of sb4 breath or wheezing; 1 Applicator; Refills: 0, Product Selection Permitted - Prednisone 20 mg Oral Tablet - take 1 tablet ORAL route once daily for 5 days; 5 tablet; Refills: 0, Product sb4 Selection Permitted - Zithromax Z-Eduardo 250 mg Oral Tablet - take 1 tablet ORAL route as directed for 5 days Day 1 - take two (2) tablets sb4 one time. Day 2, 3, 4 , 5 take one (1) tablet once daily.; 6 tablet; Refills: 0, Product Selection Permitted Signatures: Dispatcher [employer] EDAZ Ulisses Ortiz, TANA RN jb4 Vannesa Gordon PAEricC PAEricC sb4 Ranjith Sue MD MD rt Cheryl Romero RN RN br2 Corrections: (The following items were deleted from the chart) 00:04 10/24 23:49 Propranolol PO 5 mg PO once ordered. sb4 sb4
[2024-10-25 02:09] VITALS: O2SAT 100
[2024-10-25 02:19] VITALS: BP 134/89; TEMP 97.1
--- NOTE | 2024-10-25 05:37 | RAD REPORT ---
EXAM: XR Chest, 2 Views CLINICAL HISTORY: The patient is 38 years old and is Female; COPD TECHNIQUE: Frontal and lateral views of the chest. COMPARISON: XR Chest dated August 21 2023 FINDINGS: LUNGS: Unremarkable. No consolidation. PLEURAL SPACE: Unremarkable. No pneumothorax. HEART: Unremarkable. No cardiomegaly. MEDIASTINUM: Unremarkable. Normal mediastinal contour. BONES/JOINTS: Unremarkable. No acute fracture. UPPER ABDOMEN: Unremarkable as visualized. IMPRESSION: No acute cardiopulmonary process. Electronically signed by: Alla Valencia MD 10/25/2024 01:05 AM CDT RP Due to temporary technical issues with the PACS/Patient Engagement Systems reporting system, reports are being shelly d by the in-house radiologist without review as a courtesy to ensure prompt reporting the interpreting radiologist is fully responsible for the content of the report. Transcribed Date/Time: 10/25/2024 5:37 AM
== END 2024-10-25 02:00 | disposition home or self-care (01) ==
LOC: ER 23:38
DX: J06.9 Acute upper respiratory infection, unspecified (principal); E05.90 Thyrotoxicosis, unspecified without thyrotoxic crisis or storm; Z11.52 Encounter for screening for COVID-19
CPT/HCPCS: 85025; 80048; 36415; 84703; 84443; 71046; 96375; 96374; 99285; 87428; J7613; J7644; J2405; J7030

== ENCOUNTER 2025-05-30 20:46 | Emergency (ER) | payer OTHER ==
[2025-05-30] MEDS ORDERED: NA CHLORIDE 0.9% 1,000 ML ONE (21:36)
[2025-05-30] MEDS ORDERED: LORazepam 2 MG/ML VIAL ONE (21:36)
[2025-05-30 21:44] LABS: Absolute Lymphocytes (CBC) 1.5 K/uL (0.7-4.9); Hematocrit 28.5 % (36.0-45.0); Hemoglobin 8.8 g/dL (12.0-15.0); MCH 20.7 pg (27.0-35.0); MCHC 31.1 g/dL (32.0-36.0); MCV 66.6 fL (80-100); MPV 6.9 fL (7.6-11.3); Nucleated RBC Absolute Count 0.0 (0-0); Nucleated Red Blood Cells % 0.0 % (0-0); RBC Red Blood Cell Count 4.28 M/uL (3.86-4.86); White Blood Count 6.10 thou/uL (4.3-10.9)
[2025-05-30 21:50] LABS: PT Prothrombin Time 12.6 SECONDS (10-13.0); Protime INR 1.12
--- NOTE | 2025-05-30 21:59 | RAD REPORT ---
EXAMINATION: ONE VIEW CHEST XR CLINICAL INDICATION: CHEST PAIN TECHNIQUE: Frontal chest projection is submitted. Examination is limited by patient positioning and t echnique. COMPARISON: 02/19/2025 FINDINGS: The lungs are well inflated and clear. The heart is normal in size. No displaced fractures identified . Rounded nodular lesion superimposed on the left lateral lung base likely nipple shadow. IMPRESSION: No acute intrathoracic abnormalities.
[2025-05-30 22:10] LABS: White Blood Cell Scan OK (OK)
[2025-05-30 22:11] LABS: Anisocytosis 1+; Blood Morphology Comment NOTED (NOT SEEN); Hypochromasia 1+; Microcytosis 1+; Ovalocytes 1+; Stomatocytes 1+
[2025-05-30 22:14] LABS: ALT/SGPT 27 U/L (13-56); AST/SGOT 28 U/L (15-37); Albumin 3.5 g/dL (3.4-5.0); Albumin/Globulin Ratio 0.9 (1.1-1.8); Alkaline Phosphatase 118 U/L (45-117); Anion Gap 11.2 mEq/L (5.0-15.0); BUN Blood Urea Nitrogen 15 mg/dL (7-18); Bilirubin Indirect, Calculated 0.7 mg/dL (0.2-0.8); Globulin 3.9 g/dL (2.3-3.5); Glucose Level 100 mg/dL (74-106); Magnesium 2.0 mg/dL (1.6-2.4); NT PRO-BNP 132 pg/mL (<125); Potassium 3.2 mEq/L (3.5-5.1); Thyroid Stimulating Hormone < 0.005 uIU/mL (0.358-3.740); Troponin High Sensitivity 5.7 pg/mL (<58.9)
[2025-05-30] MEDS ORDERED: KETOROLAC 30 MG/ML INJ ONE (23:47)
--- NOTE | 2025-05-30 23:56 | ER ---
Nurse's Notes [facility] Name: Leena Muniz Age: 39 yrs Sex: Female : 1985 Arrival Date: 05/30/2025 Time: 20:46 Bed 20 Private MD: Diagnosis: Chest pain, unspecified;Hyperthyroidism Presentation: 05/30 21:11 Chief complaint: Patient states: CHEST PAIN, SOB AND FREQ URINATION SINCE APPROX 1730 br2 TODAY. HAS BEEN OUT OF HER THYROID MEDS. Coronavirus screen: Client denies travel out of the [place] in the last 14 days. Ebola Screen: Patient denies exposure to infectious person. Initial Sepsis Screen: Does the patient meet any 2 criteria? HR > 90 bpm. Does the patient have a suspected source of infection? No. Patient's initial sepsis screen is negative. Risk Assessment: Do you want to hurt yourself or someone else?. Onset of symptoms was May 30, 2025 at 17:30. 21:11 Method Of Arrival: Ambulatory br2 21:11 Acuity: ALEE 3 br2 Triage Assessment: 21:13 General: Appears in no apparent distress. uncomfortable, Behavior is calm, cooperative. br2 Pain: Complains of pain in anterior aspect of right upper chest, anterior aspect of left upper chest and mid-sternal area Pain currently is 6 out of 10 on a pain scale. Respiratory: Reports shortness of breath. Historical: - Allergies: 21:13 PENICILLINS; br2 - PMHx: 21:13 Anemia; Asthma; hyperthyroidism; Hypokalemia; stroke july 2021; br2 - PSHx: 21:13 gastric sleeve; br2 - Immunization history:: Adult Immunizations up to date. - Infectious Disease History:: Denies. - Social history:: Smoking status: Patient/guardian denies using tobacco, Patient uses alcohol, occasionally. Patient/guardian denies using street drugs. Screenin:30 [facility] ED Fall Risk Assessment (Adult) History of falling in the last 3 months, me1 including since admission No falls in past 3 months (0 pts) Confusion or Disorientation No (0 pts) Intoxicated or Sedated No (0 pts) Impaired Gait No (0 pts) Mobility Assist Device Used No (0 pt) Altered Elimination No (0 pt) Score/Fall Risk Level 0 - 2 = Low Risk Maintained a safe environment, Provided non-skid footwear, Hourly rounding (assess needs \T\ fall precautionary measures) done. Abuse screen: Denies threats or abuse. Nutritional screening: No deficits noted. Tuberculosis screening: No symptoms or risk factors identified. Assessment: 21:30 General: Appears uncomfortable, well groomed, well developed, well nourished, Behavior me1 is cooperative, appropriate for age, anxious, Reports CHEST PAIN, SOB AND FREQ URINATION SINCE APPROX 1730 TODAY. HAS BEEN OUT OF HER THYROID MEDS. Pain: Complains of pain in chest and mid-sternal area and anterior aspect of left upper chest and anterior aspect of right upper chest Pain does not radiate. Pain currently is 6 out of 10 on a pain scale. Quality of pain is described as heavy, Pain began gradually, Is continuous. Neuro: Level of Consciousness is awake, alert, obeys commands, Oriented to person, place, time, situation, Appropriate for age. Cardiovascular: Reports chest pain, shortness of breath, Patient's skin is warm and dry. Respiratory: Reports shortness of breath at rest on exertion Airway is patent Respiratory effort is even, unlabored, Respiratory pattern is regular, symmetrical. GI: No signs and/or symptoms were reported involving the gastrointestinal system. : Reports urinary frequency. EENT: No signs and/or symptoms were reported regarding the EENT system. Derm: Skin is intact, is healthy with good turgor, Skin is normal. Musculoskeletal: Circulation, motion, and sensation intact. Range of motion: intact in all extremities. 23:00 Reassessment: Patient and/or family updated on plan of care and expected duration. Pain nh2 level reassessed. Patient is alert, oriented x 3, equal unlabored respirations, skin warm/dry/pink. General: Appears in no apparent distress. Behavior is calm, cooperative. Pain: Denies pain. Neuro: Level of Consciousness is awake, alert, obeys commands, Oriented to person, place, time, situation, Appropriate for age. Cardiovascular: Patient's skin is warm and dry. Rhythm is sinus rhythm. Respiratory: Airway is patent Trachea midline Respiratory effort is even, unlabored, Respiratory pattern is regular, symmetrical. GI: No signs and/or symptoms were reported involving the gastrointestinal system. 05/31 00:00 Reassessment: Patient and/or family updated on plan of care and expected duration. Pain nh2 level reassessed. Patient is alert, oriented x 3, equal unlabored respirations, skin warm/dry/pink. Patient denies pain at this time. Vital Signs: 05/30 21:11 BP 166 / 97; Pulse 102; Resp 18 S; Temp 98.1(O); Pulse Ox 100% on R/A; Weight 65.77 kg; br2 Height 4 ft. 11 in. ; Pain 6/10; 21:30 BP 149 / 93; Pulse 92; Resp 18; Pulse Ox 100% ; me1 23:50 BP 145 / 94; Pulse 86; Resp 19; Pulse Ox 99% on R/A; nh2 21:11 Body Mass Index 29.29 (65.77 kg, 149.86 cm) br2 21:11 Pain Scale: Adult br2 ED Course: 20:49 Patient arrived in ED. mr 21:02 [facility] sb4 21:02 Jens Veliz MD is Attending Physician. sb4 21:03 Ana Luisa Arteaga, TANA is Primary Nurse. me1 21:13 Triage completed. br2 21:13 Arm band placed on right wrist. br2 21:30 Patient has correct armband on for positive identification. Bed in low position. Call me1 light in reach. Side rails up X2. Provided Education on: POC. Verbalized understanding.. Client placed on continuous cardiac and pulse oximetry monitoring. NIBP monitoring applied. telemetry monitor on. Pulse ox on. NIBP on. 21:30 No provider procedures requiring assistance completed. Patient maintains SpO2 me1 saturation greater than 95% on room air. 21:37 Initial lab(s) drawn, by open hearth furnace laborer, sent to lab. Inserted saline lock: 20 gauge in right ts3 antecubital area, using aseptic technique. Blood collected. Flushed with 10 mL NS. 21:42 EKG done, by ED staff, reviewed by Vannesa Gordon PA-C. me1 21:46 XRAY Chest (1 view) In Process Unspecified. EDMS 05/31 00:09 IV discontinued, intact, bleeding controlled, No redness/swelling at site. Pressure nh2 dressing applied. Administered Medications: 05/30 21:40 Drug: NS 0.9% IV 1000 ml IV at 1000 ml once; to be given as a bolus over 60 minutes me1 Route: IV; Rate: 1000 ml; Site: right antecubital; 05/31 00:11 Follow up: IV Status: Completed infusion; IV Intake: 1000ml nh2 05/30 21:40 Drug: Ativan IVP 0.5 mg IVP once Route: IVP; Site: right antecubital; me1 22:00 Follow up: Response: No adverse reaction nh2 23:15 Drug: methIMAzole 10 mg Feeding Tube once; ORALLY Route: Feeding Tube; nh2 23:53 Follow up: Response: No adverse reaction nh2 23:56 Drug: Ketorolac IVP 15 mg IVP once Route: IVP; Site: right antecubital; nh2 05/31 00:11 Follow up: Response: Medication administered at discharge. nh2 00:09 Drug: Potassium Chloride PO 40 mEq PO once Route: PO; nh2 00:11 Follow up: Response: Medication administered at discharge. nh2 Medication: 05/30 21:30 VIS not applicable for this client. me1 Intake: 05/31 00:11 IV: 1000ml; Total: 1000ml. nh2 Outcome: 05/30 23:56 Discharge ordered by MD. tee4 05/31 00:12 Discharged to home ambulatory, nh2 Condition: good Discharge instructions given to patient, Instructed on discharge instructions, follow up and referral plans. medication usage, Demonstrated understanding of instructions, follow-up care, medications, Prescriptions given X 2, 00:12 Patient left the ED. nh2 Signatures: Dispatcher [employer] EDPR Jorge L Maegan, Reg Reg mr Gordon Vannesa, PAEricC PAElisha sb4 Ana Luisa Arteaga RN RN me1 Cheryl Romero RN RN br2 Harris Shultz Jr, RN RN nh2 Shona Conte 3 Corrections: (The following items were deleted from the chart) 05/30 21:29 21:11 Chief complaint: Patient states: CHEST PAIN, SOB AND FREQ URINATION SINCE APPROX me1 1730 TODAY. HAS BEEN OUT OF HER THYROID MEDS br2
--- NOTE | 2025-05-30 23:57 | EDPHYS ---
Physician Documentation [facility] Name: Leena Muniz Age: 39 yrs Sex: Female : 1985 Arrival Date: 05/30/2025 Time: 20:46 Bed 20 Private MD: WALDEMAR Physician Jens Veliz HPI: 05/31 01:14 This 39 yrs old Female presents to ER via Ambulatory with complaints of High sb4 Blood Pressure, Chest Pressure, Headache, Dizziness. 01:14 Patient states that she started feeling badly when she got off work today with chest sb4 pain, palpitations, headache, dizziness. Does report a history of hyperthyroidism but states that she has been out of her medications for about a week now. States that she has been been seeing an technical support professional and the plan is to do surgery because her condition has been resistant to medications. Denies any shortness of breath, nausea, vomiting, diaphoresis. Historical: - Allergies: 05/30 21:13 PENICILLINS; br2 - PMHx: 21:13 Anemia; Asthma; hyperthyroidism; Hypokalemia; stroke july 2021; br2 - PSHx: 21:13 gastric sleeve; br2 - Immunization history:: Adult Immunizations up to date. - Infectious Disease History:: Denies. - Social history:: Smoking status: Patient/guardian denies using tobacco, Patient uses alcohol, occasionally. Patient/guardian denies using street drugs. ROS: 05/31 01:14 Constitutional: Negative for fever, chills, and weight loss, sb4 Cardiovascular: Positive for chest pain, palpitations, Neuro: Positive for dizziness, headache, All other systems are negative, Exam: 01:14 Head/Face: Normocephalic, atraumatic. Eyes: Extra-ocular motions intact. Periorbital sb4 areas with no swelling, redness, or edema. ENT: Mucous membranes moist. Cardiovascular: Regular rate and rhythm with a normal S1 and S2. Respiratory: No increased work of breathing, no retractions or nasal flaring. Abdomen/GI: Soft, non-tender, no distension. Skin: Warm, dry with normal turgor. Normal color with no rashes, no lesions, and no evidence of cellulitis. MS/ Extremity: Pulses equal, no cyanosis. Neurovascular intact. Full, normal range of motion. Neuro: Awake and alert, GCS 15, oriented to person, place, time, and situation. Motor strength 5/5 in all extremities. Sensory grossly intact. 01:14 Constitutional: The patient appears in no acute distress, alert, awake, Vital Signs: 05/30 21:11 BP 166 / 97; Pulse 102; Resp 18 S; Temp 98.1(O); Pulse Ox 100% on R/A; Weight 65.77 kg; br2 Height 4 ft. 11 in. ; Pain 6/10; 21:30 BP 149 / 93; Pulse 92; Resp 18; Pulse Ox 100% ; me1 23:50 BP 145 / 94; Pulse 86; Resp 19; Pulse Ox 99% on R/A; nh2 21:11 Body Mass Index 29.29 (65.77 kg, 149.86 cm) br2 21:11 Pain Scale: Adult br2 MDM: 21:02 Medical Screening Exam initiated sb4 05/31 01:14 Data interpreted: quality assurance monitor body: rate is 86 beats/min, rhythm is normal sinus rhythm, sb4 with no ectopy, Interpretation: normal rate. Data reviewed: vital signs, nurses notes, lab test result(s), EKG, radiologic studies, plain films, and as a result, I will discharge patient. Care significantly affected by the following chronic conditions: Hyperthyroidism. Scoring Tools HEART Score: History: ECG: Age: Risk Factors: 1 or 2 risk factors (1), Troponin: Total Score = 2. Counseling: I had a detailed discussion with the patient and/or guardian regarding the historical points, exam findings, and any diagnostic results supporting the discharge/admit diagnosis, the presence of at least one elevated blood pressure reading (>120/80) during this emergency department visit, lab results, radiology results, the need for outpatient follow up, for definitive care, to return to the emergency department if symptoms worsen or persist or if there are any questions or concerns that arise at home. Special discussion: Based on the patient's history, exam, and Dx evaluation, there is no indication for emergent intervention or inpatient Tx. It is understood by the patient/guardian that if the Sx's persist or worsen they need to return immediately for re-evaluation. ED course: Patient has an appointment with her technical support professional next month. Will refill her medications in the meantime. She states that her symptoms have improved with treatment. Will safely discharge home at this time. Return precautions discussed, patient understands and agreement with plan. 05/30 21:25 Order name: Basic Metabolic Panel; Complete Time: 22:16 sb4 05/30 21:25 Order name: CBC with Diff; Complete Time: 22:16 sb4 05/30 21:25 Order name: LFT's; Complete Time: 22:16 sb4 05/30 21:25 Order name: Magnesium; Complete Time: 22:16 sb4 05/30 21:25 Order name: NT PRO-BNP; Complete Time: 22:16 sb4 05/30 21:25 Order name: PT-INR; Complete Time: 21:51 sb4 05/30 21:25 Order name: Troponin HS; Complete Time: 22:16 sb4 05/30 21:25 Order name: TSH; Complete Time: 22:16 sb4 05/30 21:25 Order name: T4 Free; Complete Time: 22:16 sb4 05/30 21:47 Order name: CBC Smear Scan; Complete Time: 22:16 EDMS 05/30 23:39 Order name: UA Rfx Eladio Cult if indicated sb4 05/30 21:25 Order name: XRAY Chest (1 view); Complete Time: 22:03 sb4 05/30 21:25 Order name: EKG; Complete Time: 21:25 sb4 05/30 21:25 Order name: Cardiac monitoring; Complete Time: 21:28 sb4 05/30 21:25 Order name: EKG - Nurse/Tech; Complete Time: 21:28 sb4 05/30 21:25 Order name: IV Saline Lock; Complete Time: 21:36 sb4 05/30 21:25 Order name: Labs collected and sent; Complete Time: 21:36 sb4 05/30 21:25 Order name: O2 Per Protocol; Complete Time: 21:37 sb4 05/30 21:25 Order name: O2 Sat Monitoring; Complete Time: 21:37 sb4 EC:44 Rate is 90 beats/min. Rhythm is regular, Normal Sinus Rhythm. SD interval is normal at sb4 164 msec. QRS interval is normal at 79 msec. QT interval is normal at 362 msec. No Q waves. T waves are Normal. No ST changes noted. Clinical impression: No evidence of ischemia. Interpreted by me. Reviewed by me. Administered Medications: 05/30 21:40 Drug: NS 0.9% IV 1000 ml IV at 1000 ml once; to be given as a bolus over 60 minutes me1 Route: IV; Rate: 1000 ml; Site: right antecubital; 05/31 00:11 Follow up: IV Status: Completed infusion; IV Intake: 1000ml nh2 05/30 21:40 Drug: Ativan IVP 0.5 mg IVP once Route: IVP; Site: right antecubital; me1 22:00 Follow up: Response: No adverse reaction nh2 23:15 Drug: methIMAzole 10 mg Feeding Tube once; ORALLY Route: Feeding Tube; nh2 23:53 Follow up: Response: No adverse reaction nh2 23:56 Drug: Ketorolac IVP 15 mg IVP once Route: IVP; Site: right antecubital; nh2 05/31 00:11 Follow up: Response: Medication administered at discharge. nh2 00:09 Drug: Potassium Chloride PO 40 mEq PO once Route: PO; nh2 00:11 Follow up: Response: Medication administered at discharge. nh2 Disposition Summary: 05/30/25 23:56 Discharge Ordered Notes: Location: Home sb4 Problem: new sb4 Symptoms: have improved sb4 Condition: Stable sb4 Diagnosis - Chest pain, unspecified sb4 - Hyperthyroidism sb4 Followup: sb4 - With: Private Physician - When: 1 week - Reason: Recheck today's complaints, Re-evaluation by your physician Discharge Instructions: - Discharge Summary Sheet sb4 - Hyperthyroidism sb4 - Nonspecific Chest Pain, Adult, [id number] sb4 Forms: - Patient Portal Instructions sb4 - Leadership Thank You Letter sb4 Prescriptions: - methimazole 10 mg Oral tablet - take 1 tablet ORAL route daily; 30 tablet; Refills: 0, Product Selection sb4 Permitted - Propranolol 10 mg Oral tablet - take 1 tablet ORAL route every 6 hours; 50 tablet; Refills: 0, Product sb4 Selection Permitted Addendum: 06/01/2025 07:49 Co-signature as Attending Physician, Jens Veliz MD I agree with the assessment and c duque plan of care. Signatures: Dispatcher [employer] Jens Fang MD MD cha Brown, Sophia, PA-C PA-C sb4 Ana Luisa Arteaga RN RN me1 Cheryl Romero RN RN br2 Carrington Jr, Harris, RN RN nh2 Corrections: (The following items were deleted from the chart) 05/30 23:39 23:39 UA Rfx Eladio Cult if indicated+U.LAB.BRZ ordered. EDMS EDMS
[2025-05-31] MEDS ORDERED: POTASSIUM CL SA 10 MEQ TAB PO ONE (00:01)
[2025-05-31 00:47] LABS: Urine Microscopic Reflex YN NO UMIC
[2025-05-31 10:24] VITALS: TEMP 98.1
[2025-05-31 10:28] VITALS: BP 145/94; O2SAT 99
== END 2025-05-31 00:12 | disposition home or self-care (01) ==
LOC: ER 20:46
DX: R07.9 Chest pain, unspecified (principal); E05.90 Thyrotoxicosis, unspecified without thyrotoxic crisis or storm; R42 Dizziness and giddiness
CPT/HCPCS: 96361; 93005; 85025; 80048; 36415; 83735; 85610; 80076; 84443; 81003; 84484; 84439; 83880; 71045; 96375; 96374; 99285; J1885; J7030